=== PATIENT | female | born 1970 | race Caucasian/White ===

== ENCOUNTER 2021-01-06 12:22 | Emergency (ER) | payer MEDICAID, SELFPAY ==
[2021-01-06] VITALS (7 sets, daily range): BP systolic 136–156; BP diastolic 46–59; PULSE 70–76; RESP 17–22; TEMP 36.4; O2SAT 91–98; BMI 61.2
--- NOTE | 2021-01-06 12:32 | XR_ITS ---
WS: [id number] Portable AP upright chest, 01/06/2021 Clinical Data: dyspnea Comparison: None. Findings: No nodules, masses or effusions are seen. The heart is normal. The pulmonary vascularity is not increased. No pneumonia or pneumothorax is seen. XR/XR chest 1V portable [id number] Impression: Negative chest.
--- NOTE | 2021-01-06 12:33 | ECG_ITS ---
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 Measurements Intervals [place] Rate: 69 P: 1 AR: 144 QRS: 27 QRSD: 98 T: 15 QT: 397 QTc: 426 Interpretive Statements SINUS RHYTHM LOW QRS VOLTAGE IN PRECORDIAL LEADS [QRS DEFLECTION < 1.0 mV IN CHEST LEADS] Compared to ECG 02/05/2017 01:20:54 Low QRS voltage now present ST (T wave) deviation no longer present Electronically Signed On 01-07-2021 6:14:49 CDT by Annette Vega M.D. [email or web address].[email or web address]/store/OM/[id number]
--- NOTE | 2021-01-06 12:49 | ED_ITS ---
HPI - SOB/Dyspnea General: Chief Complaint: Shortness of Breath/Dyspnea Stated Complaint: DIFFICULTY BREATHING/ D DIMER ELEVATED Time Seen by Provider: 01/06/21 12:23 History of Present Illness: HPI Narrative: The patient is a 50-year-old female with past medical history COPD comes to the ER complaining of shortness of breath. She was seen in the clinic in [place] and told she had an elevated D-dimer and to come to the ER to rule out a blood clot. She admits feeling increasing shortness of breath for the past couple days as well as nonproductive cough. She says sometimes she gets COPD exacerbations and I do feel like this where she gets steroids and antibiotics. Denies chest pain. MD elicited complaint: shortness of breath and cough Pertinent past history: COPD Severity: moderate Exacerbating factors: exertion and coughing Relieving factors: other (Rest) Known history of: COPD Associated symptoms: Reports cough; Deny abdominal pain, chest pain, dizziness, extremity pain, orthopnea, palpit ations or polyuria Review of Systems General: Reports: 10 or more systems reviewed and unremarkable except in HPI and below Const: Denies: fatigue Eyes: Denies: change in vision, blurry vision or eye redness ENMT: Denies: throat pain, swelling of lips/tongue, ear or mastoid pain or nasal congestion Card: Denies: chest pain, palpitations, irregular heart rhythm, edema, dyspnea on exertion or orthopnea Resp: Denies: dyspnea, productive cough or non-productive cough GI: Denies: abdominal pain, diarrhea or GI cramping : Denies: flank pain, difficulty voiding, urinary frequency or urinary urgency Musc: Denies: neck pain, back pain, extremity pain, joint pain, joint redness, limited range of motion or muscle weakness Skin/Breast: Denies: rash, pruritus, erythema, skin pain or skin tenderness Neuro: Denies: headache(s), numbness in extremities, weakness in extremities, sensory changes, difficulty walking, dizziness, confusion or Slurred speech present Psych: Denies: anxiety or depression Endo: Denies: polyuria All/Imm: Denies: urticaria, throat swelling or tongue swelling Physical Exam Const: COMMON NORMALS: no acute distress, average body habitus, patient oriented x3, no limitations, healthy appearing, alert and well nourished GENERAL APPEARANCE: cooperative, comfortable, well kempt and well developed ORIENTATION/CONSCIOUSNESS: Yes awake, Yes oriented to person, Yes oriented to place and Yes oriented to time HENMT: COMMON NORMALS: normocephalic, external ears normal and Normal external nose present HEAD & SCALP: normal to inspection and normocephalic NOSE: Normal external nose present EXTERNAL EAR: Yes external ears normal MOUTH: Normal oral and palatal mucosa present THROAT: posterior oropharynx normal Eye: COMMON NORMALS: Equal, round and reactive pupils present and EOMs intact bilaterally GENERAL EYE: appearance normal, both eyes and all related structures PUPIL: Yes Equal, round and reactive pupils present Neck/C-Spine: COMMON NORMALS: full ROM, no lymphadenopathy, no meningeal signs and no JVD GENERAL: Yes normal visual inspection Lymph: LYMPHATIC: no lymphadenopathy noted Chest: COMMONS NORMALS: normal inspection of the chest and normal palpation of entire chest wall Resp: COMMON NORMALS: normal respiratory effort, No retractions, No use of accessory muscles, clear to auscultation bilaterally and percussion normal EFFORT & INSPECTION: Yes able to speak in complete sentences AUSCULTATION: clear to auscultation bilaterally PERCUSSION: percussion normal Cardio: COMMON NORMALS: no JVD, regular rate, regular rhythm, S1 normal heart sound present, S2 normal heart sound present and Peripheral pulses 2+ throughout RATE: regular rate RHYTHM: regular rhythm HEART SOUNDS: S1 normal heart sound present and S2 normal heart sound present PERIPHERAL PULSES: Peripheral pulses 2+ throughout GI: COMMON NORMALS: Normal to inspection, nondistended, normoactive bowel sounds present, Soft to palpation, non-tender and no masses INSPECTION: Yes normal to inspection PALPATION: Yes Soft to palpation : COMMON NORMALS: Yes no CVA tenderness BLADDER/KIDNEY EXAM: Yes no CVA tenderness Back/Pelvis: COMMON NORMALS: no CVA tenderness, thoracic and lumbar spine normal to inspection, no thoracic nor lumbar tenderness and thoraco-lumbar ROM normal Extremity: COMMON NORMALS: normal to inspection, full ROM, capillary refill normal, no joint enlargement and no pedal edema GENERAL: Yes normal exam except as noted Neuro: COMMON NORMALS: patient oriented x3, CN's II-XII intact bilaterally, moves all extremities, no focal motor deficits, no sensory deficits noted and gait normal SENSORIUM/ORIENTATION: Yes alert, Yes oriented to person, Yes oriented to place and Yes oriented to time MENINGEAL SIGNS: Yes no meningeal signs Psych: COMMON NORMALS: mental status grossly normal, Normal thought process present, cooperative, normal affect and speech normal APPEARANCE: Yes well kempt ATTITUDE: Yes calm SPEECH: Yes normal speech THOUGHT PROCESS: Normal thought process present Skin: COMMON NORMALS: no rashes or lesions noted GENERAL SKIN EXAM: no rashes or lesions noted Course Vital Signs: Vital signs: Vital Signs Temperature 97.5 F L 01/06/21 12:28 Pulse Rate 74 01/06/21 16:00 Respiratory Rate 19 H 01/06/21 16:00 Blood Pressure 136/57 01/06/21 16:00 Pulse Oximetry 95 01/06/21 16:00 MDM - SOB/Dyspnea MDM Narrative: Medical decision making narrative: Patient came in complaining of shortness of breath and she was called as an outpatient for elevated D-dimer and told to come to the ER and get a CT. CT angiogram had poor contrast bolus timing and could only rule out large pulmonary emboli. Her symptoms are more consistent with COPD exacerbation or bronchitis. She has had increased cough since she had a nosebleed several days ago that likely irritated her bronchi and possibly developed a local infection or exacerbation there. She was given albuterol with improvement of her shortness of breath. Stable for discharge with levofloxacin, Medrol Dosepak, and albuterol. She will return to the ER at anytime with worsening symptoms. Follow-up with primary care physician Sunday for repeat CT angiogram and ER at anytime with worsening symptoms. 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 Lab Data: Labs: Lab Results 01/06/21 01/06/21 01/06/21 Range/Units 12:00 12:00 12:00 WBC 6.3 (4.0-10.0) 10^3/ uL RBC 4.36 (4.1-5.3) 10^6/u L Hgb 11.5 (11.5-15.3) g/dL Hct 37.5 (37.0-47.0) % MCV 86.0 (81-99) fL MCH 26.4 L (28.0-34.0) pg MCHC 30.7 (30.0-36.0) g/dL RDW 18.5 H (12.1-15.1) % Plt Count 152 (130-400) 10^3/c mm MPV Not Reportable Neut % (Auto) 60.3 % Lymph % (Auto) 27.2 % Carson % (Auto) 9.3 % Eos % (Auto) 2.1 % Baso % (Auto) 0.6 % Neut # (Auto) 3.78 (1.8-7.7) 10^3/u L Lymph # (Auto) 1.7 (0.8-4.8) 10^3/u L Carson # (Auto) 0.6 (0.2-0.9) 10^3/u L Eos # (Auto) 0.1 (0.0-0.8) 10^3/u L Baso # (Auto) 0.0 (0.0-0.1) 10^3/u L Nucleated RBC % (a uto) 0 % Nucleated RBCs # 0.0 /100WBC D-Dimer (0-0.59) ug/mIFE U Sodium 137 (136-145) mmol/L Potassium 4.0 (3.5-5.1) mmol/L Chloride 100 (98-107) mmol/L Carbon Dioxide 26 (22-29) mmol/L Anion Gap 15.0 (5-19) BUN 13 (6-20) mg/dL Creatinine 0.6 (0.5-0.9) mg/dL GFR Calculation 105.8 (90-130) mL/min Glucose 153 H (65-115) mg/dL Calculated Osmolal ity 287 (285-295) mOsm/k g Lactate (0.5-2.2) mmol/L Calcium 9.1 (8.5-10.5) mg/dL Total Bilirubin 0.8 (0.15-1.2) mg/dL AST 49 H (0-32) U/L ALT 33 (0-33) U/L Alkaline Phosphata se 102 (35-105) IU/L Troponin T Baselin e 9 (0-10) ng/L Troponin T 120 Min [place] (0-10) ng/L Delta Troponin T (0-10) ABS# NT-Pro-B Natriuret Pep 271 H (0-125) pg/mL Total Protein 6.5 L (6.6-8.7) g/dL Albumin 3.7 (3.5-5.2) g/dL Globulin 2.8 (1.3-4.6) g/dL Urine Color (Yellow) Urine Appearance (CLEAR) Urine pH (5-7) Ur Specific Gravit y (1.005-1.030) Urine Protein (Negative) Urine Glucose (UA) (Normal) Urine Ketones (Negative) Urine Blood (Negative) Urine Nitrate (Negative) Urine Bilirubin (Negative) Prot Sulfosalicyli c Acd (Negative) Urine Urobilinogen (Negative) mg/dL Ur Leukocyte Hoda ase (Negative) 01/06/21 01/06/21 01/06/21 Range/Units 13:28 13:28 13:34 WBC (4.0-10.0) 10^3/ uL RBC (4.1-5.3) 10^6/u L Hgb (11.5-15.3) g/dL Hct (37.0-47.0) % MCV (81-99) fL MCH (28.0-34.0) pg MCHC (30.0-36.0) g/dL RDW (12.1-15.1) % Plt Count (130-400) 10^3/c mm MPV Neut % (Auto) % Lymph % (Auto) % Carson % (Auto) % Eos % (Auto) % Baso % (Auto) % Neut # (Auto) (1.8-7.7) 10^3/u L Lymph # (Auto) (0.8-4.8) 10^3/u L Carson # (Auto) (0.2-0.9) 10^3/u L Eos # (Auto) (0.0-0.8) 10^3/u L Baso # (Auto) (0.0-0.1) 10^3/u L Nucleated RBC % (a uto) % Nucleated RBCs # /100WBC D-Dimer 0.88 H (0-0.59) ug/mIFE U Sodium (136-145) mmol/L Potassium (3.5-5.1) mmol/L Chloride (98-107) mmol/L Carbon Dioxide (22-29) mmol/L Anion Gap (5-19) BUN (6-20) mg/dL Creatinine (0.5-0.9) mg/dL GFR Calculation (90-130) mL/min Glucose (65-115) mg/dL Calculated Osmolal ity (285-295) mOsm/k g Lactate 1.8 (0.5-2.2) mmol/L Calcium (8.5-10.5) mg/dL Total Bilirubin (0.15-1.2) mg/dL AST (0-32) U/L ALT (0-33) U/L Alkaline Phosphata se (35-105) IU/L Troponin T Baselin e (0-10) ng/L Troponin T 120 Min [place] (0-10) ng/L Delta Troponin T (0-10) ABS# NT-Pro-B Natriuret Pep (0-125) pg/mL Total Protein (6.6-8.7) g/dL Albumin (3.5-5.2) g/dL Globulin (1.3-4.6) g/dL Urine Color Straw (Yellow) Urine Appearance Clear (CLEAR) Urine pH 8 H (5-7) Ur Specific Gravit y 1.010 (1.005-1.030) Urine Protein Neg (Negative) Urine Glucose (UA) 2+ (Normal) Urine Ketones Negative (Negative) Urine Blood Neg (Negative) Urine Nitrate Negative (Negative) Urine Bilirubin Neg (Negative) Prot Sulfosalicyli c Acd Negative (Negative) Urine Urobilinogen Norm (Negative) mg/dL Ur Leukocyte Hoda ase Negative (Negative) 01/06/21 Range/Units 14:31 WBC (4.0-10.0) 10^3/ uL RBC (4.1-5.3) 10^6/u L Hgb (11.5-15.3) g/dL Hct (37.0-47.0) % MCV (81-99) fL MCH (28.0-34.0) pg MCHC (30.0-36.0) g/dL RDW (12.1-15.1) % Plt Count (130-400) 10^3/c mm MPV Neut % (Auto) % Lymph % (Auto) % Carson % (Auto) % Eos % (Auto) % Baso % (Auto) % Neut # (Auto) (1.8-7.7) 10^3/u L Lymph # (Auto) (0.8-4.8) 10^3/u L Carson # (Auto) (0.2-0.9) 10^3/u L Eos # (Auto) (0.0-0.8) 10^3/u L Baso # (Auto) (0.0-0.1) 10^3/u L Nucleated RBC % (a uto) % Nucleated RBCs # /100WBC D-Dimer (0-0.59) ug/mIFE U Sodium (136-145) mmol/L Potassium (3.5-5.1) mmol/L Chloride (98-107) mmol/L Carbon Dioxide (22-29) mmol/L Anion Gap (5-19) BUN (6-20) mg/dL Creatinine (0.5-0.9) mg/dL GFR Calculation (90-130) mL/min Glucose (65-115) mg/dL Calculated Osmolal ity (285-295) mOsm/k g Lactate (0.5-2.2) mmol/L Calcium (8.5-10.5) mg/dL Total Bilirubin (0.15-1.2) mg/dL AST (0-32) U/L ALT (0-33) U/L Alkaline Phosphata se (35-105) IU/L Troponin T Baselin e (0-10) ng/L Troponin T 120 Min [place] 8.48 (0-10) ng/L Delta Troponin T -0.52 L (0-10) ABS# NT-Pro-B Natriuret Pep (0-125) pg/mL Total Protein (6.6-8.7) g/dL Albumin (3.5-5.2) g/dL Globulin (1.3-4.6) g/dL Urine Color (Yellow) Urine Appearance (CLEAR) Urine pH (5-7) Ur Specific Gravit y (1.005-1.030) Urine Protein (Negative) Urine Glucose (UA) (Normal) Urine Ketones (Negative) Urine Blood (Negative) Urine Nitrate (Negative) Urine Bilirubin (Negative) Prot Sulfosalicyli c Acd (Negative) Urine Urobilinogen (Negative) mg/dL Ur Leukocyte Hoda ase (Negative) Discharge Plan Discharge Patient Disposition: Home Clinical Impression: Acute exacerbation of chronic obstructive airways disease Condition: Stable Prescriptions: New levofloxacin 750 mg tablet 750 mg PO DAILY 10 Days RF: 0 Medrol (Dante) 4 mg tablets,dose pack See Rx Instructions .ROUTE .COMPLEX Qty: 21 RF: 0 albuterol sulfate 90 mcg/actuation HFA aerosol inhaler 2 inh inhalation Q6H PRN (Reason: shortness of breath or wheezing) 30 Days RF: 0 No Action pregabalin 200 mg capsule 200 mg PO TID RF: 0 Trulicity 3 mg/0.5 mL pen injector 3 mg SUBCUT Q7D RF: 0 Advair Diskus 1 inh inhalation BID RF: 0 cyclobenzaprine 10 mg tablet 10 mg PO TID PRN (Reason: MUSCLE SPASMS) RF: 0 Synthroid 175 mcg tablet 175 mcg PO DAILY RF: 0 atorvastatin 80 mg tablet 80 mg PO DAILY RF: 0 pioglitazone 45 mg tablet 45 mg PO DAILY RF: 0 liothyronine 5 mcg tablet 10 mcg PO BID RF: 0 metformin 1,000 mg tablet 1,000 mg PO BID RF: 0 montelukast 10 mg tablet 10 mg PO DAILY RF: 0 furosemide 20 mg tablet 20 mg PO DAILY RF: 0 ProAir HFA 90 mcg/actuation HFA aerosol inhaler 2 puff INHALATION Q6H PRN (Reason: Shortness Of Breath) RF: 0 lisinopril 2.5 mg tablet 2.5 mg PO DAILY RF: 0 Prozac See Rx Instructions .ROUTE .COMPLEX RF: 0 Vitamin D3 1 tab PO DAILY RF: 0 iron 325 mg PO DAILY RF: 0 Discharge Orders: Discharge ED (Routine); Ordered 01/06/21 Ordered By: Jewel Arreola Discharge Diet: Advance as tolerated Discharge Activity: Resume usual activity Patient Instructions: Chronic Obstructive Pulmonary Disease (ED), Opioid Safety Activity Restrictions/Additional Instructions: The CT angiogram does not show any large pulmonary emboli. The contrast did not get to the smaller arteries to rule out smaller pulmonary emboli. Your symptoms are more consistent with a COPD exacerbation if increased productive cough and will be treated as such. Please take the steroids, antibiotics, and albuterol to help with your symptoms. Return to the ER at anytime with worsening symptoms or shortness of breath. Please use a pulse oximeter at home to monitor your oxygen level and return if it goes below 92 or you are short of breath at any time. Please follow-up with your primary care physician Sunday and get a repeat CT angiogram of your chest to look at the rest of the arteries for pulmonary emboli. Coding Level of Care Code ED Lab Asst for Chg Fwd Exam Comprehensive
[2021-01-06 13:04] LABS: Basophils % 0.6 %; Eosinophils # 0.1 10^3/uL (0.0-0.8); Eosinophils % 2.1 %; Hematocrit 37.5 % (37.0-47.0); Hemoglobin 11.5 g/dL (11.5-15.3); Lymphocytes # 1.7 10^3/uL (0.8-4.8); Lymphocytes % 27.2 %; Mean Corpuscular HGB Conc 30.7 g/dL (30.0-36.0); Mean Corpuscular Hemoglobin 26.4 pg (28.0-34.0); Monocytes # 0.6 10^3/uL (0.2-0.9); Monocytes % 9.3 %; Neutrophils # 3.78 10^3/uL (1.8-7.7); Neutrophils % 60.3 %; Nucleated Red Blood Cells % 0 %; Platelet Count 152 10^3/cmm (130-400); Red Blood Count 4.36 10^6/uL (4.1-5.3); Red Cell Distribution Width 18.5 % (12.1-15.1); White Blood Count 6.3 10^3/uL (4.0-10.0)
[2021-01-06] MEDS: ipratropium-albuterol 3 mL Neb INHALATION (13:20)
[2021-01-06 13:45] LABS: Alanine Aminotransferase 33 U/L (0-33); Albumin Level 3.7 g/dL (3.5-5.2); Alkaline Phosphatase 102 IU/L (35-105); Aspartate Amino Transferase 49 U/L (0-32); Blood Urea Nitrogen 13 mg/dL (6-20); Calcium 9.1 mg/dL (8.5-10.5); Carbon Dioxide 26 mmol/L (22-29); Chloride 100 mmol/L (98-107); Globulin 2.8 g/dL (1.3-4.6); Glomerular Filtration Rate 105.8 mL/min (90-130); Glucose 153 mg/dL (65-115); NT Pro B Type Natriuretic Pept 271 pg/mL (0-125); Osmolality Calculated 287 mOsm/kg (285-295); Sodium 137 mmol/L (136-145); Total Bilirubin 0.8 mg/dL (0.15-1.2); Total Protein 6.5 g/dL (6.6-8.7)
[2021-01-06 13:48] LABS: Slide Review Slide Review Perform
--- NOTE | 2021-01-06 13:49 | CT_ITS ---
WS: [id number] CT CHEST ANGIOGRAPHY WITH REFORMATS HISTORY: dyspnea. elevated d dimer TECHNIQUE: Contiguous axial images are obtained through the chest during arterial injection of intrav enous contrast. Images are reconstructed to evaluate the pulmonary arteries. MIP imaging also reviewe d. All CT scans at [facility] use at least one of these dose optimization techniques: aut omated exposure control; mA and/or kV adjustment per patient size (includes targeted exams where dose is matched to clinical indication); or iterative reconstruction. CONTRAST: Omnipaque 350; 95 mL IV. DLP: 602.1 mGy.cm COMPARISON: None available. Suboptimal opacification of pulmonary arteries secondary to body habitus. There is significant artifa ct through the chest. No large occlusive pulmonary emboli are noted through the lobar branches and po rtions of the subsegmental branches. Segmental and distal pulmonary emboli cannot be excluded. Pulmon mara artery size is normal. Mild enlargement of the LEFT heart chambers without RIGHT heart strain. Mary ngs are clear. No pneumonia. No pericardial or pleural effusion. No adenopathy. Hepatic steatosis. Upper abdominal soft tissues are poorly visualized due to body habitus. CT/CT angio chest PE protcl [id number] IMPRESSION: 1. Quality of this examination is significantly limited by body habitus. 2. No central pulmonary embolism. 3. No pneumonia.
[2021-01-06 13:53] LABS: Add Urine Microscopic? NO; Charge for UA Resulting for Rev
[2021-01-06 13:55] LABS: Bilirubin Urine Neg (Negative); Blood Urine Neg (Negative); Glucose Urine UA 2+ (Normal); Ketones Urine Negative (Negative); Leukocyte Esterase Urine Negative (Negative); Nitrate Urine Negative (Negative); Protein Urine Neg (Negative); Sulfosalicylic Acid Urine Negative (Negative); Urine Appearance Clear (CLEAR); Urine Color Straw (Yellow); Urobilinogen Urine Norm (Negative); pH Urine 8 (5-7)
[2021-01-06 13:57] LABS: Lactate (Lactic Acid level) 1.8 mmol/L (0.5-2.2)
[2021-01-06 14:12] LABS: Troponin(5th) Baseline 9 ng/L (0-10)
[2021-01-06 14:23] LABS: D Dimer 0.88 ug/mIFEU (0-0.59)
--- NOTE | 2021-01-06 14:33 | ECG_ITS ---
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 Measurements Intervals [place] Rate: 75 P: 50 HI: 169 QRS: 13 QRSD: 106 T: 29 QT: 395 QTc: 442 Interpretive Statements SINUS RHYTHM LOW QRS VOLTAGE IN PRECORDIAL LEADS [QRS DEFLECTION < 1.0 mV IN CHEST LEADS] Compared to ECG 01/06/2021 12:46:45 No significant changes Electronically Signed On 01-07-2021 6:36:19 CDT by Annette Vega M.D. [id number]
[2021-01-06 15:07] LABS: Troponin 5 2HR 8.48 ng/L (0-10)
[2021-01-06 15:11] LABS: Troponin 5 2HR Delta -0.52 ABS# (0-10)
[2021-01-06] MEDS: iohexol 350 mg/mL 100 mL Btl IV (15:44)
[2021-01-06] MEDS: dexamethasone 10 mg/mL INJ IVP (16:38)
[2021-01-06] MEDS: levoFLOXacin 750 mg Tablet PO (16:38)
== END 2021-01-06 16:48 | disposition home or self-care (01) ==
PROVIDERS: Emergency Provider Family Medicine
DX: J44.1 Chronic obstructive pulmonary disease with (acute) exacerbation (principal); Z79.84 Long term (current) use of oral hypoglycemic drugs
CPT/HCPCS: 36415; 71045; 71275; 80053; 81003; 83605; 83880; 84484; 85025; 85378; 93005; 94640; 96374; 99284; J1100; Q9967

== ENCOUNTER → 2021-02-24 13:26 | Outpatient (BNVA) | payer MEDICAID, SELFPAY | PROVIDERS: PCP Family Medicine; Visit Provider Family Medicine | DX: E11.9 Type 2 diabetes mellitus without complications (principal); E03.9 Hypothyroidism, unspecified | CPT/HCPCS: 80053; 83036; 84439; 84443; 84480; 85025 ==

== ENCOUNTER → 2021-03-28 11:59 | Outpatient (BNVA) | payer MEDICAID, SELFPAY | PROVIDERS: PCP Family Medicine; Visit Provider Surgery | DX: K63.5 Polyp of colon (principal); Z20.822 Contact with and (suspected) exposure to COVID-19 | CPT/HCPCS: 87635 ==

== ENCOUNTER 2021-04-01 06:45 | Day surgery (SDC) | payer MEDICAID, SELFPAY ==
[2021-03-28 13:51] VITALS: BMI 59.2
--- NOTE | 2021-04-01 07:10 | ANES.PREANE2 ---
Pre-Anesthetic Assessment Pre-Anesthetic Assessment: Height/Weight: Height 1.57 m Weight 146.964 kg Preop Diagnosis: screening Proposed Procedure: Operation Date: 04/01/21 08:30 Proposed Procedures p Colonoscopy 63923 K63.5(Not Applicable) - Tom Ricardo MD Familial anesthetic complications: None Was Beta Rachael taken within 24 hours: Yes Was Clonidine taken within 24 hours: N/A Last intake: NPO > 8 hrs Social: Social History: No alcohol and No tobacco Exam: Pre-Anes Outpt Exam: alert, oriented x 3, clear to auscultation bilaterally and regular rate & rhythm Airway: Cervical ROM: WNL MP: 3 Dentition: False (tops) Additional comments: large tongue, large neck circumference Pulmonary: Pulmonary: COPD (former smoker - quit in november, not on oxygen, took advair this A.M.) and Sleep apnea CV/HEM: CV/HEM: CAD (2 years ago on ASA -quit on sunday) and HTN Hepatic: Comments: fatty liver Metabolic: Metabolic: DM, Hyperlipidemia, Morbid obesity and Thyroid Anesthetic Plan: ASA status: 4 Anesthesia: MAC Risk of > 500 ml blood loss (7ml/kg in children): No Other Pertinent Information: Super MO - Recommend procedure in Room 3 PFSH Anesthesia PFSH: Medical History (Updated 03/24/21 @ 12:53 by Bridget Everett DO) Acquired hypothyroidism Anxiety Cataract, right eye Colon polyps COPD (chronic obstructive pulmonary disease) Depression Diabetic neuropathy [place] (obstructive sleep apnea) Type 2 diabetes mellitus, without long-term current use of insulin Surgical History History of colonoscopy with polypectomy History of coronary artery stent placement History of hand surgery Bilateral carpal tunnel History of total hysterectomy Social History Smoking and tobacco status: former smoker Alcohol intake: never Data Anesthesia Cardiac Studies: No Data to Display
--- NOTE | 2021-04-01 07:28 | W.PM.OPSUD ---
Surgery/Procedure H&P Update DATE OF PROCEDURE: April 01, 2021 DATE H&P PERFORMED: 03/18/21 H&P UPDATE INFORMATION: I have reviewed H&P completed within last 30 days, I have examined patient prior to procedure and No changes to prior documentation PREOP DIAGNOSIS: screening colonoscopy PLANNED PROCEDURE: Operation Date: 04/01/21 08:30 Proposed Procedures p Colonoscopy 81828 K63.5(Not Applicable) - Tom Ricardo MD
[2021-04-01 07:36] VITALS: BP 147/74; PULSE 82; RESP 22; TEMP 36.7; O2SAT 94
[2021-04-01] MEDS: sodium chloride 0.9% 1,000 ML 30 ML IV (07:40)
[2021-04-01 07:48] LABS: Glucose Point of Care 151 mg/dL (70-110)
--- NOTE | 2021-04-01 09:12 | ANE.PACU2 ---
Inpatient post-anesthesia follow up: Airway intact: Yes Vital signs: Temperature 98.0 F Pulse Rate 82 Respiratory Rate 22 Blood Pressure 147/74 Pulse Oximetry 94 Oxygen Delivery Me thod Room Air Oxygen Flow Rate Fraction of Inspir ed Oxygen Hydration adequate: Yes Nausea and vomiting: No Pain level: 1 Mental status: Baseline
[2021-04-01 09:14] VITALS: BP 122/68; PULSE 79; RESP 18; TEMP 37.1; O2SAT 96
[2021-04-01 09:25] VITALS: BP 127/80; PULSE 79; RESP 18; O2SAT 100
--- NOTE | 2021-04-01 12:23 | ANE.PACU2 ---
Inpatient post-anesthesia follow up: Airway intact: Yes Vital signs: Temperature 98.8 F Pulse Rate 79 Respiratory Rate 18 Blood Pressure 127/80 Pulse Oximetry 100 Oxygen Delivery Me thod Room Air Oxygen Flow Rate Fraction of Inspir ed Oxygen Hydration adequate: Yes Nausea and vomiting: No Pain level: 1 Mental status: Baseline
== END 2021-04-01 09:45 | disposition home or self-care (01) ==
PROVIDERS: PCP Family Medicine; Visit Provider Surgery
PROC: 0DJD8ZZ Inspection of Lower Intestinal Tract, Via Natural or Artificial Opening Endoscopic (ICD-10-PCS; CPT 45378; principal; 2021-04-01 08:30)
DX: Z12.11 Encounter for screening for malignant neoplasm of colon (principal); D12.5 Benign neoplasm of sigmoid colon; J44.9 Chronic obstructive pulmonary disease, unspecified; Z87.891 Personal history of nicotine dependence; I25.10 Atherosclerotic heart disease of native coronary artery without angina pectoris; Z79.82 Long term (current) use of aspirin; E78.5 Hyperlipidemia, unspecified; E66.01 Morbid (severe) obesity due to excess calories; Z68.43 Body mass index [BMI] 50.0-59.9, adult; E03.9 Hypothyroidism, unspecified; E11.40 Type 2 diabetes mellitus with diabetic neuropathy, unspecified; Z79.4 Long term (current) use of insulin
CPT/HCPCS: 36416; 45380; 82962; 88305; 96360; 96361; J2704; J7030

== ENCOUNTER → 2021-04-21 13:02 | Outpatient (BNVA) | payer MEDICAID, SELFPAY | PROVIDERS: PCP Family Medicine; Referring Provider Family Medicine; Visit Provider Internal Medicine | DX: E11.3393 Type 2 diabetes mellitus with moderate nonproliferative diabetic retinopathy without macular edema, bilateral (principal); E11.42 Type 2 diabetes mellitus with diabetic polyneuropathy; E11.59 Type 2 diabetes mellitus with other circulatory complications; E03.9 Hypothyroidism, unspecified; R63.5 Abnormal weight gain; Z79.4 Long term (current) use of insulin; Z87.891 Personal history of nicotine dependence | CPT/HCPCS: 99205 ==

== ENCOUNTER 2021-04-25 16:03 | Outpatient (CLI) | payer MEDICAID, SELFPAY ==
[2021-04-25 16:50] LABS: Basophils % 0.8 %; Eosinophils # 0.2 10^3/uL (0.0-0.8); Eosinophils % 2.8 %; Hematocrit 36.6 % (37.0-47.0); Hemoglobin 11.1 g/dL (11.5-15.3); Lymphocytes # 1.7 10^3/uL (0.8-4.8); Mean Corpuscular HGB Conc 30.3 g/dL (30.0-36.0); Mean Corpuscular Hemoglobin 25.8 pg (28.0-34.0); Mean Corpuscular Volume 84.9 fl (81-99); Mean Platelet Volume 12.1 fL (7.4-10.4); Monocytes # 0.4 10^3/uL (0.2-0.9); Monocytes % 8.1 %; Neutrophils % 54.9 %; Nucleated Red Blood Cells % 0 %; Platelet Count 140 10^3/cmm (130-400); Red Blood Count 4.31 10^6/uL (4.1-5.3); Red Cell Distribution Width 17.1 % (12.1-15.1); White Blood Count 5.3 10^3/uL (4.0-10.0)
[2021-04-25 17:25] LABS: Slide Review Slide Review Perform
[2021-04-25 17:48] LABS: Creatinine Urine, Random 53 mg/dL (28-217)
[2021-04-25 18:10] LABS: 25 Hydroxy Vitamin D 44 ng/mL (30-100); Ferritin 93 ng/mL (15-150); Iron 47 ug/dL (37-145); Percent Saturation 12.3 % (20-50); Thyroid Stimulating Hormone 0.03 uIU/mL (0.27-4.20); Total Iron Binding Capacity 382 mcg/dl; Unsaturated Iron Binding 335 ug/dL (112-347)
[2021-04-25 21:32] LABS: Free T4 Free Thyroxine 1.38 ng/dL (0.82-1.77)
[2021-04-27 22:33] LABS: T3 Total 128 ng/dL (76-181)
== END 2021-04-25 16:04 | disposition home or self-care (01) ==
PROVIDERS: Internal Medicine; PCP Family Medicine; Visit Provider Family Medicine
DX: E55.9 Vitamin D deficiency, unspecified (principal); D64.9 Anemia, unspecified; D50.9 Iron deficiency anemia, unspecified; E03.9 Hypothyroidism, unspecified; E11.3393 Type 2 diabetes mellitus with moderate nonproliferative diabetic retinopathy without macular edema, bilateral; E11.42 Type 2 diabetes mellitus with diabetic polyneuropathy; E11.59 Type 2 diabetes mellitus with other circulatory complications; R63.5 Abnormal weight gain; Z79.4 Long term (current) use of insulin
CPT/HCPCS: 36415; 82306; 82575; 82728; 83540; 83550; 84439; 84443; 84480; 85025

== ENCOUNTER 2021-04-27 16:41 | Outpatient (CLI) | payer MEDICAID, SELFPAY ==
[2021-04-27 18:42] LABS: Urine Creatinine 43 mg/dL (28-217)
[2021-04-27 18:54] LABS: Total Volume Urine 3100 ml
[2021-05-03 13:31] LABS: Free Cortisol Urine 20.3 mcg/24 h (4.0-50.0); Total Urine 3000 mL; Urine Creatinine 1.41 g/24 h (0.50-2.15)
== END 2021-04-27 16:42 | disposition home or self-care (01) ==
LOC: LAB 16:43
PROVIDERS: PCP Family Medicine; Visit Provider Internal Medicine
DX: E03.9 Hypothyroidism, unspecified (principal); E11.3393 Type 2 diabetes mellitus with moderate nonproliferative diabetic retinopathy without macular edema, bilateral; E11.42 Type 2 diabetes mellitus with diabetic polyneuropathy; E11.59 Type 2 diabetes mellitus with other circulatory complications; R63.5 Abnormal weight gain; Z79.4 Long term (current) use of insulin
CPT/HCPCS: 82530; 82570

== ENCOUNTER → 2021-05-12 11:47 | Outpatient (BNVA) | payer MEDICAID, SELFPAY | PROVIDERS: PCP Family Medicine; Visit Provider Family Medicine | DX: M25.50 Pain in unspecified joint (principal); Z13.6 Encounter for screening for cardiovascular disorders | CPT/HCPCS: 80053; 85025; 85651; 86038; 86140; 86431 ==

== ENCOUNTER → 2021-05-29 15:23 | Outpatient (BNVA) | payer MEDICAID, SELFPAY | PROVIDERS: PCP Family Medicine; Visit Provider Family Medicine | DX: R05.9 Cough, unspecified (principal); Z20.822 Contact with and (suspected) exposure to COVID-19 | CPT/HCPCS: 87400; 87635 ==

== ENCOUNTER → 2021-06-08 13:23 | Outpatient (BNVA) | payer MEDICAID, SELFPAY | PROVIDERS: PCP Family Medicine; Visit Provider Internal Medicine | DX: R76.8 Other specified abnormal immunological findings in serum (principal); M25.50 Pain in unspecified joint; R70.0 Elevated erythrocyte sedimentation rate; D50.8 Other iron deficiency anemias; Z11.59 Encounter for screening for other viral diseases; E66.9 Obesity, unspecified; Z68.43 Body mass index [BMI] 50.0-59.9, adult; Z87.891 Personal history of nicotine dependence | CPT/HCPCS: 99204 ==

== ENCOUNTER 2021-06-10 12:25 | Outpatient (CLI) | payer MEDICAID, SELFPAY ==
--- NOTE | 2021-06-10 12:29 | XR_ITS ---
WS: [id number] Exam: XR hand RT 2V [id number] Date/Time of Exam: 06/10/2021 12:29 PM Reason For Exam: D50.8 - Other iron deficiency anemias No fracture or dislocation. No bone destruction. Mild DJD in the IP joints. Normal soft tissues. XR/XR hand RT 2V 22863 IMPRESSION: 1. Mild DJD.
--- NOTE | 2021-06-10 12:29 | XR_ITS ---
WS: [id number] Exam: XR knee RT 1-2V 11283 Date/Time of Exam: 06/10/2021 12:29 PM Reason For Exam: M25.50 - Pain in unspecified joint No fracture or dislocation noted. Articular relationships are intact. No joint effusion. XR/XR knee RT 1-2V 97192 Impression: Normal right knee Kellgren-Juan Carlos Classification: 0
--- NOTE | 2021-06-10 12:29 | XR_ITS ---
WS: [id number] Exam: XR knee LT 1-2V [id number] Date/Time of Exam: 06/10/2021 1:06 PM Reason For Exam: M25.50 - Pain in unspecified joint No fracture or dislocation noted. Articular relationships are intact. No joint effusion. XR/XR knee LT 1-2V 50786 Impression: Normal left knee Kellgren-Juan Carlos Classification: 0
--- NOTE | 2021-06-10 12:29 | XR_ITS ---
WS: [id number] Exam: XR hand LT 2V [id number] Date/Time of Exam: 06/10/2021 12:29 PM Reason For Exam: D50.8 - Other iron deficiency anemias No fracture or dislocation. Minimal degenerative change of the IP joints. Vascular calcifications not ed along the radius. XR/XR hand LT 2V 53288 IMPRESSION: 1. Mild DJD.
--- NOTE | 2021-06-10 12:29 | XR_ITS ---
WS: [id number] SACROILIAC JOINTS TECHNIQUE: AP and oblique imaging is submitted. HISTORY: L40.9 - Psoriasis, unspecified COMPARISON: None available. Normal appearance of the SI joints with no sclerosis or erosions. No bone destruction. No soft tissue abnormality. XR/XR sacroiliac jts m 3V [id number] IMPRESSION: Normal SI joints.
[2021-06-10 13:49] LABS: Basophils % 0.5 %; Eosinophils # 0.1 10^3/uL (0.0-0.8); Eosinophils % 1.8 %; Hematocrit 42.6 % (37.0-47.0); Hemoglobin 13.4 g/dL (11.5-15.3); Lymphocytes # 2.3 10^3/uL (0.8-4.8); Lymphocytes % 30.4 %; Mean Corpuscular HGB Conc 31.5 g/dL (30.0-36.0); Mean Corpuscular Volume 82.6 fl (81-99); Monocytes # 0.6 10^3/uL (0.2-0.9); Monocytes % 8.1 %; Neutrophils # 4.35 10^3/uL (1.8-7.7); Neutrophils % 58.9 %; Nucleated Red Blood Cells % 0 %; Platelet Count 166 10^3/cmm (130-400); Red Blood Count 5.16 10^6/uL (4.1-5.3); Red Cell Distribution Width 17.6 % (12.1-15.1); White Blood Count 7.4 10^3/uL (4.0-10.0)
[2021-06-10 13:51] LABS: Add Urine Microscopic? YES; Bilirubin Urine Neg (Negative); Blood Urine Neg (Negative); Glucose Urine UA 4+ (Normal); Ketones Urine Negative (Negative); Leukocyte Esterase Urine 1+ (Negative); Nitrate Urine Negative (Negative); Protein Urine Neg (Negative); Urine Appearance Clear (CLEAR); Urine Color Straw (Yellow); Urobilinogen Urine Norm (Negative); pH Urine 7 (5-7)
[2021-06-10 14:10] LABS: Add Urine Culture? No; Bacteria Urine TRACE /hpf; Squamous Epithelial Cell Urine 0-4 /hpf (0-5); WBC Urine 0-4 /hpf (0-5)
[2021-06-10 14:17] LABS: Slide Review Slide Review Perform
[2021-06-10 14:21] LABS: 25 Hydroxy Vitamin D 39 ng/mL (30-100); Alanine Aminotransferase 61 U/L (0-33); Albumin Level 3.8 g/dL (3.5-5.2); Alkaline Phosphatase 117 IU/L (35-105); Anion Gap 14.4 (5-19); Aspartate Amino Transferase 46 U/L (0-32); Blood Urea Nitrogen 8 mg/dL (6-20); C Reactive Protein 2.9 mg/L (0.0-4.9); Calcium 8.8 mg/dL (8.5-10.5); Carbon Dioxide 28 mmol/L (22-29); Chloride 97 mmol/L (98-107); Creatine Phosphokinase 88 U/L (26-192); Ferritin 98 ng/mL (15-150); Globulin 3.1 g/dL (1.3-4.6); Glomerular Filtration Rate 88.2 mL/min (90-130); Glucose 203 mg/dL (65-115); Iron 57 ug/dL (37-145); Magnesium 1.7 mg/dL (1.7-2.3); Osmolality Calculated 284 mOsm/kg (285-295); Phosphorus 3.3 mg/dL (2.5-4.5); Potassium 4.4 mmol/L (3.5-5.1); Sodium 135 mmol/L (136-145); Thyroid Stimulating Hormone 0.14 uIU/mL (0.27-4.20); Total Bilirubin 0.8 mg/dL (0.15-1.2); Total Protein 6.9 g/dL (6.6-8.7); Vitamin B12 512 pg/mL (232-1245)
[2021-06-10 14:25] LABS: Hepatitis B Core AB, Total Non-Reactive (Nonreactive); Hepatitis B Surface Antigen Non-Reactive (Nonreactive); Hepatitis C Virus Antibody Non-Reactive (Nonreactive)
[2021-06-10 14:38] LABS: Complement C3 152 mg/dL (90-180)
[2021-06-13 11:52] LABS: COMPLEMENT COMPONENT C3C 165 mg/dL (83-193); COMPLEMENT COMPONENT C4C 30 mg/dL (15-57)
[2021-06-13 12:07] LABS: Erythrocyte Sedimentation Rate 25 mm/hr (0-15)
[2021-06-13 13:25] LABS: Cyclic Citrullinated Peptide <16 UNITS
[2021-06-13 14:32] LABS: THYROID PEROXIDASE ANTIBODIES 101 IU/mL (<9)
[2021-06-13 15:07] LABS: COMPLEMENT, TOTAL (CH50) >60 U/mL (31-60)
[2021-06-13 17:01] LABS: CENTROMERE B ANTIBODY <1.0 NEG AI (<1.0 NEG); JO-1 ANTIBODY <1.0 NEG AI (<1.0 NEG); RNP ANTIBODY <1.0 NEG AI (<1.0 NEG); SCL-70 ANTIBODY <1.0 NEG AI (<1.0 NEG); SJOGREN'S ANTIBODY (SS-A) <1.0 NEG AI (<1.0 NEG); SM ANTIBODY <1.0 NEG AI (<1.0 NEG); SS-B <1.0 NEG AI (<1.0 NEG)
[2021-06-14 12:32] LABS: ANA PATTERN Nuclear, Speckled; ANA SCREEN, IFA POSITIVE (NEGATIVE); ANA TITER 1:40 titer
[2021-06-17 13:01] LABS: DNA AB (DS) CRITHIDIA,IFA NEGATIVE (NEGATIVE)
== END 2021-06-10 12:26 | disposition home or self-care (01) ==
PROVIDERS: PCP Family Medicine; Visit Provider Internal Medicine
DX: D50.8 Other iron deficiency anemias (principal); M25.50 Pain in unspecified joint; L40.9 Psoriasis, unspecified; M79.7 Fibromyalgia; Z11.59 Encounter for screening for other viral diseases
CPT/HCPCS: 72202; 73120; 73560; 80053; 81001; 82306; 82550; 82607; 82728; 83540; 83735; 84100; 84443; 85025; 85651; 86140; 86160; 86162; 86200; 86235; 86255; 86376; 86431; 86704; 86803; 87340

== ENCOUNTER 2021-06-14 09:38 | Outpatient (CLI) | payer MEDICAID, SELFPAY ==
[2021-06-14 10:31] LABS: Free T4 Free Thyroxine 1.36 ng/dL (0.82-1.77); Thyroid Stimulating Hormone 0.13 uIU/mL (0.27-4.20)
[2021-06-15 11:31] LABS: T3 Total 114 ng/dL (76-181)
== END 2021-06-14 09:39 | disposition home or self-care (01) ==
LOC: LAB 09:42
PROVIDERS: PCP Family Medicine; Visit Provider Internal Medicine
DX: E03.9 Hypothyroidism, unspecified (principal); E11.3393 Type 2 diabetes mellitus with moderate nonproliferative diabetic retinopathy without macular edema, bilateral; Z79.4 Long term (current) use of insulin
CPT/HCPCS: 36415; 84439; 84443; 84480

== ENCOUNTER 2021-07-04 07:51 | Outpatient (CLI) | payer MEDICAID, SELFPAY ==
[2021-07-04 09:06] VITALS: BMI 58.8
--- NOTE | 2021-07-04 09:14 | ECG_ITS ---
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 Interpretive Statements NAME OF STUDY: LEXISCAN SESTAMIBI STRESS TEST INDICATION: Chest Pain, PROCEDURE: At the baseline, the EKG revealed normal sinus rhythm with a rate of 78 bpm. Heavy baseline artifact. No significant ST-T changes. The baseline blood pressure was 120/51 mm Hg with a heart rate of 78 beats/min. Lexiscan was infused over a period of 20 seconds. A total of 0.4 milligrams of Lexiscan was infused. The stress phase was continued for a total of 5 minutes. Heart rate at the end of the stress phase was 89 with a blood pressure 124/61. The EKG at the peak infusion revealed no significant changes. Sestamibi was injected 20 seconds after the Lexiscan infusion. Blood pressure at the end of the recovery phase was not obtained with a heart rate of 87 per minute. CONCLUSION: 1. No significant EKG changes with the LexiScan infusion 2. No LexiScan induced chest pain or cardiac arrhythmia 3. Normal blood pressure and heart rate response 4. Sestamibi/sestamibi perfusion scan pending; see separate report. Electronically Signed On 07-06-2021 23:59:11 SHIFT SUPERVISOR by Sarah Reilly M.D. [email or web address].[employer]/store/[id number]
--- NOTE | 2021-07-04 09:15 | NMCV_ITS ---
NM hector perf SPECT r/s* [id number] Tawnya Garcia Age: 51 Gender: F : 1970 Exam Date: 07/04/2021 09:46 Ordering Phys: Sarah Reilly MD ([email or web address]) Technologist: CATA Qiu Exam Location: [facility] Indications: SHORTNESS OF BREATH STRESS TEST Please see separate stress test report in [facility] for full findings IMAGE PROTOCOL Rest/Stress 1 Lexiscan Day Radiopharmaceutical Dose (mCi) Administration Site Administered by Rest: Tc-99m 10.8 IV CAAT Qiu Sestamibi Stress:Tc-99m 33.0 IV CATA Mazariegos Sestamibi Rest: 04-Jul-2021 60 Discovery 630 Stress: 04-Jul-2021 30 Discovery 630 0.4mg Lexiscan. Images obtained in supine and prone position. SPECT RESULTS Technical Quality: Excellent Raw Data Analysis: Breast attenuation Image Corrections: No attenuation or motion correction applied Summed Stress Score: 5 Summed Rest Score: 7 Summed Difference Score: 1 PERFUSION FINDINGS Small to moderate area of decreased tracer uptake in the mid inferolateral, apical lateral and LV apex. A subtle area of reversibility was noted in the apex. FUNCTIONAL RESULTS (calculated via Gated SPECT) Stress Image LV EF (%): 70 Stress EDV (mL):133 TID: 0.97 Stress ESV (mL):40 FUNCTIONAL FINDINGS: Segmental wall motion analysis revealing no gross wall motion abnormalities IMPRESSIONS 1. Myocardial perfusion imaging revealing small to moderate area of persistent decreased tracer uptake in the inferolateral and apical regions with a subtle area of reversibility in the apex suggesting myocardial scarring in the distribution of the left circumflex artery a with very small area of nadya- infarction ischemia. 2. Normal LV ejection fraction of 70%. 3. LV wall motion analysis revealing no gross wall motion abnormalities 4. Normal LV volume. Compared to the study from 08/09/2018, there may not be a significant change, except for the very small area of possible ischemia Dr Sarah Reilly MD FACC (Electronically Signed) Final Date: 04 July 2021 16:42 S
[2021-07-04] MEDS: regadenoson 0.4 Mg/5 ml Syringe IVP (10:32)
[2021-07-04 10:45] VITALS: BP 124/61; PULSE 87
== END 2021-07-04 07:52 | disposition home or self-care (01) ==
LOC: CDL 07:54
PROVIDERS: PCP Family Medicine; Visit Provider Internal Medicine Cardiovascular Disease
DX: R07.9 Chest pain, unspecified (principal); R06.02 Shortness of breath
CPT/HCPCS: 78452; 93017; A9500; J2785

== ENCOUNTER → 2021-07-11 09:31 | Outpatient (BNVA) | payer MEDICAID, SELFPAY | PROVIDERS: PCP Family Medicine; Visit Provider Internal Medicine | DX: E11.59 Type 2 diabetes mellitus with other circulatory complications (principal); E11.319 Type 2 diabetes mellitus with unspecified diabetic retinopathy without macular edema; E11.42 Type 2 diabetes mellitus with diabetic polyneuropathy; E03.9 Hypothyroidism, unspecified; Z86.39 Personal history of other endocrine, nutritional and metabolic disease; Z79.84 Long term (current) use of oral hypoglycemic drugs; E66.9 Obesity, unspecified; Z79.4 Long term (current) use of insulin; Z87.891 Personal history of nicotine dependence; Z68.43 Body mass index [BMI] 50.0-59.9, adult | CPT/HCPCS: 99214 ==

== ENCOUNTER 2021-07-11 14:29 | Outpatient (CLI) | payer MEDICAID, SELFPAY ==
--- NOTE | 2021-07-11 14:39 | XR_ITS ---
WS: [id number] XR lumbar spine 2-3V* [id number] REASON FOR EXAM: R76.8 - Other specified abnormal immunological findings i... FINDINGS: No compression deformity or other focal vertebral body lesion. Significant narrowing of the L5-S1 interspace with marginal subchondral sclerosis and cystic change a nd anterior osteophytes. No spondylolysis or spondylolisthesis. XR/XR lumbar spine 2-3V* [id number] IMPRESSION: Degenerative spondylosis at L5-S1.
--- NOTE | 2021-07-11 14:39 | XR_ITS ---
WS: [id number] XR cervical spine fl/ex [id number] REASON FOR EXAM: R76.8 - Other specified abnormal immunological findings i... FINDINGS: Examination is limited in that the obesity of the patient. Only C1-C5 adequately evaluated. Limited evaluation of the lower cervical spine due to the patient's body habitus. Intervertebral disc spaces are well preserved. No abnormal movement with flexion or extension. XR/XR cervical spine fl/ex [id number] IMPRESSION: Limited examination C1-C5 as above. No abnormality identified.
== END 2021-07-11 14:30 | disposition home or self-care (01) ==
LOC: RAD 14:31
PROVIDERS: PCP Family Medicine; Visit Provider Internal Medicine
DX: M25.50 Pain in unspecified joint (principal); R76.8 Other specified abnormal immunological findings in serum; R79.89 Other specified abnormal findings of blood chemistry; M47.817 Spondylosis without myelopathy or radiculopathy, lumbosacral region
CPT/HCPCS: 72040; 72100

== ENCOUNTER 2021-08-17 15:13 | Outpatient (CLI) | payer MEDICAID, SELFPAY ==
--- NOTE | 2021-08-17 15:45 | USCV_ITS ---
Tawnya Garcia Age: 51 Gender: F : 1970 Exam Date: 08/17/2021 16:10 Ordering Phys: Sarah Reilly MD ([email or web address]) Technologist: Hiren Loza Exam Location: [facility] [place] Indication: retinal hemorrhage Risk Factors: Previous Vascular Surgery: Right Brachial BP: / Left Brachial BP: / Right Left Velocity (cm/s) Spectral Plaque Velocity (cm/s) Spectral Plaque Syst/Diast Broadening Syst/Diast Broadening 100.80/21.20 Prox CCA 131.70/ 37.40 132.80/30.20 Mid CCA 109.20/ 31.70 73.60/ 24.30 Distal CCA 76.70 / 20.60 91.50/ 19.80 Prox ICA 95.80 / 23.40 73.90/ 30.90 Mid ICA 58.90 / 20.60 80.50/ 27.60 Distal ICA 87.30 / 29.10 130.10 ECA 97.30 0.56 ICA/CCA 0.54 Antegrade Vertebral Antegrade 61.40/ 17.10 cm/s 24.80/ 5.60 cm/s Tri Subclavian Tri 209.7 165.6 0 0 CONCLUSIONS Right ICA stenosis <50%. Left ICA stenosis <50%. Normal antegrade Doppler flow noted in the right vertebral artery. Normal antegrade Doppler flow noted in the left vertebral artery. Rosalio Melendez MD (Electronically Signed) Final Date: 22 August 2021 10:49 S
== END 2021-08-17 15:14 | disposition home or self-care (01) ==
LOC: RAD 15:15
PROVIDERS: PCP Family Medicine; Visit Provider Internal Medicine Cardiovascular Disease
DX: H35.63 Retinal hemorrhage, bilateral (principal); I65.23 Occlusion and stenosis of bilateral carotid arteries
CPT/HCPCS: 93880

== ENCOUNTER → 2021-09-06 09:41 | Outpatient (BNVA) | payer MEDICAID, SELFPAY | PROVIDERS: PCP Family Medicine; Visit Provider Internal Medicine Cardiovascular Disease | DX: R06.02 Shortness of breath (principal); I11.0 Hypertensive heart disease with heart failure; I50.33 Acute on chronic diastolic (congestive) heart failure; E78.5 Hyperlipidemia, unspecified; R74.8 Abnormal levels of other serum enzymes; E03.9 Hypothyroidism, unspecified; E11.3393 Type 2 diabetes mellitus with moderate nonproliferative diabetic retinopathy without macular edema, bilateral; Z79.4 Long term (current) use of insulin; Z86.39 Personal history of other endocrine, nutritional and metabolic disease; E66.01 Morbid (severe) obesity due to excess calories; G47.33 Obstructive sleep apnea (adult) (pediatric); J44.9 Chronic obstructive pulmonary disease, unspecified; I25.118 Atherosclerotic heart disease of native coronary artery with other forms of angina pectoris; Z68.43 Body mass index [BMI] 50.0-59.9, adult | CPT/HCPCS: 80048; 80061; 80076; 83036; 83880; 84439; 84443; 99214 ==

== ENCOUNTER → 2021-09-13 13:00 | Outpatient (BNVA) | payer MEDICAID, SELFPAY | PROVIDERS: PCP Family Medicine; Visit Provider Internal Medicine | DX: E11.319 Type 2 diabetes mellitus with unspecified diabetic retinopathy without macular edema (principal); E11.59 Type 2 diabetes mellitus with other circulatory complications; E11.42 Type 2 diabetes mellitus with diabetic polyneuropathy; E11.3393 Type 2 diabetes mellitus with moderate nonproliferative diabetic retinopathy without macular edema, bilateral; E03.9 Hypothyroidism, unspecified; E66.9 Obesity, unspecified; Z79.4 Long term (current) use of insulin; Z87.891 Personal history of nicotine dependence; Z68.43 Body mass index [BMI] 50.0-59.9, adult; Z79.84 Long term (current) use of oral hypoglycemic drugs | CPT/HCPCS: 99214 ==

== ENCOUNTER 2021-09-23 14:24 | Outpatient (CLI) | payer MEDICAID, SELFPAY ==
[2021-09-23 15:20] LABS: Anion Gap 15.5 (5-19); Blood Urea Nitrogen 15 mg/dL (6-20); Calcium 9.6 mg/dL (8.5-10.5); Carbon Dioxide 27 mmol/L (22-29); Chloride 96 mmol/L (98-107); Glomerular Filtration Rate 75.6 mL/min (90-130); Glucose 200 mg/dL (65-115); NT Pro B Type Natriuretic Pept 17 pg/mL (0-125); Osmolality Calculated 284 mOsm/kg (285-295); Potassium 4.5 mmol/L (3.5-5.1); Sodium 134 mmol/L (136-145)
== END 2021-09-23 14:25 | disposition home or self-care (01) ==
PROVIDERS: PCP Family Medicine; Visit Provider Internal Medicine Cardiovascular Disease
DX: E11.59 Type 2 diabetes mellitus with other circulatory complications (principal); I25.10 Atherosclerotic heart disease of native coronary artery without angina pectoris; R06.02 Shortness of breath
CPT/HCPCS: 36415; 80048; 83880

== ENCOUNTER 2021-09-26 12:41 | Outpatient (CLI) | payer MEDICAID, SELFPAY ==
--- NOTE | 2021-09-26 12:55 | MM_ITS ---
WS: [id number] BILATERAL 3D TOMOSYNTHESIS DIGITAL SCREENING MAMMOGRAPHY WITH CAD CLINICAL INFORMATION: SCREENING HISTORY: Screening mammogram. No current complaints. COMPARISON: TECHNIQUE: Bilateral CC and MLO views. FINDINGS: Scattered fibroglandular densities bilaterally. A few incidental punctate calcifications. Vascular ca lcification. No suspicious focal mass, asymmetry, calcifications, or architectural distortion. No tiffany dence of malignancy. MM/[place] [id number] IMPRESSION: BI-RADS: 2-Benign FOLLOW UP: 1 Year Follow-up Recommend return to annual screening mammography.
== END 2021-09-26 12:42 | disposition home or self-care (01) ==
LOC: RAD 12:42
PROVIDERS: PCP Family Medicine; Visit Provider Family Medicine
DX: Z12.31 Encounter for screening mammogram for malignant neoplasm of breast (principal)
CPT/HCPCS: 77063; 77067

== ENCOUNTER 2021-10-06 10:28 | Outpatient (CLI) | payer MEDICAID, SELFPAY ==
[2021-10-06 11:31] LABS: Erythrocyte Sedimentation Rate 63 mm/hr (0-15)
[2021-10-06 11:33] LABS: Basophils % 0.6 %; Eosinophils # 0.1 10^3/uL (0.0-0.8); Eosinophils % 2.1 %; Hematocrit 35.9 % (37.0-47.0); Hemoglobin 11.1 g/dL (11.5-15.3); Lymphocytes # 1.7 10^3/uL (0.8-4.8); Lymphocytes % 25.5 %; Mean Corpuscular HGB Conc 30.9 g/dL (30.0-36.0); Mean Corpuscular Hemoglobin 26.4 pg (28.0-34.0); Mean Corpuscular Volume 85.5 fl (81-99); Mean Platelet Volume 12.2 fL (7.4-10.4); Monocytes # 0.6 10^3/uL (0.2-0.9); Monocytes % 8.9 %; Neutrophils # 4.11 10^3/uL (1.8-7.7); Neutrophils % 62.3 %; Nucleated Red Blood Cells % 0 %; Platelet Count 147 10^3/cmm (130-400); Red Cell Distribution Width 18.4 % (12.1-15.1); White Blood Count 6.6 10^3/uL (4.0-10.0)
[2021-10-06 11:55] LABS: Alanine Aminotransferase 29 U/L (0-33); Albumin Level 3.5 g/dL (3.5-5.2); Alkaline Phosphatase 96 IU/L (35-105); Anion Gap 16.3 (5-19); Aspartate Amino Transferase 36 U/L (0-32); Blood Urea Nitrogen 14 mg/dL (6-20); C Reactive Protein 30.7 mg/L (0.0-4.9); Calcium 9.6 mg/dL (8.5-10.5); Carbon Dioxide 24 mmol/L (22-29); Chloride 99 mmol/L (98-107); Glomerular Filtration Rate 75.6 mL/min (90-130); Glucose 181 mg/dL (65-115); Osmolality Calculated 285 mOsm/kg (285-295); Potassium 4.3 mmol/L (3.5-5.1); Sodium 135 mmol/L (136-145); Total Bilirubin 0.8 mg/dL (0.15-1.2); Total Protein 7.5 g/dL (6.6-8.7)
== END 2021-10-06 10:29 | disposition home or self-care (01) ==
LOC: LAB 10:57
PROVIDERS: PCP Family Medicine; Visit Provider Internal Medicine
DX: R74.8 Abnormal levels of other serum enzymes (principal); R76.8 Other specified abnormal immunological findings in serum; Z79.899 Other long term (current) drug therapy
CPT/HCPCS: 36415; 80053; 85025; 85651; 86140

== ENCOUNTER → 2021-10-25 14:39 | Outpatient (BNVA) | payer MEDICAID, SELFPAY | PROVIDERS: PCP Family Medicine; Visit Provider Internal Medicine | DX: R70.0 Elevated erythrocyte sedimentation rate (principal); R76.8 Other specified abnormal immunological findings in serum; E03.9 Hypothyroidism, unspecified; M54.50 Low back pain, unspecified; M54.2 Cervicalgia; R74.8 Abnormal levels of other serum enzymes; E11.9 Type 2 diabetes mellitus without complications; Z79.84 Long term (current) use of oral hypoglycemic drugs; Z79.899 Other long term (current) drug therapy; Z87.891 Personal history of nicotine dependence | CPT/HCPCS: 99214 ==

== ENCOUNTER 2021-12-07 08:28 | Outpatient (CLI) | payer MEDICAID, SELFPAY ==
[2021-12-07 08:57] LABS: Erythrocyte Sedimentation Rate 75 mm/hr (0-15)
[2021-12-07 08:59] LABS: Basophils # 0.1 10^3/uL (0.0-0.1); Basophils % 0.7 %; Eosinophils # 0.1 10^3/uL (0.0-0.8); Eosinophils % 1.5 %; Hematocrit 39.4 % (37.0-47.0); Lymphocytes # 1.5 10^3/uL (0.8-4.8); Mean Corpuscular HGB Conc 30.5 g/dL (30.0-36.0); Mean Corpuscular Hemoglobin 25.2 pg (28.0-34.0); Mean Corpuscular Volume 82.6 fl (81-99); Mean Platelet Volume 13.2 fL (7.4-10.4); Monocytes # 0.6 10^3/uL (0.2-0.9); Neutrophils # 6.85 10^3/uL (1.8-7.7); Neutrophils % 74.4 %; Nucleated Red Blood Cells % 0 %; Platelet Count 157 10^3/cmm (130-400); Red Blood Count 4.77 10^6/uL (4.1-5.3); Red Cell Distribution Width 18.1 % (12.1-15.1); White Blood Count 9.2 10^3/uL (4.0-10.0)
[2021-12-07 09:33] LABS: Slide Review Slide Review Perform
[2021-12-07 09:39] LABS: Alanine Aminotransferase 47 U/L (0-33); Albumin Level 3.7 g/dL (3.5-5.2); Alkaline Phosphatase 142 IU/L (35-105); Anion Gap 15.6 (5-19); Aspartate Amino Transferase 73 U/L (0-32); Blood Urea Nitrogen 13 mg/dL (6-20); C Reactive Protein 9.6 mg/L (0.0-4.9); Calcium 9.1 mg/dL (8.5-10.5); Carbon Dioxide 25 mmol/L (22-29); Chloride 97 mmol/L (98-107); Globulin 3.8 g/dL (1.3-4.6); Glomerular Filtration Rate 75.6 mL/min (90-130); Glucose 362 mg/dL (65-115); Osmolality Calculated 291 mOsm/kg (285-295); Potassium 4.6 mmol/L (3.5-5.1); Sodium 133 mmol/L (136-145); Total Bilirubin 0.8 mg/dL (0.15-1.2); Total Protein 7.5 g/dL (6.6-8.7)
== END 2021-12-07 08:29 | disposition home or self-care (01) ==
LOC: LAB 08:35
PROVIDERS: Internal Medicine; PCP Family Medicine; Visit Provider Internal Medicine
DX: R74.8 Abnormal levels of other serum enzymes (principal); R76.8 Other specified abnormal immunological findings in serum; Z79.899 Other long term (current) drug therapy
CPT/HCPCS: 36415; 80053; 85025; 85651; 86140

== ENCOUNTER 2021-12-12 09:08 | Outpatient (CLI) | payer MEDICAID, SELFPAY ==
[2021-12-12 10:12] LABS: Estmated Average Glucose 255; Hemoglobin A1C 10.5 % (4.0-6.0)
[2021-12-12 10:18] LABS: Alanine Aminotransferase 46 U/L (0-33); Albumin Level 3.7 g/dL (3.5-5.2); Alkaline Phosphatase 134 IU/L (35-105); Anion Gap 16.8 (5-19); Aspartate Amino Transferase 51 U/L (0-32); Blood Urea Nitrogen 14 mg/dL (6-20); Calcium 8.9 mg/dL (8.5-10.5); Carbon Dioxide 26 mmol/L (22-29); Chloride 96 mmol/L (98-107); Chol HDL Ratio 3.64 mg/dL (0.0-4.40); Cholesterol 91 mg/dL (0-200); Free T4 Free Thyroxine 1.17 ng/dL (0.82-1.77); Globulin 3.7 g/dL (1.3-4.6); Glomerular Filtration Rate 88.2 mL/min (90-130); Glucose 271 mg/dL (65-115); HDL Cholesterol 25 mg/dL (60-100); LDL Cholesterol Calculated 36 mg/dL (50-129); LDL HDL Ratio 1.44 RATIO (0.00-3.22); Osmolality Calculated 288 mOsm/kg (285-295); Potassium 4.8 mmol/L (3.5-5.1); Sodium 134 mmol/L (136-145); Thyroid Stimulating Hormone 1.17 uIU/mL (0.27-4.20); Total Bilirubin 0.7 mg/dL (0.15-1.2); Total Protein 7.4 g/dL (6.6-8.7); Triglycerides 149 mg/dL (0-150)
[2021-12-13 06:22] LABS: T3 Total 88 ng/dL (76-181)
== END 2021-12-12 09:09 | disposition home or self-care (01) ==
LOC: LAB 09:12
PROVIDERS: PCP Family Medicine; Visit Provider Internal Medicine
DX: E11.9 Type 2 diabetes mellitus without complications (principal); E03.9 Hypothyroidism, unspecified; R79.89 Other specified abnormal findings of blood chemistry; Z86.39 Personal history of other endocrine, nutritional and metabolic disease
CPT/HCPCS: 80053; 80061; 83036; 84439; 84443; 84480

== ENCOUNTER → 2021-12-13 14:39 | Outpatient (BNVA) | payer MEDICAID, SELFPAY | PROVIDERS: PCP Family Medicine; Visit Provider Internal Medicine | DX: E11.3393 Type 2 diabetes mellitus with moderate nonproliferative diabetic retinopathy without macular edema, bilateral (principal); E11.42 Type 2 diabetes mellitus with diabetic polyneuropathy; E11.319 Type 2 diabetes mellitus with unspecified diabetic retinopathy without macular edema; E66.01 Morbid (severe) obesity due to excess calories; E66.9 Obesity, unspecified; R79.89 Other specified abnormal findings of blood chemistry; E03.9 Hypothyroidism, unspecified; E78.5 Hyperlipidemia, unspecified; Z79.4 Long term (current) use of insulin; Z87.891 Personal history of nicotine dependence; Z68.43 Body mass index [BMI] 50.0-59.9, adult | CPT/HCPCS: 99214 ==

== ENCOUNTER → 2022-01-23 10:19 | Outpatient (BNVA) | payer MEDICAID, SELFPAY | PROVIDERS: PCP Family Medicine; Visit Provider Registered Nurse Neonatal Intensive Care | DX: N39.0 Urinary tract infection, site not specified (principal); N12 Tubulo-interstitial nephritis, not specified as acute or chronic | CPT/HCPCS: 81000 ==

== ENCOUNTER 2022-01-24 03:57 | Inpatient (IN) | payer MEDICAID, SELFPAY ==
[2022-01-24] VITALS (71 sets, daily range): BP systolic 79–166; BP diastolic 42–84; PULSE 69–97; RESP 11–27; TEMP 36.3–37.2; O2SAT 92–98; BMI 55.0; BMI 57.4
--- NOTE | 2022-01-24 04:02 | XRR_ITS ---
PROCEDURE INFORMATION: Exam: XR Chest Exam date and time: 01/24/2022 4:15 AM Age: 51 years old Clinical indication: Shortness of breath; Additional info: Cp TECHNIQUE: Imaging protocol: Radiologic exam of the chest. Views: 1 view. COMPARISON: CR XR chest 1V portable [id number] 01/06/2021 12:46 PM FINDINGS: Lungs: No consolidation. Pleural spaces: Unremarkable. No pleural effusion. No pneumothorax. Heart/Mediastinum: No cardiomegaly. Bones/joints: No acute fracture. XR/XR chest 1V portable [id number] IMPRESSION: No acute findings.
--- NOTE | 2022-01-24 04:03 | W.ED.CHESTPA ---
HPI - Chest Pain General: Chief Complaint: Chest Pain Stated Complaint: SOB Time Seen by Provider: 01/24/22 03:58 Source: patient and EMS Mode of arrival: EMS Limitations: no limitations History of Present Illness: 51-year-old female who states she woke up this morning at 2:58 AM states she felt like she is having a panic attack she states she could not get her breath and was having chest pains. States this is happened before and has been anxiety in the past. States she feels much improved currently she has no symptoms. She denies any worsening improving factors. She denies any fever or cough. She states she has been having some back pain and saw her PCP yesterday and was diagnosed with a urinary tract infection. She also states she been feeling dehydrated and has not made any urine throughout the day Associated symptoms: Reports dyspnea; Deny abdominal pain, fever(s), nausea or vomiting Review of Systems Const: Denies: fever(s), chills, body aches or change in appetite Eyes: Denies: blurry vision or eye discomfort ENMT: Denies: throat pain or dental pain Card: Reports: chest pain Resp: Reports: dyspnea GI: Denies: abdominal pain, nausea, vomiting or diarrhea : Denies: dysuria Musc: Denies: neck pain or back pain Skin/Breast: Denies: rash Neuro: Denies: headache(s) Psych: Reports: anxiety Dann/Lymph: Denies: easy bruising All/Imm: Denies: urticaria PFSH ED PFSH: Medical History Acquired hypothyroidism Anxiety ASHD (arteriosclerotic heart disease) Atypical chest pain Benign essential HTN CAD (coronary artery disease) Cataract, right eye Colon polyps COPD (chronic obstructive pulmonary disease) Depression Diabetic polyneuropathy Dyslipidemia Dysphagia Endometriosis Fibromyalgia Migraine Migraine without aura and without status migrainosus, not intractable GARCIA (nonalcoholic steatohepatitis) DALLAS (obstructive sleep apnea) Tortuous colon Tremor Tubular adenoma of colon Type 2 diabetes mellitus with both eyes affected by moderate nonproliferative retinopathy without macular edema, with long-term current use of insulin Surgical History History of colonoscopy with polypectomy (04/01/21) sigmoid polyp History of coronary artery stent placement History of hand surgery Bilateral carpal tunnel History of total hysterectomy Hx of release of tendon R. hand Hx of tubal ligation Family History Father Heart attack CAD (coronary artery disease) Hypertension Mother Cancer CAD (coronary artery disease) Lung disease Diabetes Hyperlipidemia Hypertension Sister CAD (coronary artery disease), Onset Age: 21 SD at 21 Heart attack Brother CAD (coronary artery disease), Onset Age: 30 Diabetes Hyperlipidemia Hypertension Grandmother CAD (coronary artery disease) Diabetes Grandfather CAD (coronary artery disease) Grandmother CAD (coronary artery disease) Stroke Grandfather CAD (coronary artery disease) Lung disease Family/Other Cancer Diabetes Stroke Rheumatoid arthritis Denies family history of Lupus Clotting disorder Dementia Chronic kidney disease (CKD) Suicide Anesthesia complication Bleeding disorder Social History Smoking and tobacco status: former smoker Quit status (tobacco): has quit using tobacco Second hand smoke exposure: No Smoking risk assessment/counseling performed?: No Alcohol intake: never Desire information about alcohol rehabilitation?: No Counseling given: No Desire information about substance/drug rehabilitation?: No Counseling given: No Adopted: No Caregiver/support person: No Lives independently: Yes Household members: spouse Housing: House Marital status: Number of children: 2 Highest education level completed: GED or Equivalent service: No Current occupational status: disabled History of recent travel: No Sexually active: No Current gender identity: Female Agree to transfusion: Yes Physical Exam Const: COMMON NORMALS: patient oriented x3 GENERAL APPEARANCE: ill appearing HENMT: COMMON NORMALS: normocephalic and atraumatic HEAD & SCALP: normocephalic and atraumatic Eye: COMMON NORMALS: Equal, round and reactive pupils present and EOMs intact bilaterally PUPIL: Yes Equal, round and reactive pupils present Neck/C-Spine: COMMON NORMALS: full ROM and supple Chest: COMMONS NORMALS: normal inspection of the chest and normal palpation of entire chest wall Resp: COMMON NORMALS: normal respiratory effort, No retractions, No use of accessory muscles and clear to auscultation bilaterally AUSCULTATION: clear to auscultation bilaterally Cardio: COMMON NORMALS: regular rate, regular rhythm and No murmurs present (Cardio) RATE: regular rate RHYTHM: regular rhythm GI: COMMON NORMALS: Normal to inspection, nondistended, normoactive bowel sounds present, Soft to palpation, non-tender and no masses PALPATION: Yes Soft to palpation Extremity: COMMON NORMALS: normal to inspection and full ROM Neuro: COMMON NORMALS: patient oriented x3, moves all extremities and no focal motor deficits Psych: COMMON NORMALS: mental status grossly normal, Normal thought process present and cooperative THOUGHT PROCESS: Normal thought process present Skin: COMMON NORMALS: no rashes or lesions noted and no wounds GENERAL SKIN EXAM: no rashes or lesions noted Course Vital Signs: Vital signs: Vital Signs Temperature 97.4 F L 01/24/22 04:05 Pulse Rate 94 01/24/22 04:19 Respiratory Rate 20 H 01/24/22 04:19 Blood Pressure 79/48 01/24/22 04:19 Pulse Oximetry 94 01/24/22 04:19 MDM - Chest Pain Medical Decision Making Patient presents here with acute kidney injury along with likely dehydration. Patient did have a urinalysis yesterday consistent with a urinary tract infection patient was initially hypotensive her blood pressure is improved after IV fluids. Have given patient Rocephin here as well. Spoke to the hospitalist will admit to the ICU at this time. Lab Data : 01/24/22 04:10 01/24/22 04:10 Radiology Impressions Chest X-Ray 01/24/22 04:02 IMPRESSION: No acute findings. Abdomen/Pelvis CT 01/24/22 04:35 IMPRESSION: 1. Slightly nodular contour of the liver which may be seen with cirrhosis. Hepatomegaly. Fatty liver. 2. Splenomegaly. Laboratory Results WBC 9.9 10^3/uL (4.0-10.0) 01/24/22 04:10 RBC 4.23 10^6/uL (4.1-5.3) 01/24/22 04:10 Hgb 10.4 g/dL (11.5-15.3) L 01/24/22 04:10 Hct 33.1 % (37.0-47.0) L 01/24/22 04:10 MCV 78.3 fl (81-99) L 01/24/22 04:10 MCH 24.6 pg (28.0-34.0) L 01/24/22 04:10 MCHC 31.4 g/dL (30.0-36.0) 01/24/22 04:10 RDW 17.7 % (12.1-15.1) H 01/24/22 04:10 Plt Count 114 10^3/cmm (130-400) L 01/24/22 04:10 MPV 11.7 fL (7.4-10.4) H 01/24/22 04:10 Neut % (Auto) 88.6 % 01/24/22 04:10 Lymph % (Auto) 5.7 % 01/24/22 04:10 Bleckley % (Auto) 4.4 % 01/24/22 04:10 Eos % (Auto) 0.3 % 01/24/22 04:10 Baso % (Auto) 0.5 % 01/24/22 04:10 Neut # (Auto) 8.73 10^3/uL (1.8-7.7) H 01/24/22 04:10 Lymph # (Auto) 0.6 10^3/uL (0.8-4.8) L 01/24/22 04:10 Bleckley # (Auto) 0.4 10^3/uL (0.2-0.9) 01/24/22 04:10 Eos # (Auto) 0.0 10^3/uL (0.0-0.8) 01/24/22 04:10 Baso # (Auto) 0.1 10^3/uL (0.0-0.1) 01/24/22 04:10 Nucleated RBC % (auto) 0 % 01/24/22 04:10 Nucleated RBCs # 0.0 /100WBC 01/24/22 04:10 Sodium 121 mmol/L (136-145) L 01/24/22 04:10 Potassium 4.4 mmol/L (3.5-5.1) 01/24/22 04:10 Chloride 86 mmol/L (98-107) L 01/24/22 04:10 Carbon Dioxide 19 mmol/L (22-29) L 01/24/22 04:10 Anion Gap 20.4 (5-19) H 01/24/22 04:10 BUN 32 mg/dL (6-20) H 01/24/22 04:10 Creatinine 2.8 mg/dL (0.5-0.9) H 01/24/22 04:10 GFR Calculation 17.8 mL/min (90-130) L 01/24/22 04:10 Glucose 424 mg/dL (65-115) H 01/24/22 04:10 Calculated Osmolality 277 mOsm/kg (285-295) L 01/24/22 04:10 Lactic Acid 3.9 mmol/L (0.5-2.2) H 01/24/22 04:10 Calcium 8.3 mg/dL (8.5-10.5) L 01/24/22 04:10 Total Bilirubin 1.3 mg/dL (0.15-1.2) H 01/24/22 04:10 AST 66 U/L (0-32) H 01/24/22 04:10 ALT 45 U/L (0-33) H 01/24/22 04:10 Alkaline Phosphatase 192 IU/L (35-105) H 01/24/22 04:10 Troponin T Baseline 25 ng/L (0-10) H 01/24/22 04:10 Total Protein 6.8 g/dL (6.6-8.7) 01/24/22 04:10 Albumin 2.8 g/dL (3.5-5.2) L 01/24/22 04:10 Globulin 4.0 g/dL (1.3-4.6) 01/24/22 04:10 EKG Data EKG 1: I personally reviewed and interpreted this EKG as follows: EKG interpretation date: 01/24/22 EKG interpretation time: 04:04 Interpretation: nsr hr [address] or t wave abnormalities qrs 106 qtc 392 Critical Care Time Critical Care Time: Critical Care Time: Yes Total Critical Care Time: 40 Attestation: The high probability of a clinically significant, sudden or life threatening deterioration of the patient's gu/sepsis system(s) required my full and direct attention, intervention and personal management. The critical care time is as shown. This time is in addition to time spent performing any reported procedures but includes the following: [x] Data and vital sign review and interpretation [x] Patient assessment, examination and intervention [x] Documentation [x] Medication orders and management Discharge Plan Discharge Patient Disposition: Admitted As Inpatient Admit Provider: Deja Carter Clinical Impression: Acute cystitis, Acute hyponatremia, Acute kidney injury Condition: Stable Coding Level of Care Code ED Global Sales Manager for Chg Fwd Exam Comprehensive
[2022-01-24 04:22] LABS: Basophils # 0.1 10^3/uL (0.0-0.1); Basophils % 0.5 %; Eosinophils % 0.3 %; Hematocrit 33.1 % (37.0-47.0); Hemoglobin 10.4 g/dL (11.5-15.3); Lymphocytes # 0.6 10^3/uL (0.8-4.8); Lymphocytes % 5.7 %; Mean Corpuscular HGB Conc 31.4 g/dL (30.0-36.0); Mean Corpuscular Hemoglobin 24.6 pg (28.0-34.0); Mean Corpuscular Volume 78.3 fl (81-99); Monocytes # 0.4 10^3/uL (0.2-0.9); Monocytes % 4.4 %; Neutrophils # 8.73 10^3/uL (1.8-7.7); Neutrophils % 88.6 %; Nucleated Red Blood Cells % 0 %; Platelet Count 114 10^3/cmm (130-400); Red Blood Count 4.23 10^6/uL (4.1-5.3); Red Cell Distribution Width 17.7 % (12.1-15.1); White Blood Count 9.9 10^3/uL (4.0-10.0)
[2022-01-24] MEDS: sodium chloride 0.9% 1,000 ML 999 ML IV ×2 (04:27→05:16)
--- NOTE | 2022-01-24 04:35 | CTR_ITS ---
PROCEDURE INFORMATION: Exam: CT Abdomen And Pelvis Without Contrast Exam date and time: 01/24/2022 4:55 AM Age: 51 years old Clinical indication: Abdominal pain; Generalized; Additional info: Abd pain TECHNIQUE: Imaging protocol: Computed tomography of the abdomen and pelvis without contrast. Radiation optimization: All CT scans at this facility use at least one of these dose optimization techniques: automated exposure control; mA and/or kV adjustment per patient size (includes targeted exams where dose is matched to clinical indication); or iterative reconstruction. COMPARISON: CT abdomen pelvis w con* [id number] 02/05/2017 2:27 AM RADIATION DOSE METRICS: Total DLP (mGy-cm): 1193.98 FINDINGS: Liver: Hepatomegaly. Fatty liver. Slightly nodular contour of the liver which may be seen with cirrhosis. Gallbladder and bile ducts: No calcified stones. No ductal dilation. Pancreas: No ductal dilation. Spleen: Spleen is enlarged measuring 16-17 cm in length. Adrenal glands: Normal. No mass. Kidneys and ureters: No hydronephrosis. Stomach and bowel: No obstruction. No mucosal thickening. Appendix: No evidence of appendicitis. Intraperitoneal space: No free air. No significant fluid collection. Vasculature: No abdominal aortic aneurysm. Lymph nodes: No enlarged lymph nodes. Urinary bladder: Unremarkable as visualized. Reproductive: Status post hysterectomy. Bones/joints: Unremarkable. No acute fracture. Soft tissues: Unremarkable. Other findings: Examination is limited by patient's body habitus. CT/CT abdomen pelvis wo con [id number] IMPRESSION: 1. Slightly nodular contour of the liver which may be seen with cirrhosis. Hepatomegaly. Fatty liver. 2. Splenomegaly.
[2022-01-24 04:38] LABS: Alanine Aminotransferase 45 U/L (0-33); Albumin Level 2.8 g/dL (3.5-5.2); Alkaline Phosphatase 192 IU/L (35-105); Anion Gap 20.4 (5-19); Aspartate Amino Transferase 66 U/L (0-32); Blood Urea Nitrogen 32 mg/dL (6-20); Calcium 8.3 mg/dL (8.5-10.5); Carbon Dioxide 19 mmol/L (22-29); Chloride 86 mmol/L (98-107); Glomerular Filtration Rate 17.8 mL/min (90-130); Glucose 424 mg/dL (65-115); Osmolality Calculated 277 mOsm/kg (285-295); Potassium 4.4 mmol/L (3.5-5.1); Sodium 121 mmol/L (136-145); Total Bilirubin 1.3 mg/dL (0.15-1.2); Total Protein 6.8 g/dL (6.6-8.7)
[2022-01-24 04:39] LABS: Troponin(5th) Baseline 25 ng/L (0-10)
[2022-01-24 04:48] LABS: Mean Platelet Volume 11.7 fL (7.4-10.4); Slide Review Slide Review Perform
[2022-01-24 04:50] LABS: Lactic Sepsis W/Reflex 3.9 mmol/L (0.5-2.2)
[2022-01-24] MEDS: cefTRIAXone 1,000 MG in sodium chloride 0.9% (plus) 50 ML 100 MG IV (05:17)
--- NOTE | 2022-01-24 06:02 | ECG_ITS ---
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 Measurements Intervals Novelty Rate: 79 P: 38 OK: 167 QRS: 18 QRSD: 112 T: 47 QT: 371 QTc: 426 Interpretive Statements SINUS RHYTHM MODERATE INTRAVENTRICULAR CONDUCTION DELAY [110+ ms QRS DURATION] Compared to ECG 01/24/2022 04:04:07 Intraventricular conduction delay now present Electronically Signed On 01-24-2022 12:09:54 CDT by Annette Vega M.D. [email or web address]
[2022-01-24 06:24] LABS: Reflex Lactate Order REFLEX LACTIC ORDERD
[2022-01-24 07:21] LABS: Bilirubin Urine Neg (Negative); Blood Urine 3+ (Negative); Glucose Urine UA 4+ (Normal); Ketones Urine Negative (Negative); Nitrate Urine Negative (Negative); Protein Urine Trace (Negative); Specific Gravity, Urine 1.015 (1.005-1.030); Urine Appearance Cloudy (CLEAR); Urine Color Amber (Yellow); Urobilinogen Urine Norm (Negative); pH Urine 5 (5-7)
[2022-01-24 07:22] LABS: Add Urine Microscopic? YES; Leukocyte Esterase Urine 2+ (Negative); RBC Urine 25-40 /hpf (0-2); Squamous Epithelial Cell Urine 0-4 /hpf (0-5); WBC Urine 55-80 /hpf (0-5)
[2022-01-24 07:23] LABS: Amorphous Sediment Urine 4+ /hpf; Bacteria Urine 2+ /hpf; Mucus Urine TRACE /hpf
[2022-01-24 07:24] LABS: Add Urine Culture? Yes
--- NOTE | 2022-01-24 08:28 | PM.HP ---
Providers/Chief Complaint Admitting Physician: Deja Cartre MD Primary Care Provider: Bridget Everett DO Chief Complaint: SOB History of Present Illness Tawnya Garcia is a 51 year old female presented to ER because she said she was having palpitations at around 1:50 AM. She said her heart was beating fast and she felt like she could not get air into her lungs and felt a burning sensation in the lungs. She states she has had panic attacks in the past and her symptoms were similar to this episode. She has had fever and burning urination for the past 1 week for which her primary care physician prescribed her ceftriaxone IV and PO ciprofloxacin. In the ER she stated that she did not pee yesterday. Today her urine bag shows dark urine and sedimentation. She states that her throat is feeling dry. In the emergency department she was given ceftriaxone, Ativan, 2 L normal saline Today I have given her 10 units of IV insulin Serum ketones were negative Patient was awake and alert she was in ICU room 9 Her nurse was updated CT abdomen pelvis showed liver cirrhosis EKG unremarkable Troponin 20 down Lactic acid improving No signs of sepsis Is afebrile No leukocytosis Chronic anemia Review of Systems Const: Reports: chills Eyes: Denies: change in vision ENMT: Denies: throat pain Card: Denies: chest pain Resp: Denies: dyspnea GI: Denies: abdominal pain : Denies: flank pain Musc: Denies: neck pain Skin/Breast: Denies: rash Neuro: Denies: headache(s) Psych: Denies: anxiety Endo: Denies: polyuria Dann/Lymph: Denies: easy bruising All/Imm: Denies: urticaria Medications/Allergies Home Medications Medication Instructions Recorded Confirmed Last Taken Type atorvastatin 80 mg tablet 80 mg PO DAILY 01/06/21 01/24/22 03/31/21 History cholecalciferol (vitamin D3) 25 25 mcg PO DAILY #0 01/06/21 01/24/22 03/31/21 History mcg (1,000 unit) capsule (Vitamin D3) aspirin 81 mg tablet,delayed 81 mg PO DAILY 02/24/21 01/24/22 03/30/21 History release 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 meter (ShuttersongTouch #1 ea 04/05/21 01/24/22 Unknown Rx Verio Meter) albuterol sulfate 90 mcg/actuation 2 puff INHALATION Q6H PRN 90 Days 10/21/21 07/26/22 Unknown Rx aerosol inhaler (ProAir HFA) #30 g lancets 33 gauge ([place] Delmaude #100 ea 05/10/21 01/24/22 Unknown Rx Lancets) nitroglycerin 0.4 mg sublingual 0.4 mg SUBLINGUAL Q5M PRN 30 Days 05/12/21 01/24/22 Unknown Rx tablet #30 tab cholecalciferol (vitamin D3) 25 25 mcg PO DAILY 30 Days #30 cap 05/29/21 01/24/22 Unknown Rx mcg (1,000 unit) capsule ipratropium 0.5 mg-albuterol 3 mg 3 ml INHALATION QID PRN 06/08/21 01/24/22 Unknown History (2.5 mg base)/3 mL nebulization soln nebulizer #1 ea 06/10/21 01/24/22 Unknown Rx cyclobenzaprine 10 mg tablet 10 mg PO .qhs #90 tab 09/06/21 01/24/22 Unknown Rx fluticasone 250 mcg-salmeterol 50 1 inh INHALATION BID #60 ea 09/06/21 01/24/22 Unknown Rx mcg/dose blistr powdr for inhalation (Advair Diskus) [facility] 09/13/21 01/24/22 Unknown Rx Verio test strips) liothyronine 5 mcg tablet 5 mcg PO BID #180 tab 09/13/21 01/24/22 Unknown Rx potassium chloride 8 mEq 8 meq PO .qod #90 tab 09/26/21 01/24/22 Unknown Rx tablet,extended release prednisone 5 mg tablet See Rx Instructions PO DAILY #30 10/25/21 01/24/22 Unknown Rx tab celecoxib 200 mg capsule 200 mg PO BID 30 Days #60 cap 11/29/21 01/24/22 Unknown Rx dulaglutide 4.5 mg/0.5 mL 4.5 mg (0.5 mL) SUBCUT .qweekly #6 11/29/21 01/24/22 Unknown Rx subcutaneous pen injector ml (Trulicity) metformin 1,000 mg tablet See Rx Instructions .ROUTE 11/29/21 01/24/22 Unknown Rx .COMPLEX #60 tablet milnacipran 50 mg tablet (Savella) 50 mg PO BID 90 Days #180 tab 11/29/21 01/24/22 Unknown Rx nystatin 100,000 unit/gram topical See Rx Instructions .ROUTE 11/29/21 01/24/22 Unknown Rx cream .COMPLEX #60 g omeprazole 40 mg capsule,delayed See Rx Instructions .ROUTE 11/29/21 01/24/22 Unknown Rx release .COMPLEX #30 cap lisinopril 2.5 mg tablet See Rx Instructions .ROUTE 12/02/21 01/24/22 Unknown Rx .COMPLEX #90 tab metoprolol tartrate 25 mg tablet See Rx Instructions .ROUTE 12/02/21 01/24/22 Unknown Rx .COMPLEX #180 tab montelukast 10 mg tablet See Rx Instructions .ROUTE 12/02/21 01/24/22 Unknown Rx .COMPLEX #90 tab acarbose 100 mg tablet 100 mg PO TID #275 tab 12/14/21 01/24/22 Unknown Rx pregabalin 200 mg capsule 200 mg PO TID #90 cap 12/14/21 01/24/22 Unknown Rx glimepiride 4 mg tablet 8 mg PO DAILY #180 tab 12/26/21 01/24/22 Unknown Rx bupropion HCl 150 mg 24 hr tablet, See Rx Instructions .ROUTE 01/05/22 01/24/22 Unknown Rx extended release .COMPLEX #30 tab buspirone 5 mg tablet See Rx Instructions .ROUTE 01/05/22 01/24/22 Unknown Rx .COMPLEX #90 tab fluoxetine 40 mg capsule See Rx Instructions .ROUTE 01/05/22 01/24/22 Unknown Rx .COMPLEX #30 cap fluticasone propionate 50 2 spray INTRANASAL DAILY #16 g 01/05/22 01/24/22 Unknown Rx mcg/actuation nasal spray,suspension (Flonase Allergy Relief) ciprofloxacin HCl 500 mg tablet 500 mg PO BID 7 Days #14 tab 01/23/22 01/24/22 Unknown Rx furosemide 40 mg tablet 40 mg PO DAILY 01/24/22 01/24/22 Unknown History Allergies Allergy/AdvReac Type Severity Reaction Status Date / Time Penicillins Allergy Unknown Verified 01/23/22 10:16 Sulfa (Sulfonamide Allergy Unknown Verified 01/23/22 10:16 Antibiotics) ibuprofen AdvReac Intermediate nose bleeds Verified 01/23/22 10:16 SYNTHETHIC INSULIN Allergy Unknown Uncoded 01/23/22 10:16 PFSH Acute PFSH: Medical History Acquired hypothyroidism Anxiety ASHD (arteriosclerotic heart disease) Atypical chest pain Benign essential HTN CAD (coronary artery disease) Cataract, right eye Colon polyps COPD (chronic obstructive pulmonary disease) Depression Diabetic polyneuropathy Dyslipidemia Dysphagia Endometriosis Fibromyalgia Migraine Migraine without aura and without status migrainosus, not intractable GARCIA (nonalcoholic steatohepatitis) DALLAS (obstructive sleep apnea) Tortuous colon Tremor Tubular adenoma of colon Type 2 diabetes mellitus with both eyes affected by moderate nonproliferative retinopathy without macular edema, with long-term current use of insulin Surgical History History of colonoscopy with polypectomy (04/01/21) sigmoid polyp History of coronary artery stent placement History of hand surgery Bilateral carpal tunnel History of total hysterectomy Hx of release of tendon R. hand Hx of tubal ligation Family History Father Heart attack CAD (coronary artery disease) Hypertension Mother Cancer CAD (coronary artery disease) Lung disease Diabetes Hyperlipidemia Hypertension Sister CAD (coronary artery disease), Onset Age: 21 [place] at 21 Heart attack Brother CAD (coronary artery disease), Onset Age: 30 Diabetes Hyperlipidemia Hypertension Grandmother CAD (coronary artery disease) Diabetes Grandfather CAD (coronary artery disease) Grandmother CAD (coronary artery disease) Stroke Grandfather CAD (coronary artery disease) Lung disease Family/Other Cancer Diabetes Stroke Rheumatoid arthritis Denies family history of Lupus Clotting disorder Dementia Chronic kidney disease (CKD) Suicide Anesthesia complication Bleeding disorder Social History Smoking and tobacco status: former smoker Quit status (tobacco): has quit using tobacco Second hand smoke exposure: No Smoking risk assessment/counseling performed?: No Alcohol intake: never Desire information about alcohol rehabilitation?: No Counseling given: No Desire information about substance/drug rehabilitation?: No Counseling given: No Adopted: No Caregiver/support person: No Lives independently: Yes Household members: spouse Housing: House Marital status: Number of children: 2 Highest education level completed: GED or Equivalent service: No Current occupational status: disabled History of recent travel: No Sexually active: No Current gender identity: Female Agree to transfusion: Yes Female Reproductive History: Date of last menstrual period: 01/25/00 Vitals/I&O/Wt Last Vital Signs Temp 97.6 F 01/24/22 07:45 Pulse 82 01/24/22 08:00 Resp 19 H 01/24/22 08:00 BP 107/63 01/24/22 08:00 Pulse Ox 92 01/24/22 08:00 01/23/22 01/24/22 01/24/22 22:59 06:59 14:59 Intake Total 2049 Balance 2049 Weight last 48 hrs Weight 142.473 kg Weight 136.531 kg Physical Exam Narrative: Morbid obese female Clinically looks dehydrated, skin is flushed Signs of dehydration present Concentrated urine Abdomen soft S1, S2 nonfocal neuro exam No audible stridor or wheezing No signs of cellulitis Patient is awake and alert Of pleasant and cooperative Anxious appearing No active chest pain Urinary Catheter Management: Morel: Cath Placed During This Visit: yes Urinary Catheter Date of Insertion: 01/24/22 Urinary Catheter Time of Insertion: 06:25 Data : 01/24/22 04:10 01/24/22 04:10 Micro: Microbiology 01/24/22 07:55 Blood Culture - Preliminary Blood SPECIMEN COLLECTED 01/24/22 04:50 Blood Culture - Preliminary Blood SPECIMEN COLLECTED A&P Assessment and plan (1) Acute cystitis: Status: Acute (2) Acute hyponatremia: Status: Acute (3) Acute kidney injury: Status: Acute (4) Allergic rhinitis: Status: Acute Qualifiers: Allergic rhinitis trigger: other Allergic rhinitis seasonality: seasonal Qualified Code(s): J30.89 - Other allergic rhinitis (5) Morbid obesity: Status: Acute (6) Intertrigo: Status: Acute (7) Lower back pain: Status: Acute (8) YANA (generalized anxiety disorder): Status: Acute (9) Morbid obesity with BMI of 60.0-69.9, adult: Status: Acute (10) Type 2 diabetes mellitus: Status: Acute Plan Lactic acidemia secondary to dehydration Continue IV fluid hydration Palpitations Currently patient is in sinus rhythm Hemodynamically stable No active chest pain Without ischemic or infarctive changes Monitor on telemetry TSH levels Start her on a beta-annalisa Acute kidney injury Acute kidney injury related to use of nephrotoxic agents at home, dehydration, ciprofloxacin, lisinopril, celecoxib Urinalysis positive for UTI Monitor input and output Monitor BUN/creatinine No signs of uremia no's indication for dialysis No post renal obstruction no signs of hydronephrosis It is most likely prerenal etiology due to dehydration High anion gap metabolic acidosis Etiology is related to lactic acidosis, uremia dehydration Normal saline Monitor for resolution of anion gap Rule out DKA, serum ketones negative Hyponatremia related to dehydration In correction to glucose it is still 126 Hyperglycemia without signs of DKA High anion gap, I will give her 2 L LR bolus, will give her IV insulin monitor closely for any signs of allergic reaction, Patient stated that she is allergic to insulin. Try a small dose first and then start on sliding scale insulin Abnormal liver enzymes Concern for liver cirrhosis, nonalcoholic, check BNP, echo, liver ultrasound Hemoglobin A1c is 11 Nonalcoholic steatohepatitis? Consistent carb diet Full code Attestations Medical Necessity Statement*: Anticipating more than 2 midnights Time Spent in Patient Care: 35 Critical Care Time: 35 Coding Level of Care Code Acute Chip Person for [facility] Fwd Diagnoses Acute cystitis N30.00 Acute hyponatremia E87.1 Acute kidney injury N17.9 Allergic rhinitis J30.89 Allergic rhinitis trigger: other Allergic rhinitis seasonality: seasonal Morbid obesity E66.01 Intertrigo L30.4 Lower back pain M54.50 YANA (generalized anxiety disorder) F41.1 Morbid obesity with BMI of 60.0-69.9, adult E66.01; Z68.44 Type 2 diabetes mellitus E11.9
[2022-01-24 08:30] LABS: Lactic Acid level (Lactate) 2.5 mmol/L (0.5-2.2)
[2022-01-24 08:36] LABS: Troponin 5 2HR 31.94 ng/L (0-10)
[2022-01-24 08:40] LABS: Troponin 5 2HR Delta 6.94 ABS# (0-10)
--- NOTE | 2022-01-24 09:52 | PC.NURSE ---
[id number] Tirado. States he is waiting for the serum ketones to results before completing patients admission orders. 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 Medical release form faxed.
--- NOTE | 2022-01-24 10:02 | ECG_ITS ---
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 Measurements Intervals [place] Rate: 96 P: 3 TX: 140 QRS: 14 QRSD: 106 T: 31 QT: 339 QTc: 428 Interpretive Statements SINUS RHYTHM Compared to ECG 01/06/2021 14:35:28 No significant changes Electronically Signed On 01-24-2022 12:10:12 CDT by Annette Vega M.D. [id number]
[2022-01-24 10:22] LABS: Ketone (Acetest) Serum Negative (Negative)
--- NOTE | 2022-01-24 10:33 | PC.NURSE ---
Reported to Dr. Tirado that serum ketones have resulted.
[2022-01-24] MEDS: heparin 5,000 unit/mL INJ 1 mL 5000 UNIT SUBCUT ×2 (11:01→17:58)
[2022-01-24] MEDS: sodium chloride 0.9% 1,000 ML 75 ML IV ×2 (11:01→23:34)
[2022-01-24 11:04] LABS: Chol HDL Ratio 10.67 mg/dL (0.0-4.40); Cholesterol 64 mg/dL (0-200); HDL Cholesterol 6 mg/dL (60-100); LDL Cholesterol Calculated -14 mg/dL (50-129); Triglycerides 359 mg/dL (0-150)
[2022-01-24 11:09] LABS: LDL HDL Ratio -2.33 RATIO (0.00-3.22)
[2022-01-24 11:10] LABS: Glucose Point of Care 434 mg/dL (70-110)
[2022-01-24 11:11] LABS: Procalcitonin 13.52 ng/mL (0-0.5)
[2022-01-24 11:25] LABS: Troponin 5 6HR 27.73 ng/L (0-10)
--- NOTE | 2022-01-24 11:29 | PC.NURSE ---
Reported patient's blood sugar level to Dr. Tirado. Reported that patient states she is allergic to Humalog and that records from [facility] have not been received. Confirmed with pharmacy that they stock human derived NPH and regular insulin. Awaiting further orders.
[2022-01-24 11:38] LABS: Troponin 5 6HR Delta 2.73 ng/L (0-12)
[2022-01-24 11:39] LABS: Vitamin B12 715 pg/mL (232-1245)
[2022-01-24] MEDS: levothyroxine 175 mcg Tablet PO (11:41)
[2022-01-24 11:49] LABS: Estmated Average Glucose 292; Hemoglobin A1C 11.8 % (4.0-6.0)
--- NOTE | 2022-01-24 12:10 | PC.NURSE ---
Orders per Dr. Tirado for changes to insulin with respect to patient's allergy to synthetic insulin.
[2022-01-24] MEDS: lactated ringers 1,000 ML 999 ML IV ×2 (13:24→14:40)
[2022-01-24] MEDS: insulin regular-human 10 UNIT in SYRINGE 1 EACH IVP (13:25)
[2022-01-24 14:11] LABS: Anion Gap 17.2 (5-19); Blood Urea Nitrogen 34 mg/dL (6-20); Calcium 7.8 mg/dL (8.5-10.5); Carbon Dioxide 21 mmol/L (22-29); Chloride 89 mmol/L (98-107); Glomerular Filtration Rate 20.3 mL/min (90-130); Glucose 445 mg/dL (65-115); Osmolality Calculated 283 mOsm/kg (285-295); Potassium 4.2 mmol/L (3.5-5.1); Sodium 123 mmol/L (136-145)
[2022-01-24 17:08] LABS: Glucose Point of Care 419 mg/dL (70-110)
--- NOTE | 2022-01-24 17:14 | PC.NURSE ---
Sent message to Dr. Tirado to clarify insulin administration r/t patient's allergy. Reported blood sugar level and allergies documented on the records obtained from [facility] endocrinology. Orders to give PRN Benadryl and Humalog sliding scale.
[2022-01-24] MEDS: BuSPIRONE 10 mg Tablet 5 MG PO ×2 (17:34→21:57)
[2022-01-24] MEDS: diphenhydrAMINE 50 mg/mL SDV 1mL 12.5 MG IVP ×2 (17:34→21:58)
[2022-01-24] MEDS: metoprolol tartrate 25 mg Tablet PO (17:57)
[2022-01-24] MEDS: insulin lispro 100 unit/1 mL SUBCUT (17:58)
[2022-01-24] MEDS: acetaminophen 500 mg Tablet PO (18:03)
[2022-01-24 21:50] LABS: Glucose Point of Care 441 mg/dL (70-110)
[2022-01-24 21:50] LABS: Glucose Point of Care 437 mg/dL (70-110)
[2022-01-24] MEDS: insulin glargine 100 units/1 mL 30 UNIT SUBCUT (22:07)
[2022-01-25] VITALS (73 sets, daily range): BP systolic 101–163; BP diastolic 59–110; PULSE 62–75; RESP 12–29; TEMP 36–36.9; O2SAT 92–98
[2022-01-25] MEDS: heparin 5,000 unit/mL INJ 1 mL 5000 UNIT SUBCUT ×3 (02:25→18:27)
[2022-01-25 02:43] LABS: Glucose Point of Care 409 mg/dL (70-110)
[2022-01-25 06:07] LABS: Glucose Point of Care 404 mg/dL (70-110)
[2022-01-25 06:19] LABS: Basophils # 0.1 10^3/uL (0.0-0.1); Basophils % 0.8 %; Eosinophils # 0.1 10^3/uL (0.0-0.8); Eosinophils % 1.7 %; Hemoglobin 10.6 g/dL (11.5-15.3); Lymphocytes # 1.2 10^3/uL (0.8-4.8); Lymphocytes % 19.1 %; Mean Corpuscular HGB Conc 31.2 g/dL (30.0-36.0); Mean Corpuscular Hemoglobin 24.8 pg (28.0-34.0); Mean Corpuscular Volume 79.4 fl (81-99); Monocytes # 0.6 10^3/uL (0.2-0.9); Monocytes % 10.5 %; Neutrophils # 4.04 10^3/uL (1.8-7.7); Neutrophils % 67.2 %; Nucleated Red Blood Cells % 0 %; Platelet Count 106 10^3/cmm (130-400); Red Blood Count 4.28 10^6/uL (4.1-5.3); Red Cell Distribution Width 18.2 % (12.1-15.1)
[2022-01-25] MEDS: diphenhydrAMINE 50 mg/mL SDV 1mL 12.5 MG IVP (07:35)
[2022-01-25] MEDS: sennosides-docusate Tablet 1 TAB PO (09:09)
[2022-01-25] MEDS: cefTRIAXone 1,000 MG in sodium chloride 0.9% (plus) 50 ML 100 MG IV (09:12)
[2022-01-25] MEDS: BuSPIRONE 10 mg Tablet 5 MG PO ×3 (09:12→20:29)
[2022-01-25] MEDS: insulin lispro 100 unit/1 mL SUBCUT ×2 (09:14→18:28)
[2022-01-25] MEDS: metoprolol tartrate 25 mg Tablet PO ×2 (09:14→18:26)
[2022-01-25] MEDS: glimepiride 2 mg Tablet 8 MG PO (09:15)
[2022-01-25] MEDS: nystatin powder 15 gm Btl 1 APPLIC TOPICAL (09:17)
--- NOTE | 2022-01-25 10:25 | PC.CHAP ---
Pastoral Care Encounter/Spiritual Assessment Type of Contact [] Declined propeller engineer visit [] Patient/Family/Request visit [] Outpatient visit [] Follow-up visit [] Physician referral [] Code/Alert [x] Routine visit [] Staff referral [] Actively dying [] Patient sleeping [x] Family support [] [] Out of room [] Palliative care [] [] Receiving care in room [] Pre-surgical visit [] Trauma [] Long length of stay [x] ICU visit [x] Other: patient doesnt remember visit yesterday .. feeling better today Relational/Emotional Strength [] Patient feels connected with others/family/visitors/staff [] Distress [] Loneliness/isolation [] Abandonment Spirituality of Patient [] Person of Barbara [] Attends Moravian of their Barbara [] Believes in Prayer [] Reads Bible or Judaism materials [] There are Spiritual issues to be addressed In Class Special Education Teacher Interventions [x] Prayer [x] Active listening [x] Non-anxious presence [x] Spiritual/emotional support [] Crisis/trauma care [] Spiritual counseling [] Bereavement support [] Provided bereavement packet [] Provided Bible/devotional materials [] Provided toy/stuffed animal, coloring book to patient or family member [] Provided Communion [] Anointing/[place] [] Salvation [x] Completed spiritual assessment [] Other: Impact on Illness or Injury [] Angry [] Fearful [] Anxious [] Often cries [] Exhaustion [] Unable to work [] Unable to attend mandaen [] Unable to walk/stand [] Unable to read [] Unable to drive [] Unable to eat/drink [] Unable to sleep [] Unable to be with family [] Patient intubated [] Other: Summary Time spent with patient
--- NOTE | 2022-01-25 11:03 | P.PN_ITS ---
Subjective Subjective: In total patient received 40 units of insulin, 30 of Lantus and 48 units of sliding scale I will divide her insulin to 12 units Premeal, 40 units of Lantus along sliding scale Did speak with Dr. Haider who will see this patient as soon as she gets discharged from the hospital Patient and her daughter are willing to try this insulin regimen, she has not developed any reaction to Lantus which was given last night however that was with Benadryl, this morning we have given 10 units of Lantus without Benadryl she has not shown any kind of anaphylactic reaction Vitals/I&O/Wt Last Vital Signs Temp 97.9 F 01/25/22 10:31 Pulse 63 01/25/22 10:31 Resp 13 01/25/22 10:31 BP 133/66 01/25/22 10:31 Pulse Ox 97 01/25/22 10:31 O2 Del Method 01/25/22 10:31 FiO2 21 01/24/22 20:45 01/24/22 01/25/22 01/25/22 22:59 06:59 14:59 Intake Total 1550.1 / 2850.1 941.25 / 3791.35 290 / 290 Output Total 3800 / 4800 3300 / 8100 Balance -2249.9 / -1949.9 -2358.75 / -4308.65 290 / 290 Weight last 48 hrs Weight 142.473 kg Weight 136.531 kg Physical Exam Narrative: Awake and alert Euvolemic No skin edema No lip swelling No signs of anaphylaxis Urine color has improved Abdomen soft Intertrigo Awake and alert Currently saturating well on room air Lungs are clear to auscultation Urinary Catheter Management: Morel: Cath Placed During This Visit: yes Reason for Continuing Indwelling Catheter: Accurate Measurement of Urinary Output in Critically Ill Patients Urinary Catheter Date of Insertion: 01/24/22 Urinary Catheter Time of Insertion: 06:25 Data : 01/25/22 06:00 01/24/22 13:19 Micro: Microbiology 01/24/22 06:30 Urine Culture - Preliminary Urine,Clean Catch 01/24/22 07:55 Blood Culture - Preliminary Blood NEGATIVE TO DATE 01/24/22 04:50 Blood Culture - Preliminary Blood NEGATIVE TO DATE A&P Assessment and plan (1) Type 2 diabetes mellitus: Status: Acute (2) Acute hyponatremia: Status: Acute (3) Acute cystitis: Status: Acute (4) Acute kidney injury: Status: Acute (5) Allergic rhinitis: Status: Acute Qualifiers: Allergic rhinitis trigger: other Allergic rhinitis seasonality: seasonal Qualified Code(s): J30.89 - Other allergic rhinitis (6) Morbid obesity: Status: Acute (7) Intertrigo: Status: Acute (8) Lower back pain: Status: Acute (9) YANA (generalized anxiety disorder): Status: Acute (10) Morbid obesity with BMI of 60.0-69.9, adult: Status: Acute (11) Nonalcoholic steatohepatitis (GARCIA): Status: Acute (12) Liver cirrhosis secondary to GARCIA: Status: Acute Plan Type 2 diabetes, hyperglycemia without DKA Insulin regimen 40 units of Lantus, 12 Premeal and sliding scale No acidosis, Anion gap 17 Hemoglobin A1c has worsened to 11 We will follow-up with Dr. Haider as outpatient Patient did not develop any anaphylaxis or skin rash to insulin Hyponatremia related to hyperglycemia and dehydration Continue IV fluid AVINASH related to dehydration and diabetes Creatinine improving with IV fluid hydration Hold nephrotoxic agents Hold diuretics I would not recommend celecoxib at discharge High anion gap metabolic acidosis improved Records reviewed from [facility] endocrinology Patient is full code Consistent carb diet DVT prophylaxis Heparin Daughter at the bedside updated Liver cirrhosis related to Garcia No signs of hepatic encephalopathy Hepatosplenomegaly Would recommend hepatology consultation outpatient Attestations Medical Necessity Statement*: Discharge tomorrow if stable Time Spent in Patient Care: 35 Coding Level of Care Code Acute Front Facer for [facility] Fwd Diagnoses Type 2 diabetes mellitus E11.9 Acute hyponatremia E87.1 Acute cystitis N30.00 Acute kidney injury N17.9 Allergic rhinitis J30.89 Allergic rhinitis trigger: other Allergic rhinitis seasonality: seasonal Morbid obesity E66.01 Intertrigo L30.4 Lower back pain M54.50 YANA (generalized anxiety disorder) F41.1 Morbid obesity with BMI of 60.0-69.9, adult E66.01; Z68.44 Nonalcoholic steatohepatitis (GARCIA) K75.81 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
[2022-01-25] MEDS: insulin glargine 100 units/1 mL 10 UNIT SUBCUT (11:13)
[2022-01-25 11:43] LABS: Magnesium 1.8 mg/dL (1.7-2.3)
[2022-01-25 12:01] LABS: Glucose Point of Care 464 mg/dL (70-110)
[2022-01-25] MEDS: insulin lispro 100 unit/1 mL 12 UNIT SUBCUT ×2 (12:03→17:04)
[2022-01-25] MEDS: sodium chloride 0.9% 1,000 ML 100 ML IV ×2 (14:06→23:44)
[2022-01-25 16:39] LABS: Glucose Point of Care 325 mg/dL (70-110)
[2022-01-25 17:51] LABS: Glucose Point of Care 362 mg/dL (70-110)
[2022-01-25] MEDS: fluoxetine 20 mg Capsule 40 MG PO (20:29)
[2022-01-25 20:34] LABS: Glucose Point of Care 327 mg/dL (70-110)
[2022-01-25] MEDS: insulin glargine 100 units/1 mL 50 UNIT SUBCUT (20:44)
[2022-01-26] VITALS (31 sets, daily range): BP systolic 125–161; BP diastolic 68–92; PULSE 59–70; RESP 12–24; TEMP 36.7; O2SAT 93–96
[2022-01-26] MEDS: heparin 5,000 unit/mL INJ 1 mL 5000 UNIT SUBCUT (02:14)
[2022-01-26 02:22] LABS: Glucose Point of Care 289 mg/dL (70-110)
[2022-01-26] MEDS: levothyroxine 175 mcg Tablet PO ×2 (05:56→09:35)
[2022-01-26] MEDS: insulin lispro 100 unit/1 mL 15 UNIT SUBCUT ×2 (07:35→11:36)
[2022-01-26 07:37] LABS: Glucose Point of Care 276 mg/dL (70-110)
[2022-01-26 07:45] LABS: Basophils # 0.1 10^3/uL (0.0-0.1); Basophils % 1.2 %; Eosinophils # 0.1 10^3/uL (0.0-0.8); Eosinophils % 2.8 %; Hematocrit 35.1 % (37.0-47.0); Hemoglobin 10.5 g/dL (11.5-15.3); Lymphocytes # 1.6 10^3/uL (0.8-4.8); Mean Corpuscular HGB Conc 29.9 g/dL (30.0-36.0); Mean Corpuscular Hemoglobin 24.4 pg (28.0-34.0); Mean Corpuscular Volume 81.4 fl (81-99); Monocytes # 0.6 10^3/uL (0.2-0.9); Monocytes % 11.2 %; Neutrophils # 2.64 10^3/uL (1.8-7.7); Nucleated Red Blood Cells % 0 %; Platelet Count 116 10^3/cmm (130-400); Red Blood Count 4.31 10^6/uL (4.1-5.3); Red Cell Distribution Width 18.4 % (12.1-15.1); White Blood Count 5.1 10^3/uL (4.0-10.0)
[2022-01-26 08:13] LABS: Anion Gap 16.3 (5-19); Blood Urea Nitrogen 28 mg/dL (6-20); Calcium 8.7 mg/dL (8.5-10.5); Carbon Dioxide 21 mmol/L (22-29); Chloride 102 mmol/L (98-107); Glomerular Filtration Rate 36.6 mL/min (90-130); Glucose 264 mg/dL (65-115); Osmolality Calculated 295 mOsm/kg (285-295); Potassium 4.3 mmol/L (3.5-5.1); Sodium 135 mmol/L (136-145)
[2022-01-26 08:36] LABS: Slide Review Slide Review Perform
[2022-01-26 08:44] LABS: Glucose Point of Care 244 mg/dL (70-110)
[2022-01-26] MEDS: insulin lispro 100 unit/1 mL SUBCUT (09:35)
[2022-01-26] MEDS: BuSPIRONE 10 mg Tablet 5 MG PO (09:35)
[2022-01-26] MEDS: sennosides-docusate Tablet 1 TAB PO (09:35)
[2022-01-26] MEDS: glimepiride 2 mg Tablet 8 MG PO (09:36)
[2022-01-26] MEDS: cefTRIAXone 1,000 MG in sodium chloride 0.9% (plus) 50 ML 100 MG IV (09:36)
[2022-01-26] MEDS: metoprolol tartrate 25 mg Tablet PO (09:36)
[2022-01-26 11:24] LABS: Glucose Point of Care 291 mg/dL (70-110)
--- NOTE | 2022-01-26 11:35 | PM.DCS ---
Discharge Providers Date of Admission: 01/24/22 06:26 Date of Discharge: January 26, 2022 Attending Provider at Admission: Deja Carter MD Attending Provider at Discharge: Rabia Tirado MD Primary Care Provider: Bridget Everett DO Diagnoses at Discharge Discharge Diagnosis (1) Type 2 diabetes mellitus: Status: Acute (2) Acute hyponatremia: Status: Acute (3) Acute cystitis: Status: Acute (4) Acute kidney injury: Status: Acute (5) Allergic rhinitis: Status: Acute Qualifiers: Allergic rhinitis seasonality: seasonal Allergic rhinitis trigger: other Qualified Code(s): J30.89 - Other allergic rhinitis (6) Morbid obesity: Status: Acute (7) Intertrigo: Status: Acute (8) Lower back pain: Status: Acute (9) YANA (generalized anxiety disorder): Status: Acute (10) Morbid obesity with BMI of 60.0-69.9, adult: Status: Acute (11) Nonalcoholic steatohepatitis (GARCIA): Status: Acute (12) 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 She was acidotic, however ketones were negative. Patient was concerned that she has been diagnosed with Lantus allergy. We will try to give her fluids and manage her diabetes without insulin however our efforts to control blood sugar were unsuccessful. Patient finally agreed to allow us to give her Lantus under control involvement in ICU. She did not develop any bad reaction including lip swelling, skin rash or anaphylaxis. We are finally able to bring her sugar down from 400 to 200s. In total she required 109 units of insulin in last 24 hours. I have prescribed her 60 units of Lantus at bedtime and 10 units Premeal Humalog. She has not developed any kind of bad reaction. I have counseled patient and her daughter. She will see Dr. Haider on immediate basis. Dr. Haider has been notified. Records were obtained from [facility] endocrinology. During this admission she has been diagnosed with nonalcoholic fatty liver disease, liver cirrhosis portal hypertension. No signs of hepatic encephalopathy. I have given her referral to see a hand wrapper operator in [place] to see if she would be a good candidate for liver transplant. Considering GARCIA and diabetes. Pioglitazone to her Lantus and Premeal Humalog. I have discontinued metformin secondary to worsening kidney function, I will also discontinue glipizide. Victoza dose needs to be readjusted, I will let Dr. Haider adjust her Victoza. Her hemoglobin A1c is 11. She was diagnosed with UTI at the time of admission she received antibiotics. She remained afebrile no leukocytosis. Urine culture negative. I will give her cefpodoxime for 5 days. Creatinine at the time of admission 2.8 which improved with IV fluid hydration. Creatinine at the time of discharge 1.5. Hold lisinopril for 1 week. Physical Exam Narrative: Morbidly obese Distended abdomen Nontender Lymphedema of legs Awake and alert Nonfocal neuro exam No skin rash No signs of stridor No lip swelling Anxious appearing Urinary Catheter Management: Morel: Cath Placed During This Visit: yes Reason for Continuing Indwelling Catheter: Accurate Measurement of Urinary Output in Critically Ill Patients Urinary Catheter Date of Insertion: 01/24/22 Urinary Catheter Time of Insertion: 06:25 Discharge Data Studies Completed and Pending Completed Studies During Hospitalization Category Date Time Status CT abdomen pelvis wo con [id number] Urgent Cat Scan 01/24/22 04:35 Completed XR chest 1V portable [id number] Stat Exams 01/24/22 04:02 Completed Pending at discharge Category Date Time Status AFPTM [Tumor Marker Alpha Fetoprotein] Routine Lab 01/26/22 11:16 Ordered Blood Culture Stat Lab 01/24/22 07:55 Results Radiology Impressions Chest X-Ray 01/24/22 04:02 IMPRESSION: No acute findings. Abdomen/Pelvis CT 01/24/22 04:35 IMPRESSION: 1. Slightly nodular contour of the liver which may be seen with cirrhosis. Hepatomegaly. Fatty liver. 2. Splenomegaly. Laboratory Results WBC 5.1 10^3/uL (4.0-10.0) 01/26/22 07: RBC 4.31 10^6/uL (4.1-5.3) 01/26/22 07: Hgb 10.5 g/dL (11.5-15.3) L 01/26/22 07: Hct 35.1 % (37.0-47.0) L 01/26/22 07: MCV 81.4 fl (81-99) 01/26/22 07: MCH 24.4 pg (28.0-34.0) L 01/26/22 07: MCHC 29.9 g/dL (30.0-36.0) L 01/26/22 07: RDW 18.4 % (12.1-15.1) H 01/26/22 07:26 Plt Count 116 10^3/cmm (130-400) L 01/26/22 07:26 MPV Not Reportable 01/26/22 07: Neut % (Auto) 52.0 % 01/26/22 07: Lymph % (Auto) 32.0 % 01/26/22 07: Callahan % (Auto) 11.2 % 01/26/22 07: Eos % (Auto) 2.8 % 01/26/22 07: Baso % (Auto) 1.2 % 01/26/22 07: Neut # (Auto) 2.64 10^3/uL (1.8-7.7) 01/26/22 07: Lymph # (Auto) 1.6 10^3/uL (0.8-4.8) 01/26/22 07:26 Callahan # (Auto) 0.6 10^3/uL (0.2-0.9) 01/26/22 07: Eos # (Auto) 0.1 10^3/uL (0.0-0.8) 01/26/22 07: Baso # (Auto) 0.1 10^3/uL (0.0-0.1) 01/26/22 07: Nucleated RBC % (auto) 0 % 01/26/22 07: Nucleated RBCs # 0.0 /100WBC 01/26/22 07:26 Sodium 135 mmol/L (136-145) L 01/26/22 07:26 Potassium 4.3 mmol/L (3.5-5.1) 01/26/22 07: Chloride 102 mmol/L (98-107) 01/26/22 07: Carbon Dioxide 21 mmol/L (22-29) L 01/26/22 07:26 Anion Gap 16.3 (5-19) 01/26/22 07:26 BUN 28 mg/dL (6-20) H 01/26/22 07:26 Creatinine 1.5 mg/dL (0.5-0.9) H 01/26/22 07:26 GFR Calculation 36.6 mL/min (90-130) L 01/26/22 07:26 Glucose 264 mg/dL (65-115) H 01/26/22 07:26 POC Glucose 291 mg/dL (70-110) H 01/26/22 11:19 Estimat Average Glucose 292 01/24/22 04:11 Hemoglobin A1c 11.8 % (4.0-6.0) H 01/24/22 04:11 Calculated Osmolality 295 mOsm/kg (285-295) 01/26/22 07:26 Lactic Acid 3.9 mmol/L (0.5-2.2) H 01/24/22 04:10 Lactic Acid (Sepsis) 2.5 mmol/L (0.5-2.2) H 01/24/22 07:55 Calcium 8.7 mg/dL (8.5-10.5) 01/26/22 07: Magnesium 1.8 mg/dL (1.7-2.3) 01/25/22 10:39 Total Bilirubin 1.3 mg/dL (0.15-1.2) H 01/24/22 04:10 AST 66 U/L (0-32) H 01/24/22 04:10 ALT 45 U/L (0-33) H 01/24/22 04:10 Alkaline Phosphatase 192 IU/L (35-105) H 01/24/22 04:10 Troponin T Baseline 25 ng/L (0-10) H 01/24/22 04:10 Troponin T 120 Minute 31.94 ng/L (0-10) H 01/24/22 07:55 Delta Troponin T 6.94 ABS# (0-10) 01/24/22 07:55 Troponin T Hi Sens 6Hr 27.73 ng/L (0-10) H 01/24/22 10:40 Troponin T Hi Sens 6Hr Delta 2.73 ng/L (0-12) 01/24/22 10:40 C-Reactive Protein Cancelled 01/25/22 07:35 Total Protein 6.8 g/dL (6.6-8.7) 01/24/22 04:10 Albumin 2.8 g/dL (3.5-5.2) L 01/24/22 04:10 Globulin 4.0 g/dL (1.3-4.6) 01/24/22 04:10 Triglycerides 359 mg/dL (0-150) H 01/24/22 04:11 Cholesterol 64 mg/dL (0-200) 01/24/22 04:11 LDL Cholesterol, Calc -14 mg/dL (50-129) L 01/24/22 04:11 HDL Cholesterol 6 mg/dL (60-100) L 01/24/22 04:11 LDL/HDL Ratio -2.33 RATIO (0.00-3.22) L 01/24/22 04:11 Cholesterol/HDL Ratio 10.67 mg/dL (0.0-4.40) H 01/24/22 04:11 Vitamin B12 715 pg/mL (232-1245) 01/24/22 04:11 Procalcitonin 13.52 ng/mL (0-0.5) H 01/24/22 04:11 Urine Color Sylvia (Yellow) 01/24/22 06:30 Urine Appearance Cloudy (CLEAR) 01/24/22 06:30 Urine pH 5 (5-7) 01/24/22 06:30 Ur Specific [place] 1.015 (1.005-1.030) 01/24/22 06:30 Urine Protein Trace (Negative) 01/24/22 06:30 Urine Glucose (UA) 4+ (Normal) H 01/24/22 06:30 Urine Ketones Negative (Negative) 01/24/22 06:30 Urine Blood 3+ (Negative) H 01/24/22 06:30 Urine Nitrate Negative (Negative) 01/24/22 06:30 Urine Bilirubin Neg (Negative) 01/24/22 06:30 Urine Urobilinogen Norm mg/dL (Negative) 01/24/22 06:30 Ur Leukocyte Esterase 2+ (Negative) H 01/24/22 06:30 Urine RBC 25-40 /hpf (0-2) H 01/24/22 06:30 Urine WBC 55-80 /hpf (0-5) H 01/24/22 06:30 Ur Squamous Epith Cells 0-4 /hpf (0-5) H 01/24/22 06:30 Amorphous Sediment 4+ /hpf 01/24/22 06:30 Urine Bacteria 2+ /hpf (NONE) H 01/24/22 06:30 Fine Granular Casts 5-10 /lpf H 01/24/22 06:30 Urine Mucus Trace /hpf 01/24/22 06:30 Serum Ketones Negative (Negative) 01/24/22 04:10 Vitals Last Vital Signs Temp 98.1 F 01/26/22 04:00 Pulse 64 01/26/22 08:00 Resp 17 01/26/22 08:00 BP 144/82 01/26/22 08:00 Pulse Ox 96 01/26/22 08:00 O2 Del Method 01/26/22 08:00 FiO2 21 01/25/22 23:58 Discharge Plan Discharge Patient Disposition: Home Condition: Stable Prescriptions: New cefpodoxime 200 mg tablet 200 mg PO BID Qty: 10 0RF Rx Instructions: must administer with a meal/food Lantus Solostar U-100 Insulin 100 unit/mL (3 mL) insulin pen 60 unit SUBCUT QPM Qty: 15 5RF Humalog KwikPen Insulin 100 unit/mL insulin pen 10 unit SUBCUT AC Qty: 15 5RF (DME) Accu-Chek Fastclix Lancet Drum Misc See Rx Instructions .Route Qty: 200 3RF Rx Instructions: As directed (DME) Accu-Chek Guide test strips Strip See Rx Instructions .Route Qty: 100 3RF Rx Instructions: As directed pioglitazone 15 mg tablet 15 mg PO DAILY Qty: 60 3RF Continued ipratropium-albuterol 0.5 mg-3 mg(2.5 mg base)/3 mL solution for nebulization 3 ml inhalation QID PRN (Reason: Shortness Of Breath) fluticasone propion-salmeterol [Advair Diskus] 250-50 mcg/dose blister with device 1 inh inhalation BID Qty: 60 2RF cyclobenzaprine 10 mg tablet 10 mg PO .qhs Qty: 90 0RF aspirin 81 mg tablet,delayed release (DR/EC) 81 mg PO DAILY albuterol sulfate [ProAir HFA] 90 mcg/actuation HFA aerosol inhaler 2 puff INHALATION Q6H PRN (Reason: Shortness Of Breath) 90 Days Qty: 30 1RF nitroglycerin 0.4 mg tablet, sublingual 0.4 mg sublingual Q5M PRN (Reason: chest pain) 30 Days Qty: 30 3RF Rx Instructions: until response; do not exceed 3 doses per episode (DME) nebulizer See Rx Instructions .Route .MEDSUPPLY Qty: 1 0RF Rx Instructions: with tubing and accessories cholecalciferol (vitamin D3) 25 mcg (1,000 unit) capsule 25 mcg PO DAILY 30 Days Qty: 30 0RF liothyronine 5 mcg tablet 5 mcg PO BID Qty: 180 3RF Rx Instructions: Take one tablet by mouth twice a day. (DME) OneTouch Verio test strips Strip See Rx Instructions .Route Qty: 300 3RF Rx Instructions: Use in OneTouch meter 4 times daily 90 day supply bupropion HCl 150 mg tablet extended release 24 hr See Rx Instructions .ROUTE .COMPLEX Qty: 30 5RF Dose Instruction: TAKE ONE TABLET BY MOUTH IN THE MORNING Rx Instructions: TAKE ONE TABLET BY MOUTH IN THE MORNING buspirone 5 mg tablet See Rx Instructions .ROUTE .COMPLEX Qty: 90 5RF Dose Instruction: TAKE ONE TABLET BY MOUTH THREE TIMES DAILY Rx Instructions: TAKE ONE TABLET BY MOUTH THREE TIMES DAILY fluoxetine 40 mg capsule See Rx Instructions .ROUTE .COMPLEX Qty: 30 5RF Dose Instruction: TAKE ONE CAPSULE BY MOUTH EVERY NIGHT AT BEDTIME Rx Instructions: TAKE ONE CAPSULE BY MOUTH EVERY NIGHT AT BEDTIME fluticasone propionate [Flonase Allergy Relief] 50 mcg/actuation spray,suspension 2 spray intranasal DAILY Qty: 16 0RF Rx Instructions: administer into each nostril (DME) 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 meter [OneTouch Verio Meter] Misc See Rx Instructions .Route Qty: 1 0RF Rx Instructions: Use to check blood sugar once daily (DME) lancets [OneTouch Delica Lancets] 33 gauge misc See Rx Instructions .Route Qty: 100 3RF Rx Instructions: to use to check blood sugar once daily 90 day supply potassium chloride 8 mEq tablet extended release 8 meq PO .qod Qty: 90 3RF Rx Instructions: frequency reduced Savella 50 mg tablet 50 mg PO BID 90 Days Qty: 180 1RF omeprazole 40 mg capsule,delayed release(DR/EC) See Rx Instructions .ROUTE .COMPLEX Qty: 30 3RF Dose Instruction: TAKE 1 CAPSULE BY MOUTH DAILY Rx Instructions: TAKE 1 CAPSULE BY MOUTH DAILY nystatin 100,000 unit/gram cream See Rx Instructions .ROUTE .COMPLEX Qty: 60 3RF Dose Instruction: APPLY TO AFFECTED AREAS ON ARMPITS AND TRUNK ONCE DAILY FOR RASH INFLAMMATION. Rx Instructions: APPLY TO AFFECTED AREAS ON ARMPITS AND TRUNK ONCE DAILY FOR RASH INFLAMMATION. montelukast 10 mg tablet See Rx Instructions .ROUTE .COMPLEX Qty: 90 0RF Dose Instruction: TAKE 1 TABLET BY MOUTH DAILY Rx Instructions: TAKE 1 TABLET BY MOUTH DAILY metoprolol tartrate 25 mg tablet See Rx Instructions .ROUTE .COMPLEX Qty: 180 0RF Dose Instruction: TAKE ONE TABLET BY MOUTH TWICE DAILY Rx Instructions: TAKE ONE TABLET BY MOUTH TWICE DAILY pregabalin 200 mg capsule 200 mg PO TID Qty: 90 2RF Rx Instructions: For Karlos cholecalciferol (vitamin D3) [Vitamin D3] 25 mcg (1,000 unit) Capsule 25 mcg PO DAILY Qty: 0 furosemide 40 mg Tablet 40 mg PO DAILY Qty: 30 0RF Held lisinopril 2.5 mg tablet See Rx Instructions .ROUTE .COMPLEX Qty: 90 0RF Hold Instructions: Resume on 02/02/22. Dose Instruction: TAKE 1 TABLET BY MOUTH DAILY Rx Instructions: TAKE 1 TABLET BY MOUTH DAILY Discontinued prednisone 5 mg tablet See Rx Instructions PO DAILY Qty: 30 0RF Rx Instructions: 1-2 tablets daily PO daily; ciprofloxacin HCl 500 mg tablet 500 mg PO BID 7 Days Qty: 14 0RF Trulicity 4.5 mg/0.5 mL pen injector 4.5 mg SUBCUT .qweekly Qty: 6 3RF celecoxib 200 mg capsule 200 mg PO BID 30 Days Qty: 60 2RF metformin 1,000 mg tablet See Rx Instructions .ROUTE .COMPLEX Qty: 60 1RF Dose Instruction: TAKE 1 TABLET BY MOUTH TWICE DAILY WITH MEALS Rx Instructions: TAKE 1 TABLET BY MOUTH TWICE DAILY WITH MEALS acarbose 100 mg tablet 100 mg PO TID Qty: 275 3RF Rx Instructions: Take one tablet by mouth three times a day with meals. glimepiride 4 mg tablet 8 mg PO DAILY Qty: 180 3RF Rx Instructions: Take two tablet by mouth daily. atorvastatin 80 mg tablet 80 mg PO DAILY Discharge Orders: Discharge Order (Routine); Ordered 01/26/22 Ordered By: Rabia Tirado Other Ambulatory Orders: DME: Wood (Order) Location: None Selected Ordered By: Rabia Tirado Referrals: Daniel Nicholson MD [Referring] - 1 month Bridget Everett DO [Primary Care Provider] - 7-10 days Henrry Haider MD [Physician] - 1-3 days (January at 09:30 am) Discharge Diet: Diabetic Discharge Activity: Increase activity as tolerated Patient Instructions: Type 2 Diabetes, Cefpodoxime Proxetil (By mouth) (Vantin), Pioglitazone (By mouth) (Actos), Insulin Glargine (By injection) (Lantus, Lantus SoloStar, Toujeo, Semglee), Hyperglycemia, Cirrhosis (DC), Acute Kidney Injury (DC), Urinary Tract Infection in Women (DC), Liver Disease Diet (DC), Hyponatremia (DC), Basic Carbohydrate Counting (DC), Opioid Safety Activity Restrictions/Additional Instructions: ?You have been diagnosed with liver cirrhosis due to nonalcoholic fatty liver disease You to see a hand wrapper operator or group practice pediatrician in [place] to see if you be a good candidate for liver transplant You will need to see Dr. Haider on immediate basis Lifestyle modifications for nonalcoholic fatty liver disease best therapeutic approach is an adequate lifestyle change focused on weight loss and achieved by physical activity (aerobic activities and resistance training) and healthy diet. In particular, an energy restriction obtained with a low calorie (7891-2508 kcal/d), low fat (less than 10% of saturated fatty acid), low carbohydrate diet (< 50% of total kcal) is suggested. A Mediterranean diet is recommended as the most effective dietary option to induce a weight loss together with beneficial effects on all cardio-metabolic risk factors associated with NAFLD Discharge Attestations Time Spent in Discharge Care*: less than 30 min Quality Metrics Clinical Quality Measures [ No reported AMI, CVA or VTE this stay] Coding Level of Care Code Acute Chg FW DC note Diagnoses Type 2 diabetes mellitus E11.9 Acute hyponatremia E87.1 Acute cystitis N30.00 Acute kidney injury N17.9 Allergic rhinitis J30.89 Allergic rhinitis seasonality: seasonal Allergic rhinitis trigger: other Morbid obesity E66.01 Intertrigo L30.4 Lower back pain M54.50 YANA (generalized anxiety disorder) F41.1 Morbid obesity with BMI of 60.0-69.9, adult E66.01; Z68.44 Nonalcoholic steatohepatitis (GARCIA) K75.81 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
[2022-01-26 12:07] LABS: Glucose Point of Care 291 mg/dL (70-110)
--- NOTE | 2022-01-26 13:26 | PC.NURSE ---
Encarnacion and two IV's removed. Pt tolerated well. Educated on urinating within 6 hours after encarnacion is removed.
--- NOTE | 2022-01-26 14:01 | PC.NURSE ---
Discharge instructions given to patient and family, IVs removed, encarnacion removed. Patient and belongings taken to private vehicle by this nurse.
[2022-01-26 14:22] LABS: Tumor Marker Alpha Fetoprotein 1.4 ng/mL (0-8.3)
== END 2022-01-26 13:55 | disposition home or self-care (01) | DRG 683 ==
LOC: ER 05:14 → ICU 05:41
PROVIDERS: Admitting Provider Student in an Organized Health Care Education/Training Program; Emergency Provider Emergency Medicine; PCP Family Medicine; Visit Provider Internal Medicine
DX: N17.9 Acute kidney failure, unspecified (principal); E87.1 Hypo-osmolality and hyponatremia; K76.6 Portal hypertension; N30.00 Acute cystitis without hematuria; Z68.43 Body mass index [BMI] 50.0-59.9, adult; E87.2 Acidosis; E11.65 Type 2 diabetes mellitus with hyperglycemia; E66.01 Morbid (severe) obesity due to excess calories; K74.69 Other cirrhosis of liver; K75.81 Nonalcoholic steatohepatitis (NASH); F41.1 Generalized anxiety disorder; E03.9 Hypothyroidism, unspecified; J44.9 Chronic obstructive pulmonary disease, unspecified; I25.10 Atherosclerotic heart disease of native coronary artery without angina pectoris; I10 Essential (primary) hypertension; E11.42 Type 2 diabetes mellitus with diabetic polyneuropathy; E78.5 Hyperlipidemia, unspecified; G47.33 Obstructive sleep apnea (adult) (pediatric); E11.3293 Type 2 diabetes mellitus with mild nonproliferative diabetic retinopathy without macular edema, bilateral; I95.9 Hypotension, unspecified; E86.0 Dehydration; J30.89 Other allergic rhinitis; R00.2 Palpitations; R07.9 Chest pain, unspecified; Z79.84 Long term (current) use of oral hypoglycemic drugs; Z79.82 Long term (current) use of aspirin; Z95.5 Presence of coronary angioplasty implant and graft; Z87.891 Personal history of nicotine dependence
CPT/HCPCS: 36415; 36416; 51702; 71045; 74176; 80048; 80053; 80061; 81001; 82009; 82105; 82607; 82962; 83036; 83605; 83735; 84145; 84484; 85025; 87040; 87086; 93005; 94660; 96365; 96372; 96375; 97110; 97116; 97161; 97530; 99285; J0696; J1200; J1644; J1815; J7030

== ENCOUNTER → 2022-01-31 09:08 | Outpatient (BNVA) | payer MEDICAID, SELFPAY | PROVIDERS: PCP Family Medicine; Visit Provider Internal Medicine | DX: Z09 Encounter for follow-up examination after completed treatment for conditions other than malignant neoplasm (principal); E11.319 Type 2 diabetes mellitus with unspecified diabetic retinopathy without macular edema; E11.42 Type 2 diabetes mellitus with diabetic polyneuropathy; E11.3393 Type 2 diabetes mellitus with moderate nonproliferative diabetic retinopathy without macular edema, bilateral; E11.59 Type 2 diabetes mellitus with other circulatory complications; K76.0 Fatty (change of) liver, not elsewhere classified; R74.8 Abnormal levels of other serum enzymes; E03.9 Hypothyroidism, unspecified; R79.89 Other specified abnormal findings of blood chemistry; E66.01 Morbid (severe) obesity due to excess calories; Z68.43 Body mass index [BMI] 50.0-59.9, adult; Z87.891 Personal history of nicotine dependence; Z79.4 Long term (current) use of insulin | CPT/HCPCS: 99215 ==

== ENCOUNTER → 2022-02-02 12:09 | Outpatient (BNVA) | payer MEDICAID, SELFPAY | PROVIDERS: PCP Family Medicine; Visit Provider Family Medicine | DX: N17.9 Acute kidney failure, unspecified (principal); K75.81 Nonalcoholic steatohepatitis (NASH) | CPT/HCPCS: 80048 ==

== ENCOUNTER → 2022-02-09 14:54 | Outpatient (BNVA) | payer MEDICAID, SELFPAY | PROVIDERS: PCP Family Medicine; Visit Provider Internal Medicine | DX: R76.8 Other specified abnormal immunological findings in serum (principal); R70.0 Elevated erythrocyte sedimentation rate; M54.50 Low back pain, unspecified; Z79.899 Other long term (current) drug therapy; M54.2 Cervicalgia; G89.29 Other chronic pain; Z11.1 Encounter for screening for respiratory tuberculosis; E03.9 Hypothyroidism, unspecified; E11.319 Type 2 diabetes mellitus with unspecified diabetic retinopathy without macular edema; Z79.4 Long term (current) use of insulin | CPT/HCPCS: 99214 ==

== ENCOUNTER 2022-03-07 06:00 | Outpatient (RCR) | payer MEDICAID, SELFPAY | END 2022-03-31 23:59 | disposition home or self-care (01) | LOC: WPT 06:00 | PROVIDERS: PCP Family Medicine; Visit Provider Anesthesiology Pain Medicine | DX: M54.50 Low back pain, unspecified (principal); G89.29 Other chronic pain | CPT/HCPCS: 97110; 97161; 97530 ==

== ENCOUNTER 2022-03-13 16:17 | Outpatient (CLI) | payer MEDICAID, SELFPAY ==
[2022-03-13 17:19] LABS: Alanine Aminotransferase 45 U/L (0-33); Albumin Level 3.2 g/dL (3.5-5.2); Alkaline Phosphatase 140 U/L (35-105); Anion Gap 17.2 (5-19); Aspartate Amino Transferase 72 U/L (0-32); Blood Urea Nitrogen 12 mg/dL (6-20); Carbon Dioxide 21 mmol/L (22-29); Chloride 101 mmol/L (98-107); Chol HDL Ratio 6.11 mg/dL (0.0-4.40); Cholesterol 171 mg/dL (0-200); Free T4 Free Thyroxine 0.82 ng/dL (0.82-1.77); Globulin 4.3 g/dL (1.3-4.6); Glucose 161 mg/dL (65-115); HDL Cholesterol 28 mg/dL (60-100); LDL Cholesterol Calculated 88 mg/dL (50-129); LDL HDL Ratio 3.14 RATIO (0.00-3.22); Osmolality Calculated 283 mOsm/kg (285-295); Potassium 4.2 mmol/L (3.5-5.1); Sodium 135 mmol/L (136-145); Total Bilirubin 0.4 mg/dL (0.15-1.2); Total Protein 7.5 g/dL (6.6-8.7); Triglycerides 275 mg/dL (0-150)
[2022-03-13 17:27] LABS: Estmated Average Glucose 217; Hemoglobin A1C 9.2 % (4.0-6.0)
== END 2022-03-13 16:18 | disposition home or self-care (01) ==
PROVIDERS: PCP Family Medicine; Visit Provider Internal Medicine
DX: E03.9 Hypothyroidism, unspecified (principal); E11.3393 Type 2 diabetes mellitus with moderate nonproliferative diabetic retinopathy without macular edema, bilateral; E11.42 Type 2 diabetes mellitus with diabetic polyneuropathy; E11.59 Type 2 diabetes mellitus with other circulatory complications; E66.01 Morbid (severe) obesity due to excess calories; R79.89 Other specified abnormal findings of blood chemistry; R74.8 Abnormal levels of other serum enzymes; K76.0 Fatty (change of) liver, not elsewhere classified; Z79.4 Long term (current) use of insulin
CPT/HCPCS: 36415; 80053; 80061; 83036; 84439; 84443

== ENCOUNTER → 2022-03-14 13:01 | Outpatient (BNVA) | payer MEDICAID, SELFPAY | PROVIDERS: PCP Family Medicine; Visit Provider Internal Medicine | DX: E11.59 Type 2 diabetes mellitus with other circulatory complications (principal); E11.42 Type 2 diabetes mellitus with diabetic polyneuropathy; E11.3393 Type 2 diabetes mellitus with moderate nonproliferative diabetic retinopathy without macular edema, bilateral; E03.9 Hypothyroidism, unspecified; E66.01 Morbid (severe) obesity due to excess calories; K76.0 Fatty (change of) liver, not elsewhere classified; E78.2 Mixed hyperlipidemia; Z79.4 Long term (current) use of insulin; Z87.891 Personal history of nicotine dependence; Z68.43 Body mass index [BMI] 50.0-59.9, adult | CPT/HCPCS: 99214 ==

== ENCOUNTER 2022-04-01 06:00 | Outpatient (RCR) | payer MEDICAID, SELFPAY | END 2022-05-01 23:59 | disposition home or self-care (01) | LOC: WPT 06:00 | PROVIDERS: PCP Family Medicine; Visit Provider Anesthesiology Pain Medicine | DX: M54.50 Low back pain, unspecified (principal); G89.29 Other chronic pain | CPT/HCPCS: 97530 ==

== ENCOUNTER → 2022-04-05 15:18 | Outpatient (BNVA) | payer MEDICAID, SELFPAY | PROVIDERS: PCP Family Medicine; Visit Provider Internal Medicine Cardiovascular Disease | DX: I25.118 Atherosclerotic heart disease of native coronary artery with other forms of angina pectoris (principal); Z95.1 Presence of aortocoronary bypass graft; E78.2 Mixed hyperlipidemia; K75.81 Nonalcoholic steatohepatitis (NASH); E11.59 Type 2 diabetes mellitus with other circulatory complications; Z79.4 Long term (current) use of insulin; R74.8 Abnormal levels of other serum enzymes; Z87.891 Personal history of nicotine dependence | CPT/HCPCS: 99214 ==

== ENCOUNTER 2022-04-06 08:55 | Outpatient (CLI) | payer MEDICAID, SELFPAY ==
[2022-04-06 10:02] LABS: Alanine Aminotransferase 45 U/L (0-33); Albumin Level 3.5 g/dL (3.5-5.2); Alkaline Phosphatase 133 U/L (35-105); Chol HDL Ratio 5.94 mg/dL (0.0-4.40); Cholesterol 190 mg/dL (0-200); Globulin 4.1 g/dL (1.3-4.6); HDL Cholesterol 32 mg/dL (60-100); LDL Cholesterol Calculated 114 mg/dL (50-129); LDL HDL Ratio 3.56 RATIO (0.00-3.22); NT Pro B Type Natriuretic Pept 47 pg/mL (0-125); Total Bilirubin 0.7 mg/dL (0.15-1.2); Total Protein 7.6 g/dL (6.6-8.7); Triglycerides 218 mg/dL (0-150)
[2022-04-06 10:13] LABS: Aspartate Amino Transferase 64 U/L (0-32)
== END 2022-04-06 08:56 | disposition home or self-care (01) ==
LOC: LAB 08:56
PROVIDERS: PCP Family Medicine; Visit Provider Internal Medicine Cardiovascular Disease
DX: E78.5 Hyperlipidemia, unspecified (principal); R06.02 Shortness of breath
CPT/HCPCS: 36415; 80061; 80076; 83880

== ENCOUNTER 2022-04-11 10:34 | Outpatient (CLI) | payer MEDICAID, SELFPAY | END 2022-04-11 10:35 | disposition home or self-care (01) | PROVIDERS: PCP Family Medicine; Visit Provider Anesthesiology Pain Medicine | DX: M54.16 Radiculopathy, lumbar region (principal); M16.0 Bilateral primary osteoarthritis of hip; M51.36 Other intervertebral disc degeneration, lumbar region | CPT/HCPCS: 73522; 99205 ==

== ENCOUNTER → 2022-04-25 08:35 | Outpatient (BNVA) | payer MEDICAID, SELFPAY | PROVIDERS: PCP Family Medicine; Referring Provider Family Medicine; Visit Provider Podiatrist Foot & Ankle Surgery | DX: E11.42 Type 2 diabetes mellitus with diabetic polyneuropathy (principal); L60.3 Nail dystrophy; M20.41 Other hammer toe(s) (acquired), right foot; M20.42 Other hammer toe(s) (acquired), left foot; M21.621 Bunionette of right foot; M21.622 Bunionette of left foot; M21.41 Flat foot [pes planus] (acquired), right foot; M21.42 Flat foot [pes planus] (acquired), left foot; Z79.4 Long term (current) use of insulin | CPT/HCPCS: 11056; 11721; 99204 ==

== ENCOUNTER → 2022-04-26 14:26 | Outpatient (BNVA) | payer MEDICAID, SELFPAY | PROVIDERS: PCP Family Medicine; Visit Provider Anesthesiology Pain Medicine | DX: M51.36 Other intervertebral disc degeneration, lumbar region (principal); M25.551 Pain in right hip; M25.552 Pain in left hip; Z87.891 Personal history of nicotine dependence | CPT/HCPCS: 99214 ==

== ENCOUNTER → 2022-05-15 14:35 | Outpatient (BNVA) | payer MEDICAID, SELFPAY | PROVIDERS: PCP Family Medicine; Visit Provider Anesthesiology Pain Medicine | DX: M54.16 Radiculopathy, lumbar region (principal); Z87.891 Personal history of nicotine dependence | CPT/HCPCS: 64483; 64484; J1100; J3490 ==

== ENCOUNTER 2022-05-27 23:03 | Emergency (ER) | payer MEDICAID, SELFPAY ==
[2022-05-27 23:05] VITALS: BP 100/62; PULSE 84; RESP 20; TEMP 36.3; O2SAT 96; BMI 59.4
--- NOTE | 2022-05-28 00:08 | W.ED.ABDPA2 ---
Documented by User: ANSELMO Santos 05/28/22 02:50 HPI - Abdominal Pain General: Chief Complaint: Abdominal Pain Stated Complaint: right upper abdomen pain, right shoulder pain Time Seen by Provider: 05/27/22 23:35 History of Present Illness: Patient is a 51-year-old female who presents to the emergency department with complaints of right upper quadrant abdominal pain, nausea, vomiting. Onset of symptoms was early in the week around Sunday. Pains have progressively worsened over the last week. Patient is a morbidly obese female with a significant history diabetes, cardiovascular disease, hypothyroidism, GERD.. Pain is a 10 out of 10. Pain is described as sharp and cramping from anterior to posterior Surgical history includes hysterectomy, cardiac stent, carpal tunnel release. Patient still has her gallbladder Associated Symptoms: Reports diarrhea, nausea and vomiting; Denies bloating, chills, constipation, GI cramping, dysuria, fever(s), hematochezia and hematuria Related Data: Date of Last Menstrual Period: 01/25/00 Review of Systems General: Reports: 10 or more systems reviewed and unremarkable except in HPI and below Const: Denies: fever(s), chills, change in appetite, change in weight, fatigue or malaise Eyes: Denies: change in vision, eye discomfort, eye discharge or eye redness ENMT: Denies: throat pain, enlarged tonsils, odynophagia, hoarseness, ear or mastoid pain, ear discharge, change in hearing, tinnitus, nasal discharge, nasal congestion, post nasal drip or sinus pain Card: Denies: chest pain, palpitations, irregular heart rhythm, edema, dyspnea on exertion, orthopnea or leg pain with exertion Resp: Denies: dyspnea, productive cough, non-productive cough, wheezing, stridor or chest congestion GI: Reports: abdominal pain, nausea, vomiting and diarrhea; Denies: dysphagia, constipation, bloating, GI cramping or hematochezia : Denies: flank pain, difficulty voiding, dysuria, urinary frequency, urinary urgency, urinary hesitancy, oliguria or hematuria Musc: Denies: neck pain, back pain, extremity pain, joint pain, joint swelling, joint redness, joint warmth or muscle weakness Skin/Breast: Denies: rash, pruritus, erythema, photosensitivity or new lesions Neuro: Denies: headache(s), numbness in extremities, weakness in extremities, sensory changes, lack of coordination, difficulty walking, frequent falls, dizziness, confusion, Slurred speech present, difficulty communicating thoughts, seizure-like activity or involuntary movements Endo: Denies: polyuria, polydipsia or tired all the time Dann/Lymph: Denies: easy bruising or easy bleeding PFSH ED PFSH: Medical History Acquired hypothyroidism Acute cystitis Allergic rhinitis Anxiety ASHD (arteriosclerotic heart disease) Atypical chest pain Benign essential HTN CAD (coronary artery disease) Cataract, right eye Colon polyps COPD (chronic obstructive pulmonary disease) Depression Diabetic polyneuropathy Dyslipidemia Dysphagia Endometriosis Fibromyalgia YANA (generalized anxiety disorder) Intertrigo Lower back pain Lumbago Migraine Migraine without aura and without status migrainosus, not intractable Morbid obesity Morbid obesity with BMI of 60.0-69.9, adult GARCIA (nonalcoholic steatohepatitis) D[place]AS (obstructive sleep apnea) Tortuous colon Tremor Tubular adenoma of colon Type 2 diabetes mellitus with both eyes affected by moderate nonproliferative retinopathy without macular edema, with long-term current use of insulin Surgical History History of colonoscopy with polypectomy (04/01/21) sigmoid polyp History of coronary artery stent placement History of hand surgery Bilateral carpal tunnel History of total hysterectomy Hx of release of tendon R. hand Hx of tubal ligation Family History Father Heart attack CAD (coronary artery disease) Hypertension Mother Cancer CAD (coronary artery disease) Lung disease Diabetes Hyperlipidemia Hypertension Sister CAD (coronary artery disease), Onset Age: 21 NM at 21 Heart attack Brother CAD (coronary artery disease), Onset Age: 30 Diabetes Hyperlipidemia Hypertension Grandmother CAD (coronary artery disease) Diabetes Grandfather CAD (coronary artery disease) Grandmother CAD (coronary artery disease) Stroke Grandfather CAD (coronary artery disease) Lung disease Family/Other Cancer Diabetes Stroke Rheumatoid arthritis Denies family history of Lupus Clotting disorder Dementia Chronic kidney disease (CKD) Suicide Anesthesia complication Bleeding disorder Social History Smoking and tobacco status: former smoker Quit status (tobacco): has quit using tobacco Second hand smoke exposure: No Smoking risk assessment/counseling performed?: No Alcohol intake: never Desire information about alcohol rehabilitation?: No Counseling given: No Desire information about substance/drug rehabilitation?: No Counseling given: No Adopted: No Caregiver/support person: No Lives independently: Yes Household members: spouse Housing: House Marital status: Number of children: 2 Highest education level completed: GED or Equivalent service: No Current occupational status: disabled History of recent travel: No Sexually active: No Current gender identity: Female Agree to transfusion: Yes Female Reproductive History: Date of last menstrual period: 01/25/00 Physical Exam Const: COMMON NORMALS: no acute distress, patient oriented x3, no limitations, alert and well nourished (Morbidly obese); negative for healthy appearing GENERAL APPEARANCE: cooperative, well developed and anxious; not comfortable and not in distress ORIENTATION/CONSCIOUSNESS: Yes awake, Yes oriented to person, Yes oriented to place and Yes oriented to time HENMT: COMMON NORMALS: normocephalic, atraumatic, hearing grossly normal bilaterally, external ears normal, EAC's normal, TM's normal bilaterally, Normal external nose present and Normal nasal mucous membranes and turbinates present HEAD & SCALP: normal to inspection, normocephalic and atraumatic FACE & SINUS: normal facial exam and face symmetric NOSE: Normal external nose present, Normal nares present and Normal nasal mucous membranes and turbinates present GENERAL EAR: hearing not grossly impaired EXTERNAL EAR: Yes external ears normal and Yes no periauricular adenopathy EXTERNAL AUDITORY CANAL: EAC's normal TYMPANIC MEMBRANE: TM's normal bilaterally MOUTH: Normal oral and palatal mucosa present, lip normal, tongue normal and Normal salivary glands and ducts present THROAT: posterior oropharynx normal, tonsils normal and uvula midline Eye: COMMON NORMALS: Equal, round and reactive pupils present, EOMs intact bilaterally, conjunctivae normal, no scleral icterus and no papilledema GENERAL EYE: appearance normal, both eyes and all related structures ALIGNMENT: Yes alignment normal PERIORBITAL: periorbital findings normal EYELID: eyelids normal CONJUNCTIVA: Yes conjunctivae normal PUPIL: Yes Equal, round and reactive pupils present DIRECT OPHTHALMOSCOPY: Yes no papilledema Neck/C-Spine: COMMON NORMALS: full ROM, supple, no meningeal signs and no JVD GENERAL: Yes normal visual inspection CERVICAL SPINE: Yes cervical ROM normal Lymph: LYMPHATIC: no lymphadenopathy noted Chest: COMMONS NORMALS: normal inspection of the chest Breast/axilla inspection: Yes no chest deformity, asymmetry, normal contours, no nodules, masses, tenderness Resp: COMMON NORMALS: normal respiratory effort, No retractions, No use of accessory muscles and clear to auscultation bilaterally EFFORT & INSPECTION: Yes able to speak in complete sentences, Yes symmetric chest movement, No abnormal respiratory pattern, No tachypneic and No respiratory distress AUSCULTATION: clear to auscultation bilaterally Cardio: COMMON NORMALS: no JVD, regular rate, regular rhythm and Peripheral pulses 2+ throughout RATE: regular rate RHYTHM: regular rhythm PERIPHERAL PULSES: Peripheral pulses 2+ throughout GI: COMMON NORMALS: Normal to inspection, nondistended, normoactive bowel sounds present, Soft to palpation and non-tender INSPECTION: Yes normal to inspection PALPATION: Yes Soft to palpation OTHER: Patient is a morbidly obese female with large dense abdomen. She is complaining of right upper quadrant abdominal pain and is tender to palpation. She does report associated nausea vomiting Onset of symptoms 6 days ago and have progressively worsened through the week Bowel sounds are normoactive : COMMON NORMALS: Yes no CVA tenderness BLADDER/KIDNEY EXAM: Yes no CVA tenderness and Yes CVA tenderness Back/Pelvis: COMMON NORMALS: no CVA tenderness, thoracic and lumbar spine normal to inspection, no thoracic nor lumbar tenderness, thoraco-lumbar ROM normal and straight leg raise negative bilaterally GENERAL BACK: Yes CVA tenderness and No ecchymosis THORACIC SPINE/UPPER BACK: Yes normal to inspection LUMBAR SPINE/LOWER BACK: Yes normal to inspection and Yes straight leg raise negative bilaterally Extremity: COMMON NORMALS: normal to inspection, full ROM and capillary refill normal GENERAL: Yes normal exam except as noted Neuro: COMMON NORMALS: patient oriented x3 SENSORIUM/ORIENTATION: Yes alert, Yes oriented to person, Yes oriented to place and Yes oriented to time MENINGEAL SIGNS: Yes no meningeal signs Psych: COMMON NORMALS: mental status grossly normal, Normal thought process present, cooperative, normal affect, speech normal and activity/motor behavior normal SPEECH: Yes normal speech THOUGHT PROCESS: Normal thought process present Skin: COMMON NORMALS: no rashes or lesions noted, no wounds, turgor normal, no jaundice, no petechiae and no mottling GENERAL SKIN EXAM: no rashes or lesions noted and turgor normal Course ED course: Patient is a 51-year-old female that presents to the emergency department with right upper quadrant abdominal pain radiating to her back. Onset of symptoms 6 days ago. Pain is progressively worsened. Patient also reports nausea and vomiting associated with her symptoms. She denies any fevers. Patient does have a gallbladder. In the emergency department I obtained an EKG which reveals a sinus rhythm with a ventricular rate of 78 beats a minute. QTc is 399. Of also obtain laboratory studies that include lipase, CBC, CMP, troponin. Urinalysis with reactive culture was obtained as well For pain I have given her normal saline bolus 500 cc with Zofran and fentanyl Ultrasound right upper quadrant ordered Ultrasound limited abdomen completed and reveals liver enlargement but this is chronic. CT abdomen pelvis with contrast ordered and pending Reevaluation(s): Reevaluation #1: Patient reexamined this morning. She has returned from ultrasound and after the exam her pain is increased. They are going to give an additional dose of fentanyl, 100 mcg. Time: 01:07 Reevaluation #2: Patient continues to complain of pain. Will order Toradol 30 mg I have updated patient on diagnostic findings. I have recommended discharge home. She is to return if she has any increase in abdominal pain or new symptoms. Patient is agreeable as is her Time: 02:47 Vital Signs: Vital signs: Vital Signs Temperature 97.3 F L 05/27/22 23:05 Pulse Rate 78 05/28/22 01:00 Respiratory Rate 18 05/28/22 01:42 Blood Pressure 134/64 05/28/22 01:42 Pulse Oximetry 96 05/27/22 23:05 Oxygen Delivery Me thod 05/27/22 23:05 MDM - Abdominal Pain Medical Decision Making Patient is a 51-year-old female that presents to the emergency department with right upper quadrant abdominal pain radiating to her back. Onset of symptoms 6 days ago. Pain is progressively worsened. Patient also reports nausea and vomiting associated with her symptoms. She denies any fevers. Patient does have a gallbladder. In the emergency department I obtained an EKG which reveals a sinus rhythm with a ventricular rate of 78 beats a minute. QTc is 399. Of also obtain laboratory studies that include lipase, CBC, CMP, troponin. Urinalysis with reactive culture was obtained as well For pain I have given her normal saline bolus 500 cc with Zofran and fentanyl Ultrasound right upper quadrant ordered Ultrasound limited abdomen completed and reveals liver enlargement but this is chronic. CT abdomen pelvis with contrast completed and reveals no acute findings. Diagnostics have been reviewed with patient and her spouse. At this time no further diagnostics are warranted. She and I discussed the likelihood that she would need a HIDA scan. This will be done outpatient though. Patient verbalizes understanding Lab Data 05/28/22 00:19 05/28/22 00:19 Labs/Radiology: Radiology Impressions Abdomen Ultrasound 05/28/22 00:13 IMPRESSION: 1. Negative for cholelithiasis or cholecystitis. 2. Mild hepatic steatosis and enlargement of the liver to 23 cm. Abdomen/Pelvis CT 05/28/22 01:09 IMPRESSION: 1. There are no acute abdominal findings. 2. Mild hepatomegaly. 3. Stable splenorenal varices Laboratory Results WBC 7.9 10^3/uL (4.0-10.0) 05/28/22 00:19 RBC 4.83 10^6/uL (4.1-5.3) 05/28/22 00:19 Hgb 11.7 g/dL (11.5-15.3) 05/28/22 00:19 Hct 38.9 % (37.0-47.0) 05/28/22 00:19 MCV 80.5 fl (81-99) L 05/28/22 00:19 MCH 24.2 pg (28.0-34.0) L 05/28/22 00:19 MCHC 30.1 g/dL (30.0-36.0) 05/28/22 00:19 RDW 17.9 % (12.1-15.1) H 05/28/22 00:19 Plt Count 177 10^3/cmm (130-400) 05/28/22 00:19 MPV 11.7 fL (7.4-10.4) H 05/28/22 00:19 Neut % (Auto) 51.8 % 05/28/22 00:19 Lymph % (Auto) 36.2 % 05/28/22 00:19 [place] % (Auto) 8.2 % 05/28/22 00:19 Eos % (Auto) 2.5 % 05/28/22 00:19 Baso % (Auto) 0.9 % 05/28/22 00:19 Neut # (Auto) 4.08 10^3/uL (1.8-7.7) 05/28/22 00:19 Lymph # (Auto) 2.9 10^3/uL (0.8-4.8) 05/28/22 00:19 [place] # (Auto) 0.7 10^3/uL (0.2-0.9) 05/28/22 00:19 Eos # (Auto) 0.2 10^3/uL (0.0-0.8) 05/28/22 00:19 Baso # (Auto) 0.1 10^3/uL (0.0-0.1) 05/28/22 00:19 Nucleated RBC % (auto) 0 % 05/28/22 00:19 Nucleated RBCs # 0.0 /100WBC 05/28/22 00:19 Sodium 132 mmol/L (136-145) L 05/28/22 00:19 Potassium 3.9 mmol/L (3.5-5.1) 05/28/22 00:19 Chloride 95 mmol/L (98-107) L 05/28/22 00:19 Carbon Dioxide 25 mmol/L (22-29) 05/28/22 00:19 Anion Gap 15.9 (5-19) 05/28/22 00:19 BUN 11 mg/dL (6-20) 05/28/22 00:19 Creatinine 0.9 mg/dL (0.5-0.9) 05/28/22 00:19 GFR Calculation 66.0 mL/min (90-130) L 05/28/22 00:19 Glucose 220 mg/dL (65-115) H 05/28/22 00:19 Calculated Osmolality 280 mOsm/kg (285-295) L 05/28/22 00:19 Lactate 2.0 mmol/L (0.5-2.2) 05/28/22 00:19 Calcium 9.7 mg/dL (8.5-10.5) 05/28/22 00:19 Total Bilirubin 0.4 mg/dL (0.15-1.2) 05/28/22 00:19 AST 41 U/L (0-32) H 05/28/22 00:19 ALT 36 U/L (0-33) H 05/28/22 00:19 Alkaline Phosphatase 118 U/L (35-105) H 05/28/22 00:19 Troponin T Baseline 7 ng/L (0-10) 05/28/22 00:19 Troponin T 120 Minute 7.73 ng/L (0-10) 05/28/22 02:28 Delta Troponin T 0.73 ABS# (0-10) 05/28/22 02:28 Total Protein 7.5 g/dL (6.6-8.7) 05/28/22 00:19 Albumin 3.6 g/dL (3.5-5.2) 05/28/22 00:19 Globulin 3.9 g/dL (1.3-4.6) 05/28/22 00:19 Lipase 39 U/L (13-60) 05/28/22 00:19 HCG, Qual Negative (Negative) 05/28/22 01:10 Urine Color Yellow (Yellow) 05/28/22 01:10 Urine Appearance Clear (CLEAR) 05/28/22 01:10 Urine pH 6 (5-7) 05/28/22 01:10 Ur Specific [place] 1.010 (1.005-1.030) 05/28/22 01:10 Urine Protein Neg (Negative) 05/28/22 01:10 Urine Glucose (UA) Trace (Normal) H 05/28/22 01:10 Urine Ketones Negative (Negative) 05/28/22 01:10 Urine Blood Neg (Negative) 05/28/22 01:10 Urine Nitrate Negative (Negative) 05/28/22 01:10 Urine Bilirubin Neg (Negative) 05/28/22 01:10 Urine Urobilinogen Neg mg/dL (Negative) 05/28/22 01:10 Ur Leukocyte Esterase Negative (Negative) 05/28/22 01:10 Discharge Plan Discharge Patient Disposition: Home Clinical Impression: Abdominal pain Condition: Stable Prescriptions: No Action ipratropium-albuterol 0.5 mg-3 mg(2.5 mg base)/3 mL solution for nebulization 3 ml inhalation QID PRN (Reason: Shortness Of Breath) fluticasone propion-salmeterol [Advair Diskus] 250-50 mcg/dose blister with device 1 inh inhalation BID Qty: 60 2RF aspirin 81 mg tablet,delayed release (DR/EC) 81 mg PO DAILY nitroglycerin 0.4 mg tablet, sublingual 0.4 mg sublingual Q5M PRN (Reason: chest pain) 30 Days Qty: 30 3RF Rx Instructions: until response; do not exceed 3 doses per episode (DME) nebulizer See Rx Instructions .Route .MEDSUPPLY Qty: 1 0RF Rx Instructions: with tubing and accessories cholecalciferol (vitamin D3) 25 mcg (1,000 unit) capsule 25 mcg PO DAILY 30 Days Qty: 30 0RF liothyronine 5 mcg tablet 5 mcg PO BID Qty: 180 3RF Rx Instructions: Take one tablet by mouth twice a day. fluticasone propionate [Flonase Allergy Relief] 50 mcg/actuation spray,suspension 2 spray intranasal DAILY PRN Rx Instructions: administer into each nostril bupropion HCl 150 mg tablet extended release 24 hr See Rx Instructions .ROUTE .COMPLEX Qty: 30 5RF Dose Instruction: TAKE ONE TABLET BY MOUTH IN THE MORNING Rx Instructions: TAKE ONE TABLET BY MOUTH IN THE MORNING buspirone 5 mg tablet See Rx Instructions .ROUTE .COMPLEX Qty: 90 5RF Dose Instruction: TAKE ONE TABLET BY MOUTH THREE TIMES DAILY Rx Instructions: TAKE ONE TABLET BY MOUTH THREE TIMES DAILY fluoxetine 40 mg capsule See Rx Instructions .ROUTE .COMPLEX Qty: 30 5RF Dose Instruction: TAKE ONE CAPSULE BY MOUTH EVERY NIGHT AT BEDTIME Rx Instructions: TAKE ONE CAPSULE BY MOUTH EVERY NIGHT AT BEDTIME MARIJUNIA PO (DME) Dexcom G6 Transmitter Device See Rx Instructions .Route Qty: 1 3RF Rx Instructions: Change every 90 days. Lantus Solostar U-100 Insulin 100 unit/mL (3 mL) insulin pen 100 unit SUBCUT QPM Qty: 90 3RF (DME) OneTouch Verio test strips Strip See Rx Instructions .Route Qty: 400 3RF Rx Instructions: Use in OneTouch meter 6 times daily 90 day supply bupivacaine (PF) 0.25 % (2.5 mg/mL) solution 2 ml Infiltration ONCE Qty: 1 0RF dexamethasone sodium phos (PF) 10 mg/mL solution 8 mg Infiltration ONCE Qty: 0.8 0RF (DME) 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 meter [OneTouch Verio Meter] [facility] [place] See Rx Instructions .Route Qty: 1 0RF Rx Instructions: Use to check blood sugar once daily potassium chloride 8 mEq tablet extended release 8 meq PO .qod Qty: 90 3RF Rx Instructions: frequency reduced Savella 50 mg tablet 50 mg PO BID 90 Days Qty: 180 1RF nystatin 100,000 unit/gram cream See Rx Instructions .ROUTE .COMPLEX Qty: 60 3RF Dose Instruction: APPLY TO AFFECTED AREAS ON ARMPITS AND TRUNK ONCE DAILY FOR RASH INFLAMMATION. Rx Instructions: APPLY TO AFFECTED AREAS ON ARMPITS AND TRUNK ONCE DAILY FOR RASH INFLAMMATION. montelukast 10 mg tablet See Rx Instructions .ROUTE .COMPLEX Qty: 90 0RF Dose Instruction: TAKE 1 TABLET BY MOUTH DAILY Rx Instructions: TAKE 1 TABLET BY MOUTH DAILY Trulicity 4.5 mg/0.5 mL pen injector See Rx Instructions .ROUTE .COMPLEX Qty: 6 2RF Dose Instruction: INJECT SUBCUTANEOUSLY (UNDER THE SKIN) 4.5 MG (0.5 ML) ONCE A WEEK (SAME DAY OF THE WEEK) Rx Instructions: INJECT SUBCUTANEOUSLY (UNDER THE SKIN) 4.5 MG (0.5 ML) ONCE A WEEK (SAME DAY OF THE WEEK) albuterol sulfate [ProAir HFA] 90 mcg/actuation HFA aerosol inhaler 2 puff INHALATION Q6H PRN (Reason: Shortness Of Breath) 90 Days Qty: 30 1RF (DME) lancets [OneTouch Delica Lancets] 33 gauge misc See Rx Instructions .Route Qty: 100 3RF Rx Instructions: to use to check blood sugar once daily 90 day supply omeprazole 40 mg capsule,delayed release(DR/EC) See Rx Instructions .ROUTE .COMPLEX Qty: 30 3RF Dose Instruction: TAKE 1 CAPSULE BY MOUTH DAILY Rx Instructions: TAKE 1 CAPSULE BY MOUTH DAILY metoprolol tartrate 25 mg tablet See Rx Instructions .ROUTE .COMPLEX Qty: 180 1RF Dose Instruction: TAKE ONE TABLET BY MOUTH TWICE DAILY Rx Instructions: TAKE ONE TABLET BY MOUTH TWICE DAILY levothyroxine [Synthroid] 175 mcg tablet 175 mcg PO DAILY Qty: 90 0RF cyclobenzaprine 10 mg tablet 10 mg PO .qhs Qty: 90 0RF (DME) pen needle, diabetic [Comfort EZ Pen Enders] 32 gauge x 5/32 needle See Rx Instructions .Route Qty: 400 3RF Rx Instructions: As directed insulin aspart U-100 [Novolog Flexpen U-100 Insulin] 100 unit/mL (3 mL) insulin pen 50 unit SUBCUT .AC 90 Days Qty: 140 3RF pregabalin 200 mg capsule 200 mg PO TID Qty: 90 2RF Rx Instructions: For Karlos who is out of the office (DME) Dexcom G6 Sensor Device See Rx Instructions .ROUTE .COMPLEX Qty: 3 2RF Dose Instruction: CHANGE EVERY 10 DAYS. Rx Instructions: CHANGE EVERY 10 DAYS. (DME) Dexcom G6 [employer] Supervisor Misc See Rx Instructions .ROUTE .COMPLEX Qty: 1 0RF Dose Instruction: USE TO CHECK BLOOD SUGAR 4-6 TIMES A DAY. Rx Instructions: USE TO CHECK BLOOD SUGAR 4-6 TIMES A DAY. cholecalciferol (vitamin D3) [Vitamin D3] 25 mcg (1,000 unit) Capsule 25 mcg PO DAILY Qty: 0 (DME) Accu-Chek Fastclix Lancet Drum Misc See Rx Instructions .Route Qty: 200 3RF Rx Instructions: As directed (DME) Accu-Chek Guide test strips Strip See Rx Instructions .Route Qty: 100 3RF Rx Instructions: As directed Discharge Orders: Discharge ED (Routine); Ordered 05/28/22 Ordered By: Nisreen Dyson Referrals: Bridget Everett DO [Primary Care Provider] - Discharge Diet: Advance as tolerated Discharge Activity: Resume usual activity Patient Instructions: Abdominal Pain (ED), Opioid Safety, Pain Management Coding Level of Care Code ED Lathe Operator Contact Lens for Chg Fwd Exam Comprehensive Documented by User: Benny Del Rio DO 05/28/22 06:21 HPI - Abdominal Pain General: Chief Complaint: Abdominal Pain Stated Complaint: right upper abdomen pain, right shoulder pain Time Seen by Provider: 05/27/22 23:35 PFSH ED PFSH: Medical History Acquired hypothyroidism Acute cystitis Allergic rhinitis Anxiety ASHD (arteriosclerotic heart disease) Atypical chest pain Benign essential HTN CAD (coronary artery disease) Cataract, right eye Colon polyps COPD (chronic obstructive pulmonary disease) Depression Diabetic polyneuropathy Dyslipidemia Dysphagia Endometriosis Fibromyalgia YANA (generalized anxiety disorder) Intertrigo Lower back pain Lumbago Migraine Migraine without aura and without status migrainosus, not intractable Morbid obesity Morbid obesity with BMI of 60.0-69.9, adult GARCIA (nonalcoholic steatohepatitis) [place] (obstructive sleep apnea) Tortuous colon Tremor Tubular adenoma of colon Type 2 diabetes mellitus with both eyes affected by moderate nonproliferative retinopathy without macular edema, with long-term current use of insulin Surgical History History of colonoscopy with polypectomy (04/01/21) sigmoid polyp History of coronary artery stent placement History of hand surgery Bilateral carpal tunnel History of total hysterectomy Hx of release of tendon R. hand Hx of tubal ligation Family History Father Heart attack CAD (coronary artery disease) Hypertension Mother Cancer CAD (coronary artery disease) Lung disease Diabetes Hyperlipidemia Hypertension Sister CAD (coronary artery disease), Onset Age: 21 [place] at 21 Heart attack Brother CAD (coronary artery disease), Onset Age: 30 Diabetes Hyperlipidemia Hypertension Grandmother CAD (coronary artery disease) Diabetes Grandfather CAD (coronary artery disease) Grandmother CAD (coronary artery disease) Stroke Grandfather CAD (coronary artery disease) Lung disease Family/Other Cancer Diabetes Stroke Rheumatoid arthritis Denies family history of Lupus Clotting disorder Dementia Chronic kidney disease (CKD) Suicide Anesthesia complication Bleeding disorder Social History Smoking and tobacco status: former smoker Quit status (tobacco): has quit using tobacco Second hand smoke exposure: No Smoking risk assessment/counseling performed?: No Alcohol intake: never Desire information about alcohol rehabilitation?: No Counseling given: No Desire information about substance/drug rehabilitation?: No Counseling given: No Adopted: No Caregiver/support person: No Lives independently: Yes Household members: spouse Housing: House Marital status: Number of children: 2 Highest education level completed: GED or Equivalent service: No Current occupational status: disabled History of recent travel: No Sexually active: No Current gender identity: Female Agree to transfusion: Yes Course Vital Signs: Vital signs: Vital Signs Temperature 97.3 F L 05/27/22 23:05 Pulse Rate 78 05/28/22 01:00 Respiratory Rate 18 05/28/22 01:42 Blood Pressure 134/64 05/28/22 01:42 Pulse Oximetry 96 05/27/22 23:05 Oxygen Delivery Me thod 05/27/22 23:05 MDM - Abdominal Pain Medical Decision Making Patient is a 51-year-old female that presents to the emergency department with right upper quadrant abdominal pain radiating to her back. Onset of symptoms 6 days ago. Pain is progressively worsened. Patient also reports nausea and vomiting associated with her symptoms. She denies any fevers. Patient does have a gallbladder. In the emergency department I obtained an EKG which reveals a sinus rhythm with a ventricular rate of 78 beats a minute. QTc is 399. Of also obtain laboratory studies that include lipase, CBC, CMP, troponin. Urinalysis with reactive culture was obtained as well For pain I have given her normal saline bolus 500 cc with Zofran and fentanyl Ultrasound right upper quadrant ordered Ultrasound limited abdomen completed and reveals liver enlargement but this is chronic. CT abdomen pelvis with contrast completed and reveals no acute findings. Diagnostics have been reviewed with patient and her spouse. At this time no further diagnostics are warranted. She and I discussed the likelihood that she would need a HIDA scan. This will be done outpatient though. Patient verbalizes understanding Chart reviewed and patient discussed with midlevel. Agree with assessment and plan. Lab Data 05/28/22 00:19 05/28/22 00:19 Labs/Radiology: Radiology Impressions Abdomen Ultrasound 05/28/22 00:13 IMPRESSION: 1. Negative for cholelithiasis or cholecystitis. 2. Mild hepatic steatosis and enlargement of the liver to 23 cm. Abdomen/Pelvis CT 05/28/22 01:09 IMPRESSION: 1. There are no acute abdominal findings. 2. Mild hepatomegaly. 3. Stable splenorenal varices Laboratory Results WBC 7.9 10^3/uL (4.0-10.0) 05/28/22 00:19 RBC 4.83 10^6/uL (4.1-5.3) 05/28/22 00:19 Hgb 11.7 g/dL (11.5-15.3) 05/28/22 00:19 Hct 38.9 % (37.0-47.0) 05/28/22 00:19 MCV 80.5 fl (81-99) L 05/28/22 00:19 MCH 24.2 pg (28.0-34.0) L 05/28/22 00:19 MCHC 30.1 g/dL (30.0-36.0) 05/28/22 00:19 RDW 17.9 % (12.1-15.1) H 05/28/22 00:19 Plt Count 177 10^3/cmm (130-400) 05/28/22 00:19 MPV 11.7 fL (7.4-10.4) H 05/28/22 00:19 Neut % (Auto) 51.8 % 05/28/22 00:19 Lymph % (Auto) 36.2 % 05/28/22 00:19 [place] % (Auto) 8.2 % 05/28/22 00:19 Eos % (Auto) 2.5 % 05/28/22 00:19 Baso % (Auto) 0.9 % 05/28/22 00:19 Neut # (Auto) 4.08 10^3/uL (1.8-7.7) 05/28/22 00:19 Lymph # (Auto) 2.9 10^3/uL (0.8-4.8) 05/28/22 00:19 [place] # (Auto) 0.7 10^3/uL (0.2-0.9) 05/28/22 00:19 Eos # (Auto) 0.2 10^3/uL (0.0-0.8) 05/28/22 00:19 Baso # (Auto) 0.1 10^3/uL (0.0-0.1) 05/28/22 00:19 Nucleated RBC % (auto) 0 % 05/28/22 00:19 Nucleated RBCs # 0.0 /100WBC 05/28/22 00:19 Sodium 132 mmol/L (136-145) L 05/28/22 00:19 Potassium 3.9 mmol/L (3.5-5.1) 05/28/22 00:19 Chloride 95 mmol/L (98-107) L 05/28/22 00:19 Carbon Dioxide 25 mmol/L (22-29) 05/28/22 00:19 Anion Gap 15.9 (5-19) 05/28/22 00:19 BUN 11 mg/dL (6-20) 05/28/22 00:19 Creatinine 0.9 mg/dL (0.5-0.9) 05/28/22 00:19 GFR Calculation 66.0 mL/min (90-130) L 05/28/22 00:19 Glucose 220 mg/dL (65-115) H 05/28/22 00:19 Calculated Osmolality 280 mOsm/kg (285-295) L 05/28/22 00:19 Lactate 2.0 mmol/L (0.5-2.2) 05/28/22 00:19 Calcium 9.7 mg/dL (8.5-10.5) 05/28/22 00:19 Total Bilirubin 0.4 mg/dL (0.15-1.2) 05/28/22 00:19 AST 41 U/L (0-32) H 05/28/22 00:19 ALT 36 U/L (0-33) H 05/28/22 00:19 Alkaline Phosphatase 118 U/L (35-105) H 05/28/22 00:19 Troponin T Baseline 7 ng/L (0-10) 05/28/22 00:19 Troponin T 120 Minute 7.73 ng/L (0-10) 05/28/22 02:28 Delta Troponin T 0.73 ABS# (0-10) 05/28/22 02:28 Total Protein 7.5 g/dL (6.6-8.7) 05/28/22 00:19 Albumin 3.6 g/dL (3.5-5.2) 05/28/22 00:19 Globulin 3.9 g/dL (1.3-4.6) 05/28/22 00:19 Lipase 39 U/L (13-60) 05/28/22 00:19 HCG, Qual Negative (Negative) 05/28/22 01:10 Urine Color Yellow (Yellow) 05/28/22 01:10 Urine Appearance Clear (CLEAR) 05/28/22 01:10 Urine pH 6 (5-7) 05/28/22 01:10 Ur Specific [place] 1.010 (1.005-1.030) 05/28/22 01:10 Urine Protein Neg (Negative) 05/28/22 01:10 Urine Glucose (UA) Trace (Normal) H 05/28/22 01:10 Urine Ketones Negative (Negative) 05/28/22 01:10 Urine Blood Neg (Negative) 05/28/22 01:10 Urine Nitrate Negative (Negative) 05/28/22 01:10 Urine Bilirubin Neg (Negative) 05/28/22 01:10 Urine Urobilinogen Neg mg/dL (Negative) 05/28/22 01:10 Ur Leukocyte Esterase Negative (Negative) 05/28/22 01:10 Discharge Plan Discharge Patient Disposition: Home Clinical Impression: Abdominal pain Condition: Stable Prescriptions: No Action ipratropium-albuterol 0.5 mg-3 mg(2.5 mg base)/3 mL solution for nebulization 3 ml inhalation QID PRN (Reason: Shortness Of Breath) fluticasone propion-salmeterol [Advair Diskus] 250-50 mcg/dose blister with device 1 inh inhalation BID Qty: 60 2RF aspirin 81 mg tablet,delayed release (DR/EC) 81 mg PO DAILY nitroglycerin 0.4 mg tablet, sublingual 0.4 mg sublingual Q5M PRN (Reason: chest pain) 30 Days Qty: 30 3RF Rx Instructions: until response; do not exceed 3 doses per episode (DME) nebulizer See Rx Instructions .Route .MEDSUPPLY Qty: 1 0RF Rx Instructions: with tubing and accessories cholecalciferol (vitamin D3) 25 mcg (1,000 unit) capsule 25 mcg PO DAILY 30 Days Qty: 30 0RF liothyronine 5 mcg tablet 5 mcg PO BID Qty: 180 3RF Rx Instructions: Take one tablet by mouth twice a day. fluticasone propionate [Flonase Allergy Relief] 50 mcg/actuation spray,suspension 2 spray intranasal DAILY PRN Rx Instructions: administer into each nostril bupropion HCl 150 mg tablet extended release 24 hr See Rx Instructions .ROUTE .COMPLEX Qty: 30 5RF Dose Instruction: TAKE ONE TABLET BY MOUTH IN THE MORNING Rx Instructions: TAKE ONE TABLET BY MOUTH IN THE MORNING buspirone 5 mg tablet See Rx Instructions .ROUTE .COMPLEX Qty: 90 5RF Dose Instruction: TAKE ONE TABLET BY MOUTH THREE TIMES DAILY Rx Instructions: TAKE ONE TABLET BY MOUTH THREE TIMES DAILY fluoxetine 40 mg capsule See Rx Instructions .ROUTE .COMPLEX Qty: 30 5RF Dose Instruction: TAKE ONE CAPSULE BY MOUTH EVERY NIGHT AT BEDTIME Rx Instructions: TAKE ONE CAPSULE BY MOUTH EVERY NIGHT AT BEDTIME MARIJUNIA PO (DME) Dexcom G6 Transmitter Device See Rx Instructions .Route Qty: 1 3RF Rx Instructions: Change every 90 days. Lantus Solostar U-100 Insulin 100 unit/mL (3 mL) insulin pen 100 unit SUBCUT QPM Qty: 90 3RF (DME) OneTouch Verio test strips Strip See Rx Instructions .Route Qty: 400 3RF Rx Instructions: Use in OneTouch meter 6 times daily 90 day supply bupivacaine (PF) 0.25 % (2.5 mg/mL) solution 2 ml Infiltration ONCE Qty: 1 0RF dexamethasone sodium phos (PF) 10 mg/mL solution 8 mg Infiltration ONCE Qty: 0.8 0RF (DME) 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 meter [OneTouch Verio Meter] Misc See Rx Instructions .Route Qty: 1 0RF Rx Instructions: Use to check blood sugar once daily potassium chloride 8 mEq tablet extended release 8 meq PO .qod Qty: 90 3RF Rx Instructions: frequency reduced Savella 50 mg tablet 50 mg PO BID 90 Days Qty: 180 1RF nystatin 100,000 unit/gram cream See Rx Instructions .ROUTE .COMPLEX Qty: 60 3RF Dose Instruction: APPLY TO AFFECTED AREAS ON ARMPITS AND TRUNK ONCE DAILY FOR RASH INFLAMMATION. Rx Instructions: APPLY TO AFFECTED AREAS ON ARMPITS AND TRUNK ONCE DAILY FOR RASH INFLAMMATION. montelukast 10 mg tablet See Rx Instructions .ROUTE .COMPLEX Qty: 90 0RF Dose Instruction: TAKE 1 TABLET BY MOUTH DAILY Rx Instructions: TAKE 1 TABLET BY MOUTH DAILY Trulicity 4.5 mg/0.5 mL pen injector See Rx Instructions .ROUTE .COMPLEX Qty: 6 2RF Dose Instruction: INJECT SUBCUTANEOUSLY (UNDER THE SKIN) 4.5 MG (0.5 ML) ONCE A WEEK (SAME DAY OF THE WEEK) Rx Instructions: INJECT SUBCUTANEOUSLY (UNDER THE SKIN) 4.5 MG (0.5 ML) ONCE A WEEK (SAME DAY OF THE WEEK) albuterol sulfate [ProAir HFA] 90 mcg/actuation HFA aerosol inhaler 2 puff INHALATION Q6H PRN (Reason: Shortness Of Breath) 90 Days Qty: 30 1RF (DME) lancets [OneTouch Delica Lancets] 33 gauge misc See Rx Instructions .Route Qty: 100 3RF Rx Instructions: to use to check blood sugar once daily 90 day supply omeprazole 40 mg capsule,delayed release(DR/EC) See Rx Instructions .ROUTE .COMPLEX Qty: 30 3RF Dose Instruction: TAKE 1 CAPSULE BY MOUTH DAILY Rx Instructions: TAKE 1 CAPSULE BY MOUTH DAILY metoprolol tartrate 25 mg tablet See Rx Instructions .ROUTE .COMPLEX Qty: 180 1RF Dose Instruction: TAKE ONE TABLET BY MOUTH TWICE DAILY Rx Instructions: TAKE ONE TABLET BY MOUTH TWICE DAILY levothyroxine [Synthroid] 175 mcg tablet 175 mcg PO DAILY Qty: 90 0RF cyclobenzaprine 10 mg tablet 10 mg PO .qhs Qty: 90 0RF (DME) pen needle, diabetic [Comfort EZ Pen Enders] 32 gauge x 5/32 needle See Rx Instructions .Route Qty: 400 3RF Rx Instructions: As directed insulin aspart U-100 [Novolog Flexpen U-100 Insulin] 100 unit/mL (3 mL) insulin pen 50 unit SUBCUT .AC 90 Days Qty: 140 3RF pregabalin 200 mg capsule 200 mg PO TID Qty: 90 2RF Rx Instructions: For Karlos who is out of the office (DME) Dexcom G6 Sensor Device See Rx Instructions .ROUTE .COMPLEX Qty: 3 2RF Dose Instruction: CHANGE EVERY 10 DAYS. Rx Instructions: CHANGE EVERY 10 DAYS. (DME) Dexcom G6 [employer] Supervisor Misc See Rx Instructions .ROUTE .COMPLEX Qty: 1 0RF Dose Instruction: USE TO CHECK BLOOD SUGAR 4-6 TIMES A DAY. Rx Instructions: USE TO CHECK BLOOD SUGAR 4-6 TIMES A DAY. cholecalciferol (vitamin D3) [Vitamin D3] 25 mcg (1,000 unit) Capsule 25 mcg PO DAILY Qty: 0 (DME) Accu-Chek Fastclix Lancet Drum Misc See Rx Instructions .Route Qty: 200 3RF Rx Instructions: As directed (DME) Accu-Chek Guide test strips Strip See Rx Instructions .Route Qty: 100 3RF Rx Instructions: As directed Discharge Orders: Discharge ED (Routine); Ordered 05/28/22 Ordered By: Nisreen Dyson Referrals: Bridget Everett DO [Primary Care Provider] - Discharge Diet: Advance as tolerated Discharge Activity: Resume usual activity Patient Instructions: Abdominal Pain (ED), Opioid Safety, Pain Management Coding Level of Care Code ED Lathe Operator Contact Lens for Chg Fwd Exam Comprehensive
--- NOTE | 2022-05-28 00:13 | USR_ITS ---
PROCEDURE INFORMATION: Exam: US Abdomen, Limited; Right Upper Quadrant Exam date and time: 05/28/2022 12:21 AM Age: 51 years old Clinical indication: Abdominal pain; Generalized; Additional info: Pain ruq TECHNIQUE: Imaging protocol: Real time ultrasound of the abdomen with image documentation. Limited exam focused on the right upper quadrant. COMPARISON: CT abdomen pelvis con [id number] 01/24/2022 4:55 AM FINDINGS: Liver: Mild hepatic steatosis and enlargement of the liver to 23 cm. Gallbladder: Normal. No gallstones. There is no gallbladder wall thickening. Biliary ducts: Normal. No stones. No dilation. Pancreas: Visualized pancreas is unremarkable. Right kidney: Normal. No mass. No hydronephrosis. US/US abdomen limited [id number] IMPRESSION: 1. Negative for cholelithiasis or cholecystitis. 2. Mild hepatic steatosis and enlargement of the liver to 23 cm.
[2022-05-28 00:23] VITALS: BP 162/84; PULSE 84; RESP 18
[2022-05-28 00:27] LABS: Basophils # 0.1 10^3/uL (0.0-0.1); Basophils % 0.9 %; Eosinophils # 0.2 10^3/uL (0.0-0.8); Eosinophils % 2.5 %; Hematocrit 38.9 % (37.0-47.0); Hemoglobin 11.7 g/dL (11.5-15.3); Lymphocytes # 2.9 10^3/uL (0.8-4.8); Lymphocytes % 36.2 %; Mean Corpuscular HGB Conc 30.1 g/dL (30.0-36.0); Mean Corpuscular Hemoglobin 24.2 pg (28.0-34.0); Mean Corpuscular Volume 80.5 fl (81-99); Mean Platelet Volume 11.7 fL (7.4-10.4); Monocytes # 0.7 10^3/uL (0.2-0.9); Monocytes % 8.2 %; Neutrophils # 4.08 10^3/uL (1.8-7.7); Neutrophils % 51.8 %; Nucleated Red Blood Cells % 0 %; Platelet Count 177 10^3/cmm (130-400); Red Blood Count 4.83 10^6/uL (4.1-5.3); Red Cell Distribution Width 17.9 % (12.1-15.1); White Blood Count 7.9 10^3/uL (4.0-10.0)
[2022-05-28] MEDS: sodium chloride 0.9% 500 ML IV (00:27)
[2022-05-28] MEDS: fentaNYL 50 mcg/mL INJ 2mL IVP (00:33)
[2022-05-28] MEDS: ondansetron 2 mg/ML SDV 2 mL 4 MG IVP (00:33)
[2022-05-28 00:46] LABS: Troponin(5th) Baseline 7 ng/L (0-10)
[2022-05-28 00:49] LABS: Alanine Aminotransferase 36 U/L (0-33); Albumin Level 3.6 g/dL (3.5-5.2); Alkaline Phosphatase 118 U/L (35-105); Anion Gap 15.9 (5-19); Aspartate Amino Transferase 41 U/L (0-32); Blood Urea Nitrogen 11 mg/dL (6-20); Calcium 9.7 mg/dL (8.5-10.5); Carbon Dioxide 25 mmol/L (22-29); Chloride 95 mmol/L (98-107); Globulin 3.9 g/dL (1.3-4.6); Glucose 220 mg/dL (65-115); Lipase 39 U/L (13-60); Osmolality Calculated 280 mOsm/kg (285-295); Potassium 3.9 mmol/L (3.5-5.1); Sodium 132 mmol/L (136-145); Total Bilirubin 0.4 mg/dL (0.15-1.2); Total Protein 7.5 g/dL (6.6-8.7)
[2022-05-28 01:00] VITALS: BP 165/79; PULSE 78; RESP 18
--- NOTE | 2022-05-28 01:09 | CTR_ITS ---
PROCEDURE INFORMATION: Exam: CT Abdomen And Pelvis With Contrast Exam date and time: 05/28/2022 1:23 AM Age: 51 years old Clinical indication: Abdominal pain; Localized; Right upper quadrant (ruq); Prior surgery; Surgery date: 6+ months; Surgery type: Hysterectomy TECHNIQUE: Imaging protocol: Computed tomography of the abdomen and pelvis with contrast. Radiation optimization: All CT scans at this facility use at least one of these dose optimization techniques: automated exposure control; mA and/or kV adjustment per patient size (includes targeted exams where dose is matched to clinical indication); or iterative reconstruction. Contrast material: OMNI 350; Contrast volume: 100 ml; Contrast route: INTRAVENOUS (IV); COMPARISON: CT abdomen pelvis wo con [id number] 01/24/2022 4:55 AM RADIATION DOSE METRICS: Total DLP (mGy-cm): 1222.43 FINDINGS: Liver: The liver is prominent measuring 19.6 cm craniocaudal dimension. Gallbladder and bile ducts: Normal. No calcified stones. No ductal dilation. Pancreas: Normal. No ductal dilation. Spleen: Normal. No splenomegaly. Adrenal glands: Normal. No mass. Kidneys and ureters: Normal. No hydronephrosis. Stomach and bowel: Unremarkable. No obstruction. No mucosal thickening. Appendix: No evidence of appendicitis. Intraperitoneal space: Unremarkable. No free air. No significant fluid collection. Vasculature: There are splenorenal varices present on the left. Lymph nodes: Unremarkable. No enlarged lymph nodes. Urinary bladder: Unremarkable as visualized. Reproductive: Status post hysterectomy. Bones/joints: Unremarkable. No acute fracture. Soft tissues: Unremarkable. CT/CT abdomen pelvis w con* [id number] IMPRESSION: 1. There are no acute abdominal findings. 2. Mild hepatomegaly. 3. Stable splenorenal varices
[2022-05-28] MEDS: iohexol 350 mg/mL 500 mL Btl (per mL) IV (01:14)
[2022-05-28 01:22] LABS: Add Urine Microscopic? NO; Charge for UA Resulting for Rev
[2022-05-28] MEDS: fentaNYL 50 mcg/mL INJ 2mL 100 MCG IVP (01:22)
[2022-05-28 01:25] LABS: HCG Qualitative Urine. Negative (Negative)
[2022-05-28 01:29] LABS: Bilirubin Urine Neg (Negative); Blood Urine Neg (Negative); Glucose Urine UA Trace (Normal); Ketones Urine Negative (Negative); Leukocyte Esterase Urine Negative (Negative); Nitrate Urine Negative (Negative); Protein Urine Neg (Negative); Urine Appearance Clear (CLEAR); Urine Color Yellow (Yellow); Urobilinogen Urine Neg (Negative); pH Urine 6 (5-7)
[2022-05-28 01:42] VITALS: BP 134/64; RESP 18
--- NOTE | 2022-05-28 01:58 | ECG_ITS ---
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 Measurements Intervals [place] Rate: 80 P: 39 DE: 175 QRS: 8 QRSD: 101 T: 37 QT: 371 QTc: 430 Interpretive Statements SINUS RHYTHM LOW QRS VOLTAGE IN PRECORDIAL LEADS [QRS DEFLECTION < 1.0 mV IN CHEST LEADS] Compared to ECG 05/28/2022 00:11:41 No significant changes Electronically Signed On 05-29-2022 15:38:49 EDUCATION PROGRAM MANAGER by Sarah Reilly M.D. [id number]
[2022-05-28 03:03] LABS: Troponin 5 2HR 7.73 ng/L (0-10)
[2022-05-28 03:37] LABS: Troponin 5 2HR Delta 0.73 ABS# (0-10)
[2022-05-28] MEDS: ketorolac 30 mg/mL INJ IVP (03:48)
--- NOTE | 2022-05-28 05:58 | ECG_ITS ---
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 Measurements Intervals [place] Rate: 78 P: -7 DC: 156 QRS: 26 QRSD: 96 T: 41 QT: 366 QTc: 418 Interpretive Statements SINUS RHYTHM LOW QRS VOLTAGE IN PRECORDIAL LEADS [QRS DEFLECTION < 1.0 mV IN CHEST LEADS] Compared to ECG 01/24/2022 10:30:07 Low QRS voltage now present Intraventricular conduction delay no longer present Electronically Signed On 05-29-2022 15:01:14 BIOLOGICAL TECHNICAL OFFICER by Sarah Reilly M.D. [id number]
== END 2022-05-28 03:51 | disposition home or self-care (01) ==
PROVIDERS: Emergency Provider Nurse Practitioner; PCP Family Medicine
DX: R10.9 Unspecified abdominal pain (principal); R16.0 Hepatomegaly, not elsewhere classified; R11.2 Nausea with vomiting, unspecified; E66.01 Morbid (severe) obesity due to excess calories; Z68.43 Body mass index [BMI] 50.0-59.9, adult; Z87.891 Personal history of nicotine dependence
CPT/HCPCS: 74177; 76705; 80053; 81003; 81025; 83605; 83690; 84484; 85025; 93005; 96361; 96374; 96375; 96376; 99285; J1885; J2405; J3010; J7040; Q9967

== ENCOUNTER 2022-06-01 14:22 | Outpatient (CLI) | payer MEDICAID, SELFPAY ==
--- NOTE | 2022-06-01 15:00 | CTR_ITS ---
PROCEDURE INFORMATION: Exam: CT Lumbar Spine Without Contrast Exam date and time: 06/01/2022 2:42 PM Age: 51 years old Clinical indication: Low back pain; Additional info: M54.50 - low back pain, unspecified TECHNIQUE: Imaging protocol: Computed tomography of the lumbar spine without contrast. Radiation optimization: All CT scans at this facility use at least one of these dose optimization techniques: automated exposure control; mA and/or kV adjustment per patient size (includes targeted exams where dose is matched to clinical indication); or iterative reconstruction. COMPARISON: CT abdomen pelvis w con* [id number] 05/28/2022 1:23 AM RADIATION DOSE METRICS: Total DLP (mGy-cm): 1448.1 FINDINGS: Bones/joints: The lumbar spine demonstrates moderate discogenic and apophyseal joint degenerative changes at multiple levels. Unremarkable lumbar vertebral alignment. Negative for lumbar spine fracture. Severe disc disease changes at L5-S1. Multilevel [id number] severity broad-based posterior disc bulges. No levels significant spinal canal stenosis apparent. Soft tissues: Unremarkable. CT/CT lumbar spine wo con* [id number] IMPRESSION: Negative for acute lumbar spine abnormality.
== END 2022-06-01 14:23 | disposition home or self-care (01) ==
LOC: RAD 14:23
PROVIDERS: PCP Family Medicine; Visit Provider Anesthesiology Pain Medicine
DX: M51.36 Other intervertebral disc degeneration, lumbar region (principal); M25.551 Pain in right hip; M25.552 Pain in left hip; M79.604 Pain in right leg; Z87.891 Personal history of nicotine dependence; M54.2 Cervicalgia; M54.9 Dorsalgia, unspecified; E11.9 Type 2 diabetes mellitus without complications; E11.319 Type 2 diabetes mellitus with unspecified diabetic retinopathy without macular edema; Z79.4 Long term (current) use of insulin; E03.9 Hypothyroidism, unspecified; E66.9 Obesity, unspecified; Z68.44 Body mass index [BMI] 60.0-69.9, adult; R76.8 Other specified abnormal immunological findings in serum
CPT/HCPCS: 72131; 99213; 99214

== ENCOUNTER 2022-06-28 07:58 | Outpatient (CLI) | payer MEDICAID, SELFPAY ==
[2022-06-28 08:57] LABS: Estmated Average Glucose 183
[2022-06-28 09:07] LABS: Alanine Aminotransferase 55 U/L (0-33); Albumin Level 3.7 g/dL (3.5-5.2); Alkaline Phosphatase 116 U/L (35-105); Anion Gap 13.4 (5-19); Aspartate Amino Transferase 66 U/L (0-32); Blood Urea Nitrogen 17 mg/dL (6-20); Calcium 9.4 mg/dL (8.5-10.5); Carbon Dioxide 26 mmol/L (22-29); Chloride 97 mmol/L (98-107); Chol HDL Ratio 5.42 mg/dL (0.0-4.40); Cholesterol 195 mg/dL (0-200); Free T4 Free Thyroxine 0.59 ng/dL (0.82-1.77); Globulin 3.9 g/dL (1.3-4.6); Glomerular Filtration Rate 75.3 mL/min (90-130); Glucose 212 mg/dL (65-115); HDL Cholesterol 36 mg/dL (60-100); LDL Cholesterol Calculated 123 mg/dL (50-129); LDL HDL Ratio 3.42 RATIO (0.00-3.22); Osmolality Calculated 282 mOsm/kg (285-295); Potassium 4.4 mmol/L (3.5-5.1); Sodium 132 mmol/L (136-145); Total Bilirubin 0.8 mg/dL (0.15-1.2); Total Protein 7.6 g/dL (6.6-8.7); Triglycerides 181 mg/dL (0-150)
== END 2022-06-28 07:59 | disposition home or self-care (01) ==
LOC: LAB 08:00
PROVIDERS: PCP Family Medicine; Visit Provider Internal Medicine
DX: E03.9 Hypothyroidism, unspecified (principal); E11.3393 Type 2 diabetes mellitus with moderate nonproliferative diabetic retinopathy without macular edema, bilateral; E11.42 Type 2 diabetes mellitus with diabetic polyneuropathy; E11.59 Type 2 diabetes mellitus with other circulatory complications; E66.01 Morbid (severe) obesity due to excess calories; E78.2 Mixed hyperlipidemia; K76.0 Fatty (change of) liver, not elsewhere classified; Z79.4 Long term (current) use of insulin
CPT/HCPCS: 36415; 80053; 80061; 83036; 84439

== ENCOUNTER → 2022-06-29 11:08 | Outpatient (BNVA) | payer MEDICAID, SELFPAY | PROVIDERS: PCP Family Medicine; Visit Provider Internal Medicine | DX: E11.59 Type 2 diabetes mellitus with other circulatory complications (principal); E11.42 Type 2 diabetes mellitus with diabetic polyneuropathy; E11.3393 Type 2 diabetes mellitus with moderate nonproliferative diabetic retinopathy without macular edema, bilateral; R79.89 Other specified abnormal findings of blood chemistry; E03.9 Hypothyroidism, unspecified; K76.0 Fatty (change of) liver, not elsewhere classified; E66.01 Morbid (severe) obesity due to excess calories; E78.2 Mixed hyperlipidemia; Z79.4 Long term (current) use of insulin | CPT/HCPCS: 99214 ==

== ENCOUNTER → 2022-07-04 08:33 | Outpatient (BNVA) | payer MEDICAID, SELFPAY | PROVIDERS: PCP Family Medicine; Referring Provider Anesthesiology Pain Medicine; Visit Provider Anesthesiology Pain Medicine | DX: M51.36 Other intervertebral disc degeneration, lumbar region (principal); M25.551 Pain in right hip; M25.552 Pain in left hip | CPT/HCPCS: 99214 ==

== ENCOUNTER → 2022-07-06 14:02 | Outpatient (BNVA) | payer MEDICAID, SELFPAY | PROVIDERS: PCP Family Medicine; Visit Provider Family Medicine | DX: R68.89 Other general symptoms and signs (principal); F32.9 Major depressive disorder, single episode, unspecified; F41.1 Generalized anxiety disorder; Z20.828 Contact with and (suspected) exposure to other viral communicable diseases | CPT/HCPCS: 87400 ==

== ENCOUNTER 2022-07-12 10:00 | Outpatient (CLI) | payer MEDICAID, SELFPAY ==
[2022-07-12 11:49] LABS: Free T4 Free Thyroxine 0.82 ng/dL (0.82-1.77)
== END 2022-07-12 10:01 | disposition home or self-care (01) ==
LOC: LAB 10:02
PROVIDERS: PCP Family Medicine; Visit Provider Internal Medicine
DX: R79.89 Other specified abnormal findings of blood chemistry (principal)
CPT/HCPCS: 36415; 84439

== ENCOUNTER → 2022-07-20 14:04 | Outpatient (BNVA) | payer MEDICAID, SELFPAY | PROVIDERS: PCP Family Medicine; Visit Provider Anesthesiology Pain Medicine | DX: M47.816 Spondylosis without myelopathy or radiculopathy, lumbar region (principal) | CPT/HCPCS: 64493; 64494; 64495; J3490 ==

== ENCOUNTER → 2022-08-03 12:55 | Outpatient (BNVA) | payer MEDICAID, SELFPAY | PROVIDERS: PCP Family Medicine; Visit Provider Anesthesiology Pain Medicine | DX: M47.816 Spondylosis without myelopathy or radiculopathy, lumbar region (principal) | CPT/HCPCS: 64493; 64494; 64495; J3490 ==

== ENCOUNTER → 2022-08-17 10:50 | Outpatient (BNVA) | payer MEDICAID, SELFPAY | PROVIDERS: PCP Family Medicine; Visit Provider Anesthesiology Pain Medicine | DX: M25.551 Pain in right hip (principal); M25.552 Pain in left hip; M51.36 Other intervertebral disc degeneration, lumbar region | CPT/HCPCS: 99214 ==

== ENCOUNTER → 2022-08-29 10:17 | Outpatient (BNVA) | payer MEDICAID, SELFPAY | PROVIDERS: PCP Family Medicine; Visit Provider Podiatrist Foot & Ankle Surgery | DX: E11.42 Type 2 diabetes mellitus with diabetic polyneuropathy (principal); L60.3 Nail dystrophy; M20.41 Other hammer toe(s) (acquired), right foot; M20.42 Other hammer toe(s) (acquired), left foot; M21.621 Bunionette of right foot; M21.622 Bunionette of left foot; M21.41 Flat foot [pes planus] (acquired), right foot; M21.42 Flat foot [pes planus] (acquired), left foot; Z79.4 Long term (current) use of insulin | CPT/HCPCS: 11056; 11721 ==

== ENCOUNTER → 2022-09-05 13:11 | Outpatient (BNVA) | payer MEDICAID, SELFPAY | PROVIDERS: PCP Family Medicine; Visit Provider Anesthesiology Pain Medicine | DX: M47.816 Spondylosis without myelopathy or radiculopathy, lumbar region (principal) | CPT/HCPCS: 64635; 64636; J1030 ==

== ENCOUNTER 2022-09-14 08:52 | Outpatient (CLI) | payer MEDICAID, SELFPAY ==
[2022-09-14 09:22] LABS: Basophils # 0.1 10^3/uL (0.0-0.1); Basophils % 1.2 %; Eosinophils # 0.2 10^3/uL (0.0-0.8); Eosinophils % 3.7 %; Hematocrit 37.9 % (37.0-47.0); Hemoglobin 11.3 g/dL (11.5-15.3); Lymphocytes # 2.2 10^3/uL (0.8-4.8); Lymphocytes % 37.8 %; Mean Corpuscular HGB Conc 29.8 g/dL (30.0-36.0); Mean Corpuscular Hemoglobin 23.7 pg (28.0-34.0); Mean Corpuscular Volume 79.5 fl (81-99); Mean Platelet Volume 11.9 fL (7.4-10.4); Monocytes # 0.7 10^3/uL (0.2-0.9); Neutrophils # 2.72 10^3/uL (1.8-7.7); Nucleated Red Blood Cells % 0 %; Platelet Count 161 10^3/cmm (130-400); Red Blood Count 4.77 10^6/uL (4.1-5.3); Red Cell Distribution Width 18.6 % (12.1-15.1); White Blood Count 5.9 10^3/uL (4.0-10.0)
[2022-09-14 09:41] LABS: Alanine Aminotransferase 51 U/L (0-33); Albumin Level 3.4 g/dL (3.5-5.2); Alkaline Phosphatase 104 U/L (35-105); Anion Gap 14.4 (5-19); Aspartate Amino Transferase 66 U/L (0-32); Blood Urea Nitrogen 16 mg/dL (6-20); C Reactive Protein 8.7 mg/L (0.0-4.9); Calcium 8.7 mg/dL (8.5-10.5); Carbon Dioxide 24 mmol/L (22-29); Chloride 102 mmol/L (98-107); Globulin 3.9 g/dL (1.3-4.6); Glomerular Filtration Rate 87.9 mL/min (90-130); Glucose 176 mg/dL (65-115); Osmolality Calculated 287 mOsm/kg (285-295); Potassium 4.4 mmol/L (3.5-5.1); Sodium 136 mmol/L (136-145); Total Bilirubin 0.4 mg/dL (0.15-1.2); Total Protein 7.3 g/dL (6.6-8.7)
[2022-09-14 09:46] LABS: Erythrocyte Sedimentation Rate 84 mm/hr (0-15)
== END 2022-09-14 08:53 | disposition home or self-care (01) ==
LOC: LAB 08:56
PROVIDERS: PCP Family Medicine; Referring Provider Internal Medicine; Visit Provider Internal Medicine
DX: M25.50 Pain in unspecified joint (principal); M79.7 Fibromyalgia; R76.8 Other specified abnormal immunological findings in serum
CPT/HCPCS: 36415; 80053; 85025; 85651; 86140

== ENCOUNTER → 2022-09-19 12:54 | Outpatient (BNVA) | payer MEDICAID, SELFPAY | PROVIDERS: PCP Family Medicine; Visit Provider Anesthesiology Pain Medicine | DX: M47.816 Spondylosis without myelopathy or radiculopathy, lumbar region (principal) | CPT/HCPCS: 64635; 64636; J1030 ==

== ENCOUNTER 2022-09-21 08:33 | Outpatient (CLI) | payer MEDICAID, SELFPAY ==
[2022-09-21 09:18] LABS: Estmated Average Glucose 177; Hemoglobin A1C 7.8 % (4.0-6.0)
[2022-09-21 09:32] LABS: Creatinine Urine, Random 83 mg/dL (28-217); Microalbum Creatinine Ratio Ur 12 mg/dL (0-20); Microalbumin Random Urine 1 ug/dL (0-20)
[2022-09-21 09:34] LABS: Alanine Aminotransferase 47 U/L (0-33); Albumin Level 3.6 g/dL (3.5-5.2); Alkaline Phosphatase 100 U/L (35-105); Anion Gap 14.7 (5-19); Aspartate Amino Transferase 57 U/L (0-32); Blood Urea Nitrogen 15 mg/dL (6-20); Calcium 8.8 mg/dL (8.5-10.5); Carbon Dioxide 28 mmol/L (22-29); Chloride 104 mmol/L (98-107); Chol HDL Ratio 5.15 mg/dL (0.0-4.40); Cholesterol 170 mg/dL (0-200); Free T4 Free Thyroxine 0.94 ng/dL (0.82-1.77); Globulin 3.7 g/dL (1.3-4.6); Glomerular Filtration Rate 87.9 mL/min (90-130); Glucose 141 mg/dL (65-115); HDL Cholesterol 33 mg/dL (60-100); LDL Cholesterol Calculated 113 mg/dL (50-129); LDL HDL Ratio 3.42 RATIO (0.00-3.22); Osmolality Calculated 297 mOsm/kg (285-295); Potassium 4.7 mmol/L (3.5-5.1); Sodium 142 mmol/L (136-145); Thyroid Stimulating Hormone 0.39 uIU/mL (0.27-4.20); Total Bilirubin 0.5 mg/dL (0.15-1.2); Total Protein 7.3 g/dL (6.6-8.7); Triglycerides 121 mg/dL (0-150)
== END 2022-09-21 08:34 | disposition home or self-care (01) ==
PROVIDERS: PCP Family Medicine; Visit Provider Internal Medicine
DX: E03.9 Hypothyroidism, unspecified (principal); E11.9 Type 2 diabetes mellitus without complications; E78.2 Mixed hyperlipidemia; R79.89 Other specified abnormal findings of blood chemistry
CPT/HCPCS: 36415; 80053; 80061; 82044; 83036; 84439; 84443; 99214

== ENCOUNTER 2022-09-22 09:27 | Outpatient (CLI) | payer MEDICAID, SELFPAY ==
[2022-09-22 09:56] LABS: Basophils # 0.1 10^3/uL (0.0-0.1); Basophils % 0.6 %; Eosinophils # 0.1 10^3/uL (0.0-0.8); Eosinophils % 1.2 %; Hematocrit 38.3 % (37.0-47.0); Hemoglobin 11.7 g/dL (11.5-15.3); Lymphocytes # 2.7 10^3/uL (0.8-4.8); Lymphocytes % 23.2 %; Mean Corpuscular HGB Conc 30.5 g/dL (30.0-36.0); Mean Corpuscular Hemoglobin 23.8 pg (28.0-34.0); Monocytes # 0.9 10^3/uL (0.2-0.9); Monocytes % 7.3 %; Neutrophils # 7.76 10^3/uL (1.8-7.7); Neutrophils % 67.2 %; Nucleated Red Blood Cells % 0 %; Platelet Count 160 10^3/cmm (130-400); Red Blood Count 4.91 10^6/uL (4.1-5.3); Red Cell Distribution Width 18.2 % (12.1-15.1); White Blood Count 11.6 10^3/uL (4.0-10.0)
[2022-09-22 10:02] LABS: Erythrocyte Sedimentation Rate 68 mm/hr (0-15)
[2022-09-22 10:14] LABS: C Reactive Protein 4.6 mg/L (0.0-4.9)
[2022-09-26 13:58] LABS: Quantiferon Mitogen >10.00 IU/mL; Quantiferon Nil 0.01 IU/mL; Quantiferon Plus TB1 0.01 IU/mL; Quantiferon TB Gold NEGATIVE (NEGATIVE)
== END 2022-09-22 09:28 | disposition home or self-care (01) ==
LOC: LAB 09:32
PROVIDERS: PCP Family Medicine; Referring Provider Internal Medicine; Visit Provider Internal Medicine
DX: M79.7 Fibromyalgia (principal); R70.0 Elevated erythrocyte sedimentation rate; R76.8 Other specified abnormal immunological findings in serum; E11.59 Type 2 diabetes mellitus with other circulatory complications; E11.42 Type 2 diabetes mellitus with diabetic polyneuropathy; E11.3393 Type 2 diabetes mellitus with moderate nonproliferative diabetic retinopathy without macular edema, bilateral; E03.9 Hypothyroidism, unspecified; K76.0 Fatty (change of) liver, not elsewhere classified; E78.2 Mixed hyperlipidemia; E66.01 Morbid (severe) obesity due to excess calories; Z79.4 Long term (current) use of insulin; Z79.890 Hormone replacement therapy; Z68.44 Body mass index [BMI] 60.0-69.9, adult
CPT/HCPCS: 36415; 85025; 85651; 86140; 86480; 99214

== ENCOUNTER → 2022-10-03 10:00 | Outpatient (BNVA) | payer MEDICAID, SELFPAY | PROVIDERS: PCP Family Medicine; Visit Provider Anesthesiology Pain Medicine | DX: M51.36 Other intervertebral disc degeneration, lumbar region (principal); M25.551 Pain in right hip; M25.552 Pain in left hip | CPT/HCPCS: 99213; 99214 ==

== ENCOUNTER → 2022-10-18 15:04 | Outpatient (BNVA) | payer MEDICAID, SELFPAY | PROVIDERS: PCP Family Medicine; Visit Provider Internal Medicine Cardiovascular Disease | DX: I25.10 Atherosclerotic heart disease of native coronary artery without angina pectoris (principal); G47.33 Obstructive sleep apnea (adult) (pediatric); I10 Essential (primary) hypertension; E11.3393 Type 2 diabetes mellitus with moderate nonproliferative diabetic retinopathy without macular edema, bilateral; Z79.4 Long term (current) use of insulin; E78.2 Mixed hyperlipidemia; Z87.891 Personal history of nicotine dependence; Z79.82 Long term (current) use of aspirin | CPT/HCPCS: 99214 ==

== ENCOUNTER → 2022-11-20 12:53 | Outpatient (BNVA) | payer MEDICAID, SELFPAY | PROVIDERS: PCP Family Medicine; Visit Provider Nurse Practitioner | DX: R05.9 Cough, unspecified (principal) | CPT/HCPCS: 71046 ==

== ENCOUNTER 2022-11-20 13:48 | Emergency (ER) | payer MEDICAID, SELFPAY ==
[2022-11-20 14:02] VITALS: BMI 60.3
[2022-11-20 14:32] LABS: Basophils % 0.5 %; Eosinophils # 0.2 10^3/uL (0.0-0.8); Eosinophils % 2.6 %; Hematocrit 36.6 % (37.0-47.0); Hemoglobin 11.1 g/dL (11.5-15.3); Lymphocytes # 2.5 10^3/uL (0.8-4.8); Lymphocytes % 31.4 %; Mean Corpuscular HGB Conc 30.3 g/dL (30.0-36.0); Mean Corpuscular Hemoglobin 23.6 pg (28.0-34.0); Mean Corpuscular Volume 77.9 fl (81-99); Monocytes # 0.7 10^3/uL (0.2-0.9); Neutrophils # 4.54 10^3/uL (1.8-7.7); Nucleated Red Blood Cells % 0 %; Platelet Count 161 10^3/cmm (130-400); Red Cell Distribution Width 19.3 % (12.1-15.1); White Blood Count 8.1 10^3/uL (4.0-10.0)
[2022-11-20 14:55] VITALS: BP 124/61; PULSE 83; RESP 20; O2SAT 92
[2022-11-20 15:00] LABS: NT Pro B Type Natriuretic Pept 50 pg/mL (0-125); Procalcitonin 0.16 ng/mL (0-0.5)
--- NOTE | 2022-11-20 15:09 | ED_ITS ---
HPI - SOB/Dyspnea General: Chief Complaint: Shortness of Breath/Dyspnea Stated Complaint: sob Time Seen by Provider: 11/20/22 14:04 History of Present Illness: HPI Narrative: Patient presents to the ER by EMS with complaints of shortness of breath. Patient says he has been going on for last couple weeks but only getting worse. Patient does not normally use oxygen at home but does have a CPAP. EMS gave the patient 125 mg Solu-Medrol in route. Patient denies any fever at this time MD elicited complaint: shortness of breath Pertinent past history: COPD and diabetes Onset (ago): week(s) (About 2 weeks ago) Timing: constant and progressively worsening Severity: mild Exacerbating factors: exertion Relieving factors: oxygen, rest and bronchodilators Known history of: COPD, congestive heart failure and diabetes Associated symptoms: Reports cough; Deny abdominal pain, chest pain, extremity pain, fever(s), nausea, palpitations or vomiting Treatment prior to arrival: other (125 mg Solu-Medrol per IV per EMS) Review of Systems General: Reports: 10 or more systems reviewed and unremarkable except in HPI and below Const: Denies: fever(s) or chills Eyes: Denies: change in vision or photophobia ENMT: Denies: throat pain or odynophagia Card: Denies: chest pain, palpitations or irregular heart rhythm Resp: Reports: dyspnea and non-productive cough; Denies: productive cough GI: Denies: abdominal pain, nausea, vomiting or diarrhea : Denies: flank pain or dysuria Musc: Denies: neck pain, back pain or extremity pain PFS ED PFSH: Medical History Acquired hypothyroidism Acute cystitis Allergic rhinitis Anxiety ASHD (arteriosclerotic heart disease) Atypical chest pain Benign essential HTN CAD (coronary artery disease) Cataract, right eye Colon polyps COPD (chronic obstructive pulmonary disease) Depression Diabetic polyneuropathy Dyslipidemia Dysphagia Endometriosis Fibromyalgia YANA (generalized anxiety disorder) Intertrigo Lower back pain Lumbago Migraine Migraine without aura and without status migrainosus, not intractable Morbid obesity Morbid obesity with BMI of 60.0-69.9, adult GARCIA (nonalcoholic steatohepatitis) DALLAS (obstructive sleep apnea) Tortuous colon Tremor Tubular adenoma of colon Type 2 diabetes mellitus with both eyes affected by moderate nonproliferative retinopathy without macular edema, with long-term current use of insulin Surgical History History of colonoscopy with polypectomy (04/01/21) sigmoid polyp History of coronary artery stent placement History of hand surgery Bilateral carpal tunnel History of total hysterectomy Hx of release of tendon R. hand Hx of tubal ligation Family History Father Heart attack CAD (coronary artery disease) Hypertension Mother Cancer CAD (coronary artery disease) Lung disease Diabetes Hyperlipidemia Hypertension Sister CAD (coronary artery disease), Onset Age: 21 SD at 21 Heart attack Brother CAD (coronary artery disease), Onset Age: 30 Diabetes Hyperlipidemia Hypertension Grandmother CAD (coronary artery disease) Diabetes Grandfather CAD (coronary artery disease) Grandmother CAD (coronary artery disease) Stroke Grandfather CAD (coronary artery disease) Lung disease Family/Other Cancer Diabetes Stroke Rheumatoid arthritis Denies family history of Lupus Clotting disorder Dementia Chronic kidney disease (CKD) Suicide Anesthesia complication Bleeding disorder Social History Smoking and tobacco status: former smoker Quit status (tobacco): has quit using tobacco Second hand smoke exposure: No Smoking risk assessment/counseling performed?: No Alcohol intake: never Desire information about alcohol rehabilitation?: No Counseling given: No Substance/Drug Use: current Substance/Drug use frequency: few times a month Desire information about substance/drug rehabilitation?: No Counseling given: No Adopted: No Caregiver/support person: No Lives independently: Yes Household members: spouse Housing: House Marital status: Number of children: 2 Highest education level completed: GED or Equivalent service: No Current occupational status: disabled Sexually active: No Do you think of yourself as: Straight/Heterosexual Current gender identity: Female Agree to transfusion: Yes Physical Exam Const: COMMON NORMALS: no acute distress, patient oriented x3, no limitations, healthy appearing and well nourished NUTRITIONAL APPEARANCE: obese HENMT: COMMON NORMALS: normocephalic, atraumatic, hearing grossly normal bilaterally, external ears normal, Normal external nose present and moist oral mucous membranes HEAD & SCALP: normocephalic and atraumatic NOSE: Normal external nose present EXTERNAL EAR: Yes external ears normal Eye: COMMON NORMALS: Equal, round and reactive pupils present, EOMs intact bilaterally, conjunctivae normal and no scleral icterus CONJUNCTIVA: Yes conjunctivae normal PUPIL: Yes Equal, round and reactive pupils present Neck/C-Spine: COMMON NORMALS: full ROM, no lymphadenopathy, supple, no meningeal signs, no JVD and Thyroid normal THYROID: Thyroid normal Lymph: LYMPHATIC: no lymphadenopathy noted Chest: COMMONS NORMALS: normal inspection of the chest and normal palpation of entire chest wall Resp: COMMON NORMALS: normal respiratory effort, No retractions and No use of accessory muscles AUSCULTATION: wheezes (Occasional diffuse wheeze) Cardio: COMMON NORMALS: no JVD, regular rhythm, S1 normal heart sound present, S2 normal heart sound present, No gallops present (Cardio), No clicks present (Cardio) and No murmurs present (Cardio) RHYTHM: regular rhythm HEART SOUNDS: S1 normal heart sound present and S2 normal heart sound present GI: COMMON NORMALS: Normal to inspection, nondistended, normoactive bowel sounds present, Soft to palpation, non-tender, No hepatosplenomegaly present and no masses PALPATION: Yes Soft to palpation and Yes No hepatosplenomegaly present Neuro: COMMON NORMALS: patient oriented x3 MENINGEAL SIGNS: Yes no meni ngeal signs Course Vital Signs: Vital signs: Vital Signs Pulse Rate 84 11/20/22 15:23 Respiratory Rate 16 11/20/22 15:21 Blood Pressure 124/61 11/20/22 14:55 Pulse Oximetry 98 11/20/22 15:21 Oxygen Delivery Me thod Room Air 11/20/22 15:21 MDM - SOB/Dyspnea Medical Decision Making Chest x-ray performed by PCP showed patchy bibasilar infiltrates, lab work showed normal white count 8.1 hemoglobin hematocrit 11.1 and 36.6, rest of her metabolic panel was essentially benign lactic acid and procalcitonin were within normal limits. Patient was given 500 mg Levaquin and IV. Patient was not requiring supplemental oxygen during her hospital stay. Patient be discharged home with a diagnosis of pneumonia and be treated with Levaquin. Patient is to follow-up with her PCP within 1 week as needed. Differential Diagnosis Likely acute exacerbation of chronic obstructive airways disease and community acquired pneumonia; Unlikely congestive heart failure, asthma with exacerbation or pulmonary embolism Medical Records I reviewed the patient's medical records. Patient presents to the ER from [facility] with diagnosis of Lab Data I reviewed the patient's lab results. 11/20/22 14:10 11/20/22 14:10 Labs/Radiology: Laboratory Results WBC 8.1 10^3/uL (4.0-10.0) 11/20/22 14:10 RBC 4.70 10^6/uL (4.1-5.3) 11/20/22 14:10 Hgb 11.1 g/dL (11.5-15.3) L 11/20/22 14:10 Hct 36.6 % (37.0-47.0) L 11/20/22 14:10 MCV 77.9 fl (81-99) L 11/20/22 14:10 MCH 23.6 pg (28.0-34.0) L 11/20/22 14:10 MCHC 30.3 g/dL (30.0-36.0) 11/20/22 14:10 RDW 19.3 % (12.1-15.1) H 11/20/22 14:10 Plt Count 161 10^3/cmm (130-400) 11/20/22 14:10 MPV 11.0 fL (7.4-10.4) H 11/20/22 14:10 Neut % (Auto) 56.0 % 11/20/22 14:10 Lymph % (Auto) 31.4 % 11/20/22 14:10 [place] % (Auto) 9.0 % 11/20/22 14:10 Eos % (Auto) 2.6 % 11/20/22 14:10 Baso % (Auto) 0.5 % 11/20/22 14:10 Neut # (Auto) 4.54 10^3/uL (1.8-7.7) 11/20/22 14:10 Lymph # (Auto) 2.5 10^3/uL (0.8-4.8) 11/20/22 14:10 [place] # (Auto) 0.7 10^3/uL (0.2-0.9) 11/20/22 14:10 Eos # (Auto) 0.2 10^3/uL (0.0-0.8) 11/20/22 14:10 Baso # (Auto) 0.0 10^3/uL (0.0-0.1) 11/20/22 14:10 Nucleated RBC % (auto) 0 % 11/20/22 14:10 Nucleated RBCs # 0.0 /100WBC 11/20/22 14:10 Sodium 139 mmol/L (136-145) 11/20/22 14:10 Potassium 4.2 mmol/L (3.5-5.1) 11/20/22 14:10 Chloride 101 mmol/L (98-107) 11/20/22 14:10 Carbon Dioxide 25 mmol/L (22-29) 11/20/22 14:10 Anion Gap 17.2 (5-19) 11/20/22 14:10 BUN 19 mg/dL (6-20) 11/20/22 14:10 Creatinine 0.7 mg/dL (0.5-0.9) 11/20/22 14:10 GFR Calculation 87.9 mL/min (90-130) L 11/20/22 14:10 Glucose 87 mg/dL (65-115) 11/20/22 14:10 Calculated Osmolality 290 mOsm/kg (285-295) 11/20/22 14:10 Lactic Acid 1.9 mmol/L (0.5-2.2) 11/20/22 15:40 Calcium 8.9 mg/dL (8.5-10.5) 11/20/22 14:10 Total Bilirubin 0.7 mg/dL (0.15-1.2) 11/20/22 14:10 AST 57 U/L (0-32) H 11/20/22 14:10 ALT 46 U/L (0-33) H 11/20/22 14:10 Alkaline Phosphatase 118 U/L (35-105) H 11/20/22 14:10 NT-Pro-B Natriuret Pep 50 pg/mL (0-125) 11/20/22 14:10 Total Protein 7.4 g/dL (6.6-8.7) 11/20/22 14:10 Albumin 3.8 g/dL (3.5-5.2) 11/20/22 14:10 Globulin 3.6 g/dL (1.3-4.6) 11/20/22 14:10 Procalcitonin 0.16 ng/mL (0-0.5) 11/20/22 14:10 Discharge Plan Discharge Patient Disposition: Home Clinical Impression: Community acquired pneumonia Qualifiers: Laterality: unspecified laterality Qualified Code(s): J18.9 - Pneumonia, unspecified organism Condition: Stable Prescriptions: New levofloxacin 500 mg tablet 500 mg PO DAILY 7 Days Qty: 7 0RF No Action nitroglycerin 0.4 mg tablet, sublingual 0.4 mg sublingual Q5M PRN (Reason: chest pain) 30 Days Qty: 30 3RF Rx Instructions: until response; do not exceed 3 doses per episode (DME) nebulizer See Rx Instructions .Route .MEDSUPPLY Qty: 1 0RF Rx Instructions: with tubing and accessories cholecalciferol (vitamin D3) 25 mcg (1,000 unit) capsule 25 mcg PO DAILY 30 Days Qty: 30 0RF MARIJUNIA PO (DME) Diabetic shoes with 3 sets of inserts See Rx Instructions .Route .MEDSUPPLY Qty: 2 0RF Rx Instructions: As directed levothyroxine [Synthroid] 175 mcg tablet 175 mcg PO DAILY Qty: 90 0RF methylprednisolone acetate [Depo-Medrol] 40 mg/mL suspension 40 mg Infiltration ONCE Qty: 1 0RF diclofenac sodium [Arthritis Pain (diclofenac)] 1 % gel 4 g topical QID Qty: 100 2RF Rx Instructions: apply to single knee, ankle, foot; for foot includes sole/toes/top of foot fluconazole [Diflucan] 150 mg tablet 150 mg PO Q3D Qty: 2 0RF clindamycin HCl 150 mg capsule 300 mg PO TID 7 Days Qty: 42 0RF (DME) Dexcom G6 Transmitter Device See Rx Instructions .Route Qty: 1 3RF Rx Instructions: Change every 90 days. Lantus Solostar U-100 Insulin 100 unit/mL (3 mL) insulin pen 100 unit SUBCUT QPM Qty: 90 3RF (DME) OneTouch Verio test strips Strip See Rx Instructions .Route Qty: 400 3RF Rx Instructions: Use in OneTouch meter 6 times daily 90 day supply furosemide [Lasix] 40 mg tablet 40 mg PO DAILY PRN (Reason: edema) 30 Days Qty: 30 0RF losartan 25 mg tablet 25 mg PO DAILY 30 Days Qty: 30 5RF bupivacaine (PF) 0.25 % (2.5 mg/mL) solution 2 ml Infiltration ONCE Qty: 1 0RF dexamethasone sodium phos (PF) 10 mg/mL solution 8 mg Infiltration ONCE Qty: 0.8 0RF albuterol sulfate 2.5 mg/0.5 mL solution for nebulization 2.5 mg inhalation ONCE Qty: 1 0RF (DME) 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 meter [OneTouch Verio Meter] Misc See Rx Instructions .Route Qty: 1 0RF Rx Instructions: Use to check blood sugar once daily (DME) lancets [OneTouch Delica Lancets] 33 gauge misc See Rx Instructions .Route Qty: 100 3RF Rx Instructions: to use to check blood sugar once daily 90 day supply (DME) pen needle, diabetic [Comfort EZ Pen [place]] 32 gauge x 5/32 needle See Rx Instructions .Route Qty: 400 3RF Rx Instructions: As directed insulin aspart U-100 [Novolog FlexPen U-100 Insulin] 100 unit/mL (3 mL) insulin pen 50 unit SUBCUT .AC 90 Days Qty: 140 3RF (DME) Dexcom G6 Meteorological Observer Misc See Rx Instructions .ROUTE .COMPLEX Qty: 1 0RF Dose Instruction: USE TO CHECK BLOOD SUGAR 4-6 TIMES A DAY. Rx Instructions: USE TO CHECK BLOOD SUGAR 4-6 TIMES A DAY. benzonatate 200 mg capsule 200 mg PO BID PRN (Reason: cough) Qty: 20 0RF pregabalin 200 mg capsule 200 mg PO TID Qty: 90 2RF Rx Instructions: For Karlos who is out of the office albuterol sulfate [Ventolin HFA] 90 mcg/actuation HFA aerosol inhaler 2 puff inhalation Q4H PRN (Reason: shortness of breath or wheezing) Qty: 8.5 2RF fluticasone propion-salmeterol [Advair Diskus] 250-50 mcg/dose blister with device 1 inh inhalation BID Qty: 60 2RF (DME) Dexcom G6 Sensor Device See Rx Instructions .ROUTE .COMPLEX Qty: 6 2RF Dose Instruction: CHANGE EVERY 10 DAYS. Rx Instructions: CHANGE EVERY 10 DAYS. aspirin 81 mg tablet,delayed release (DR/EC) 81 mg PO DAILY Qty: 30 5RF bupropion HCl 150 mg tablet extended release 24 hr See Rx Instructions .ROUTE .COMPLEX Qty: 30 5RF Dose Instruction: TAKE ONE TABLET BY MOUTH IN THE MORNING Rx Instructions: TAKE ONE TABLET BY MOUTH IN THE MORNING buspirone 5 mg tablet See Rx Instructions .ROUTE .COMPLEX Qty: 90 5RF Dose Instruction: TAKE ONE TABLET BY MOUTH THREE TIMES DAILY Rx Instructions: TAKE ONE TABLET BY MOUTH THREE TIMES DAILY fluoxetine 40 mg capsule See Rx Instructions .ROUTE .COMPLEX Qty: 30 5RF Dose Instruction: TAKE ONE CAPSULE BY MOUTH EVERY NIGHT AT BEDTIME Rx Instructions: TAKE ONE CAPSULE BY MOUTH EVERY NIGHT AT BEDTIME metoprolol tartrate 25 mg tablet See Rx Instructions .ROUTE .COMPLEX Qty: 180 1RF Dose Instruction: TAKE ONE TABLET BY MOUTH TWICE DAILY Rx Instructions: TAKE ONE TABLET BY MOUTH TWICE DAILY Savella 50 mg tablet 50 mg PO BID 90 Days Qty: 180 1RF nystatin 100,000 unit/gram cream See Rx Instructions .ROUTE .COMPLEX Qty: 60 3RF Dose Instruction: APPLY TO AFFECTED AREAS ON ARMPITS AND TRUNK ONCE DAILY FOR RASH INFLAMMATION. Rx Instructions: APPLY TO AFFECTED AREAS ON ARMPITS AND TRUNK ONCE DAILY FOR RASH INFLAMMATION. omeprazole 40 mg capsule,delayed release(DR/EC) See Rx Instructions .ROUTE .COMPLEX Qty: 30 3RF Dose Instruction: TAKE 1 CAPSULE BY MOUTH DAILY Rx Instructions: TAKE 1 CAPSULE BY MOUTH DAILY Humira 40 mg/0.8 mL syringe kit See Rx Instructions SUBCUT .COMPLEX Qty: 2 5RF Rx Instructions: inject one - 40 mg/0.8 mL syringe every 2 weeks SUBCUT liothyronine 5 mcg tablet 5 mcg PO BID Qty: 180 0RF Rx Instructions: Take one tablet by mouth twice a day. potassium chloride 8 mEq tablet extended release 8 meq PO .qod Qty: 90 3RF Rx Instructions: frequency reduced ipratropium-albuterol 0.5 mg-3 mg(2.5 mg base)/3 mL solution for nebulization 3 ml inhalation QID PRN (Reason: Shortness Of Breath) Qty: 90 0RF Mounjaro 2.5 mg/0.5 mL pen injector 2.5 mg SUBCUT Q7D 30 Days Qty: 2.5 0RF Rx Instructions: 2.5mg weekly for 1month; 5mg weekly for 1month; 7.5mg weekly and continue Mounjaro 5 mg/0.5 mL pen injector 5 mg SUBCUT Q7D 30 Days Qty: 2.5 0RF Rx Instructions: 5mg weekly for 1 month then 7.5mg weekly and continue Mounjaro 7.5 mg/0.5 mL pen injector 7.5 mg SUBCUT Q7D 30 Days Qty: 2.5 0RF rosuvastatin 20 mg tablet See Rx Instructions .ROUTE .COMPLEX Qty: 60 0RF Dose Instruction: TAKE 1 TABLET BY MOUTH DAILY Rx Instructions: TAKE 1 TABLET BY MOUTH DAILY cyclobenzaprine 10 mg tablet 10 mg PO .qhs Qty: 90 0RF cholecalciferol (vitamin D3) [Vitamin D3] 25 mcg (1,000 unit) Capsule 25 mcg PO DAILY Qty: 0 (DME) Accu-Chek Fastclix Lancet Drum Misc See Rx Instructions .Route Qty: 200 3RF Rx Instructions: As directed (DME) Accu-Chek Guide test strips Strip See Rx Instructions .Route Qty: 100 3RF Rx Instructions: As directed Discharge Orders: Discharge ED (Routine); Ordered 11/20/22 Ordered By: Nicolás Mcgovern Referrals: Bridget Everett DO [Primary Care Provider] - Patient Instructions: Pneumonia (ED) Activity Restrictions/Additional Instructions: Please take all your antibiotics as directed, please follow-up with your family practice doctor in approximately 1 week as needed. Coding Level of Care Code ED Patient Access Representative for Annamarie Meraz
[2022-11-20 15:11] LABS: Alanine Aminotransferase 46 U/L (0-33); Albumin Level 3.8 g/dL (3.5-5.2); Alkaline Phosphatase 118 U/L (35-105); Aspartate Amino Transferase 57 U/L (0-32); Blood Urea Nitrogen 19 mg/dL (6-20); Calcium 8.9 mg/dL (8.5-10.5); Carbon Dioxide 25 mmol/L (22-29); Chloride 101 mmol/L (98-107); Globulin 3.6 g/dL (1.3-4.6); Glomerular Filtration Rate 87.9 mL/min (90-130); Glucose 87 mg/dL (65-115); Osmolality Calculated 290 mOsm/kg (285-295); Sodium 139 mmol/L (136-145); Total Bilirubin 0.7 mg/dL (0.15-1.2); Total Protein 7.4 g/dL (6.6-8.7)
[2022-11-20 15:14] LABS: Anion Gap 17.2 (5-19); Potassium 4.2 mmol/L (3.5-5.1)
[2022-11-20] MEDS: levofloxacin-dextrose 5 % 500 MG/100 ML PREMIX 100 MG IV (15:18)
[2022-11-20 15:21] VITALS: PULSE 84; RESP 16; O2SAT 98
[2022-11-20] MEDS: ipratropium-albuterol 3 mL Neb INHALATION (15:22)
[2022-11-20 15:23] VITALS: PULSE 84
[2022-11-20 16:14] LABS: Lactic Sepsis W/Reflex 1.9 mmol/L (0.5-2.2)
== END 2022-11-20 19:00 | disposition home or self-care (01) ==
PROVIDERS: Emergency Provider Emergency Medicine; PCP Family Medicine
DX: J18.9 Pneumonia, unspecified organism (principal); Z79.82 Long term (current) use of aspirin; Z79.4 Long term (current) use of insulin; Z87.891 Personal history of nicotine dependence; I25.10 Atherosclerotic heart disease of native coronary artery without angina pectoris; J44.9 Chronic obstructive pulmonary disease, unspecified; E78.5 Hyperlipidemia, unspecified; E11.9 Type 2 diabetes mellitus without complications
CPT/HCPCS: 36415; 80053; 83605; 83880; 84145; 85025; 87040; 94640; 96360; 99284; J1956

== ENCOUNTER → 2022-11-29 12:18 | Outpatient (BNVA) | payer MEDICAID, SELFPAY | PROVIDERS: PCP Nurse Practitioner Family; Visit Provider Nurse Practitioner Family | DX: E55.9 Vitamin D deficiency, unspecified (principal); E11.59 Type 2 diabetes mellitus with other circulatory complications; E11.42 Type 2 diabetes mellitus with diabetic polyneuropathy; E11.3393 Type 2 diabetes mellitus with moderate nonproliferative diabetic retinopathy without macular edema, bilateral; E03.9 Hypothyroidism, unspecified; E66.01 Morbid (severe) obesity due to excess calories; E78.2 Mixed hyperlipidemia; K76.0 Fatty (change of) liver, not elsewhere classified; Z79.4 Long term (current) use of insulin | CPT/HCPCS: 80053; 80061; 82043; 82306; 83036; 84439; 84443; 84480; 85025 ==

== ENCOUNTER → 2022-12-04 10:42 | Outpatient (BNVA) | payer MEDICAID, SELFPAY | PROVIDERS: PCP Nurse Practitioner Family; Visit Provider Podiatrist Foot & Ankle Surgery | DX: E11.42 Type 2 diabetes mellitus with diabetic polyneuropathy (principal); L60.3 Nail dystrophy; L84 Corns and callosities; E11.8 Type 2 diabetes mellitus with unspecified complications; Z79.4 Long term (current) use of insulin; M20.41 Other hammer toe(s) (acquired), right foot; M20.42 Other hammer toe(s) (acquired), left foot; M21.621 Bunionette of right foot; M21.622 Bunionette of left foot; M21.41 Flat foot [pes planus] (acquired), right foot; M21.42 Flat foot [pes planus] (acquired), left foot | CPT/HCPCS: 11056; 11721 ==

== ENCOUNTER → 2022-12-05 11:06 | Outpatient (BNVA) | payer MEDICAID, SELFPAY | PROVIDERS: PCP Nurse Practitioner Family; Visit Provider Anesthesiology Pain Medicine | DX: M25.551 Pain in right hip (principal); M54.50 Low back pain, unspecified; M51.36 Other intervertebral disc degeneration, lumbar region | CPT/HCPCS: 73502; 99214 ==

== ENCOUNTER → 2022-12-15 10:47 | Outpatient (BNVA) | payer MEDICAID, SELFPAY | PROVIDERS: PCP Nurse Practitioner Family; Visit Provider Internal Medicine | DX: R76.8 Other specified abnormal immunological findings in serum (principal); R70.0 Elevated erythrocyte sedimentation rate | CPT/HCPCS: 99214 ==

== ENCOUNTER → 2022-12-27 07:51 | Outpatient (BNVA) | payer MEDICAID, SELFPAY | PROVIDERS: PCP Nurse Practitioner Family; Visit Provider Internal Medicine | DX: E11.59 Type 2 diabetes mellitus with other circulatory complications (principal); E11.42 Type 2 diabetes mellitus with diabetic polyneuropathy; E11.3393 Type 2 diabetes mellitus with moderate nonproliferative diabetic retinopathy without macular edema, bilateral; E03.9 Hypothyroidism, unspecified; E66.01 Morbid (severe) obesity due to excess calories; K76.0 Fatty (change of) liver, not elsewhere classified; E78.2 Mixed hyperlipidemia; Z79.4 Long term (current) use of insulin; Z68.44 Body mass index [BMI] 60.0-69.9, adult | CPT/HCPCS: 99214 ==

== ENCOUNTER → 2023-01-08 10:08 | Outpatient (BNVA) | payer MEDICAID, SELFPAY | PROVIDERS: PCP Nurse Practitioner Family; Visit Provider Anesthesiology Pain Medicine | DX: M51.36 Other intervertebral disc degeneration, lumbar region (principal); M47.817 Spondylosis without myelopathy or radiculopathy, lumbosacral region; M25.551 Pain in right hip; M25.552 Pain in left hip; M79.604 Pain in right leg | CPT/HCPCS: 99214 ==

== ENCOUNTER → 2023-01-23 13:29 | Outpatient (BNVA) | payer MEDICAID, SELFPAY | PROVIDERS: PCP Nurse Practitioner Family; Visit Provider Anesthesiology Pain Medicine | DX: M54.16 Radiculopathy, lumbar region (principal); M51.36 Other intervertebral disc degeneration, lumbar region; M25.551 Pain in right hip; M25.552 Pain in left hip | CPT/HCPCS: 64483; 64484; J1100; J3490 ==

== ENCOUNTER → 2023-02-05 09:59 | Outpatient (BNVA) | payer MEDICAID, SELFPAY | PROVIDERS: PCP Nurse Practitioner Family; Visit Provider Podiatrist Foot & Ankle Surgery | DX: L60.3 Nail dystrophy (principal); E11.42 Type 2 diabetes mellitus with diabetic polyneuropathy; M20.41 Other hammer toe(s) (acquired), right foot; M20.42 Other hammer toe(s) (acquired), left foot; M21.621 Bunionette of right foot; M21.622 Bunionette of left foot; M21.41 Flat foot [pes planus] (acquired), right foot; M21.42 Flat foot [pes planus] (acquired), left foot; L84 Corns and callosities; Z79.4 Long term (current) use of insulin | CPT/HCPCS: 11055; 11721 ==

== ENCOUNTER → 2023-02-14 12:59 | Outpatient (BNVA) | payer MEDICAID, SELFPAY | PROVIDERS: PCP Nurse Practitioner Family; Visit Provider Anesthesiology Pain Medicine | DX: M54.16 Radiculopathy, lumbar region (principal) | CPT/HCPCS: 64483; 64484; J1100; J3490 ==

== ENCOUNTER → 2023-02-28 08:46 | Outpatient (BNVA) | payer MEDICAID, SELFPAY | PROVIDERS: PCP Nurse Practitioner Family; Visit Provider Anesthesiology Pain Medicine | DX: M51.36 Other intervertebral disc degeneration, lumbar region; M25.551 Pain in right hip; M25.552 Pain in left hip | CPT/HCPCS: 99213 ==

== ENCOUNTER → 2023-03-15 08:28 | Outpatient (BNVA) | payer MEDICAID, SELFPAY | PROVIDERS: PCP Nurse Practitioner Family; Visit Provider Internal Medicine | DX: M79.7 Fibromyalgia (principal); R70.0 Elevated erythrocyte sedimentation rate; R76.8 Other specified abnormal immunological findings in serum | CPT/HCPCS: 80053; 85025; 85651; 86140 ==

== ENCOUNTER → 2023-03-16 11:00 | Outpatient (BNVA) | payer MEDICAID, SELFPAY | PROVIDERS: PCP Nurse Practitioner Family; Visit Provider Internal Medicine | DX: R76.8 Other specified abnormal immunological findings in serum (principal); R70.0 Elevated erythrocyte sedimentation rate | CPT/HCPCS: 99214 ==

== ENCOUNTER 2023-03-22 09:02 | Outpatient (CLI) | payer MEDICAID, SELFPAY ==
[2023-03-22 10:16] LABS: Estmated Average Glucose 183
[2023-03-22 10:33] LABS: Alanine Aminotransferase 36 U/L (0-33); Albumin Level 3.5 g/dL (3.5-5.2); Alkaline Phosphatase 115 U/L (35-105); Aspartate Amino Transferase 56 U/L (0-32); Blood Urea Nitrogen 14 mg/dL (6-20); Calcium 9.1 mg/dL (8.5-10.5); Carbon Dioxide 29 mmol/L (22-29); Chloride 102 mmol/L (98-107); Chol HDL Ratio 3.52 mg/dL (0.0-4.40); Cholesterol 81 mg/dL (0-200); Free T4 Free Thyroxine 0.86 ng/dL (0.82-1.77); Globulin 3.6 g/dL (1.3-4.6); Glomerular Filtration Rate 65.8 mL/min (90-130); Glucose 185 mg/dL (65-115); HDL Cholesterol 23 mg/dL (60-100); LDL Cholesterol Calculated 38 mg/dL (50-129); LDL HDL Ratio 1.65 RATIO (0.00-3.22); Osmolality Calculated 291 mOsm/kg (285-295); Sodium 138 mmol/L (136-145); Thyroid Stimulating Hormone 0.22 uIU/mL (0.27-4.20); Total Bilirubin 0.6 mg/dL (0.15-1.2); Total Protein 7.1 g/dL (6.6-8.7); Triglycerides 99 mg/dL (0-150)
[2023-03-22 10:36] LABS: Creatinine Urine, Random 137 mg/dL (28-217); Microalbum Creatinine Ratio Ur 7 mg/dL (0-20); Microalbumin Random Urine 1 ug/dL (0-20)
== END 2023-03-22 09:03 | disposition home or self-care (01) ==
LOC: LAB 09:05
PROVIDERS: PCP Nurse Practitioner Family; Visit Provider Internal Medicine
DX: E11.9 Type 2 diabetes mellitus without complications (principal); E03.9 Hypothyroidism, unspecified
CPT/HCPCS: 36415; 80053; 80061; 82044; 83036; 84439; 84443

== ENCOUNTER → 2023-04-02 10:47 | Outpatient (BNVA) | payer MEDICAID, SELFPAY | PROVIDERS: PCP Nurse Practitioner Family; Visit Provider Internal Medicine | DX: E11.59 Type 2 diabetes mellitus with other circulatory complications; E11.42 Type 2 diabetes mellitus with diabetic polyneuropathy; E11.3393 Type 2 diabetes mellitus with moderate nonproliferative diabetic retinopathy without macular edema, bilateral; E03.9 Hypothyroidism, unspecified; Z79.4 Long term (current) use of insulin; E66.01 Morbid (severe) obesity due to excess calories; K76.0 Fatty (change of) liver, not elsewhere classified; E78.2 Mixed hyperlipidemia; Z68.44 Body mass index [BMI] 60.0-69.9, adult; Z79.890 Hormone replacement therapy | CPT/HCPCS: 99214 ==

== ENCOUNTER → 2023-04-09 10:26 | Outpatient (BNVA) | payer MEDICAID, SELFPAY | PROVIDERS: PCP Nurse Practitioner Family; Visit Provider Podiatrist Foot & Ankle Surgery | DX: L60.3 Nail dystrophy (principal); E11.42 Type 2 diabetes mellitus with diabetic polyneuropathy; M20.41 Other hammer toe(s) (acquired), right foot; M20.42 Other hammer toe(s) (acquired), left foot; M21.621 Bunionette of right foot; M21.622 Bunionette of left foot; M21.41 Flat foot [pes planus] (acquired), right foot; M21.42 Flat foot [pes planus] (acquired), left foot; L84 Corns and callosities; Z79.4 Long term (current) use of insulin | CPT/HCPCS: 11056; 11721 ==

== ENCOUNTER → 2023-04-30 13:46 | Outpatient (BNVA) | payer MEDICAID, SELFPAY | PROVIDERS: PCP Nurse Practitioner Family; Visit Provider Nurse Practitioner Family | DX: I25.118 Atherosclerotic heart disease of native coronary artery with other forms of angina pectoris (principal); I10 Essential (primary) hypertension; Z87.891 Personal history of nicotine dependence | CPT/HCPCS: 99214 ==

== ENCOUNTER → 2023-05-31 08:40 | Outpatient (BNVA) | payer MEDICAID, SELFPAY | PROVIDERS: PCP Nurse Practitioner Family; Visit Provider Anesthesiology Pain Medicine | DX: M51.36 Other intervertebral disc degeneration, lumbar region; M25.551 Pain in right hip; M25.552 Pain in left hip | CPT/HCPCS: 99213 ==

== ENCOUNTER 2023-06-07 11:54 | Outpatient (CLI) | payer MEDICAID, SELFPAY ==
[2023-06-07 12:56] LABS: Chol HDL Ratio 3.26 mg/dL (0.0-4.40); Cholesterol 101 mg/dL (0-200); Free T4 Free Thyroxine 1.24 ng/dL (0.82-1.77); HDL Cholesterol 31 mg/dL (60-100); LDL Cholesterol Calculated 42 mg/dL (50-129); LDL HDL Ratio 1.35 RATIO (0.00-3.22); Thyroid Stimulating Hormone 0.14 uIU/mL (0.27-4.20); Triglycerides 138 mg/dL (0-150)
[2023-06-08 08:05] LABS: T3 Total 132 ng/dL (76-181)
== END 2023-06-07 11:55 | disposition home or self-care (01) ==
PROVIDERS: PCP Nurse Practitioner Family; Visit Provider Internal Medicine
DX: E03.9 Hypothyroidism, unspecified (principal); E11.3393 Type 2 diabetes mellitus with moderate nonproliferative diabetic retinopathy without macular edema, bilateral; Z79.4 Long term (current) use of insulin
CPT/HCPCS: 36415; 80061; 84439; 84443; 84480

== ENCOUNTER → 2023-07-05 10:50 | Outpatient (BNVA) | payer MEDICAID, SELFPAY | PROVIDERS: PCP Nurse Practitioner Family; Visit Provider Internal Medicine | DX: E11.59 Type 2 diabetes mellitus with other circulatory complications (principal); E11.42 Type 2 diabetes mellitus with diabetic polyneuropathy; E11.3393 Type 2 diabetes mellitus with moderate nonproliferative diabetic retinopathy without macular edema, bilateral; Z79.4 Long term (current) use of insulin; E03.9 Hypothyroidism, unspecified; E66.01 Morbid (severe) obesity due to excess calories; K76.0 Fatty (change of) liver, not elsewhere classified; E78.2 Mixed hyperlipidemia; R79.89 Other specified abnormal findings of blood chemistry; Z79.890 Hormone replacement therapy; Z68.43 Body mass index [BMI] 50.0-59.9, adult | CPT/HCPCS: 99214 ==

== ENCOUNTER → 2023-07-31 09:50 | Outpatient (BNVA) | payer MEDICAID, SELFPAY | PROVIDERS: PCP Nurse Practitioner Family; Visit Provider Podiatrist Foot & Ankle Surgery | DX: M20.41 Other hammer toe(s) (acquired), right foot (principal); M20.42 Other hammer toe(s) (acquired), left foot; M21.621 Bunionette of right foot; M21.622 Bunionette of left foot; M21.41 Flat foot [pes planus] (acquired), right foot; M21.42 Flat foot [pes planus] (acquired), left foot; L84 Corns and callosities; L60.3 Nail dystrophy; E11.42 Type 2 diabetes mellitus with diabetic polyneuropathy; Z79.4 Long term (current) use of insulin | CPT/HCPCS: 99213 ==

== ENCOUNTER → 2023-08-30 09:23 | Outpatient (BNVA) | payer MEDICAID, SELFPAY | PROVIDERS: PCP Nurse Practitioner Family; Visit Provider Anesthesiology Pain Medicine | DX: M51.36 Other intervertebral disc degeneration, lumbar region; M47.817 Spondylosis without myelopathy or radiculopathy, lumbosacral region; M25.551 Pain in right hip; M25.552 Pain in left hip | CPT/HCPCS: 99214 ==

== ENCOUNTER → 2023-09-03 13:03 | Outpatient (BNVA) | payer MEDICAID, SELFPAY | PROVIDERS: PCP Nurse Practitioner Family; Visit Provider Anesthesiology Pain Medicine | DX: M54.16 Radiculopathy, lumbar region (principal) | CPT/HCPCS: 64483; 64484; J1100; J3490 ==

== ENCOUNTER 2023-09-12 10:03 | Outpatient (CLI) | payer MEDICAID, SELFPAY ==
[2023-09-12 11:14] LABS: Estmated Average Glucose 177; Hemoglobin A1C 7.8 % (4.0-6.0)
[2023-09-12 11:24] LABS: Creatinine Urine, Random 111 mg/dL (28-217); Microalbum Creatinine Ratio Ur 9 mg/dL (0-20); Microalbumin Random Urine 1 ug/dL (0-20)
[2023-09-12 11:35] LABS: Alanine Aminotransferase 56 U/L (0-33); Albumin Level 3.5 g/dL (3.5-5.2); Alkaline Phosphatase 128 U/L (35-105); Anion Gap 15.4 (5-19); Aspartate Amino Transferase 81 U/L (0-32); Blood Urea Nitrogen 16 mg/dL (6-20); Carbon Dioxide 23 mmol/L (22-29); Chloride 98 mmol/L (98-107); Chol HDL Ratio 3.27 mg/dL (0.0-4.40); Cholesterol 108 mg/dL (0-200); Globulin 3.9 g/dL (1.3-4.6); Glomerular Filtration Rate 65.5 mL/min (90-130); Glucose 171 mg/dL (65-115); HDL Cholesterol 33 mg/dL (60-100); LDL Cholesterol Calculated 47 mg/dL (50-129); LDL HDL Ratio 1.42 RATIO (0.00-3.22); Osmolality Calculated 279 mOsm/kg (285-295); Potassium 4.4 mmol/L (3.5-5.1); Sodium 132 mmol/L (136-145); Thyroid Stimulating Hormone 1.31 uIU/mL (0.27-4.20); Total Bilirubin 0.7 mg/dL (0.15-1.2); Total Protein 7.4 g/dL (6.6-8.7); Triglycerides 140 mg/dL (0-150)
== END 2023-09-12 10:04 | disposition home or self-care (01) ==
LOC: LAB 10:05
PROVIDERS: PCP Nurse Practitioner Family; Visit Provider Internal Medicine
DX: E11.9 Type 2 diabetes mellitus without complications (principal); R79.89 Other specified abnormal findings of blood chemistry
CPT/HCPCS: 36415; 80053; 80061; 82044; 83036; 84439; 84443

== ENCOUNTER → 2023-09-19 10:39 | Outpatient (BNVA) | payer MEDICAID, SELFPAY | PROVIDERS: PCP Nurse Practitioner Family; Visit Provider Internal Medicine | DX: E11.59 Type 2 diabetes mellitus with other circulatory complications (principal); E11.42 Type 2 diabetes mellitus with diabetic polyneuropathy; E11.3393 Type 2 diabetes mellitus with moderate nonproliferative diabetic retinopathy without macular edema, bilateral; Z79.4 Long term (current) use of insulin; E03.9 Hypothyroidism, unspecified; R63.5 Abnormal weight gain; E66.01 Morbid (severe) obesity due to excess calories; K76.0 Fatty (change of) liver, not elsewhere classified; E78.2 Mixed hyperlipidemia | CPT/HCPCS: 99214 ==

== ENCOUNTER → 2023-10-01 09:17 | Outpatient (BNVA) | payer MEDICAID, SELFPAY | PROVIDERS: PCP Nurse Practitioner Family; Visit Provider Anesthesiology Pain Medicine | DX: M51.36 Other intervertebral disc degeneration, lumbar region; M25.551 Pain in right hip; M25.552 Pain in left hip | CPT/HCPCS: 99214 ==

== ENCOUNTER → 2023-11-06 10:33 | Outpatient (BNVA) | payer MEDICAID, SELFPAY | PROVIDERS: PCP Nurse Practitioner Family; Visit Provider Internal Medicine Cardiovascular Disease | DX: I25.118 Atherosclerotic heart disease of native coronary artery with other forms of angina pectoris (principal); I10 Essential (primary) hypertension; E78.2 Mixed hyperlipidemia; E11.3393 Type 2 diabetes mellitus with moderate nonproliferative diabetic retinopathy without macular edema, bilateral; Z79.4 Long term (current) use of insulin; G47.33 Obstructive sleep apnea (adult) (pediatric) | CPT/HCPCS: 99214 ==

== ENCOUNTER → 2024-01-21 09:38 | Outpatient (BNVA) | payer MEDICAID, SELFPAY | PROVIDERS: PCP Nurse Practitioner Family; Referring Provider Nurse Practitioner Family; Visit Provider Surgery | DX: K21.9 Gastro-esophageal reflux disease without esophagitis (principal); R03.0 Elevated blood-pressure reading, without diagnosis of hypertension; R13.10 Dysphagia, unspecified; K59.00 Constipation, unspecified; R10.9 Unspecified abdominal pain | CPT/HCPCS: 99204; 99214 ==

== ENCOUNTER 2024-01-24 10:33 | Emergency (ER) | payer MEDICAID, SELFPAY ==
--- NOTE | 2024-01-24 10:34 | XR_ITS ---
WS: [id number] XR ankle RT min 3V* [id number] REASON FOR EXAM: injury FINDINGS: No acute fracture identified. Chronic bony changes at the apex of the medial malleolus compatible wit h old medial collateral ligament injury. There is mild narrowing of the medial clear space, posttraum atic osteoarthritis. The remainder of the joint spaces of the ankle are intact and well preserved. XR/XR ankle RT min 3V* [id number] IMPRESSION: No acute abnormality.
--- NOTE | 2024-01-24 10:34 | XR_ITS ---
WS: [id number] XR foot RT min 3V* [id number] REASON FOR EXAM: injury FINDINGS: No acute fracture. The joint spaces of the forefoot, midfoot, and hindfoot are intact and relatively well preserved. Small calcaneal posterior and anterior enthesophytes. XR/XR foot RT min 3V* [id number] IMPRESSION: No acute abnormality.
[2024-01-24 11:48] VITALS: BP 130/65; PULSE 74; RESP 16; TEMP 36.6; O2SAT 98; BMI 59.4
--- NOTE | 2024-01-24 13:04 | ED_ITS ---
HPI - Extremity Problem General: Chief complaint: Extremity Injury, Lower Stated complaint: right foot pain, fall Time Seen by Provider: 01/24/24 13:03 History of Present Illness: 53-year-old female comes in today for co mplaints of injury to the right ankle. Patient reports walking in the yard yesterday when she felt a pop in her ankle when she stepped in a hole. Since then patient has had increased pain and discomfort to the posterior aspect of the ankle. Patient appears nontoxic. Patient appears in mild pain at rest. Review of Systems General: Reports: 10 or more systems reviewed and unremarkable except in HPI and below PFS ED [facility]: Medical History (Updated 01/24/24 @ 13:10 by XIOMY Chacon) Anxiety and depression Lumbago Acute cystitis Allergic rhinitis Morbid obesity Intertrigo Lower back pain YANA (generalized anxiety disorder) Morbid obesity with BMI of 60.0-69.9, adult Atypical chest pain Dysphagia Fibromyalgia Migraine Endometriosis Tortuous colon Tremor Tubular adenoma of colon CAD (coronary artery disease) Dyslipidemia GARCIA (nonalcoholic steatohepatitis) ASHD (arteriosclerotic heart disease) Diabetic polyneuropathy Migraine without aura and without status migrainosus, not intractable Type 2 diabetes mellitus with both eyes affected by moderate nonproliferative retinopathy without macular edema, with long-term current use of insulin Benign essential HTN Cataract, right eye Colon polyps [place] (obstructive sleep apnea) Acquired hypothyroidism Anxiety Depression COPD (chronic obstructive pulmonary disease) Surgical History Hx of release of tendon R. hand Hx of tubal ligation History of colonoscopy with polypectomy (04/01/21) sigmoid polyp History of coronary artery stent placement History of hand surgery Bilateral carpal tunnel History of total hysterectomy Family History Father Heart attack CAD (coronary artery disease) Hypertension Mother Cancer CAD (coronary artery disease) Lung disease Diabetes Hyperlipidemia Hypertension Sister CAD (coronary artery disease), Onset Age: 21 [place] at 21 Heart attack Brother CAD (coronary artery disease), Onset Age: 30 Diabetes Hyperlipidemia Hypertension Grandmother CAD (coronary artery disease) Diabetes Grandfather CAD (coronary artery disease) Grandmother CAD (coronary artery disease) Stroke Grandfather CAD (coronary artery disease) Lung disease Family/Other Cancer Diabetes Stroke Rheumatoid arthritis Denies family history of Lupus Clotting disorder Dementia Chronic kidney disease (CKD) Suicide Anesthesia complication Bleeding disorder Social History Smoking and tobacco/nicotine status: former use of tobacco/nicotine Quit status (tobacco/nicotine): has quit using Second hand smoke exposure: No Alcohol intake: never Substance/Drug Use: current Substance/Drug use frequency: few times a month Adopted: No Caregiver/support person: No Lives independently: Yes Household members: spouse Housing: House Marital status: Number of children: 2 Highest education level completed: GED or Equivalent service: No Current occupational status: disabled Sexually active: No Do you think of yourself as: Straight/Heterosexual Current gender identity: Female Agree to transfusion: Yes Physical Exam Const: COMMON NORMALS: alert HENMT: COMMON NORMALS: normocephalic HEAD & SCALP: normocephalic Neck/C-Spine: COMMON NORMALS: full ROM Resp: COMMON NORMALS: normal respiratory effort Cardio: COMMON NORMALS: regular rate RATE: regular rate Back/Pelvis: COMMON NORMALS: thoracic and lumbar spine normal to inspection Extremity: RIGHT LOWER EXTREMITY: Yes foot & digits (Mild posterior ankle swelling and tenderness) Neuro: SENSORIUM/ORIENTATION: Yes alert Skin: COMMON NORMALS: no rashes or lesions noted GENERAL SKIN EXAM: no rashes or lesions noted Course Vital Signs: Vital signs: Vital Signs Temperature 97.9 F 01/24/24 11:48 Pulse Rate 74 01/24/24 11:48 Respiratory Rate 16 01/24/24 11:48 Blood Pressure 130/65 01/24/24 11:48 Pulse Oximetry 98 01/24/24 11:48 Oxygen Delivery Me thod Room Air 01/24/24 11:48 MDM - Extremity (Nontraumatic) Medical Decision Making 53-year-old female comes in today for complaints of right ankle pain and sw elling. Pulses are intact distally. Patient has posterior ankle swelling and tenderness. Differential diagnosis includes fracture, sprain, dislocation. X- ray noting no acute injury. Reviewed exam with patient with recommendation for treatment and follow-up. Patient reported understanding. Lab Data Radiology Impressions Ankle X-Ray 01/24/24 10:34 IMPRESSION: No acute abnormality. Foot X-Ray 01/24/24 10:34 IMPRESSION: No acute abnormality. All radiology interpretation(s) finalized by discharge Discharge Plan Discharge Patient Disposition: Home Clinical Impression: Sprain of posterior talofibular ligament of right ankle Qualifiers: Encounter type: initial encounter Qualified Code(s): S93.491A - Sprain of other ligament of right ankle, initial encounter Condition: Stable Prescriptions: No Action nitroglycerin 0.4 mg tablet, sublingual 0.4 mg sublingual Q5M PRN (Reason: chest pain) 30 Days Qty: 30 3RF Rx Instructions: until response; do not exceed 3 doses per episode (DME) nebulizer See Rx Instructions .Route .MEDSUPPLY Qty: 1 0RF Rx Instructions: with tubing and accessories cholecalciferol (vitamin D3) 25 mcg (1,000 unit) capsule 25 mcg PO DAILY 30 Days Qty: 30 0RF MARIJUNIA PO (DME) Diabetic shoes with 3 sets of inserts See Rx Instructions .Route .MEDSUPPLY Qty: 2 0RF Rx Instructions: As directed methylprednisolone acetate [Depo-Medrol] 40 mg/mL suspension 40 mg Infiltration ONCE Qty: 1 0RF diclofenac sodium [Arthritis Pain (diclofenac)] 1 % gel 4 g topical QID Qty: 100 2RF Rx Instructions: apply to single knee, ankle, foot; for foot includes sole/toes/top of foot ipratropium-albuterol 0.5 mg-3 mg(2.5 mg base)/3 mL solution for nebulization 3 ml inhalation QID PRN (Reason: Shortness Of Breath) Qty: 90 3RF mupirocin 2 % ointment 1 applic topical TID Qty: 15 0RF furosemide [Lasix] 40 mg tablet 40 mg PO DAILY PRN (Reason: edema) 30 Days Qty: 30 0RF bupivacaine (PF) 0.25 % (2.5 mg/mL) solution 2 ml Infiltration ONCE Qty: 1 0RF dexamethasone sodium phos (PF) 10 mg/mL solution 8 mg Infiltration ONCE Qty: 0.8 0RF bupropion HCl 150 mg tablet extended release 24 hr See Rx Instructions .ROUTE .COMPLEX Qty: 90 1RF Dose Instruction: TAKE 1 TABLET BY MOUTH IN THE MORNING Rx Instructions: TAKE 1 TABLET BY MOUTH IN THE MORNING albuterol sulfate 90 mcg/actuation HFA aerosol inhaler 2 puff inhalation Q4H PRN (Reason: shortness of breath or wheezing) Qty: 18 5RF buspirone 5 mg tablet See Rx Instructions .ROUTE .COMPLEX Qty: 270 1RF Dose Instruction: TAKE ONE TABLET BY MOUTH THREE TIMES DAILY Rx Instructions: TAKE ONE TABLET BY MOUTH THREE TIMES DAILY cyclobenzaprine 10 mg tablet 10 mg PO .qhs Qty: 90 1RF fluticasone propion-salmeterol [Advair Diskus] 500-50 mcg/dose blister with device See Rx Instructions .ROUTE .COMPLEX Qty: 60 5RF Dose Instruction: INHALE 1 PUFF BY MOUTH TWICE DAILY Rx Instructions: INHALE 1 PUFF BY MOUTH TWICE DAILY fluconazole [Diflucan] 100 mg tablet 100 mg PO DAILY 7 Days Qty: 7 0RF nystatin [Nystop] 100,000 unit/gram powder See Rx Instructions .ROUTE .COMPLEX Qty: 60 1RF Dose Instruction: APPLY TOPICALLY TWICE DAILY FOR 14 DAYS Rx Instructions: APPLY TOPICALLY TWICE DAILY FOR 14 DAYS sucralfate [Carafate] 1 gram tablet 1 g PO TID Qty: 30 0RF (DME) Dexcom G6 [employer] Maker Misc See Rx Instructions .ROUTE .COMPLEX Qty: 1 0RF Dose Instruction: USE TO CHECK BLOOD SUGAR 4-6 TIMES A DAY. Rx Instructions: USE TO CHECK BLOOD SUGAR 4-6 TIMES A DAY. nystatin 100,000 unit/gram cream See Rx Instructions .ROUTE .COMPLEX Qty: 60 3RF Dose Instruction: APPLY TO AFFECTED AREAS ON ARMPITS AND TRUNK ONCE DAILY FOR RASH INFLAMMATION. Rx Instructions: APPLY TO AFFECTED AREAS ON ARMPITS AND TRUNK ONCE DAILY FOR RASH INFLAMMATION. potassium chloride 8 mEq tablet extended release 8 meq PO .qod Qty: 90 3RF Rx Instructions: frequency reduced (DME) pen needle, diabetic [TechLITE Pen Needle] 32 gauge x 5/32 needle See Rx Instructions .ROUTE .COMPLEX Qty: 400 0RF Dose Instruction: USE DIRECTED Rx Instructions: USE DIRECTED aspirin 81 mg tablet,delayed release (DR/EC) 81 mg PO DAILY Qty: 90 1RF Ozempic 1 mg/dose (4 mg/3 mL) pen injector See Rx Instructions .ROUTE .COMPLEX Qty: 3 2RF Dose Instruction: INJECT 1MG(0.75ML) SUBQ EVERY 7 DAYS Rx Instructions: INJECT 1MG(0.75ML) SUBQ EVERY 7 DAYS Lantus Solostar U-100 Insulin 100 unit/mL (3 mL) insulin pen See Rx Instructions .ROUTE .COMPLEX Qty: 144 0RF Dose Instruction: INJECT 160 UNITS UNDER THE SKIN DAILY Rx Instructions: INJECT 160 UNITS UNDER THE SKIN DAILY Ozempic 2 mg/dose (8 mg/3 mL) pen injector 2 mg SUBCUT .q7days 90 Days Qty: 9 0RF (DME) Dexcom G6 Sensor Device See Rx Instructions .ROUTE .COMPLEX Qty: 3 1RF Dose Instruction: CHANGE EVERY 10 DAYS Rx Instructions: CHANGE EVERY 10 DAYS liothyronine 5 mcg tablet See Rx Instructions .ROUTE .COMPLEX Qty: 180 0RF Dose Instruction: TAKE 1 TABLET(5 MCG) BY MOUTH TWICE DAILY Rx Instructions: TAKE 1 TABLET(5 MCG) BY MOUTH TWICE DAILY fluoxetine 40 mg capsule See Rx Instructions .ROUTE .COMPLEX Qty: 180 0RF Dose Instruction: TAKE 1 CAPSULE BY MOUTH TWICE DAILY Rx Instructions: TAKE 1 CAPSULE BY MOUTH TWICE DAILY losartan 25 mg tablet 25 mg PO DAILY Qty: 90 3RF rosuvastatin 20 mg tablet See Rx Instructions .ROUTE .COMPLEX Qty: 33 0RF Dose Instruction: TAKE 1 TABLET BY MOUTH DAILY Rx Instructions: TAKE 1 TABLET BY MOUTH DAILY (DME) Dexcom G6 Transmitter Device See Rx Instructions .ROUTE .COMPLEX Qty: 1 0RF Dose Instruction: CHANGE EVERY 90 DAYS Rx Instructions: CHANGE EVERY 90 DAYS levothyroxine [Synthroid] 175 mcg tablet See Rx Instructions .ROUTE .COMPLEX Qty: 90 0RF Dose Instruction: TAKE 1 TABLET BY MOUTH DAILY SUNDAY-SUNDAY, 1/2 TABLET ON SUNDAY Rx Instructions: TAKE 1 TABLET BY MOUTH DAILY SUNDAY-SUNDAY, 1/2 TABLET ON SUNDAY insulin aspart U-100 100 unit/mL (3 mL) insulin pen See Rx Instructions .ROUTE .COMPLEX Qty: 105 0RF Dose Instruction: INJECT 80 UNITS SUBCUTANEOUS THREE TIMES DAILY BEFORE A MEAL Rx Instructions: INJECT 80 UNITS SUBCUTANEOUS THREE TIMES DAILY BEFORE A MEAL pantoprazole 40 mg tablet,delayed release (DR/EC) 40 mg PO BID Qty: 60 0RF metoprolol tartrate 25 mg tablet See Rx Instructions .ROUTE .COMPLEX Qty: 180 0RF Dose Instruction: TAKE 1 TABLET BY MOUTH TWICE DAILY Rx Instructions: TAKE 1 TABLET BY MOUTH TWICE DAILY Discharge Orders: Discharge ED (Routine); Ordered 01/24/24 Ordered By: Merlin Peña Referrals: Teri Mcknight FNP [Primary Care Provider] - Discharge Diet: Usual diet Discharge Activity: Increase activity as tolerated Patient Instructions: Ankle Sprain (ED) Activity Restrictions/Additional Instructions: Use a walker to help with the support of the ankle noted cannot bear weight completely. Increase activity as tolerated. Wear an elastic bandage for comfo rt and support. Use acetaminophen or ibuprofen to help with pain. Use ice packs for further pain relief. Follow-up with primary care in 1 week for recheck. Coding Level of Care Code ED Infant Childcare Provider for Annamarie Meraz
[2024-01-24 13:46] VITALS: BP 151/76; PULSE 74; O2SAT 99
== END 2024-01-24 13:46 | disposition home or self-care (01) ==
PROVIDERS: Emergency Provider Nurse Practitioner Family; PCP Nurse Practitioner Family
DX: S93.491A Sprain of other ligament of right ankle, initial encounter (principal); Z79.82 Long term (current) use of aspirin; Z79.85 Long-term (current) use of injectable non-insulin antidiabetic drugs; Z79.4 Long term (current) use of insulin; Z87.891 Personal history of nicotine dependence; I25.10 Atherosclerotic heart disease of native coronary artery without angina pectoris; E78.5 Hyperlipidemia, unspecified; E11.42 Type 2 diabetes mellitus with diabetic polyneuropathy; I10 Essential (primary) hypertension; J44.9 Chronic obstructive pulmonary disease, unspecified; W18.42XA Slipping, tripping and stumbling without falling due to stepping into hole or opening, initial encounter
CPT/HCPCS: 73610; 73630; 99283

== ENCOUNTER 2024-02-05 15:15 | Outpatient (CLI) | payer MEDICAID, SELFPAY ==
--- NOTE | 2024-02-05 17:15 | CT_ITS ---
WS: [id number] CT RIGHT ANKLE, NONCONTRAST. HISTORY: M25.571 - Pain in right ankle and joints of right foot Technique: All CT scans at [facility] use at least one of these dose optimization techniques: automated exposure control; mA and/or kV adjustment per patient size (includes targeted exams where dose is matched to clinical indication); or iterative reconstruction. DLP: 133.68 mGy.cm COMPARISON: Radiograph 01/24/2024 Distal tibia and fibula are normal. No widening of the intraosseous articulation. Normal calcaneus. T here is a small plantar spur and mild enthesopathy at the Achilles tendon. Subtalar joint is negative . Normal talus. No osteochondral lesion along the talar dome. No intra-articular loose body. Cuboid and cuneiforms and navicular are normally aligned. Seen only on a few images is a a possible n ondisplaced fracture involving the proximal fifth metatarsal. This is best seen on image 61 of series 6. Correlate to point tenderness to this location. By history provided this does not correspond to t he area of pain. There is also an associated well-circumscribed density adjacent to the proximal fift h metatarsal which is separate from the possible fracture. No significant soft tissue edema. Vascular calcifications. CT/CT ankle RT wo con* [id number] IMPRESSION: 1. Possible, nondisplaced fracture involving the proximal fifth metatarsal. Th is does not correspond to the area of pain as provided within the history. 2. No additional fracture identified. No significant soft tissue edema. If patient's pain continues consider MRI RIGHT ankle to evaluate for marrow maria fernanda ma or ligamentous injury.
== END 2024-02-05 15:16 | disposition home or self-care (01) ==
PROVIDERS: PCP Nurse Practitioner Family; Visit Provider Nurse Practitioner Family
DX: R93.7 Abnormal findings on diagnostic imaging of other parts of musculoskeletal system (principal); M77.31 Calcaneal spur, right foot; M25.571 Pain in right ankle and joints of right foot
CPT/HCPCS: 73700

== ENCOUNTER 2024-02-13 10:18 | Day surgery (SDC) | payer MEDICAID, SELFPAY ==
[2024-02-13 10:32] VITALS: BP 165/87; PULSE 67; RESP 18; TEMP 36.3; O2SAT 99
[2024-02-13 10:50] LABS: Glucose Point of Care 116 mg/dL (70-110)
[2024-02-13] MEDS: sodium chloride 0.9% 1,000 ML 30 ML IV (10:50)
--- NOTE | 2024-02-13 10:51 | ANES.PREANE2 ---
Pre-Anesthetic Assessment Height/Weight: Height 1.57 m Weight 147.418 kg Temp Pulse Resp BP Pulse Ox O2 Del Method 97.4 F L 67 18 165/87 99 Room Air 02/13/24 10:32 02/13/24 10:32 02/13/24 10:32 02/13/24 10:32 02/13/24 10:32 02/13/24 10:32 Preop Diagnosis: ABD Pain Operation Date: 02/13/24 11:30 Proposed Procedures p EGD 10276, K21.9, R13.10, R10.9(Not Applicable) - Michael Sebastian DO Familial anesthetic complications: none Was Beta Rachael taken within 24 hours: Yes Was Clonidine taken within 24 hours: N/A Last intake: Intake Last Liquid Date 02/12/24 Last Liquid Time 04:00 Last Solid Date 02/12/24 Last Solid Time 21:00 Social No alcohol and No tobacco Marijuanna gummies Exam alert, oriented x 3, clear to auscultation bilaterally and regular rate & rhythm Airway Submandibular: within normal limits Cervical ROM: within normal limits Mallampati: Class III Dentition: false History/ROS No significant history except as noted and No significant complaints Pulmonary Asthma and Sleep Apnea COPD CV/HEM Coronary Artery Disease stent in 2019 None reported Hepatic None reported GI Gastroesophageal Reflux Disease Metabolic Diabetes Mellitus and Morbid Obesity Musc/skel Lower Back Pain Neuropsych Anxiety Anesthetic Plan ASA status: 3 Anesthesia: MAC Risk of > 500 ml blood loss (7ml/kg in children): No Medications/Allergies Home Medications Medication Instructions Recorded Confirmed Last Taken Type nitroglycerin 0.4 mg sublingual 0.4 mg sublingual Q5M PRN chest 05/12/21 02/12/24 Unknown Rx tablet pain 30 days #30 tabs cholecalciferol (vitamin D3) 25 25 mcg PO DAILY 30 days #30 caps 05/29/21 02/12/24 02/12/24 Rx mcg (1,000 unit) capsule nebulizer #1 ea 06/10/21 01/21/24 Unknown Rx MARIJUNIA 1 gummy PO PRN PRN Pain 03/01/22 02/12/24 02/10/24 History 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 meter,continuous #1 ea 05/24/22 01/21/24 Unknown Rx (Dexcom G6 [employer] Production [employer]) nystatin 100,000 unit/gram topical See Rx Instructions .Route 08/25/22 02/12/24 Unknown Rx cream .COMPLEX #60 grams Diabetic shoes with 3 sets of #2 ea 08/29/22 01/21/24 Unknown Rx inserts furosemide 40 mg tablet (Lasix) 40 mg PO DAILY PRN edema 30 days 10/18/22 02/12/24 Unknown Rx #30 tabs potassium chloride 8 mEq 8 meq PO .qod #90 tabs 10/19/22 02/12/24 02/12/24 Rx tablet,extended release pen needle, diabetic 32 gauge x #400 ea 01/03/23 01/21/24 Unknown Rx (TechLITE Pen Needle) aspirin 81 mg tablet,delayed 81 mg PO DAILY #90 tabs 01/30/23 02/12/24 02/11/24 Rx release ipratropium 0.5 mg-albuterol 3 mg 3 ml inhalation QID PRN Shortness 05/14/23 02/12/24 Unknown Rx (2.5 mg base)/3 mL nebulization Of Breath #90 mL soln semaglutide 2 mg/dose (8 mg/3 mL) 2 mg (0.75 mL) SUBCUT .q7days 90 10/08/23 02/12/24 02/05/24 Rx subcutaneous pen injector (Ozempic) days #9 mL 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 sensor (Dexcom G6 #3 ea 10/22/23 01/21/24 Unknown Rx Sensor device) losartan 25 mg tablet 25 mg PO DAILY #90 tabs 11/08/23 02/12/24 02/12/24 Rx albuterol sulfate 90 mcg/actuation 2 puff inhalation Q4H PRN 12/12/23 02/12/24 02/10/24 Rx aerosol inhaler shortness of breath or wheezing #18 grams cyclobenzaprine 10 mg tablet 10 mg PO .qhs #90 tabs 12/12/23 02/12/24 02/12/24 Rx nystatin 100,000 unit/gram topical See Rx Instructions .Route 12/12/23 02/12/24 Unknown Rx powder (Nystop) .COMPLEX #60 grams 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 transmitter (Dexcom #1 ea 12/26/23 01/21/24 Unknown Rx G6 Transmitter device) Synthroid 175 mcg tablet See Rx Instructions .Route 01/18/24 02/12/2424 Rx (levothyroxine) .COMPLEX #90 tabs pantoprazole 40 mg tablet,delayed 40 mg PO BID #60 tabs 01/22/24 02/12/24 02/12/24 Rx release walking boot for right leg #1 ea 02/01/24 02/01/24 Unknown Rx insulin glargine 100 unit/mL (3 See Rx Instructions .Route 02/06/24 02/12/24 02/12/24 Rx mL) subcutaneous pen (Lantus .COMPLEX #144 mL Solostar U-100 Insulin) bupropion HCl 150 mg 24 hr tablet, 150 mg PO DAILY 02/12/24 02/12/24 02/13/24 History extended release buspirone 5 mg tablet 5 mg PO TID PRN Anxiety 02/12/24 02/12/24 02/12/24 History fluoxetine 40 mg capsule 40 mg PO BID 02/12/24 02/12/24 02/13/24 History fluticasone 500 mcg-salmeterol 50 1 inh inhalation BID 02/12/24 02/12/24 02/12/24 History mcg/dose blistr powdr for inhalation (Advair Diskus) insulin aspart U-100 100 unit/mL See Rx Instructions .Route 02/12/24 02/12/24 02/12/24 History (3 mL) subcutaneous pen .COMPLEX PRN Hyperglycemia liothyronine 5 mcg tablet 5 mcg PO BID 02/12/24 02/12/24 02/12/24 History metoprolol tartrate 25 mg tablet 25 mg PO BID 02/12/24 02/12/24 02/13/24 History rosuvastatin 20 mg tablet 20 mg PO DAILY 02/12/24 02/12/24 02/12/24 History Allergies Allergy/AdvReac Type Severity Reaction Status Date / Time Penicillins Allergy Unknown Verified 02/01/24 10:40 Sulfa (Sulfonamide Allergy Unknown Verified 02/01/24 10:40 Antibiotics) ibuprofen AdvReac Intermediate nose bleeds Verified 02/01/24 10:40 SYNTHETHIC INSULIN Allergy Unknown Uncoded 02/01/24 10:40 [facility] Anesthesia Medical History (Updated 02/01/24 @ 00:01 by VENESSA May) Anxiety and depression Lumbago Acute cystitis Allergic rhinitis Morbid obesity Intertrigo Lower back pain YANA (generalized anxiety disorder) Morbid obesity with BMI of 60.0-69.9, adult Atypical chest pain Dysphagia Fibromyalgia Migraine Endometriosis Tortuous colon Tremor Tubular adenoma of colon CAD (coronary artery disease) Dyslipidemia GARCIA (nonalcoholic steatohepatitis) ASHD (arteriosclerotic heart disease) Diabetic polyneuropathy Migraine without aura and without status migrainosus, not intractable Type 2 diabetes mellitus with both eyes affected by moderate nonproliferative retinopathy without macular edema, with long-term current use of insulin Benign essential HTN Cataract, right eye Colon polyps [place] (obstructive sleep apnea) Acquired hypothyroidism Anxiety Depression COPD (chronic obstructive pulmonary disease) Surgical History Hx of release of tendon R. hand Hx of tubal ligation History of colonoscopy with polypectomy (04/01/21) sigmoid polyp History of coronary artery stent placement History of hand surgery Bilateral carpal tunnel History of total hysterectomy Family History Father Heart attack CAD (coronary artery disease) Hypertension Mother Cancer CAD (coronary artery disease) Lung disease Diabetes Hyperlipidemia Hypertension Sister CAD (coronary artery disease), Onset Age: 21 [place] at 21 Heart attack Brother CAD (coronary artery disease), Onset Age: 30 Diabetes Hyperlipidemia Hypertension Grandmother CAD (coronary artery disease) Diabetes Grandfather CAD (coronary artery disease) Grandmother CAD (coronary artery disease) Stroke Grandfather CAD (coronary artery disease) Lung disease Family/Other Cancer Diabetes Stroke Rheumatoid arthritis Denies family history of Lupus Clotting disorder Dementia Chronic kidney disease (CKD) Suicide Anesthesia complication Bleeding disorder Social History Smoking and tobacco/nicotine status: former use of tobacco/nicotine Quit status (tobacco/nicotine): has quit using Second hand smoke exposure: No Alcohol intake: never Substance/Drug Use: current Substance/Drug use frequency: few times a month Adopted: No Caregiver/support person: No Lives independently: Yes Household members: spouse Housing: House Marital status: Number of children: 2 Highest education level completed: GED or Equivalent service: No Current occupational status: disabled Sexually active: No Do you think of yourself as: Straight/Heterosexual Current gender identity: Female Agree to transfusion: Yes Data Anesthesia Cardiac Studies: Sestamibi Stress Test (Cardiology) 07/04/21
--- NOTE | 2024-02-13 12:28 | W.PM.OPSUD ---
Surgery/Procedure H&P Update DATE OF PROCEDURE: February 13, 2024 DATE H&P PERFORMED: 01/21/24 H&P UPDATE INFORMATION: I have reviewed H&P completed within last 30 days, I have examined patient prior to procedure and No changes to prior documentation PREOP DIAGNOSIS: ABD Pain PLANNED PROCEDURE: Operation Date: 02/13/24 11:30 Proposed Procedures p EGD 39815, K21.9, R13.10, R10.9(Not Applicable) - Michael Sebastian DO
[2024-02-13 12:44] VITALS: BP 142/68; PULSE 68; RESP 20; TEMP 36.3; O2SAT 95
[2024-02-13 12:53] VITALS: BP 122/63; PULSE 74; RESP 18; O2SAT 96
--- NOTE | 2024-02-13 13:00 | ANE.PACU2 ---
Inpatient post-anesthesia follow up: Airway intact: Yes Vital signs: Temperature 97.4 F Pulse Rate 74 Respiratory Rate 18 Blood Pressure 122/63 Pulse Oximetry 96 Oxygen Delivery Me thod Room Air Oxygen Flow Rate Fraction of Inspir ed Oxygen Hydration adequate: Yes Nausea and vomiting: No Pain level: 1 Mental status: Baseline
[2024-02-13 13:05] VITALS: BP 130/79; PULSE 68; RESP 18; O2SAT 99
== END 2024-02-13 13:20 | disposition home or self-care (01) ==
PROVIDERS: PCP Nurse Practitioner Family; Visit Provider Surgery
PROC: 0DJ08ZZ Inspection of Upper Intestinal Tract, Via Natural or Artificial Opening Endoscopic (ICD-10-PCS; CPT 43235; principal; 2024-02-13 11:30)
DX: R13.10 Dysphagia, unspecified (principal); K21.9 Gastro-esophageal reflux disease without esophagitis; R10.9 Unspecified abdominal pain; K22.2 Esophageal obstruction; K29.50 Unspecified chronic gastritis without bleeding; J44.9 Chronic obstructive pulmonary disease, unspecified; I25.10 Atherosclerotic heart disease of native coronary artery without angina pectoris; Z95.5 Presence of coronary angioplasty implant and graft; E11.9 Type 2 diabetes mellitus without complications; E66.01 Morbid (severe) obesity due to excess calories; Z68.43 Body mass index [BMI] 50.0-59.9, adult; Z79.4 Long term (current) use of insulin; G47.33 Obstructive sleep apnea (adult) (pediatric); E03.9 Hypothyroidism, unspecified; Z87.891 Personal history of nicotine dependence
CPT/HCPCS: 36416; 43239; 43249; 82962; 88305; J2704; J7030

== ENCOUNTER 2024-02-18 13:58 | Outpatient (CLI) | payer MEDICAID, SELFPAY ==
[2024-02-18 14:37] LABS: Estmated Average Glucose 174; Hemoglobin A1C 7.7 % (4.0-6.0)
[2024-02-18 14:44] LABS: Creatinine Urine, Random 32 mg/dL (28-217); Microalbum Creatinine Ratio Ur 31 mg/dL (0-20); Microalbumin Random Urine 1 ug/dL (0-20)
[2024-02-18 14:47] LABS: Alanine Aminotransferase 45 U/L (0-33); Alkaline Phosphatase 121 U/L (35-105); Anion Gap 14.8 (5-19); Aspartate Amino Transferase 87 U/L (0-32); Blood Urea Nitrogen 15 mg/dL (6-20); Calcium 9.3 mg/dL (8.5-10.5); Carbon Dioxide 26 mmol/L (22-29); Chloride 101 mmol/L (98-107); Chol HDL Ratio 3.11 mg/dL (0.0-4.40); Cholesterol 115 mg/dL (0-200); Free T4 Free Thyroxine 0.98 ng/dL (0.82-1.77); Globulin 4.3 g/dL (1.3-4.6); Glucose 148 mg/dL (65-115); HDL Cholesterol 37 mg/dL (60-100); LDL Cholesterol Calculated 49 mg/dL (50-129); LDL HDL Ratio 1.32 RATIO (0.00-3.22); Osmolality Calculated 288 mOsm/kg (285-295); Potassium 4.8 mmol/L (3.5-5.1); Sodium 137 mmol/L (136-145); Thyroid Stimulating Hormone 1.64 uIU/mL (0.27-4.20); Total Bilirubin 0.7 mg/dL (0.15-1.2); Total Protein 8.3 g/dL (6.6-8.7); Triglycerides 145 mg/dL (0-150)
== END 2024-02-18 13:59 | disposition home or self-care (01) ==
LOC: LAB 14:00
PROVIDERS: PCP Nurse Practitioner Family; Visit Provider Internal Medicine
DX: E11.59 Type 2 diabetes mellitus with other circulatory complications (principal); E11.42 Type 2 diabetes mellitus with diabetic polyneuropathy; E11.3393 Type 2 diabetes mellitus with moderate nonproliferative diabetic retinopathy without macular edema, bilateral; Z79.4 Long term (current) use of insulin; E03.9 Hypothyroidism, unspecified; E78.2 Mixed hyperlipidemia
CPT/HCPCS: 36415; 80053; 80061; 82044; 83036; 84439; 84443

== ENCOUNTER 2024-02-21 13:46 | Outpatient (CLI) | payer MEDICAID, SELFPAY ==
--- NOTE | 2024-02-21 14:30 | MRR_ITS ---
PROCEDURE INFORMATION: Exam: MR Right Lower Extremity Joint Without Contrast; Ankle Exam date and time: 02/21/2024 2:34 PM Age: 53 years old Clinical indication: Right ankle. Patient states she stepped in a hole one month ago and has had severe heel pain since, heel is sensitive to touch. Surgical planning, maximum pain is calcaneus on right TECHNIQUE: Imaging protocol: Magnetic resonance imaging of the right lower extremity without contrast. Exam focused on the ankle. COMPARISON: CT ankle RT wo con* [id number] 02/05/2024 3:25 PM FINDINGS: Bones/joints: There is edema in the posterosuperior calcaneus likely reflecting incomplete avulsive injury. No fracture line is appreciated. LIGAMENTS: Distal tibiofibular syndesmosis: The anterior and posterior tibiofibular ligaments are intact. Anterior talofibular ligament: The anterior talofibular ligament is intact. Posterior talofibular ligament: The posterior talofibular ligament is intact. Calcaneofibular ligament: The calcaneofibular ligament is likely intact. Deltoid ligament complex: The deltoid ligament is grossly intact. Lisfranc ligament: The Lisfranc ligament is intact. TENDONS: Flexor tendons of foot: The flexor digitorum longus tendon is intact. The flexor hallucis longus tendon is intact. Tibialis posterior tendon: The posterior tibialis tendon is intact. Peroneal tendons: The peroneus longus tendon is intact. Split tear of the peroneus brevis tendon. Extensor tendons of foot: The visualized extensor tendons are intact. Tibialis anterior tendon: The anterior tibialis tendon is intact. Achilles tendon: There is severe tendinosis involving the distal Achilles tendon with approximately 50% tearing of the distal Achilles tendon. Posterior subcutaneous edema about the Achilles tendon. Tarsal canal (Sinus tarsi): The sinus tarsi is unremarkable. Tarsal tunnel: The tarsal tunnel is clear. Soft tissues: Strain of the soleus muscle. Plantar fascia: The plantar fascia is thickened measuring up to 7.2 mm; query plantar fasciitis. MR/MR ankle RT wo con* [id number] IMPRESSION: 1. Severe tendinosis involving the distal Achilles tendon with approximately 50% tearing of the distal Achilles tendon. There is surrounding soft tissue edema. 2. Marrow edema in the posterosuperior calcaneus likely reflecting incomplete avulsive injury. No fracture line is appreciated. 3. Strain of the soleus muscle. 4. Split tear of the peroneus brevis tendon. 5. The plantar fascia is thickened measuring up to 7.2 mm; query plantar fasciitis.
== END 2024-02-21 13:47 | disposition home or self-care (01) ==
LOC: RAD 13:46
PROVIDERS: PCP Nurse Practitioner Family; Visit Provider Podiatrist Foot & Ankle Surgery
DX: S86.111A Strain of other muscle(s) and tendon(s) of posterior muscle group at lower leg level, right leg, initial encounter (principal); M76.61 Achilles tendinitis, right leg; S86.011A Strain of right Achilles tendon, initial encounter; S86.312A Strain of muscle(s) and tendon(s) of peroneal muscle group at lower leg level, left leg, initial encounter; M72.2 Plantar fascial fibromatosis
CPT/HCPCS: 73721

== ENCOUNTER 2024-02-22 07:30 | Outpatient (CLI) | payer MEDICAID, SELFPAY ==
--- NOTE | 2024-02-22 08:00 | NM_ITS ---
WS: [id number] NUCLEAR MEDICINE HIDA SCAN WITH GALLBLADDER EJECTION FRACTION HISTORY: abdominal pain COMPARISON: 02/08/2015, TECHNIQUE: The patient was intravenously injected with 7.9 mCi of TC99m Mebrofenin. Immediate imaging over the right upper quadrant was followed by 5 minute image and additional images for a total of 60 minutes. Liver is enlarged. Activity identified in the gallbladder at 15 minutes and well distended by 60 minutes. Activity in the proximal small bowel was seen by 60 minutes. Good washout of the radiotracer from the liver by 60 minutes. The patient then drank 8 ounces of Ensure Plus. Ejection fraction at 60 minutes was 59%. Normal GB ej ection fraction is 35-75%. Post fatty meal symptoms: None. NM/NM hepatobiliary w phar* [id number] IMPRESSION: 1. Normal HIDA scan. 2. Normal gallbladder ejection fraction.
== END 2024-02-22 07:31 | disposition home or self-care (01) ==
LOC: RAD 07:31
PROVIDERS: PCP Nurse Practitioner Family; Visit Provider Surgery
DX: R10.9 Unspecified abdominal pain (principal)
CPT/HCPCS: 78227; A9537

== ENCOUNTER → 2024-02-25 10:21 | Outpatient (BNVA) | payer MEDICAID, SELFPAY | PROVIDERS: PCP Nurse Practitioner Family; Visit Provider Internal Medicine | DX: E11.3393 Type 2 diabetes mellitus with moderate nonproliferative diabetic retinopathy without macular edema, bilateral (principal); Z79.4 Long term (current) use of insulin; E11.59 Type 2 diabetes mellitus with other circulatory complications; E03.9 Hypothyroidism, unspecified; E78.2 Mixed hyperlipidemia; E11.42 Type 2 diabetes mellitus with diabetic polyneuropathy; E66.01 Morbid (severe) obesity due to excess calories; K76.0 Fatty (change of) liver, not elsewhere classified; Z68.44 Body mass index [BMI] 60.0-69.9, adult; Z79.85 Long-term (current) use of injectable non-insulin antidiabetic drugs; Z79.890 Hormone replacement therapy | CPT/HCPCS: 99214 ==

== ENCOUNTER → 2024-02-27 11:15 | Outpatient (BNVA) | payer MEDICAID, SELFPAY | PROVIDERS: PCP Nurse Practitioner Family; Visit Provider Podiatrist Foot & Ankle Surgery | DX: E11.42 Type 2 diabetes mellitus with diabetic polyneuropathy (principal); M77.51 Other enthesopathy of right foot and ankle; S86.011A Strain of right Achilles tendon, initial encounter; S86.311A Strain of muscle(s) and tendon(s) of peroneal muscle group at lower leg level, right leg, initial encounter; M67.88 Other specified disorders of synovium and tendon, other site; X58.XXXA Exposure to other specified factors, initial encounter; Z79.4 Long term (current) use of insulin | CPT/HCPCS: 99213 ==

== ENCOUNTER → 2024-02-29 07:46 | Outpatient (BNVA) | payer MEDICAID, SELFPAY | PROVIDERS: PCP Nurse Practitioner Family; Visit Provider Surgery | DX: K80.50 Calculus of bile duct without cholangitis or cholecystitis without obstruction; K22.2 Esophageal obstruction; K21.9 Gastro-esophageal reflux disease without esophagitis; K75.81 Nonalcoholic steatohepatitis (NASH); K74.60 Unspecified cirrhosis of liver; E66.01 Morbid (severe) obesity due to excess calories; R13.10 Dysphagia, unspecified | CPT/HCPCS: 99214 ==

== ENCOUNTER 2024-03-25 05:39 | Day surgery (SDC) | payer MEDICAID, SELFPAY ==
[2024-03-25] VITALS (11 sets, daily range): BP systolic 106–150; BP diastolic 45–82; PULSE 65–78; RESP 15–20; TEMP 36.3–36.6; O2SAT 91–98; BMI 60.9
[2024-03-25] MEDS: sodium chloride 0.9% 1,000 ML 30 ML IV (06:19)
[2024-03-25 06:46] LABS: Glucose Point of Care 187 mg/dL (70-110)
[2024-03-25] MEDS: scopolamine 1.5 Patch 1 PATCH TRANSDERMA (06:49)
--- NOTE | 2024-03-25 06:55 | ANES.PREANE2 ---
Pre-Anesthetic Assessment Height/Weight: Height 1.57 m Weight 151.046 kg Temp Pulse Resp BP Pulse Ox O2 Del Method 97.4 F L 69 15 150/78 98 Room Air 03/25/24 06:02 03/25/24 06:02 03/25/24 06:02 03/25/24 06:02 03/25/24 06:02 03/25/24 06:05 Operation Date: 03/25/24 07:00 Proposed Procedures p Laparoscopic Cholecystectomy 10177, K80.50(Not Applicable) - Michael Sebastian DO Familial anesthetic complications: None Was Beta Rachael taken within 24 hours: N/A Was Clonidine taken within 24 hours: N/A Last intake: Intake Last Liquid Date 03/24/24 Last Liquid Time 20:00 Last Solid Date 03/24/24 Last Solid Time 20:00 Social No alcohol and No tobacco Exam alert, oriented x 3, clear to auscultation bilaterally and regular rate & rhythm Airway Mallampati: Class IV Dentition: other (no teeth) Pulmonary Chronic Obstructive Pulmonary Disease and Sleep Apnea CV/HEM Coronary Artery Disease (stent 2018) and Hypertension Hepatic Cirrhosis GI Gastroesophageal Reflux Disease Metabolic Diabetes Mellitus, Morbid Obesity and Thyroid Disease Anesthetic Plan ASA status: 4 Anesthesia: General Risk of > 500 ml blood loss (7ml/kg in children): No Medications/Allergies Home Medications Medication Instructions Recorded Confirmed Last Taken Type nitroglycerin 0.4 mg sublingual 0.4 mg sublingual Q5M PRN chest 05/12/21 03/24/24 Unknown Rx tablet pain 30 days #30 tabs cholecalciferol (vitamin D3) 25 25 mcg PO DAILY 30 days #30 caps 05/29/21 03/24/24 03/24/24 Rx mcg (1,000 unit) capsule nebulizer #1 ea 06/10/21 02/29/24 Unknown Rx MARIJUNIA 1 gummy PO PRN PRN Pain 03/01/22 02/29/24 02/10/24 History 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 meter,continuous #1 ea 05/24/22 02/29/24 Unknown Rx (Dexcom G6 Finisher Machine) nystatin 100,000 unit/gram topical See Rx Instructions .Route 08/25/22 03/24/24 03/24/24 Rx cream .COMPLEX #60 grams Diabetic shoes with 3 sets of #2 ea 08/29/22 02/29/24 Unknown Rx inserts furosemide 40 mg tablet (Lasix) 40 mg PO DAILY PRN edema 30 days 10/18/22 03/24/24 03/24/24 Rx #30 tabs pen needle, diabetic 32 gauge x #400 ea 01/03/23 02/29/24 Unknown Rx 32 (TechLITE Pen Needle) aspirin 81 mg tablet,delayed 81 mg PO DAILY #90 tabs 01/30/23 03/24/24 03/24/24 Rx release ipratropium 0.5 mg-albuterol 3 mg 3 ml inhalation QID PRN Shortness 05/14/23 03/24/24 03/24/24 Rx (2.5 mg base)/3 mL nebulization Of Breath #90 mL soln semaglutide 2 mg/dose (8 mg/3 mL) 2 mg (0.75 mL) SUBCUT .q7days 90 10/08/23 03/24/24 03/15/24 Rx subcutaneous pen injector (Ozempic) days #9 mL 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 sensor (Dexcom G6 #3 ea 10/22/23 02/29/24 Unknown Rx Sensor device) losartan 25 mg tablet 25 mg PO DAILY #90 tabs 11/08/23 03/24/24 03/24/24 Rx albuterol sulfate 90 mcg/actuation 2 puff inhalation Q4H PRN 12/12/23 03/24/24 03/24/24 Rx aerosol inhaler shortness of breath or wheezing #18 grams cyclobenzaprine 10 mg tablet 10 mg PO .qhs #90 tabs 12/12/23 03/24/24 03/24/24 Rx nystatin 100,000 unit/gram topical See Rx Instructions .Route 12/12/23 03/24/24 03/24/24 Rx powder (Nystop) .COMPLEX #60 grams walking boot for right leg #1 ea 02/01/24 02/29/24 Unknown Rx bupropion HCl 150 mg 24 hr tablet, 150 mg PO DAILY 02/12/24 03/24/24 03/24/24 History extended release fluticasone 500 mcg-salmeterol 50 1 inh inhalation BID 02/12/24 03/24/24 03/24/24 History mcg/dose blistr powdr for inhalation (Advair Diskus) insulin aspart U-100 100 unit/mL See Rx Instructions .Route 02/12/24 03/24/24 03/24/24 History (3 mL) subcutaneous pen .COMPLEX PRN Hyperglycemia metoprolol tartrate 25 mg tablet 25 mg PO BID 02/12/24 03/25/24 03/25/24 03:00 History buspirone 5 mg tablet 5 mg PO TID PRN Anxiety #270 tabs 02/15/24 03/24/24 03/03/24 Rx fluoxetine 40 mg capsule 40 mg PO BID 03/10/24 03/24/24 03/24/24 History insulin glargine 100 unit/mL (3 160 unit SUBCUT DAILY 03/10/24 03/24/24 03/24/24 History mL) subcutaneous pen (Lantus Solostar U-100 Insulin) levothyroxine 175 mcg tablet 175 mcg PO DAILY 03/10/24 03/25/24 03/25/24 03:00 History (Synthroid) liothyronine 5 mcg tablet 5 mcg PO BID 03/10/24 03/24/24 03/24/24 History pantoprazole 40 mg tablet,delayed 40 mg PO BID 03/10/24 03/24/24 03/24/24 History release potassium chloride 8 mEq 8 meq PO .qod #90 tabs 03/14/24 03/24/24 03/24/24 Rx tablet,extended release 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 transmitter (Dexcom #1 ea 03/18/24 Unknown Rx G6 Transmitter device) rosuvastatin 20 mg tablet See Rx Instructions .Route 03/18/24 03/24/24 03/24/24 Rx .COMPLEX #33 tabs Allergies Allergy/AdvReac Type Severity Reaction Status Date / Time Penicillins Allergy Unknown Verified 03/25/24 06:15 Sulfa (Sulfonamide Allergy ALGY-Rash Verified 03/25/24 06:15 Antibiotics) ibuprofen AdvReac Intermediate nose bleeds Verified 03/25/24 06:15 SYNTHETHIC INSULIN Allergy ALGY-Rash Uncoded 03/25/24 06:15 Current Medications Generic Name Dose Route Start Last Admin Trade Name Freq PRN Reason Stop Dose Admin Sodium Chloride 1,000 mls @ 30 mls/hr 03/25/24 06:00 03/25/24 06:19 Sodium Chloride 0.9% IV 03/26/24 05:59 30 mls/hr .Q24H BRITTANIE Administration PFSH Anesthesia Medical History Anxiety and depression Lumbago Acute cystitis Allergic rhinitis Morbid obesity Intertrigo Lower back pain YANA (generalized anxiety disorder) Morbid obesity with BMI of 60.0-69.9, adult Atypical chest pain Dysphagia Fibromyalgia Migraine Endometriosis Tortuous colon Tremor Tubular adenoma of colon CAD (coronary artery disease) Dyslipidemia GARCIA (nonalcoholic steatohepatitis) ASHD (arteriosclerotic heart disease) Diabetic polyneuropathy Migraine without aura and without status migrainosus, not intractable Type 2 diabetes mellitus with both eyes affected by moderate nonproliferative retinopathy without macular edema, with long-term current use of insulin Benign essential HTN Cataract, right eye Colon polyps [place]AS (obstructive sleep apnea) Acquired hypothyroidism Anxiety Depression COPD (chronic obstructive pulmonary disease) Surgical History Hx of release of tendon R. hand Hx of tubal ligation History of colonoscopy with polypectomy (04/01/21) sigmoid polyp History of coronary artery stent placement History of hand surgery Bilateral carpal tunnel History of total hysterectomy Family History Father Heart attack CAD (coronary artery disease) Hypertension Mother Cancer CAD (coronary artery disease) Lung disease Diabetes Hyperlipidemia Hypertension Sister CAD (coronary artery disease), Onset Age: 21 [place] at 21 Heart attack Brother CAD (coronary artery disease), Onset Age: 30 Diabetes Hyperlipidemia Hypertension Grandmother CAD (coronary artery disease) Diabetes Grandfather CAD (coronary artery disease) Grandmother CAD (coronary artery disease) Stroke Grandfather CAD (coronary artery disease) Lung disease Family/Other Cancer Diabetes Stroke Rheumatoid arthritis Denies family history of Lupus Clotting disorder Dementia Chronic kidney disease (CKD) Suicide Anesthesia complication Bleeding disorder Social History Smoking and tobacco/nicotine status: unknown if used tobacco/nicotine Quit status (tobacco/nicotine): has quit using Second hand smoke exposure: No Alcohol intake: never Substance/Drug Use: current Substance/Drug use frequency: few times a month Adopted: No Caregiver/support person: No Lives independently: Yes Household members: spouse Housing: House Marital status: Number of children: 2 Highest education level completed: GED or Equivalent service: No Current occupational status: disabled Sexually active: No Do you think of yourself as: Straight/Heterosexual Current gender identity: Female Agree to transfusion: Yes Data Anesthesia Cardiac Studies: Sestamibi Stress Test (Cardiology) 07/04/21
--- NOTE | 2024-03-25 06:58 | W.PM.OPSUD ---
Surgery/Procedure H&P Update DATE OF PROCEDURE: March 25, 2024 DATE H&P PERFORMED: 02/29/24 H&P UPDATE INFORMATION: I have reviewed H&P completed within last 30 days, I have examined patient prior to procedure and No changes to prior documentation PLANNED PROCEDURE: Operation Date: 03/25/24 07:00 Proposed Procedures p Laparoscopic Cholecystectomy 28398, K80.50(Not Applicable) - Michael Sebastian, DO
[2024-03-25] MEDS: lidocaine-epi 2% PF 1:200,000 20 mL SDV XX (07:33)
--- NOTE | 2024-03-25 08:46 | P.OP_ITS ---
Operative Report Date of procedure: March 25, 2024 Surgeon: Michael Sebastian DO Procedure: Preoperative diagnosis: Biliary colic Postoperative diagnosis: Same Procedure performed: Laparoscopic cholecystectomy Surgeon: Dr. Michael Sebastian DO Findings: Liver cirrhosis Estimated blood loss: 5 mL Specimens: Gallbladder to pathology Complications: None apparent Description of procedure: Patient was wheeled into the operative room and placed on the OR table in a supine position. Abdomen was inspected prepped and draped in usual sterile fashion. Time-out was performed and all present were in agreement. A 15 blade scalp was used to make a stab incision in the left upper quadrant and intra- abdominal insufflation was achieved using a Veress needle. After localizing the tissue incisions were made and a 5 millimeter trocar was placed into the umbilicus as well as 2 in the right upper quadrant. A 12 millimeter trocar was placed in the epigastrium. Gallbladder was grasped and elevated. There was an extremely small amount of space to operate due to the patient's obesity and very sclerotic and shriveled liver. An additional 5 mm trocar was placed into the right upper quadrant and a grasper was used to hold down omentum. With great difficulty the triangle of Calot was identified. The triangle of Calot was carefully dissected using blunt dissection and electrocautery until the triangle of Calot clearly identified. The cystic duct was clipped proximally and double clipped distally. The duct was then ligated proximally. The cystic artery was doubly clipped and ligated. The gallbladder was then removed from the liver bed using electrocautery. The gallbladder was removed from the abdomen using an Endo-Catch bag through the epigastric incision. The liver bed was inspected and no bleeding was seen. The abdomen was irrigated and suctioned. All ports removed. Skin was washed and dried. Incisions were closed with 4-0 Monocryl in a subcuticular interrupted fashion. Skin glue was applied. Patient tolerated the procedure well.
[2024-03-25 09:22] LABS: Glucose Point of Care 171 mg/dL (70-110)
[2024-03-25] MEDS: HYDROcodone-acetaminophen 7.5-325 mg Tablet 1 TAB PO (09:57)
--- NOTE | 2024-03-25 10:10 | ANE.PACU2 ---
Inpatient post-anesthesia follow up: Airway intact: Yes Vital signs: Temperature 98 F Pulse Rate 67 Respiratory Rate 18 Blood Pressure 107/82 Pulse Oximetry 94 Oxygen Delivery Me thod Room Air Oxygen Flow Rate Fraction of Inspir ed Oxygen Hydration adequate: Yes Nausea and vomiting: No Pain level: 1 Mental status: Baseline
--- NOTE | 2024-03-25 10:31 | SUR.PHASEII ---
[id number] patient requesting pain rx prior to going home on numeric pain score a 5 at this time ,[place] 7.5/325 po given,pt states she has had this rx before with no side effects or problems in the past, Teofilo at bedside,post op instructions given and verbalized understanding
== END 2024-03-25 10:10 | disposition home or self-care (01) ==
PROVIDERS: PCP Nurse Practitioner Family; Visit Provider Surgery
PROC: 0FT44ZZ Resection of Gallbladder, Percutaneous Endoscopic Approach (ICD-10-PCS; CPT 47562; principal; 2024-03-25 07:00)
DX: K81.1 Chronic cholecystitis (principal); J44.9 Chronic obstructive pulmonary disease, unspecified; K21.9 Gastro-esophageal reflux disease without esophagitis; E11.9 Type 2 diabetes mellitus without complications; E66.01 Morbid (severe) obesity due to excess calories; Z68.44 Body mass index [BMI] 60.0-69.9, adult; Z79.82 Long term (current) use of aspirin; M79.7 Fibromyalgia; G47.33 Obstructive sleep apnea (adult) (pediatric)
CPT/HCPCS: 47562; 36416; 82962; 88304; J0330; J1100; J2405; J2704; J2710; J3010; J3370; J3490; J7030; J7040

== ENCOUNTER → 2024-04-07 07:46 | Outpatient (BNVA) | payer MEDICAID, SELFPAY | PROVIDERS: PCP Nurse Practitioner Family; Visit Provider Surgery | DX: Z90.49 Acquired absence of other specified parts of digestive tract (principal); Z98.890 Other specified postprocedural states | CPT/HCPCS: 99024 ==

== ENCOUNTER → 2024-04-23 08:40 | Outpatient (BNVA) | payer MEDICAID, SELFPAY | PROVIDERS: PCP Nurse Practitioner Family; Visit Provider Podiatrist Foot & Ankle Surgery | DX: E11.42 Type 2 diabetes mellitus with diabetic polyneuropathy (principal); M77.51 Other enthesopathy of right foot and ankle; S86.011A Strain of right Achilles tendon, initial encounter; S86.311A Strain of muscle(s) and tendon(s) of peroneal muscle group at lower leg level, right leg, initial encounter; M67.88 Other specified disorders of synovium and tendon, other site; Z79.4 Long term (current) use of insulin; X58.XXXA Exposure to other specified factors, initial encounter | CPT/HCPCS: 99213 ==

== ENCOUNTER 2024-05-12 10:10 | Outpatient (CLI) | payer MEDICAID, SELFPAY ==
[2024-05-12 10:53] LABS: Estmated Average Glucose 180; Hemoglobin A1C 7.9 % (4.0-6.0)
[2024-05-12 10:55] LABS: Creatinine Urine, Random 112 mg/dL (28-217); Microalbum Creatinine Ratio Ur 9 mg/dL (0-20); Microalbumin Random Urine 1 ug/dL (0-20)
[2024-05-12 11:03] LABS: Alanine Aminotransferase 44 U/L (0-33); Albumin Level 3.6 g/dL (3.5-5.2); Alkaline Phosphatase 117 U/L (35-105); Anion Gap 15.7 (5-19); Aspartate Amino Transferase 87 U/L (0-32); Blood Urea Nitrogen 12 mg/dL (6-20); Calcium 8.5 mg/dL (8.5-10.5); Carbon Dioxide 24 mmol/L (22-29); Chloride 99 mmol/L (98-107); Chol HDL Ratio 3.13 mg/dL (0.0-4.40); Cholesterol 97 mg/dL (0-200); Free T4 Free Thyroxine 0.78 ng/dL (0.82-1.77); Globulin 3.9 g/dL (1.3-4.6); Glomerular Filtration Rate 65.5 mL/min (90-130); Glucose 205 mg/dL (65-115); HDL Cholesterol 31 mg/dL (60-100); LDL Cholesterol Calculated 40 mg/dL (50-129); LDL HDL Ratio 1.29 RATIO (0.00-3.22); Osmolality Calculated 284 mOsm/kg (285-295); Potassium 4.7 mmol/L (3.5-5.1); Sodium 134 mmol/L (136-145); Thyroid Stimulating Hormone 5.49 uIU/mL (0.27-4.20); Total Bilirubin 0.8 mg/dL (0.15-1.2); Total Protein 7.5 g/dL (6.6-8.7); Triglycerides 131 mg/dL (0-150)
== END 2024-05-12 10:11 | disposition home or self-care (01) ==
LOC: LAB 10:11
PROVIDERS: PCP Nurse Practitioner Family; Visit Provider Internal Medicine
DX: E11.3393 Type 2 diabetes mellitus with moderate nonproliferative diabetic retinopathy without macular edema, bilateral (principal); Z79.4 Long term (current) use of insulin; E11.59 Type 2 diabetes mellitus with other circulatory complications; E03.9 Hypothyroidism, unspecified; E78.2 Mixed hyperlipidemia
CPT/HCPCS: 36415; 80053; 80061; 82044; 83036; 84439; 84443; 93005; 99214

== ENCOUNTER → 2024-05-28 10:30 | Outpatient (BNVA) | payer MEDICAID, SELFPAY | PROVIDERS: PCP Nurse Practitioner Family; Visit Provider Internal Medicine | DX: E11.59 Type 2 diabetes mellitus with other circulatory complications (principal); E11.42 Type 2 diabetes mellitus with diabetic polyneuropathy; E11.3393 Type 2 diabetes mellitus with moderate nonproliferative diabetic retinopathy without macular edema, bilateral; Z79.4 Long term (current) use of insulin; E03.9 Hypothyroidism, unspecified; E66.01 Morbid (severe) obesity due to excess calories; K76.0 Fatty (change of) liver, not elsewhere classified; E78.2 Mixed hyperlipidemia; Z79.890 Hormone replacement therapy; Z68.43 Body mass index [BMI] 50.0-59.9, adult | CPT/HCPCS: 99214 ==

== ENCOUNTER 2024-06-09 19:11 | Emergency (ER) | payer MEDICAID, SELFPAY ==
[2024-06-09 19:18] VITALS: BP 137/76; PULSE 80; RESP 20; TEMP 36.9; O2SAT 97
--- NOTE | 2024-06-09 21:24 | CTR_ITS ---
PROCEDURE INFORMATION: Exam: CT Abdomen And Pelvis With Contrast Exam date and time: 06/09/2024 9:31 PM Age: 54 years old Clinical indication: Abdominal pain; Additional info: Rlq pain TECHNIQUE: Imaging protocol: Computed tomography of the abdomen and pelvis with contrast. Radiation optimization: All CT scans at this facility use at least one of these dose optimization techniques: automated exposure control; mA and/or kV adjustment per patient size (includes targeted exams where dose is matched to clinical indication); or iterative reconstruction. Contrast material: OMNI 350; Contrast volume: 100 ml; Contrast route: INTRAVENOUS (IV); COMPARISON: CT abdomen pelvis w con* [id number] 05/28/2022 1:23 AM RADIATION DOSE METRICS: Total DLP (mGy-cm): 1192.86 FINDINGS: Limitations: Streak artifact from adjacent upper extremities somewhat limits assessment. Liver: The liver is mildly enlarged, measuring 18.8 cm craniocaudal. No suspicious mass. Gallbladder and biliary ducts: Status post cholecystectomy. No biliary ductal dilatation. Pancreas: Normal. No ductal dilation. Spleen: Normal. No splenomegaly. Adrenal glands: Normal. No mass. Kidneys and ureters: Normal. No hydronephrosis. Stomach and bowel: Moderate colonic stool. No focal mucosal thickening. No evidence of bowel obstruction. Appendix: No evidence of appendicitis. Intraperitoneal space: Unremarkable. No free air. No significant fluid collection. Vasculature: Moderate atherosclerotic aortoiliac calcifications. No aortic aneurysm. Redemonstrated perisplenic varices with a splenorenal shunt. Lymph nodes: Unremarkable. No enlarged lymph nodes. Urinary bladder: Unremarkable as visualized. Reproductive: Status post hysterectomy. Bones/joints: Moderate to advanced degenerative disc disease at L5-S1, slightly progressed from 2021. No acute fracture. Soft tissues: Unremarkable. CT/CT abdomen pelvis w con* [id number] IMPRESSION: 1. No acute findings in the abdomen/pelvis. 2. Similar hepatomegaly with upper abdominal varices.
[2024-06-09 21:25] VITALS: BP 141/76; PULSE 81; RESP 22; O2SAT 97
--- NOTE | 2024-06-09 21:25 | ED_ITS ---
HPI - Abdominal Pain 2 General: Chief Complaint: Abdominal Pain Stated Complaint: severe right abd pain2 days. chills cant drink/eat Time Seen by Provider: 06/09/24 21:05 Source: patient Mode of arrival: ambulatory Limitations: no limitations History of Present Illness: Patient is a 54-year-old female who presents emergency department complaining of right lower quadrant abdominal pain over the past 3 days. Still has her appendix, reports history of cholecystectomy. Denies any urinary symptoms, states she does have a history of kidney stones and though this feels similar, this is much worse. She notes chills, no fevers. No nausea vomiting diarrhea constipation or other symptoms to report at this time. She notes not taking anything for pain. Pain reportedly severe at this time, greater than 10 out of 10. Nonradiating. No temporal pattern. No rash or overlying skin change. MD elicited complaint: abdominal pain Pertinent past history: none Onset (ago): day(s) Pain Consistency: constant Location: RLQ Severity: severe Radiation: none Migration to: no migration Exacerbating factors: nothing Relieving factors: nothing Associated Symptoms: Reports chills; Denies bloating, change in stool character, constipation, diarrhea, dysuria, fever(s), hematochezia, nausea and vomiting Related Data Home Medications Medication Instructions Recorded Confirmed MARIJUNIA 1 gummy PO PRN PRN Pain 03/01/22 05/28/24 metoprolol tartrate 25 mg tablet 25 mg PO BID 02/12/24 05/28/24 fluoxetine 40 mg capsule 40 mg PO BID 03/10/24 05/28/24 insulin glargine 100 unit/mL (3 160 unit SUBCUT DAILY 03/10/24 05/28/24 mL) subcutaneous pen (Lantus Solostar U-100 Insulin) levothyroxine 175 mcg tablet 175 mcg PO DAILY 03/10/24 05/28/24 (Synthroid) liothyronine 5 mcg tablet 5 mcg PO BID 03/10/24 05/28/24 Previous Rx's Medication Instructions Recorded nitroglycerin 0.4 mg sublingual 0.4 mg sublingual Q5M PRN chest 05/12/21 tablet pain 30 days #30 tabs cholecalciferol (vitamin D3) 25 25 mcg PO DAILY 30 days #30 caps 05/29/21 mcg (1,000 unit) capsule nebulizer #1 ea 06/10/21 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 meter,continuous #1 ea 05/24/22 (Dexcom G6 Name Plate Stamper) nystatin 100,000 unit/gram topical See Rx Instructions .Route 08/25/22 cream .COMPLEX #60 grams Diabetic shoes with 3 sets of #2 ea 08/29/22 inserts furosemide 40 mg tablet (Lasix) 40 mg PO DAILY PRN edema 30 days 10/18/22 #30 tabs aspirin 81 mg tablet,delayed 81 mg PO DAILY #90 tabs 01/30/23 release losartan 25 mg tablet 25 mg PO DAILY #90 tabs 11/08/23 albuterol sulfate 90 mcg/actuation 2 puff inhalation Q4H PRN 12/12/23 aerosol inhaler shortness of breath or wheezing #18 grams cyclobenzaprine 10 mg tablet 10 mg PO .qhs #90 tabs 12/12/23 nystatin 100,000 unit/gram topical See Rx Instructions .Route 12/12/23 powder (Nystop) .COMPLEX #60 grams walking boot for right leg #1 ea 02/01/24 buspirone 5 mg tablet 5 mg PO TID PRN Anxiety #270 tabs 02/15/24 potassium chloride 8 mEq 8 meq PO .qod #90 tabs 03/14/24 tablet,extended release 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 transmitter (Dexcom #1 ea 03/18/24 G6 Transmitter device) docusate sodium 100 mg capsule 100 mg PO BID #14 caps 03/25/24 (Colace) semaglutide 2 mg/dose (8 mg/3 mL) See Rx Instructions .Route 04/04/24 subcutaneous pen injector (Ozempic) .COMPLEX #9 mL pen needle, diabetic 32 gauge x #400 ea 05/05/24 (TechLITE Pen Needle) 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 sensor (Dexcom G6 #9 ea 05/07/24 Sensor device) ipratropium 0.5 mg-albuterol 3 mg See Rx Instructions .Route 05/08/24 (2.5 mg base)/3 mL nebulization .COMPLEX #180 mL soln albuterol sulfate 90 mcg/actuation 2 puff inhalation Q6H PRN 05/15/24 aerosol inhaler (Ventolin HFA) shortness of breath or wheezing #18 grams budesonide 160 mcg-glycopyr 9 2 inh inhalation BID #10.7 grams 05/15/24 mcg-formot 4.8 mcg/actuation HFA inhaler (Breztri Aerosphere) rosuvastatin 20 mg tablet See Rx Instructions .Route 05/16/24 .COMPLEX #33 tabs insulin lispro 100 unit/mL See Rx Instructions SUBCUT TID 1 05/20/24 subcutaneous pen (Humalog KwikPen month #15 mL (U-100) Insulin) pantoprazole 40 mg tablet,delayed See Rx Instructions .Route 05/27/24 release .COMPLEX #60 tabs bupropion HCl 150 mg 24 hr tablet, See Rx Instructions .Route 06/02/24 extended release .COMPLEX #90 tabs ciprofloxacin HCl 500 mg tablet 500 mg PO BID 10 days #20 tabs 06/10/24 (Cipro) Allergies Allergy/AdvReac Type Severity Reaction Status Date / Time Penicillins Allergy Unknown Verified 06/09/24 19:22 Sulfa (Sulfonamide Allergy ALGY-Rash Verified 06/09/24 19:22 Antibiotics) ibuprofen AdvReac Intermediate nose bleeds Verified 06/09/24 19:22 SYNTHETHIC INSULIN Allergy ALGY-Rash Uncoded 06/09/24 19:22 Review of Systems 2 General: Reports: 10 or more systems reviewed and unremarkable except in HPI and below Const: Reports: chills; Denies: fever(s), change in appetite, change in weight or diaphoresis ENMT: Denies: throat pain or hoarseness Card: Denies: chest pain, palpitations or lightheadedness Resp: Denies: dyspnea, productive cough or wheezing GI: Reports: abdominal pain; Denies: nausea, vomiting, diarrhea, constipation, bloating, change in stool character or hematochezia : Denies: flank pain, difficulty voiding, dysuria, urinary frequency or urinary urgency Musc: Denies: neck pain or back pain Skin/Breast: Denies: rash or new lesions Neuro: Denies: headache(s) or dizziness PFSH ED 2 PFSH: Medical History Anxiety and depression Lumbago Acute cystitis Allergic rhinitis Morbid obesity Intertrigo Lower back pain YANA (generalized anxiety disorder) Morbid obesity with BMI of 60.0-69.9, adult Atypical chest pain Dysphagia Fibromyalgia Migraine Endometriosis Tortuous colon Tremor Tubular adenoma of colon CAD (coronary artery disease) Dyslipidemia GARCIA (nonalcoholic steatohepatitis) ASHD (arteriosclerotic heart disease) Diabetic polyneuropathy Migraine without aura and without status migrainosus, not intractable Type 2 diabetes mellitus with both eyes affected by moderate nonproliferative retinopathy without macular edema, with long-term current use of insulin Benign essential HTN Cataract, right eye Colon polyps [place] (obstructive sleep apnea) Acquired hypothyroidism Anxiety Depression COPD (chronic obstructive pulmonary disease) Surgical History Hx laparoscopic cholecystectomy 03/25/24 Dr Sebastian Hx of release of tendon R. hand Hx of tubal ligation History of colonoscopy with polypectomy (04/01/21) sigmoid polyp History of coronary artery stent placement History of hand surgery Bilateral carpal tunnel History of total hysterectomy Family History Father Heart attack CAD (coronary artery disease) Hypertension Mother Cancer CAD (coronary artery disease) Lung disease Diabetes Hyperlipidemia Hypertension Sister CAD (coronary artery disease), Onset Age: 21 [place] at 21 Heart attack Brother CAD (coronary artery disease), Onset Age: 30 Diabetes Hyperlipidemia Hypertension Grandmother CAD (coronary artery disease) Diabetes Grandfather CAD (coronary artery disease) Grandmother CAD (coronary artery disease) Stroke Grandfather CAD (coronary artery disease) Lung disease Family/Other Cancer Diabetes Stroke Rheumatoid arthritis Denies family history of Lupus Clotting disorder Dementia Chronic kidney disease (CKD) Suicide Anesthesia complication Bleeding disorder Social History Smoking and tobacco/nicotine status: former use of tobacco/nicotine Quit status (tobacco/nicotine): has quit using Second hand smoke exposure: No Alcohol intake: never Substance/Drug Use: current Substance/Drug use frequency: few times a month Adopted: No Caregiver/support person: No Lives independently: Yes Household members: spouse Housing: House Marital status: Number of children: 2 Highest education level completed: GED or Equivalent service: No Current occupational status: disabled Sexually active: No Do you think of yourself as: Straight/Heterosexual Current gender identity: Female Agree to transfusion: Yes Physical Exam 2 Const: COMMON NORMALS: patient oriented x3, no limitations, alert and well nourished GENERAL APPEARANCE: cooperative NUTRITIONAL APPEARANCE: obese morbidly obese ORIENTATION/CONSCIOUSNESS: Yes awake OTHER: Mild distress secondary to pain HENMT: COMMON NORMALS: normocephalic, atraumatic and moist oral mucous membranes HEAD & SCALP: normocephalic and atraumatic Neck/C-Spine: COMMON NORMALS: full ROM, supple, no meningeal signs and no JVD Resp: COMMON NORMALS: normal respiratory effort, No retractions, No use of accessory muscles and clear to auscultation bilaterally AUSCULTATION: clear to auscultation bilaterally, no crackles, no rales, no rhonchi and no wheezes Cardio: COMMON NORMALS: no JVD, regular rate, regular rhythm, S1 normal heart sound present, S2 normal heart sound present, No gallops present (Cardio), No clicks present (Cardio), No murmurs present (Cardio), No rub (Cardio) and Peripheral pulses 2+ throughout RATE: regular rate RHYTHM: regular rhythm HEART SOUNDS: S1 normal heart sound present and S2 normal heart sound present PERIPHERAL PULSES: Peripheral pulses 2+ throughout GI: COMMON NORMALS: Soft to palpation, No hepatosplenomegaly present and no masses INSPECTION: Yes central obesity AUSCULTATION: Yes normoactive bowel sounds PALPATION: Yes Soft to palpation, Yes Tenderness to palpation present (GI) (Mild diffuse, limited due to body habitus), No Guarding due to palpation present (GI), No Rigid due to palpation and Yes No hepatosplenomegaly present RECTAL EXAM: deferred OTHER: Patient's body habitus limiting abdominal examination : COMMON NORMALS: Yes no CVA tenderness BLADDER/KIDNEY EXAM: Yes no CVA tenderness Back/Pelvis: COMMON NORMALS: no CVA tenderness Extremity: COMMON NORMALS: normal to inspection and full ROM Neuro: COMMON NORMALS: patient oriented x3, moves all extremities, no focal motor deficits and no sensory deficits noted SENSORIUM/ORIENTATION: Yes alert MENINGEAL SIGNS: Yes no meningeal signs Psych: COMMON NORMALS: mental status grossly normal, cooperative and speech normal SPEECH: Yes normal speech Skin: COMMON NORMALS: no rashes or lesions noted GENERAL SKIN EXAM: no rashes or lesions noted Course 2 Vital Signs: Vital signs: Vital Signs Temperature 98.5 F 06/09/24 19:18 Pulse Rate 78 06/09/24 23:19 Respiratory Rate 16 06/09/24 23:19 Blood Pressure 112/51 06/09/24 23:19 Pulse Oximetry 93 06/09/24 23:19 Oxygen Delivery Me thod Room Air 06/09/24 23:19 MDM - Abdominal Pain Medical Decision Making Patient presented with acute onset right lower quadrant pain evolving over the past few days. Vitals were stable on arrival, her body habitus made it difficult for a reliable physical examination. Her urine resulted in pretty severe urinary tract infection, CT did not demonstrate any intra-abdominal findings. White count was elevated including slightly elevated lactic, this was brought down to normal after receiving IV fluids. CRP also elevated secondary to urinary tract infection. The rest of her labs were baseline when compared to her previous. She is much improved after receiving Dilaudid through IV, and is wanting to go home. Due to the extent of her urinary tract infection, give a gram of Rocephin here in the emergency department and will start her on Cipro for 10 days. Strict return precautions were given such as if she has any worsening of pain, persistently high fevers, or other concerning abnormalities she will return to the emergency department for reevaluation. Lab Data 06/09/24 20:42 06/09/24 20:42 Labs/Radiology: Radiology Impressions Abdomen/Pelvis CT 06/09/24 21:24 IMPRESSION: 1. No acute findings in the abdomen/pelvis. 2. Similar hepatomegaly with upper abdominal varices. Laboratory Results WBC 12.70 10^3/uL (3.29-11.43) H 06/09/24 20:42 RBC 5.02 10^6/uL (3.85-5.65) 06/09/24 20:42 Hgb 12.30 g/dL (11.27-16.99) 06/09/24 20:42 Hct 39.5 % (36-47) 06/09/24 20:42 MCV 78.7 fl (85-98) L 06/09/24 20:42 MCH 24.5 pg (27-33) L 06/09/24 20:42 MCHC 31.1 g/dL (30-55) 06/09/24 20:42 RDW 17.3 % (12.1-15.1) H 06/09/24 20:42 Plt Count 153 10^3/cmm (157-399) L 06/09/24 20:42 MPV 12.4 fL (7.4-10.4) H 06/09/24 20:42 Neut % (Auto) 67.1 % 06/09/24 20:42 Lymph % (Auto) 21.5 % 06/09/24 20:42 [place] % (Auto) 10.4 % 06/09/24 20:42 Eos % (Auto) 0.2 % 06/09/24 20:42 Baso % (Auto) 0.4 % 06/09/24 20:42 Neut # (Auto) 8.53 10^3/uL (1.8-7.7) H 06/09/24 20:42 Lymph # (Auto) 2.7 10^3/uL (0.8-4.8) 06/09/24 20:42 [place] # (Auto) 1.3 10^3/uL (0.2-0.9) H 06/09/24 20:42 Eos # (Auto) 0.0 10^3/uL (0.0-0.8) 06/09/24 20:42 Baso # (Auto) 0.1 10^3/uL (0.0-0.1) 06/09/24 20:42 Nucleated RBC % (auto) 0 % 06/09/24 20:42 Nucleated RBCs # 0.0 /100WBC 06/09/24 20:42 Sodium 128 mmol/L (136-145) L 06/09/24 20:42 Potassium 3.9 mmol/L (3.5-5.1) 06/09/24 20:42 Chloride 94 mmol/L (98-107) L 06/09/24 20:42 Carbon Dioxide 22 mmol/L (22-29) 06/09/24 20:42 Anion Gap 15.9 (5-19) 06/09/24 20:42 BUN 13 mg/dL (6-20) 06/09/24 20:42 Creatinine 1.1 mg/dL (0.5-0.9) H 06/09/24 20:42 GFR Calculation 51.8 mL/min (90-130) L 06/09/24 20:42 Glucose 215 mg/dL (65-115) H 06/09/24 20:42 Calculated Osmolality 273 mOsm/kg (285-295) L 06/09/24 20:42 Lactic Acid 2.5 mmol/L (0.5-2.2) H 06/09/24 20:42 Lactic Acid (Sepsis) 1.4 mmol/L (0.5-2.2) 06/09/24 23:55 Calcium 9.2 mg/dL (8.5-10.5) 06/09/24 20:42 Total Bilirubin 1.3 mg/dL (0.15-1.2) H 06/09/24 20:42 AST 66 U/L (0-32) H 06/09/24 20:42 ALT 36 U/L (0-33) H 06/09/24 20:42 Alkaline Phosphatase 127 U/L (35-105) H 06/09/24 20:42 C-Reactive Protein 75.7 mg/L (0.0-4.9) H 06/09/24 20:42 Total Protein 8.2 g/dL (6.6-8.7) 06/09/24 20:42 Albumin 3.7 g/dL (3.5-5.2) 06/09/24 20:42 Globulin 4.5 g/dL (1.3-4.6) 06/09/24 20:42 Lipase 28 U/L (13-60) 06/09/24 20:42 Urine Color [place] (Yellow) A 06/09/24 21: Urine Appearance Cloudy (CLEAR) A 06/09/24 21:19 Urine pH 5.5 (5-7) 06/09/24 21:19 Ur Specific [place] 1.021 (1.005-1.030) 06/09/24 21:19 Urine Protein 2+ (Negative) A 06/09/24 21:19 Urine Glucose (UA) 2+ (Normal) H 06/09/24 21:19 Urine Ketones Negative (Negative) 06/09/24 21: Urine Blood 1+ (Negative) A 06/09/24 21: Urine Nitrate Positive (Negative) A 06/09/24 21: Urine Bilirubin 1+ (Negative) H 06/09/24 21:19 Urine Urobilinogen 2.0 mg/dL (Negative) H 06/09/24 21:19 Ur Leukocyte Esterase 3+ (Negative) A 06/09/24 21:19 Urine RBC 0-4 /hpf (0-2) H 06/09/24 21:19 Urine WBC 55-80 /hpf (0-5) H 06/09/24 21:19 Ur Squamous Epith Cells 0-4 /hpf (0-5) H 06/09/24 21:19 Amorphous Sediment Not Reportable 06/09/24 21:19 Urine Bacteria 3+ /hpf (NONE) H 06/09/24 21:19 All radiology interpretation(s) finalized by discharge Discharge Plan Discharge Patient Disposition: Home Clinical Impression: Urinary tract infection Qualifiers: Urinary tract infection type: acute cystitis Hematuria presence: without hematuria Qualified Code(s): N30.00 - Acute cystitis without hematuria Condition: Stable Prescriptions: New ciprofloxacin HCl [Cipro] 500 mg tablet 500 mg PO BID 10 Days Qty: 20 0RF No Action nitroglycerin 0.4 mg tablet, sublingual 0.4 mg sublingual Q5M PRN (Reason: chest pain) 30 Days Qty: 30 3RF Rx Instructions: until response; do not exceed 3 doses per episode (DME) nebulizer See Rx Instructions .Route .MEDSUPPLY Qty: 1 0RF Rx Instructions: with tubing and accessories cholecalciferol (vitamin D3) 25 mcg (1,000 unit) capsule 25 mcg PO DAILY 30 Days Qty: 30 0RF MARIJUNIA 1 gummy PO PRN PRN (Reason: Pain) (DME) Diabetic shoes with 3 sets of inserts See Rx Instructions .Route .MEDSUPPLY Qty: 2 0RF Rx Instructions: As directed furosemide [Lasix] 40 mg tablet 40 mg PO DAILY PRN (Reason: edema) 30 Days Qty: 30 0RF albuterol sulfate 90 mcg/actuation HFA aerosol inhaler 2 puff inhalation Q4H PRN (Reason: shortness of breath or wheezing) Qty: 18 5RF cyclobenzaprine 10 mg tablet 10 mg PO .qhs Qty: 90 1RF nystatin [Nystop] 100,000 unit/gram powder See Rx Instructions .ROUTE .COMPLEX Qty: 60 1RF Dose Instruction: APPLY TOPICALLY TWICE DAILY FOR 14 DAYS Rx Instructions: APPLY TOPICALLY TWICE DAILY FOR 14 DAYS (DME) walking boot for right leg See Rx Instructions .Route .MEDSUPPLY Qty: 1 0RF Rx Instructions: As directed [employer] 160-9-4.8 mcg/actuation HFA aerosol inhaler 2 inh inhalation BID Qty: 10.7 5RF albuterol sulfate [Ventolin HFA] 90 mcg/actuation HFA aerosol inhaler 2 puff inhalation Q6H PRN (Reason: shortness of breath or wheezing) Qty: 18 2RF (DME) Dexcom G6 Name Plate Stamper Misc See Rx Instructions .ROUTE .COMPLEX Qty: 1 0RF Dose Instruction: USE TO CHECK BLOOD SUGAR 4-6 TIMES A DAY. Rx Instructions: USE TO CHECK BLOOD SUGAR 4-6 TIMES A DAY. nystatin 100,000 unit/gram cream See Rx Instructions .ROUTE .COMPLEX Qty: 60 3RF Dose Instruction: APPLY TO AFFECTED AREAS ON ARMPITS AND TRUNK ONCE DAILY FOR RASH INFLAMMATION. Rx Instructions: APPLY TO AFFECTED AREAS ON ARMPITS AND TRUNK ONCE DAILY FOR RASH INFLAMMATION. aspirin 81 mg tablet,delayed release (DR/EC) 81 mg PO DAILY Qty: 90 1RF losartan 25 mg tablet 25 mg PO DAILY Qty: 90 3RF buspirone 5 mg tablet 5 mg PO TID PRN (Reason: Anxiety) Qty: 270 1RF Rx Instructions: TAKE ONE TABLET BY MOUTH THREE TIMES DAILY fluoxetine 40 mg capsule 40 mg PO BID Rx Instructions: TAKE 1 CAPSULE BY MOUTH TWICE DAILY levothyroxine [Synthroid] 175 mcg tablet 175 mcg PO DAILY Rx Instructions: TAKE 1 TABLET BY MOUTH DAILY SUNDAY-SUNDAY, 1/2 TABLET ON SUNDAY liothyronine 5 mcg tablet 5 mcg PO BID Rx Instructions: TAKE 1 TABLET(5 MCG) BY MOUTH TWICE DAILY insulin glargine [Lantus Solostar U-100 Insulin] 100 unit/mL (3 mL) insulin pen 160 unit SUBCUT DAILY Rx Instructions: INJECT 160 UNITS UNDER THE SKIN DAILY SLIDING SCALE potassium chloride 8 mEq tablet extended release 8 meq PO .qod Qty: 90 3RF Rx Instructions: frequency reduced (DME) Dexcom G6 Transmitter Device See Rx Instructions .ROUTE .COMPLEX Qty: 1 0RF Dose Instruction: CHANGE EVERY 90 DAYS Rx Instructions: CHANGE EVERY 90 DAYS Ozempic 2 mg/dose (8 mg/3 mL) pen injector See Rx Instructions .ROUTE .COMPLEX Qty: 9 0RF Dose Instruction: ADMINISTER 2 MG UNDER THE SKIN EVERY 7 DAYS Rx Instructions: ADMINISTER 2 MG UNDER THE SKIN EVERY 7 DAYS (DME) pen needle, diabetic [TechLITE Pen Needle] 32 gauge x 5/32 needle See Rx Instructions .ROUTE .COMPLEX Qty: 400 0RF Dose Instruction: USE DIRECTED Rx Instructions: USE DIRECTED (DME) Dexcom G6 Sensor Device See Rx Instructions .ROUTE .COMPLEX Qty: 9 0RF Dose Instruction: USE DIRECTED AND REPLACE EVERY 10 DAYS Rx Instructions: USE DIRECTED AND REPLACE EVERY 10 DAYS ipratropium-albuterol 0.5 mg-3 mg(2.5 mg base)/3 mL solution for nebulization See Rx Instructions .ROUTE .COMPLEX Qty: 180 3RF Dose Instruction: USE 3 ML VIA NEBULIZER FOUR TIMES DAILY NEEDED FOR SHORTNESS OF BREATH Rx Instructions: USE 3 ML VIA NEBULIZER FOUR TIMES DAILY NEEDED FOR SHORTNESS OF BREATH rosuvastatin 20 mg tablet See Rx Instructions .ROUTE .COMPLEX Qty: 33 3RF Dose Instruction: TAKE 1 TABLET BY MOUTH DAILY Rx Instructions: TAKE 1 TABLET BY MOUTH DAILY insulin lispro [Humalog KwikPen Insulin] 100 unit/mL insulin pen See Rx Instructions SUBCUT TID 30 Days Qty: 15 3RF Rx Instructions: 80 units subcutaneously three times daily; pantoprazole 40 mg tablet,delayed release (DR/EC) See Rx Instructions .ROUTE .COMPLEX Qty: 60 5RF Dose Instruction: TAKE 1 TABLET BY MOUTH TWICE DAILY Rx Instructions: TAKE 1 TABLET BY MOUTH TWICE DAILY bupropion HCl 150 mg tablet extended release 24 hr See Rx Instructions .ROUTE .COMPLEX Qty: 90 1RF Dose Instruction: TAKE 1 TABLET BY MOUTH IN THE MORNING Rx Instructions: TAKE 1 TABLET BY MOUTH IN THE MORNING metoprolol tartrate 25 mg tablet 25 mg PO BID Rx Instructions: TAKE 1 TABLET BY MOUTH TWICE DAILY Colace 100 mg capsule 100 mg PO BID Qty: 14 0RF Discharge Orders: Discharge ED (Routine); Ordered 06/10/24 Ordered By: Sandeep Pak Referrals: Teri Mcknight FNP [Primary Care Provider] - Patient Instructions: Urinary Tract Infection in Women (ED) Activity Restrictions/Additional Instructions: Take ciprofloxacin as prescribed. Drink plenty of fluids. Tylenol/ibuprofen for any pain. Please monitor for any fevers, severe worsening of pain, or other concerning symptoms and return to the emergency department. Close follow-up with your primary care provider. 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
[2024-06-09] MEDS: iohexol 350 mg/mL 500 mL Btl (per mL) IV (21:33)
[2024-06-09 21:39] LABS: Bilirubin Urine 1+ (Negative); Blood Urine 1+ (Negative); Glucose Urine UA 2+ (Normal); Ketones Urine Negative (Negative); Leukocyte Esterase Urine 3+ (Negative); Nitrate Urine Positive (Negative); Protein Urine 2+ (Negative); Specific Gravity, Urine 1.021 (1.005-1.030); Urine Appearance Cloudy (CLEAR); pH Urine 5.5 (5-7)
[2024-06-09] MEDS: ketorolac 60 mg/2 mL INJ 30 MG IVP (21:43)
[2024-06-09 21:51] LABS: Basophils # 0.1 10^3/uL (0.0-0.1); Basophils % 0.4 %; Eosinophils % 0.2 %; Hematocrit 39.5 % (36-47); Lymphocytes # 2.7 10^3/uL (0.8-4.8); Lymphocytes % 21.5 %; Mean Corpuscular HGB Conc 31.1 g/dL (30-55); Mean Corpuscular Hemoglobin 24.5 pg (27-33); Mean Corpuscular Volume 78.7 fl (85-98); Mean Platelet Volume 12.4 fL (7.4-10.4); Monocytes # 1.3 10^3/uL (0.2-0.9); Monocytes % 10.4 %; Neutrophils # 8.53 10^3/uL (1.8-7.7); Neutrophils % 67.1 %; Nucleated Red Blood Cells % 0 %; Platelet Count 153 10^3/cmm (157-399); Red Blood Count 5.02 10^6/uL (3.85-5.65); Red Cell Distribution Width 17.3 % (12.1-15.1)
[2024-06-09 21:52] LABS: Add Urine Culture? Yes; Add Urine Microscopic? YES; Bacteria Urine 3+ /hpf; RBC Urine 0-4 /hpf (0-2); Squamous Epithelial Cell Urine 0-4 /hpf (0-5); UA Manual Slide Review YES; Urine Color Orange (Yellow); WBC Urine 55-80 /hpf (0-5)
[2024-06-09 22:11] LABS: Alanine Aminotransferase 36 U/L (0-33); Albumin Level 3.7 g/dL (3.5-5.2); Alkaline Phosphatase 127 U/L (35-105); Anion Gap 15.9 (5-19); Aspartate Amino Transferase 66 U/L (0-32); Blood Urea Nitrogen 13 mg/dL (6-20); Calcium 9.2 mg/dL (8.5-10.5); Carbon Dioxide 22 mmol/L (22-29); Chloride 94 mmol/L (98-107); Globulin 4.5 g/dL (1.3-4.6); Glomerular Filtration Rate 51.8 mL/min (90-130); Glucose 215 mg/dL (65-115); Lipase 28 U/L (13-60); Osmolality Calculated 273 mOsm/kg (285-295); Potassium 3.9 mmol/L (3.5-5.1); Sodium 128 mmol/L (136-145); Total Bilirubin 1.3 mg/dL (0.15-1.2); Total Protein 8.2 g/dL (6.6-8.7)
[2024-06-09] MEDS: cefTRIAXone 1,000 mg SDV 1000 MG IVP (22:22)
[2024-06-09] MEDS: sodium chloride 0.9% 1,000 ML 999 ML IV (22:22)
[2024-06-09 22:23] VITALS: BP 128/67; PULSE 78; RESP 20; O2SAT 97
[2024-06-09 22:35] LABS: C Reactive Protein 75.7 mg/L (0.0-4.9); Lactic Sepsis W/Reflex 2.5 mmol/L (0.5-2.2)
[2024-06-09] MEDS: HYDROmorphone 1 mg/mL INJ 1 mL IVP (22:45)
[2024-06-09 23:19] VITALS: BP 112/51; PULSE 78; RESP 16; O2SAT 93
[2024-06-10 00:06] LABS: Reflex Lactate Order REFLEX LACTIC ORDERD
[2024-06-10 00:19] LABS: Lactic Acid level (Lactate) 1.4 mmol/L (0.5-2.2)
[2024-06-10 00:52] VITALS: BP 100/48; PULSE 74; RESP 18; O2SAT 94
== END 2024-06-10 00:53 | disposition home or self-care (01) ==
PROVIDERS: Emergency Medicine; Emergency Provider Physician Assistant; PCP Nurse Practitioner Family
DX: N30.00 Acute cystitis without hematuria (principal); E66.01 Morbid (severe) obesity due to excess calories; Z68.43 Body mass index [BMI] 50.0-59.9, adult; E11.9 Type 2 diabetes mellitus without complications
CPT/HCPCS: 36415; 74177; 80053; 81001; 83605; 83690; 85025; 86140; 87040; 87077; 87086; 87186; 96361; 96374; 96375; 99285; J0696; J1171; J1885; J7030

== ENCOUNTER → 2024-07-18 10:07 | Outpatient (BNVA) | payer MEDICAID, SELFPAY | PROVIDERS: PCP Nurse Practitioner Family; Visit Provider Nurse Practitioner Family | DX: E11.59 Type 2 diabetes mellitus with other circulatory complications (principal); M54.50 Low back pain, unspecified; G89.29 Other chronic pain | CPT/HCPCS: 81000 ==

== ENCOUNTER → 2024-07-22 10:00 | Outpatient (BNVA) | payer MEDICAID, SELFPAY | PROVIDERS: PCP Nurse Practitioner Family; Visit Provider Podiatrist Foot & Ankle Surgery | DX: E11.42 Type 2 diabetes mellitus with diabetic polyneuropathy (principal); M77.51 Other enthesopathy of right foot and ankle; S86.011A Strain of right Achilles tendon, initial encounter; S86.311A Strain of muscle(s) and tendon(s) of peroneal muscle group at lower leg level, right leg, initial encounter; M67.88 Other specified disorders of synovium and tendon, other site; X58.XXXA Exposure to other specified factors, initial encounter; Z79.4 Long term (current) use of insulin | CPT/HCPCS: 99214 ==

== ENCOUNTER → 2024-08-11 12:53 | Outpatient (BNVA) | payer MEDICAID, SELFPAY | PROVIDERS: PCP Nurse Practitioner Family; Visit Provider Anesthesiology Pain Medicine | DX: M54.16 Radiculopathy, lumbar region (principal); M54.40 Lumbago with sciatica, unspecified side; G89.29 Other chronic pain; M25.551 Pain in right hip; M25.552 Pain in left hip | CPT/HCPCS: 99214 ==

== ENCOUNTER 2024-08-16 15:28 | Emergency (ER) | payer MEDICAID, SELFPAY ==
[2024-08-16 15:33] VITALS: BP 188/66; PULSE 116; RESP 20; TEMP 37; O2SAT 96; BMI 62.1
[2024-08-16 16:05] LABS: Basophils # 0.1 10^3/uL (0.0-0.1); Basophils % 0.8 %; Eosinophils # 0.1 10^3/uL (0.0-0.8); Eosinophils % 1.7 %; Hematocrit 42.9 % (36-47); Lymphocytes # 2.4 10^3/uL (0.8-4.8); Lymphocytes % 30.6 %; Mean Corpuscular HGB Conc 30.3 g/dL (30-55); Mean Corpuscular Hemoglobin 24.6 pg (27-33); Mean Corpuscular Volume 81.1 fl (85-98); Mean Platelet Volume 11.5 fL (7.4-10.4); Monocytes # 0.6 10^3/uL (0.2-0.9); Monocytes % 7.8 %; Neutrophils # 4.55 10^3/uL (1.8-7.7); Neutrophils % 58.7 %; Nucleated Red Blood Cells % 0 %; Platelet Count 176 10^3/cmm (157-399); Red Blood Count 5.29 10^6/uL (3.85-5.65); White Blood Count 7.74 10^3/uL (3.29-11.43)
--- NOTE | 2024-08-16 16:07 | W.ED.NAVMDI ---
HPI - Nausea/Vomiting/Diarrhea General: Chief complaint: Nausea/Vomiting/Diarrhea Stated complaint: n/v Time Seen by Provider: 08/16/24 16:01 Source: patient Mode of arrival: ambulatory Limitations: no limitations History of Present Illness: 54-year-old female states she been having nausea vomiting for last 3 days. She has not been able to tolerate any p.o. patient is vomiting here she denies any fevers denies any worsening improving factors. She denies any abdominal pain. Denies any fever or diarrhea Associated nausea: Yes Associated symtoms: Reports nausea; Denies chest pain or headache(s) Related Data Home Medications ?Medication ?Instructions ?Recorded ?Confirmed MARIJUNIA 1 gummy PO PRN PRN Pain 03/01/22 08/16/24 insulin glargine 100 unit/mL (3 See Rx Instructions .Route .COMPLEX 03/10/24 08/16/24 mL) subcutaneous pen (Lantus Solostar U-100 Insulin) aspirin 81 mg tablet,delayed 81 mg PO QPM 08/16/24 08/16/24 release bupropion HCl 150 mg 24 hr tablet, 150 mg PO QAM 08/16/24 08/16/24 extended release cyclobenzaprine 10 mg tablet 10 mg PO BEDTIME 08/16/24 08/16/24 fluticasone 500 mcg-salmeterol 50 1 ea inhalation BID 08/16/24 08/16/24 mcg/dose blistr powdr for inhalation (Advair Diskus) ipratropium 0.5 mg-albuterol 3 mg 3 ml inhalation QID PRN Shortness 08/16/24 08/16/24 (2.5 mg base)/3 mL nebulization Of Breath soln levothyroxine 175 mcg tablet See Rx Instructions .Route .COMPLEX 08/16/24 08/16/24 (Synthroid) liothyronine 5 mcg tablet 5 mcg PO BID 08/16/24 08/16/24 pantoprazole 40 mg tablet,delayed 40 mg PO BID PRN Acid Reflux 08/16/24 08/16/24 release rosuvastatin 20 mg tablet 20 mg PO QPM 08/16/24 08/16/24 Previous Rx's ?Medication ?Instructions ?Recorded nitroglycerin 0.4 mg sublingual 0.4 mg sublingual Q5M PRN chest 05/12/21 tablet pain 30 days #30 tabs cholecalciferol (vitamin D3) 25 25 mcg PO DAILY 30 days #30 caps 05/29/21 mcg (1,000 unit) capsule nebulizer #1 ea 06/10/21 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 meter,continuous #1 ea 05/24/22 (Dexcom G6 Winder Contort Operator) Diabetic shoes with 3 sets of #2 ea 08/29/22 inserts losartan 25 mg tablet 25 mg PO DAILY #90 tabs 11/08/23 nystatin 100,000 unit/gram topical See Rx Instructions .Route 12/12/23 powder (Nystop) .COMPLEX #60 grams walking boot for right leg #1 ea 02/01/24 buspirone 5 mg tablet 5 mg PO TID PRN Anxiety #270 tabs 02/15/24 pen needle, diabetic 32 gauge x #400 ea 05/05/24 (TechLITE Pen Needle) albuterol sulfate 90 mcg/actuation 2 puff inhalation Q6H PRN 05/15/24 aerosol inhaler (Ventolin HFA) shortness of breath or wheezing #18 grams 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 sensor (Dexcom G6 #9 ea 06/17/24 Sensor device) 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 transmitter (Dexcom #1 ea 06/17/24 G6 Transmitter device) potassium chloride 8 mEq 8 meq PO .qod #90 tabs 06/17/24 tablet,extended release semaglutide 2 mg/dose (8 mg/3 mL) See Rx Instructions .Route 06/17/24 subcutaneous pen injector (Ozempic) .COMPLEX #9 mL fluoxetine 40 mg capsule 40 mg PO BID #180 caps 06/25/24 insulin lispro 100 unit/mL See Rx Instructions .Route 08/06/24 subcutaneous pen .COMPLEX #15 mL metoprolol tartrate 25 mg tablet 25 mg PO BID #180 tabs 08/07/24 topiramate 50 mg tablet (Topamax) 50 mg PO BID #60 tabs 08/11/24 ondansetron 4 mg disintegrating 4 mg PO Q6H PRN nausea and 08/16/24 tablet vomiting #14 tabs Allergies Allergy/AdvReac Type Severity Reaction Status Date / Time Penicillins Allergy Unknown Verified 08/11/24 13:00 Sulfa (Sulfonamide Allergy ALGY-Rash Verified 08/11/24 13:00 Antibiotics) ibuprofen AdvReac Intermediate nose bleeds Verified 08/11/24 13:00 SYNTHETHIC INSULIN Allergy ALGY-Rash Uncoded 08/11/24 13:00 Review of Systems Const: Denies: fever(s), chills, body aches or change in appetite ENMT: Denies: throat pain or dental pain Card: Denies: chest pain Resp: Denies: dyspnea GI: Reports: nausea and vomiting; Denies: abdominal pain or diarrhea Musc: Denies: neck pain or back pain Skin/Breast: Denies: rash Neuro: Denies: headache(s) PFSH ED PFSH: Medical History Anxiety and depression Lumbago Acute cystitis Allergic rhinitis Morbid obesity Intertrigo Lower back pain YANA (generalized anxiety disorder) Morbid obesity with BMI of 60.0-69.9, adult Atypical chest pain Dysphagia Fibromyalgia Migraine Endometriosis Tortuous colon Tremor Tubular adenoma of colon CAD (coronary artery disease) Dyslipidemia GARCIA (nonalcoholic steatohepatitis) ASHD (arteriosclerotic heart disease) Diabetic polyneuropathy Migraine without aura and without status migrainosus, not intractable Type 2 diabetes mellitus with both eyes affected by moderate nonproliferative retinopathy without macular edema, with long-term current use of insulin Benign essential HTN Cataract, right eye Colon polyps [place] (obstructive sleep apnea) Acquired hypothyroidism Anxiety Depression COPD (chronic obstructive pulmonary disease) Surgical History Hx laparoscopic cholecystectomy 03/25/24 Dr Sebastian Hx of release of tendon R. hand Hx of tubal ligation History of colonoscopy with polypectomy (04/01/21) sigmoid polyp History of coronary artery stent placement History of hand surgery Bilateral carpal tunnel History of total hysterectomy Family History Father Heart attack CAD (coronary artery disease) Hypertension Mother Cancer CAD (coronary artery disease) Lung disease Diabetes Hyperlipidemia Hypertension Sister CAD (coronary artery disease), Onset Age: 21 OH at 21 Heart attack Brother CAD (coronary artery disease), Onset Age: 30 Diabetes Hyperlipidemia Hypertension Grandmother CAD (coronary artery disease) Diabetes Grandfather CAD (coronary artery disease) Grandmother CAD (coronary artery disease) Stroke Grandfather CAD (coronary artery disease) Lung disease Family/Other Cancer Diabetes Stroke Rheumatoid arthritis Denies family history of Lupus Clotting disorder Dementia Chronic kidney disease (CKD) Suicide Anesthesia complication Bleeding disorder Social History Smoking and tobacco/nicotine status: former use of tobacco/nicotine (quit about 5 years ago) Quit status (tobacco/nicotine): has quit using Year quit tobacco: unknown Second hand smoke exposure: No Alcohol intake: never Substance/Drug Use: current Substance/Drug use frequency: few times a month Adopted: No Caregiver/support person: No Lives independently: Yes Household members: spouse Housing: House Marital status: Number of children: 2 Highest education level completed: GED or Equivalent service: No Current occupational status: disabled Sexually active: No Do you think of yourself as: Straight/Heterosexual Current gender identity: Female Agree to transfusion: Yes Physical Exam Const: COMMON NORMALS: no acute distress, patient oriented x3 and healthy appearing HENMT: COMMON NORMALS: normocephalic and atraumatic HEAD & SCALP: normocephalic and atraumatic Eye: COMMON NORMALS: conjunctivae normal CONJUNCTIVA: Yes conjunctivae normal Neck/C-Spine: COMMON NORMALS: full ROM and supple Chest: COMMONS NORMALS: normal inspection of the chest Resp: COMMON NORMALS: normal respiratory effort, No retractions, No use of accessory muscles and clear to auscultation bilaterally AUSCULTATION: clear to auscultation bilaterally Cardio: COMMON NORMALS: regular rhythm and No murmurs present (Cardio) RATE: tachycardic RHYTHM: regular rhythm GI: COMMON NORMALS: Normal to inspection, nondistended, normoactive bowel sounds present, Soft to palpation, non-tender and no masses PALPATION: Yes Soft to palpation Extremity: COMMON NORMALS: normal to inspection and full ROM Neuro: COMMON NORMALS: patient oriented x3, moves all extremities and no focal motor deficits Psych: COMMON NORMALS: mental status grossly normal, Normal thought process present and cooperative THOUGHT PROCESS: Normal thought process present Skin: COMMON NORMALS: no rashes or lesions noted and no wounds GENERAL SKIN EXAM: no rashes or lesions noted Course Vital Signs: Vital signs: Vital Signs Temperature 98.6 F 08/16/24 15:33 Pulse Rate 86 08/16/24 17:49 Respiratory Rate 20 H 08/16/24 15:33 Blood Pressure 173/75 08/16/24 17:49 Pulse Oximetry 97 08/16/24 17:49 Oxygen Delivery Me thod Room Air 08/16/24 15:33 MDM - Nausea/Vomiting/Diarrhea Medical Decision Making Patient presents here with vomiting she feels much improved here was able to tolerate p.o. CT scan showed no acute findings blood works normal patient stable for discharge follow-up PCP return if worsening. Medical Records I reviewed the patient's medical records. Lab Data I reviewed the patient's lab results. 08/16/24 15:59 08/16/24 15:59 Radiology Impressions Abdomen/Pelvis CT 08/16/24 16:33 IMPRESSION: 1. Mild cirrhosis with features of portal hypertension including splenorenal shunt again demonstrated. No ascites. 2. Questionable presence of mild gastric wall thickening/gastritis. Otherwise no clear-cut acute abdominopelvic abnormality. Laboratory Results WBC 7.74 10^3/uL (3.29-11.43) 08/16/24 15:59 RBC 5.29 10^6/uL (3.85-5.65) 08/16/24 15:59 Hgb 13.00 g/dL (11.27-16.99) 08/16/24 15:59 Hct 42.9 % (36-47) 08/16/24 15:59 MCV 81.1 fl (85-98) L 08/16/24 15:59 MCH 24.6 pg (27-33) L 08/16/24 15:59 MCHC 30.3 g/dL (30-55) 08/16/24 15:59 RDW 18.0 % (12.1-15.1) H 08/16/24 15:59 Plt Count 176 10^3/cmm (157-399) 08/16/24 15:59 MPV 11.5 fL (7.4-10.4) H 08/16/24 15:59 Neut % (Auto) 58.7 % 08/16/24 15:59 Lymph % (Auto) 30.6 % 08/16/24 15:59 [place] % (Auto) 7.8 % 08/16/24 15:59 Eos % (Auto) 1.7 % 08/16/24 15:59 Baso % (Auto) 0.8 % 08/16/24 15:59 Neut # (Auto) 4.55 10^3/uL (1.8-7.7) 08/16/24 15:59 Lymph # (Auto) 2.4 10^3/uL (0.8-4.8) 08/16/24 15:59 [place] # (Auto) 0.6 10^3/uL (0.2-0.9) 08/16/24 15:59 Eos # (Auto) 0.1 10^3/uL (0.0-0.8) 08/16/24 15:59 Baso # (Auto) 0.1 10^3/uL (0.0-0.1) 08/16/24 15:59 Nucleated RBC % (auto) 0 % 08/16/24:59 Nucleated RBCs # 0.0 /100WBC 08/16/24 15:59 Sodium 134 mmol/L (136-145) L 08/16/24 15:59 Potassium 4.0 mmol/L (3.5-5.1) 08/16/24 15:59 Chloride 100 mmol/L (98-107) 08/16/24 15:59 Carbon Dioxide 20 mmol/L (22-29) L 08/16/24 15:59 Anion Gap 18.0 (5-19) 08/16/24 15:59 BUN 13 mg/dL (6-20) 08/16/24 15:59 Creatinine 0.9 mg/dL (0.5-0.9) 08/16/24 15:59 GFR Calculation 65.2 mL/min (90-130) L 08/16/24 15:59 Glucose 192 mg/dL (65-115) H 08/16/24 15:59 Calculated Osmolality 283 mOsm/kg (285-295) L 08/16/24 15:59 Calcium 9.3 mg/dL (8.5-10.5) 08/16/24 15:59 Total Bilirubin 1.2 mg/dL (0.15-1.2) 08/16/24 15:59 AST 132 U/L (0-32) H 08/16/24 15:59 ALT 58 U/L (0-33) H 08/16/24 15:59 Alkaline Phosphatase 141 U/L (35-105) H 08/16/24 15:59 Total Protein 8.5 g/dL (6.6-8.7) 08/16/24 15:59 Albumin 3.9 g/dL (3.5-5.2) 08/16/24 15:59 Globulin 4.6 g/dL (1.3-4.6) 08/16/24 15:59 Lipase 33 U/L (13-60) 08/16/24 15:59 Coronavirus (PCR) Negative (Negative) 08/16/24 16:08 Influenza A (PCR) Negative (Negative) 08/16/24 16:08 Influenza Type B (PCR) Negative (Negative) 08/16/24 16:08 RSV (PCR) Negative (Negative) 08/16/24 16:08 All radiology interpretation(s) finalized by discharge Discharge Plan Discharge Patient Disposition: Home Clinical Impression: Vomiting Condition: Stable Prescriptions: New ondansetron 4 mg tablet,disintegrating 4 mg PO Q6H PRN (Reason: nausea and vomiting) Qty: 14 0RF No Action nitroglycerin 0.4 mg tablet, sublingual 0.4 mg sublingual Q5M PRN (Reason: chest pain) 30 Days Qty: 30 3RF Rx Instructions: until response; do not exceed 3 doses per episode (DME) nebulizer See Rx Instructions .Route .MEDSUPPLY Qty: 1 0RF Rx Instructions: with tubing and accessories cholecalciferol (vitamin D3) 25 mcg (1,000 unit) capsule 25 mcg PO DAILY 30 Days Qty: 30 0RF MARIJUNIA 1 gummy PO PRN PRN (Reason: Pain) (DME) Diabetic shoes with 3 sets of inserts See Rx Instructions .Route .MEDSUPPLY Qty: 2 0RF Rx Instructions: As directed topiramate [Topamax] 50 mg tablet 50 mg PO BID Qty: 60 0RF nystatin [Nystop] 100,000 unit/gram powder See Rx Instructions .ROUTE .COMPLEX Qty: 60 1RF Dose Instruction: APPLY TOPICALLY TWICE DAILY FOR 14 DAYS Rx Instructions: APPLY TOPICALLY TWICE DAILY FOR 14 DAYS (DME) walking boot for right leg See Rx Instructions .Route .MEDSUPPLY Qty: 1 0RF Rx Instructions: As directed albuterol sulfate [Ventolin HFA] 90 mcg/actuation HFA aerosol inhaler 2 puff inhalation Q6H PRN (Reason: shortness of breath or wheezing) Qty: 18 2RF (DME) Dexcom G6 Winder Contort Operator Misc See Rx Instructions .ROUTE .COMPLEX Qty: 1 0RF Dose Instruction: USE TO CHECK BLOOD SUGAR 4-6 TIMES A DAY. Rx Instructions: USE TO CHECK BLOOD SUGAR 4-6 TIMES A DAY. losartan 25 mg tablet 25 mg PO DAILY Qty: 90 3RF buspirone 5 mg tablet 5 mg PO TID PRN (Reason: Anxiety) Qty: 270 1RF insulin glargine [Lantus Solostar U-100 Insulin] 100 unit/mL (3 mL) insulin pen See Rx Instructions .ROUTE .COMPLEX Rx Instructions: INJECT 160 UNITS UNDER THE SKIN DAILYSLIDING SCALE. (DME) pen needle, diabetic [TechLITE Pen Needle] 32 gauge x 5/32 needle See Rx Instructions .ROUTE .COMPLEX Qty: 400 0RF Dose Instruction: USE DIRECTED Rx Instructions: USE DIRECTED (DME) Dexcom G6 Sensor Device See Rx Instructions .ROUTE .COMPLEX Qty: 9 0RF Dose Instruction: USE DIRECTED AND REPLACE EVERY 10 DAYS Rx Instructions: USE DIRECTED AND REPLACE EVERY 10 DAYS (DME) Dexcom G6 Transmitter Device See Rx Instructions .ROUTE .COMPLEX Qty: 1 0RF Dose Instruction: CHANGE EVERY 90 DAYS Rx Instructions: CHANGE EVERY 90 DAYS Ozempic 2 mg/dose (8 mg/3 mL) pen injector See Rx Instructions .ROUTE .COMPLEX Qty: 9 0RF Dose Instruction: ADMINISTER 2 MG UNDER THE SKIN EVERY 7 DAYS Rx Instructions: ADMINISTER 2 MG UNDER THE SKIN EVERY 7 DAYS. on potassium chloride 8 mEq tablet extended release 8 meq PO .qod Qty: 90 3RF Rx Instructions: frequency reduced fluoxetine 40 mg capsule 40 mg PO BID Qty: 180 0RF insulin lispro 100 unit/mL insulin pen See Rx Instructions .ROUTE .COMPLEX Qty: 15 2RF Dose Instruction: administer 80 UNITS UNDER THE SKIN THREE TIMES DAILY Rx Instructions: administer 80 UNITS UNDER THE SKIN THREE TIMES DAILY metoprolol tartrate 25 mg tablet 25 mg PO BID Qty: 180 1RF fluticasone propion-salmeterol [Advair Diskus] 500-50 mcg/dose blister with device 1 ea INHALATION BID cyclobenzaprine 10 mg tablet 10 mg PO BEDTIME levothyroxine [Synthroid] 175 mcg tablet See Rx Instructions .ROUTE .COMPLEX Rx Instructions: TAKE 1 TABLET BY MOUTH DAILY SUNDAY-SUNDAY, 1/2 TABLET ON SUNDAY. ipratropium-albuterol 0.5 mg-3 mg(2.5 mg base)/3 mL solution for nebulization 3 ml inhalation QID PRN (Reason: Shortness Of Breath) liothyronine 5 mcg tablet 5 mcg PO BID aspirin 81 mg tablet,delayed release (DR/EC) 81 mg PO QPM pantoprazole 40 mg tablet,delayed release (DR/EC) 40 mg PO BID PRN (Reason: Acid Reflux) rosuvastatin 20 mg tablet 20 mg PO QPM bupropion HCl 150 mg tablet extended release 24 hr 150 mg PO QAM Discharge Orders: Discharge ED (Routine); Ordered 08/16/24 Ordered By: Sherri Melton Referrals: Teri Mcknight FNP [Primary Care Provider] - Discharge Diet: Advance as tolerated Discharge Activity: Resume usual activity Patient Instructions: Acute Nausea and Vomiting (ED) Print Language: Haitian Coding Level of Care Code ED Medical Staffing Coordinator for Annamarie Meraz
[2024-08-16] MEDS: sodium chloride 0.9% 1,000 ML 999 ML IV (16:20)
[2024-08-16] MEDS: metoclopramide 5 mg/mL SDV 2 mL 10 MG IVP (16:21)
[2024-08-16] MEDS: diphenhydrAMINE 50 mg/mL SDV 1mL IVP (16:21)
[2024-08-16 16:27] LABS: Alanine Aminotransferase 58 U/L (0-33); Albumin Level 3.9 g/dL (3.5-5.2); Alkaline Phosphatase 141 U/L (35-105); Aspartate Amino Transferase 132 U/L (0-32); Blood Urea Nitrogen 13 mg/dL (6-20); Calcium 9.3 mg/dL (8.5-10.5); Carbon Dioxide 20 mmol/L (22-29); Chloride 100 mmol/L (98-107); Creatinine Clr Calc Pharmacy 103.5001; Globulin 4.6 g/dL (1.3-4.6); Glomerular Filtration Rate 65.2 mL/min (90-130); Glucose 192 mg/dL (65-115); Lipase 33 U/L (13-60); Osmolality Calculated 283 mOsm/kg (285-295); Sodium 134 mmol/L (136-145); Total Bilirubin 1.2 mg/dL (0.15-1.2); Total Protein 8.5 g/dL (6.6-8.7)
--- NOTE | 2024-08-16 16:33 | CTR_ITS ---
PROCEDURE INFORMATION: Exam: CT Abdomen And Pelvis With Contrast Exam date and time: 08/16/2024 4:41 PM Age: 54 years old Clinical indication: Vomiting; Prior surgery; Surgery date: 6+ months; Surgery type: Gb, hysterectomy TECHNIQUE: Imaging protocol: Computed tomography of the abdomen and pelvis with contrast. Radiation optimization: All CT scans at this facility use at least one of these dose optimization techniques: automated exposure control; mA and/or kV adjustment per patient size (includes targeted exams where dose is matched to clinical indication); or iterative reconstruction. Contrast material: OMNIPAQUE 350; Contrast volume: 100 ml; Contrast route: INTRAVENOUS (IV); COMPARISON: CT abdomen pelvis w con* [id number] 06/09/2024 9:31 PM RADIATION DOSE METRICS: Total DLP (mGy-cm): 1406.83 FINDINGS: Tubes, catheters and devices: A splenorenal shunt is noted. Otherwise no large varices identified. Liver: Features of early hepatic cirrhosis noted with mild contour lobulation and left lobe hypertrophy. Gallbladder and biliary ducts: Cholecystectomy clips. No biliary dilatation. Pancreas: Mild involutional pancreatic atrophy without focal lesion or duct dilation. Spleen: Normal. No splenomegaly. Adrenal glands: Normal. No mass. Kidneys and ureters: Normal. No hydronephrosis. Stomach and bowel: Questionable mild gastric wall thickening. No obstruction. No mucosal thickening. Appendix: No evidence of appendicitis. Intraperitoneal space: Unremarkable. No free air. No significant fluid collection. Vasculature: Moderate atherosclerotic calcification of the abdominal aorta and iliac arteries. Lymph nodes: Mildly enlarged celiac/gastrohepatic adenopathy up to 1.5 cm likely reactive. Urinary bladder: Empty urinary bladder. Reproductive: Unremarkable as visualized. Bones/joints: Moderate multilevel degenerative endplate spurring in the lower thoracic and lower lumbar spine moderate lower lumbar facet arthropathy and L5-S1 disc space narrowing and vacuum phenomenon. Moderate bilateral foraminal stenosis at L4-L5 and L5-S1 levels. Mild canal stenosis. Soft tissues: Unremarkable. CT/CT abdomen pelvis w con* [id number] IMPRESSION: 1. Mild cirrhosis with features of portal hypertension including splenorenal shunt again demonstrated. No ascites. 2. Questionable presence of mild gastric wall thickening/gastritis. Otherwise no clear-cut acute abdominopelvic abnormality.
[2024-08-16] MEDS: iohexol 350 mg/mL 500 mL Btl (per mL) IV (16:44)
[2024-08-16 17:02] LABS: Influenza A NEGATIVE (Negative); Influenza B NEGATIVE (Negative); Respiratory Syncytial Virus Ce NEGATIVE (Negative); SARS-CoV-2 PCR NEGATIVE (Negative)
[2024-08-16 17:49] VITALS: BP 173/75; PULSE 86; O2SAT 97
== END 2024-08-16 17:52 | disposition home or self-care (01) ==
PROVIDERS: Emergency Provider Emergency Medicine; PCP Nurse Practitioner Family
DX: R11.10 Vomiting, unspecified (principal); Z79.4 Long term (current) use of insulin; Z11.52 Encounter for screening for COVID-19; Z87.891 Personal history of nicotine dependence; J44.9 Chronic obstructive pulmonary disease, unspecified; I25.10 Atherosclerotic heart disease of native coronary artery without angina pectoris; E11.9 Type 2 diabetes mellitus without complications
CPT/HCPCS: 36415; 74177; 80053; 83690; 85025; 87637; 96374; 96375; 99285; J1200; J2765; J7030

== ENCOUNTER 2024-08-27 07:38 | Outpatient (CLI) | payer MEDICAID, SELFPAY ==
[2024-08-27 08:12] LABS: Estmated Average Glucose 192; Hemoglobin A1C 8.3 % (4.0-6.0)
[2024-08-27 08:24] LABS: Creatinine Urine, Random 48 mg/dL (28-217); Microalbum Creatinine Ratio Ur 21 mg/dL (0-20); Microalbumin Random Urine 1 ug/dL (0-20)
[2024-08-27 08:33] LABS: Alanine Aminotransferase 44 U/L (0-33); Albumin Level 3.5 g/dL (3.5-5.2); Alkaline Phosphatase 122 U/L (35-105); Anion Gap 13.5 (5-19); Aspartate Amino Transferase 66 U/L (0-32); Blood Urea Nitrogen 17 mg/dL (6-20); Calcium 8.7 mg/dL (8.5-10.5); Carbon Dioxide 26 mmol/L (22-29); Chloride 102 mmol/L (98-107); Chol HDL Ratio 3.03 mg/dL (0.0-4.40); Cholesterol 103 mg/dL (0-200); Free T4 Free Thyroxine 0.45 ng/dL (0.82-1.77); Globulin 3.8 g/dL (1.3-4.6); Glomerular Filtration Rate 65.2 mL/min (90-130); Glucose 205 mg/dL (65-115); HDL Cholesterol 34 mg/dL (60-100); LDL Cholesterol Calculated 42 mg/dL (50-129); LDL HDL Ratio 1.24 RATIO (0.00-3.22); Osmolality Calculated 291 mOsm/kg (285-295); Potassium 4.5 mmol/L (3.5-5.1); Sodium 137 mmol/L (136-145); Thyroid Stimulating Hormone 30.92 uIU/mL (0.27-4.20); Total Bilirubin 0.5 mg/dL (0.15-1.2); Total Protein 7.3 g/dL (6.6-8.7); Triglycerides 135 mg/dL (0-150)
== END 2024-08-27 07:39 | disposition home or self-care (01) ==
PROVIDERS: Absent Provider Internal Medicine; PCP Nurse Practitioner Family; Visit Provider Anesthesiology Pain Medicine
DX: E11.59 Type 2 diabetes mellitus with other circulatory complications (principal); E11.3393 Type 2 diabetes mellitus with moderate nonproliferative diabetic retinopathy without macular edema, bilateral; Z79.4 Long term (current) use of insulin; E78.2 Mixed hyperlipidemia
CPT/HCPCS: 36415; 80053; 80061; 82044; 83036; 84439; 84443

== ENCOUNTER → 2024-08-29 09:08 | Outpatient (BNVA) | payer MEDICAID, SELFPAY | PROVIDERS: PCP Nurse Practitioner Family; Visit Provider Internal Medicine | DX: E11.59 Type 2 diabetes mellitus with other circulatory complications (principal); E11.42 Type 2 diabetes mellitus with diabetic polyneuropathy; E11.3393 Type 2 diabetes mellitus with moderate nonproliferative diabetic retinopathy without macular edema, bilateral; Z79.4 Long term (current) use of insulin; E03.9 Hypothyroidism, unspecified; E66.01 Morbid (severe) obesity due to excess calories; K76.0 Fatty (change of) liver, not elsewhere classified; E78.2 Mixed hyperlipidemia | CPT/HCPCS: 99214 ==

== ENCOUNTER → 2024-09-02 13:01 | Outpatient (BNVA) | payer MEDICAID, SELFPAY | PROVIDERS: PCP Nurse Practitioner Family; Visit Provider Anesthesiology Pain Medicine | DX: M54.16 Radiculopathy, lumbar region (principal); M54.40 Lumbago with sciatica, unspecified side; G89.29 Other chronic pain; M54.9 Dorsalgia, unspecified; Z87.891 Personal history of nicotine dependence | CPT/HCPCS: 64483; 64484; J1100; J3490 ==

== ENCOUNTER 2024-09-05 06:25 | Day surgery (SDC) | payer MEDICAID, SELFPAY ==
[2024-09-05 06:36] VITALS: BP 151/75; PULSE 66; RESP 18; TEMP 36.1; O2SAT 95
[2024-09-05 06:44] VITALS: BMI 60.1
[2024-09-05 06:56] LABS: Glucose Point of Care 163 mg/dL (70-110)
[2024-09-05] MEDS: CELEcoxib 200 mg Capsule 400 MG PO (06:56)
[2024-09-05] MEDS: sodium chloride 0.9% 1,000 ML 30 ML IV (06:57)
[2024-09-05] MEDS: gabapentin 300 mg Capsule PO (06:57)
[2024-09-05 07:38] LABS: Thyroid Stimulating Hormone 41.64 uIU/mL (0.27-4.20)
--- NOTE | 2024-09-05 08:16 | PM.MISC ---
Miscellaneous Note Note: Patient with high jump in TSH levels with low T4 on 08/27, thyroid medications adjusted in office. Repeat TSH today shows worsening trend. Discussed with Dr. Ward and patient. Case is elective and patient would also prefer to optimize her levels before surgery. Dr. Haider informed of increased levels on the phone by me.
--- NOTE | 2024-09-05 08:49 | SUR.PREOP ---
Patient cancelled for surgery today due to tsh level per anesthesia. Patient left ambulatory
== END 2024-09-05 10:00 | disposition home or self-care (01) ==
PROVIDERS: Anesthesiology; PCP Nurse Practitioner Family; Visit Provider Podiatrist Foot & Ankle Surgery
PROC: (CPT 27650; principal; 2024-09-05 07:55)
DX: S86.011A Strain of right Achilles tendon, initial encounter (principal); S86.311A Strain of muscle(s) and tendon(s) of peroneal muscle group at lower leg level, right leg, initial encounter; M67.88 Other specified disorders of synovium and tendon, other site; E11.42 Type 2 diabetes mellitus with diabetic polyneuropathy; M77.51 Other enthesopathy of right foot and ankle; E66.01 Morbid (severe) obesity due to excess calories; Z68.44 Body mass index [BMI] 60.0-69.9, adult; M79.7 Fibromyalgia; I25.10 Atherosclerotic heart disease of native coronary artery without angina pectoris; E78.5 Hyperlipidemia, unspecified; I10 Essential (primary) hypertension; G47.33 Obstructive sleep apnea (adult) (pediatric); E03.9 Hypothyroidism, unspecified; J44.9 Chronic obstructive pulmonary disease, unspecified; Z90.49 Acquired absence of other specified parts of digestive tract; Z95.5 Presence of coronary angioplasty implant and graft; Z90.710 Acquired absence of both cervix and uterus; Z87.891 Personal history of nicotine dependence; Z53.8 Procedure and treatment not carried out for other reasons; R94.6 Abnormal results of thyroid function studies; X58.XXXA Exposure to other specified factors, initial encounter; Z79.899 Other long term (current) drug therapy; Z79.4 Long term (current) use of insulin; Z79.890 Hormone replacement therapy; Z79.82 Long term (current) use of aspirin; Z79.85 Long-term (current) use of injectable non-insulin antidiabetic drugs
CPT/HCPCS: 36415; 36416; 82962; 84443; J7030

== ENCOUNTER → 2024-09-10 07:56 | Outpatient (BNVA) | payer MEDICAID, SELFPAY | PROVIDERS: PCP Nurse Practitioner Family; Visit Provider Internal Medicine | DX: E78.2 Mixed hyperlipidemia (principal); K76.0 Fatty (change of) liver, not elsewhere classified; E66.01 Morbid (severe) obesity due to excess calories; E03.9 Hypothyroidism, unspecified; E11.3393 Type 2 diabetes mellitus with moderate nonproliferative diabetic retinopathy without macular edema, bilateral; Z79.4 Long term (current) use of insulin; E11.59 Type 2 diabetes mellitus with other circulatory complications; E11.42 Type 2 diabetes mellitus with diabetic polyneuropathy | CPT/HCPCS: 99214 ==

== ENCOUNTER 2024-09-19 10:54 | Outpatient (CLI) | payer MEDICAID, SELFPAY ==
[2024-09-19 12:11] LABS: Free T4 Free Thyroxine 1.41 ng/dL (0.82-1.77)
== END 2024-09-19 10:55 | disposition home or self-care (01) ==
LOC: LAB 10:55
PROVIDERS: PCP Nurse Practitioner Family; Visit Provider Internal Medicine
DX: E78.2 Mixed hyperlipidemia (principal); K76.0 Fatty (change of) liver, not elsewhere classified; E66.01 Morbid (severe) obesity due to excess calories; E03.9 Hypothyroidism, unspecified; E11.3393 Type 2 diabetes mellitus with moderate nonproliferative diabetic retinopathy without macular edema, bilateral; Z79.4 Long term (current) use of insulin; E11.59 Type 2 diabetes mellitus with other circulatory complications; E11.42 Type 2 diabetes mellitus with diabetic polyneuropathy
CPT/HCPCS: 36415; 84439

== ENCOUNTER → 2024-09-23 10:24 | Outpatient (BNVA) | payer MEDICAID, SELFPAY | PROVIDERS: PCP Nurse Practitioner Family; Visit Provider Nurse Practitioner Family | DX: M51.362 Other intervertebral disc degeneration, lumbar region with discogenic back pain and lower extremity pain (principal); G89.29 Other chronic pain; M25.551 Pain in right hip; M25.552 Pain in left hip | CPT/HCPCS: 99213 ==

== ENCOUNTER → 2024-10-01 13:01 | Outpatient (BNVA) | payer MEDICAID, SELFPAY | PROVIDERS: PCP Nurse Practitioner Family; Visit Provider Anesthesiology Pain Medicine | DX: M47.816 Spondylosis without myelopathy or radiculopathy, lumbar region (principal); M54.40 Lumbago with sciatica, unspecified side; G89.29 Other chronic pain; M54.9 Dorsalgia, unspecified | CPT/HCPCS: 64635; 64636; J1010; J9999 ==

== ENCOUNTER 2024-10-15 20:00 | Outpatient (CLI) | payer MEDICAID, SELFPAY | END 2024-10-15 20:01 | disposition home or self-care (01) | LOC: SLEEP 10-16 01:41 | PROVIDERS: PCP Nurse Practitioner Family; Visit Provider Nurse Practitioner Family | DX: M47.816 Spondylosis without myelopathy or radiculopathy, lumbar region (principal); G47.33 Obstructive sleep apnea (adult) (pediatric) | CPT/HCPCS: 64635; 64636; 95811; J1010; J9999 ==

== ENCOUNTER → 2024-10-29 10:56 | Outpatient (BNVA) | payer MEDICAID, SELFPAY | PROVIDERS: PCP Nurse Practitioner Family; Visit Provider Nurse Practitioner Family | DX: M51.362 Other intervertebral disc degeneration, lumbar region with discogenic back pain and lower extremity pain (principal); G89.29 Other chronic pain; M25.551 Pain in right hip; M25.552 Pain in left hip | CPT/HCPCS: 99213 ==

== ENCOUNTER 2024-11-06 08:05 | Outpatient (CLI) | payer MEDICAID, SELFPAY ==
[2024-11-06 09:04] LABS: Free T4 Free Thyroxine 1.68 ng/dL (0.82-1.77)
== END 2024-11-06 08:06 | disposition home or self-care (01) ==
LOC: LAB 08:06
PROVIDERS: PCP Nurse Practitioner Family; Visit Provider Internal Medicine
DX: E11.59 Type 2 diabetes mellitus with other circulatory complications (principal); E11.42 Type 2 diabetes mellitus with diabetic polyneuropathy; E11.3393 Type 2 diabetes mellitus with moderate nonproliferative diabetic retinopathy without macular edema, bilateral; Z79.4 Long term (current) use of insulin; E03.9 Hypothyroidism, unspecified; E66.01 Morbid (severe) obesity due to excess calories; K76.0 Fatty (change of) liver, not elsewhere classified; E78.2 Mixed hyperlipidemia
CPT/HCPCS: 36415; 84439

== ENCOUNTER 2024-11-10 11:42 | Outpatient (CLI) | payer MEDICAID, SELFPAY ==
[2024-11-10 12:55] LABS: Estmated Average Glucose 177; Hemoglobin A1C 7.8 % (4.0-6.0)
[2024-11-10 13:01] LABS: Alanine Aminotransferase 51 U/L (0-33); Albumin Level 3.4 g/dL (3.5-5.2); Alkaline Phosphatase 92 U/L (35-105); Anion Gap 13.4 (5-19); Aspartate Amino Transferase 80 U/L (0-32); Blood Urea Nitrogen 15 mg/dL (6-20); Calcium 9.5 mg/dL (8.5-10.5); Carbon Dioxide 26 mmol/L (22-29); Chloride 103 mmol/L (98-107); Chol HDL Ratio 2.61 mg/dL (0.0-4.40); Cholesterol 86 mg/dL (0-200); Free T4 Free Thyroxine 1.88 ng/dL (0.82-1.77); Glomerular Filtration Rate 65.2 mL/min (90-130); Glucose 130 mg/dL (65-115); HDL Cholesterol 33 mg/dL (60-100); LDL Cholesterol Calculated 35 mg/dL (50-129); LDL HDL Ratio 1.06 RATIO (0.00-3.22); Osmolality Calculated 289 mOsm/kg (285-295); Potassium 4.4 mmol/L (3.5-5.1); Sodium 138 mmol/L (136-145); Thyroid Stimulating Hormone 0.02 uIU/mL (0.27-4.20); Total Bilirubin 0.7 mg/dL (0.15-1.2); Total Protein 7.4 g/dL (6.6-8.7); Triglycerides 91 mg/dL (0-150)
[2024-11-10 13:08] LABS: Creatinine Urine, Random 43 mg/dL (28-217); Microalbum Creatinine Ratio Ur 23 mg/dL (0-20); Microalbumin Random Urine 1 ug/dL (0-20)
== END 2024-11-10 11:43 | disposition home or self-care (01) ==
LOC: LAB 11:43
PROVIDERS: PCP Nurse Practitioner Family; Visit Provider Internal Medicine
DX: E11.65 Type 2 diabetes mellitus with hyperglycemia (principal); Z79.4 Long term (current) use of insulin; E03.9 Hypothyroidism, unspecified
CPT/HCPCS: 36415; 80053; 80061; 82044; 83036; 84439; 84443

== ENCOUNTER → 2024-11-12 08:15 | Outpatient (BNVA) | payer MEDICAID, SELFPAY | PROVIDERS: PCP Nurse Practitioner Family; Visit Provider Internal Medicine | DX: E78.2 Mixed hyperlipidemia (principal); E11.59 Type 2 diabetes mellitus with other circulatory complications; E11.42 Type 2 diabetes mellitus with diabetic polyneuropathy; E11.3393 Type 2 diabetes mellitus with moderate nonproliferative diabetic retinopathy without macular edema, bilateral; Z79.4 Long term (current) use of insulin; E03.9 Hypothyroidism, unspecified; E66.01 Morbid (severe) obesity due to excess calories | CPT/HCPCS: 99214 ==

== ENCOUNTER 2024-12-05 08:06 | Day surgery (SDC) | payer MEDICAID, SELFPAY ==
[2024-12-05] VITALS (14 sets, daily range): BP systolic 97–156; BP diastolic 47–86; PULSE 67–72; RESP 15–22; TEMP 36.3–36.6; O2SAT 94–99; BMI 60.1
--- NOTE | 2024-12-05 08:35 | P.HP_ITS ---
Providers/Chief Complaint Primary Care Provider: XIOMY Gifford Chief Complaint: M67.88 History of Present Illness 54-year-old female presenting with a partial Achilles tendon tear in the right lower extremity. The condition has been causing persistent pain and a sensation of popping in the affected area. She has been experiencing difficulty wearing closed-back shoes due to the discomfort and reports that the pain becomes un bearable at times, impacting her ability to wear any footwear with a back strap. The patient previously underwent an MRI which indicated that half of the Achilles tendon is diseased and torn. It has been suggested that a tendon transfer procedure may be necessary to provide additional support and promote healing. The patient is also motivated to reduce her weight from the current 337 pounds to improve overall health and potentially alleviate some strain on the tendon. She reports an A1c level of 7.9, which is within an acceptable range for surgical consideration. The patient has indicated a desire to proceed with surgical intervention. Review of Systems General: Reports: 10 or more systems reviewed and unremarkable except in HPI and below Const: Denies: fever(s) or chills Eyes: Denies: change in vision Card: Denies: chest pain or palpitations Resp: Denies: dyspnea or productive cough GI: Denies: abdominal pain, nausea or vomiting : Denies: flank pain Musc: Reports: extremity pain, joint pain, joint stiffness, limited range of motion and deformity Skin/Breast: Reports: skin tenderness; Denies: rash Neuro: Reports: difficulty walking; Denies: numbness in extremities, sensory changes or frequent falls Psych: Denies: suicidal ideation Dann/Lymph: Denies: easy bruising Medications/Allergies Home Medications ?Medication ?Instructions ?Recorded ?Confirmed ?Last Taken ?Type nitroglycerin 0.4 mg sublingual 0.4 mg sublingual Q5M PRN chest 05/12/21 12/04/24 Unknown Rx tablet pain 30 days #30 tabs cholecalciferol (vitamin D3) 25 25 mcg PO DAILY 30 day s #30 caps 05/29/21 12/04/24 12/03/24 Rx mcg (1,000 unit) capsule nebulizer #1 ea 06/10/21 11/12/24 Unkn own Rx MARIJUNIA 1 gummy PO PRN PRN Pain 08/3 1/22 06/05/25 08/11/24 History 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,aerial 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,cont #1 ea 05/24/22 11/12/24 Un known Rx (Dexcom G6 Promotional Model) Diabetic shoes with 3 sets of #2 ea 08/29/22 11/12/24 Unknown Rx inserts nystatin 100,000 unit/gram topical See Rx Instructions .Route 12/12/23 12/04/24 03/24/24 Rx powder (Nystop) .COMPLEX #60 grams walking boot for right leg #1 ea 02/01/24 11/12/24 Unk nown Rx pen needle, diabetic 32 gauge x #400 ea 05/05/2411/12 Unknown Rx (TechLITE Pen Needle) aspirin 81 mg tablet,delayed 81 mg PO QPM 08/16/2411/2312/03/24 History release ondansetron 4 mg disintegrating 4 mg PO Q6H PRN nausea and 08/16/24 12/04/24 Unknown Rx tablet vomiting #14 tabs pantoprazole 40 mg tablet,delayed 40 mg PO BID PRN Aci d Reflux 08/16/24 12/04/24 08/16/24 History release losartan 25 mg tablet 25 mg PO DAILY #90 tabs 08/3012/04/24 12/03/24 Rx potassium chloride 8 mEq 8 meq PO .qod #90 tabs 09/0912/04/24 12/03/24 Rx tablet,extended release 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 sensor (Dexcom G6 #6 ea 10/09/24 5 Unknown Rx Sensor device) albuterol sulfate 90 mcg/actuation See Rx Instructions .Route 10/24/24 12/04/24 12/04/24 Rx aerosol inhaler (Ventolin HFA) .COMPLEX #18 grams 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 transmitter (Dexcom #1 ea 10/24/2411/12 Unknown Rx G6 Transmitter device) auto-titrating cpap 6-10cm #1 ea 10/28/24 11/12/24 Unk nown Rx cyclobenzaprine 10 mg tablet 10 mg PO TID PRN muscle s pasm #90 10/29/24 12/04/24 12/03/24 Rx tabs tirzepatide (weight loss) 10 See Rx Instructions .Rout e 11/10/24 12/04/24 11/21/24 Rx mg/0.5 mL subcutaneous pen .COMPLEX #2 mL injector (Zepbound) fluticasone 500 mcg-salmeterol 50 See Rx Instructions .Route 11/11/24 12/04/24 12/04/24 Rx mcg/dose blistr powdr for .COMPLEX #60 ea inhalation (Advair Diskus) insulin lispro 100 unit/mL See Rx Instructions .Route 11/11/24 12/04/24 12/04/24 Rx subcutaneous pen .COMPLEX #15 mL Synthroid 50 mcg tablet 50 mcg PO DAILY 1 month #30 tabs 11/12/24 12/04/24 12/03/24 Rx (levothyroxine) tirzepatide 12.5 mg/0.5 mL 12.5 mg (0.5 mL) SUBCUT Q7D 1 11/12/24 12/04/24 Unknown Rx subcutaneous pen injector month #2.5 mL (Rodunalexandrero) bupropion HCl 150 mg 24 hr tablet, 150 mg PO DAILY 11/2312/04/24 12/04/24 History extended release buspirone 5 mg tablet 5 mg PO TID PRN Anxiety 11/2312/04/24 Unknown History fluoxetine 40 mg capsule 40 mg PO BID 12/04/2412/04/24 History insulin glargine 100 unit/mL (3 50 unit SUBCUT BID 11/2312/04/24 12/04/24 History mL) subcutaneous pen (Lantus Solostar U-100 Insulin) levothyroxine 200 mcg tablet 200 mcg PO BID 12/04/24 0 12/04/24 12/04/24 History (Synthroid) liothyronine 5 mcg tablet 2.5 mcg PO BID 12/04/2411/2312/04/24 History metoprolol tartrate 25 mg tablet 25 mg PO BID 12/04/24 12/04/24 12/04/24 History rosuvastatin 20 mg tablet 20 mg PO DAILY 12/04/2411/2312/03/24 History topiramate 50 mg tablet (Topamax) 50 mg PO DAILY 12/0412/04/24 12/03/24 Hist ory ipratropium 0.5 mg-albuterol 3 mg See Rx Instructions .Route 12/05/24 Unknown Rx (2.5 mg base)/3 mL nebulization .COMPLEX #180 mL soln Allergies Allergy/AdvReac Type Severity Reaction Status Date / Time Penicillins Allergy Unknown Verified 12/04/24 12:18 Sulfa (Sulfonamide Allergy ALGY-Rash Verified 12/04/24 12:18 Antibiotics) ibuprofen AdvReac Intermediate nose bleeds Verified 12/04/24 12:18 SYNTHETHIC INSULIN Allergy ALGY-Rash Uncoded 12/04/24 12:18 PFSH PFSH: Medical History Anxiety and depression Lumbago Acute cystitis Allergic rhinitis Morbid obesity Intertrigo Lower back pain YANA (generalized anxiety disorder) Morbid obesity with BMI of 60.0-69.9, adult Atypical chest pain Dysphagia Fibromyalgia Migraine Endometriosis Tortuous colon Tremor Tubular adenoma of colon CAD (coronary artery disease) Dyslipidemia GARCIA (nonalcoholic steatohepatitis) ASHD (arteriosclerotic heart disease) Diabetic polyneuropathy Migraine without aura and without status migrainosus, not intractable Type 2 diabetes mellitus with both eyes affected by moderate nonproliferative retinopathy without macular edema, with long-term current use of insulin Benign essential HTN Cataract, right eye Colon polyps DALLAS (obstructive sleep apnea) Acquired hypothyroidism Anxiety Depression COPD (chronic obstructive pulmonary disease) Surgical History Hx laparoscopic cholecystectomy 03/25/24 Dr Sebastian Hx of release of tendon R. hand Hx of tubal ligation History of colonoscopy with polypectomy (04/01/21) sigmoid polyp History of coronary artery stent placement History of hand surgery Bilateral carpal tunnel History of total hysterectomy Family History Father Heart attack CAD (coronary artery disease) Hypertension Mother Cancer CAD (coronary artery disease) Lung disease Diabetes Hyperlipidemia Hypertension Sister CAD (coronary artery disease), Onset Age: 21 [place] at 21 Heart attack Brother CAD (coronary artery disease), Onset Age: 30 Diabetes Hyperlipidemia Hypertension Grandmother CAD (coronary artery disease) Diabetes Grandfather CAD (coronary artery disease) Grandmother CAD (coronary artery disease) Stroke Grandfather CAD (coronary artery disease) Lung disease Family/Other Cancer Diabetes Stroke Rheumatoid arthritis Denies family history of Lupus Clotting disorder Dementia Chronic kidney disease (CKD) Suicide Anesthesia complication Bleeding disorder Social History Smoking and tobacco/nicotine status: former use of tobacco/nicotine (quit 4 years ago.) Quit status (tobacco/nicotine): has quit using Year quit tobacco: 4 years ago Second hand smoke exposure: No Alcohol intake: never Substance/Drug Use: current Substance/Drug use frequency: few times a month Adopted: No Caregiver/support person: No Lives independently: Yes Household members: spouse Housing: House Marital status: Number of children: 2 Highest education level completed: GED or Equivalent service: No Current occupational status: disabled Sexually active: No Do you think of yourself as: Straight/Heterosexual Current gender identity: Female Agree to transfusion: Yes Dietary Habits: Caffeine: Yes Vital Signs Vitals Signs: Last Vital Signs Temp 97.9 F 12/05/24 13:03 Pulse 68 12/05/24 13:03 Resp 18 12/05/24 13:03 BP 117/73 12/05/24 13:03 Pulse Ox 97 12/05/24 13:03 O2 Del Method Room Air 12/05/24 13:03 O2 Flow Rate 6 12/05/24 12:00 Physical Exam Narrative: EXAM NARRATIVE: Patient is alert and oriented ?3 and in no acute distress. The following is a focused bilateral lower extremity exam. Patient wearing diabetic shoe package. Ambulates without assistance. VASCULAR: Dorsalis pedis palpable +1 bilaterally. Posterior tibial arteries +1. Capillary refill time less than 4 seconds to the distal hallux bilaterally. Calf is supple and nontender proximally and distally. Decreased pedal hair growth left and right lower extremity. Skin temperature is warm to warm from tibial tuberosity down to the dorsal distal digits bilaterally. NEUROLOGICAL: Protective sensation intact 8/10 sites, tested with [place]da monofilament to bilateral feet. DERMATOLOGICAL: Dry skin with cracking at the heels, no deep fissuring, no full- thickness wounds. Toenails 1, 2, 3, 4 and 5 bilateral are elongated, thickened and discolored with subungual debris. Pincer nail deformity of the first, second and third left and right. Hyperkeratosis without hemorrhaging or wound at the hallux interphalangeal joint medially left and right foot. MUSCULOSKELETAL: Exquisite tenderness to palpation at the right posterior calcaneus at insertion of Achilles tendon, unable to fully evaluate due to the severity of pain. Patient is extremely guarded on this. There was no palpable dell or attenuation along the watershed zone of the right Achilles. CARDIOVASCULAR: S1, S2, normal rate, normal rhythm. Dorsalis pedis and posterior tibial arteries palpable. LUNGS: Clear to auscltation, no use of acessory muscles, no crackles or wheezes. A&P Assessment and plan (1) Partial tear of right Achilles tendon: (2) Achilles tendonosis of right lower extremity: (3) Calcaneal bursitis, right: (4) Litzy's deformity of right heel: Plan Tests and Diagnostics: MRI indicates a partial tear and disease of the Achilles tendon in the right lower extremity. Assessment and Plan 54-year-old female with a history of obesity, presenting with a partial Achilles tendon tear in the right lower extremity. The MRI confirms tendon disease affecting approximately half of the tendon, creating a need for surgical intervention to transfer a supporting tendon to promote healing and strength. The condition causes significant pain and impacts her ability to wear certain types of shoes, worsening her general mobility and quality of life. She is likely to benefit from tendon transfer surgery to mitigate symptoms and improve functional outcome. 1. Partial Achilles Tendon Tear, Right Lower Extremity Discussed the option for surgical intervention, involving a tendon transfer from the big toe flexor to reinforce the Achilles tendon. The procedure aims to provide better support and healing capability, reducing the likelihood of future ruptures. Potential trade-offs include minor functional impact on big toe mobility. Surgery is contingent on maintaining the A1c level within operable range. Scheduled for surgery in August. 2. Obesity Addressed the need to manage weight to improve overall health outcomes and possibly reduce strain on the lower extremities. Advised on the importance of weight loss to decrease surgical risks and enhance recovery. - Maintain current A1c below 8.0 to remain eligible for surgery. - Consider lifestyle modifications to assist in weight loss, including dietary changes and increasing physical activity as tolerated. - Prepare for tendon transfer surgery scheduled for August. - Monitor for any worsening of pain or mobility issues and report these as needed. The primary focus is on addressing the partial Achilles tendon tear through surgical tendon transfer, deemed necessary given the MRI findings of tendon disease and significant symptomatology. The decision to proceed with this lino verdugo is guided by the necessity to restore function and prevent further damage. The risks of not intervening surgically and the potential benefits of improved stability weigh heavily in favor of surgery. The patient's motivation to decrease her risk by managing her weight and maintaining diabetes control is a supportive factor in the planned approach. The expected outcome of the surgery is enhanced functionality and pain reduction in the affected limb. I reviewed at length with the patient, the risks, potential complications, benefits, alternatives, expectations, and typical outcomes associated with the surgery. The risks and potential complications were explained in detail, including but not limited to infection, wound dehiscence or soft tissue complications, bleeding and hematoma, chronic edema, neuritis or nerve damage producing numbness or chronic pain, CRPS, failure to relieve pain or worsening pain, thick / painful / unsightly scar, limited motion / stiffness, malposition, delayed union, malunion, or nonunion, fracture, reaction to implants, anesthetic complications, venous thromboembolism, and deformity recurrence. I discussed the notion of no regrets with the patient as it pertains to complications and outcomes. The patient seemed to understand the nature of the proposed care and required convalescence. They asked appropriate questions, answered to their satisfaction. They are aware no guarantees can be made as to a satisfactory outcome and they understand there may be other possible unforeseen complications or outcomes not listed here that will be treated accordingly if they arise. There were no written or implied guarantees given to the patient. They gave informed consent to proceed. PDMP PDMP Reviewed: Last Reviewed 12/05/24 12:51 EDT by Ran Ward DPM Coding Level of Care Code Acute Code for [facility] Diagnoses Partial tear of right Achilles tendon, initial encounter S86.011A Encounter type: initial encounter Achilles tendonosis of right lower extremity M67.88 Calcaneal bursitis, right M77.51 Litzy's deformity of right heel M92.61
[2024-12-05] MEDS: gabapentin 300 mg Capsule PO (08:56)
[2024-12-05] MEDS: CELEcoxib 200 mg Capsule 400 MG PO (08:56)
[2024-12-05] MEDS: sodium chloride 0.9% 1,000 ML 30 ML IV (08:57)
[2024-12-05 09:00] LABS: Glucose Point of Care 137 mg/dL (70-110)
--- NOTE | 2024-12-05 09:54 | W.PM.OPSUD ---
Surgery/Procedure H&P Update DATE OF PROCEDURE: December 05, 2024 DATE H&P PERFORMED: 07/22/24 H&P UPDATE INFORMATION: I have reviewed H&P completed within last 30 days, I have examined patient prior to procedure, No changes to prior documentation and Risks and benefits of the procedure reviewed PREOP DIAGNOSIS: Achilles tear, Litzy's deformity, equinus PLANNED PROCEDURE: Operation Date: 12/05/24 09:50 Proposed Procedures p Achilles Tendon Repair(Right) - Ran Ward DPM s [place] Resection(Right) - Ran Ward DPM s Foot Flexor Hallucis Longus Tendon Transfer(Right) - Ran Ward DPM
--- NOTE | 2024-12-05 10:04 | ANES.PREANE2 ---
Pre-Anesthetic Assessment Height/Weight: Height 1.57 m Weight 149.232 kg Temp Pulse Resp BP Pulse Ox O2 Del Method 97.5 F L 67 18 156/86 98 Room Air 12/05/24 08:34 12/05/24 08:34 12/05/24 08:34 12/05/24 08:34 12/05/24 08:34 12/05/24 08:34 Preop Diagnosis: Achilles tear, Litzy's deformity, equinus Operation Date: 12/05/24 09:50 Proposed Procedures p Achilles Tendon Repair(Right) - Ran Ward DPM s [place] Resection(Right) - TANIA Phillips Foot Flexor Hallucis Longus Tendon Transfer(Right) - Ran Ward DPM Familial anesthetic complications: None Was Beta Rachael taken within 24 hours: N/A Was Clonidine taken within 24 hours: N/A Last intake: Intake Last Liquid Date 12/04/24 Last Liquid Time 21:00 Last Solid Date 12/04/24 Last Solid Time 21:00 Social No alcohol and No tobacco Exam alert, oriented x 3, clear to auscultation bilaterally and regular rate & rhythm Airway Mallampati: Class II Dentition: full Pulmonary Chronic Obstructive Pulmonary Disease and Sleep Apnea CV/HEM Hypertension Hepatic GARCIA GI Gastroesophageal Reflux Disease Metabolic Diabetes Mellitus, Hyperlipidemia, Morbid Obesity and Thyroid Disease Anesthetic Plan ASA status: 4 Anesthesia: General and Regional (specify below) Risk of > 500 ml blood loss (7ml/kg in children): No Medications/Allergies Home Medications ?Medication ?Instructions ?Recorded ?Confirmed ?Last Taken ?Type nitroglycerin 0.4 mg sublingual 0.4 mg sublingual Q5M PRN chest 05/12/21 12/04/24 Unknown Rx tablet pain 30 days #30 tabs cholecalciferol (vitamin D3) 25 25 mcg PO DAILY 30 days #30 caps 05/29/21 12/04/24 12/03/24 Rx mcg (1,000 unit) capsule nebulizer #1 ea 06/10/21 11/12/24 Unknown Rx MARIJUNIA 1 gummy PO PRN PRN Pain 03/01/22 12/04/24 02/10/24 History 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,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,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 #1 ea 05/24/22 11/12/24 Unknown Rx (Dexcom G6 Aquatics Coordinator) Diabetic shoes with 3 sets of #2 ea 02/28/23 05/14/25 Unknown Rx inserts nystatin 100,000 unit/gram topical See Rx Instructions .Route 12/12/23 12/04/24 03/24/24 Rx powder (Nystop) .COMPLEX #60 grams walking boot for right leg #1 ea 02/01/24 11/12/24 Unknown Rx pen needle, diabetic 32 gauge x #400 ea 05/05/24 11/12/24 Unknown Rx (TechLITE Pen Needle) aspirin 81 mg tablet,delayed 81 mg PO QPM 08/16/24 12/04/24 12/03/24 History release ondansetron 4 mg disintegrating 4 mg PO Q6H PRN nausea and 08/16/24 12/04/24 Unknown Rx tablet vomiting #14 tabs pantoprazole 40 mg tablet,delayed 40 mg PO BID PRN Acid Reflux 08/16/24 12/04/24 08/16/24 History release losartan 25 mg tablet 25 mg PO DAILY #90 tabs 09/09/24 12/04/24 12/03/24 Rx potassium chloride 8 mEq 8 meq PO .qod #90 tabs 09/09/24 12/04/24 12/03/24 Rx tablet,extended release 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 sensor (Dexcom G6 #6 ea 10/09/24 11/12/24 Unknown Rx Sensor device) albuterol sulfate 90 mcg/actuation See Rx Instructions .Route 10/24/24 12/04/24 12/04/24 Rx aerosol inhaler (Ventolin HFA) .COMPLEX #18 grams 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 transmitter (Dexcom #1 ea 10/24/24 11/12/24 Unknown Rx G6 Transmitter device) auto-titrating cpap 6-10cm #1 ea 10/28/24 11/12/24 Unknown Rx cyclobenzaprine 10 mg tablet 10 mg PO TID PRN muscle spasm #90 10/29/24 12/04/24 12/03/24 Rx tabs tirzepatide (weight loss) 10 See Rx Instructions .Route 11/10/24 12/04/24 11/21/24 Rx mg/0.5 mL subcutaneous pen .COMPLEX #2 mL injector (Zepbound) fluticasone 500 mcg-salmeterol 50 See Rx Instructions .Route 11/11/24 12/04/2412/04/25 Rx mcg/dose blistr powdr for .COMPLEX #60 ea inhalation (Advair Diskus) insulin lispro 100 unit/mL See Rx Instructions .Route 11/11/24 12/04/24 12/04/24 Rx subcutaneous pen .COMPLEX #15 mL Synthroid 50 mcg tablet 50 mcg PO DAILY 1 month #30 tabs 11/12/24 12/04/24 12/03/24 Rx (levothyroxine) tirzepatide 12.5 mg/0.5 mL 12.5 mg (0.5 mL) SUBCUT Q7D 1 11/12/24 12/04/24 Unknown Rx subcutaneous pen injector month #2.5 mL (Mounjaro) bupropion HCl 150 mg 24 hr tablet, 150 mg PO DAILY 12/04/24 12/04/24 12/04/24 History extended release buspirone 5 mg tablet 5 mg PO TID PRN Anxiety 12/04/24 12/04/24 Unknown History fluoxetine 40 mg capsule 40 mg PO BID 12/04/24 12/04/24 12/04/24 History insulin glargine 100 unit/mL (3 50 unit SUBCUT BID 12/04/24 12/04/24 12/04/24 History mL) subcutaneous pen (Lantus Solostar U-100 Insulin) levothyroxine 200 mcg tablet 200 mcg PO BID 12/04/24 12/04/24 12/04/24 History (Synthroid) liothyronine 5 mcg tablet 2.5 mcg PO BID 12/04/24 12/04/24 12/04/24 History metoprolol tartrate 25 mg tablet 25 mg PO BID 12/04/24 12/04/24 12/04/24 History rosuvastatin 20 mg tablet 20 mg PO DAILY 12/04/24 12/04/24 12/03/24 History topiramate 50 mg tablet (Topamax) 50 mg PO DAILY 12/04/24 12/04/24 12/03/24 History ipratropium 0.5 mg-albuterol 3 mg See Rx Instructions .Route 12/05/24 Unknown Rx (2.5 mg base)/3 mL nebulization .COMPLEX #180 mL soln Allergies Allergy/AdvReac Type Severity Reaction Status Date / Time Penicillins Allergy Unknown Verified 12/04/24 12:18 Sulfa (Sulfonamide Allergy ALGY-Rash Verified 12/04/24 12:18 Antibiotics) ibuprofen AdvReac Intermediate nose bleeds Verified 12/04/24 12:18 SYNTHETHIC INSULIN Allergy ALGY-Rash Uncoded 12/04/24 12:18 Current Medications Generic Name Dose Route Start Last Admin Trade Name Trayq PRN Reason Stop Dose Admin Sodium Chloride 1,000 mls @ 30 mls/hr 12/05/24 08:15 12/05/24 08:57 Sodium Chloride 0.9% IV 12/06/24 08:14 30 mls/hr .Q24H BRITTANIE Administration PFSH Anesthesia Medical History Anxiety and depression Lumbago Acute cystitis Allergic rhinitis Morbid obesity Intertrigo Lower back pain YANA (generalized anxiety disorder) Morbid obesity with BMI of 60.0-69.9, adult Atypical chest pain Dysphagia Fibromyalgia Migraine Endometriosis Tortuous colon Tremor Tubular adenoma of colon CAD (coronary artery disease) Dyslipidemia GARCIA (nonalcoholic steatohepatitis) ASHD (arteriosclerotic heart disease) Diabetic polyneuropathy Migraine without aura and without status migrainosus, not intractable Type 2 diabetes mellitus with both eyes affected by moderate nonproliferative retinopathy without macular edema, with long-term current use of insulin Benign essential HTN Cataract, right eye Colon polyps DALLAS (obstructive sleep apnea) Acquired hypothyroidism Anxiety Depression COPD (chronic obstructive pulmonary disease) Surgical History Hx laparoscopic cholecystectomy 03/25/24 Dr Sebastian Hx of release of tendon R. hand Hx of tubal ligation History of colonoscopy with polypectomy (04/01/21) sigmoid polyp History of coronary artery stent placement History of hand surgery Bilateral carpal tunnel History of total hysterectomy Family History Father Heart attack CAD (coronary artery disease) Hypertension Mother Cancer CAD (coronary artery disease) Lung disease Diabetes Hyperlipidemia Hypertension Sister CAD (coronary artery disease), Onset Age: 21 [place] at 21 Heart attack Brother CAD (coronary artery disease), Onset Age: 30 Diabetes Hyperlipidemia Hypertension Grandmother CAD (coronary artery disease) Diabetes Grandfather CAD (coronary artery disease) Grandmother CAD (coronary artery disease) Stroke Grandfather CAD (coronary artery disease) Lung disease Family/Other Cancer Diabetes Stroke Rheumatoid arthritis Denies family history of Lupus Clotting disorder Dementia Chronic kidney disease (CKD) Suicide Anesthesia complication Bleeding disorder Social History Smoking and tobacco/nicotine status: former use of tobacco/nicotine (quit 4 years ago.) Quit status (tobacco/nicotine): has quit using Year quit tobacco: 4 years ago Second hand smoke exposure: No Alcohol intake: never Substance/Drug Use: current Substance/Drug use frequency: few times a month Adopted: No Caregiver/support person: No Lives independently: Yes Household members: spouse Housing: House Marital status: Number of children: 2 Highest education level completed: GED or Equivalent service: No Current occupational status: disabled Sexually active: No Do you think of yourself as: Straight/Heterosexual Current gender identity: Female Agree to transfusion: Yes Data Anesthesia Cardiac Studies: Sestamibi Stress Test (Cardiology) 07/04/21 Anesthesia Procedures Nerve Block Nerve Block 1: Main Anesthesia: general anesthesia Time Out Performed: Yes Consent: requested by attending/covering physician, from patient, from other, risks and benefits reviewed and patient agrees to proceed Nerve block location: popliteal (R) Anesthesia monitors applied: pulse oximetry, EKG, BP cuff and oxygen Nerve block position: supine Anesthetic Used: ropivicaine 0.5% (30 ml) and with decadron (4 mg) Ultrasound used to: recognize landmarks Nerve Stimulator Used?: No Interscalene/Femoral BLK: 4 stimuplex 21 g needle used for position and inplane approach, visualize local anesthetic spread and no vascular puncture identified Injection: neg aspiration of heme Patient Tolerated Procedure: well Complications: none
--- NOTE | 2024-12-05 10:06 | SUR.PREOP ---
09:50 TIME OUT COMPLETED. RIGHT POPLATEAL NERVE BLOCK PERFORMED BY DOCTOR Zafar USING 30ml OF ROPIVACAINE 0.5% WITH 4mg OF DECADRON. PT ON SPORTS INSTRUCTOR. TOLERATED PROCEDURE WELL.
[2024-12-05] MEDS: clindamycin 900 MG/50 ML PREMIX 100 MG IV (10:16)
[2024-12-05] MEDS: tranexamic acid 1,000 MG/100 ML PREMIX 600 MG IV (10:50)
--- NOTE | 2024-12-05 11:54 | PM.OP ---
Operative Report Date of procedure: December 05, 2024 Surgeon: Ran Ward DPM Public [employer] Account Executive: Eloy Mclean Amy Estimated blood loss: 2 43
--- NOTE | 2024-12-05 11:55 | P.BOP_ITS ---
Date of Procedure: 09/14/23 Surgeon: Ran Ward DPM Insulation Helper(s): Eloy Wagner Emily Procedure(s) performed: Right Litzy's resection, right Achilles repair. Findings of the procedure(s): Right Litzy's, right retrocalcaneal bursitis and right Achilles tendinosis. 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
--- NOTE | 2024-12-05 12:05 | PM.OP ---
Operative Report Brief History: - Tests and Diagnostics: MRI indicates a partial tear and disease of the Achilles tendon in the right lower extremity. Assessment and Plan 54-year-old female with a history of obesity, presenting with a partial Achilles tendon tear in the right lower extremity. The MRI confirms tendon disease affecting approximately half of the tendon, creating a need for surgical intervention to transfer a supporting tendon to promote healing and strength. The condition causes significant pain and impacts her ability to wear certain types of shoes, worsening her general mobility and quality of life. She is likely to benefit from tendon transfer surgery to mitigate symptoms and improve functional outcome. 1. Partial Achilles Tendon Tear, Right Lower Extremity Discussed the option for surgical intervention, involving a tendon transfer from the big toe flexor to reinforce the Achilles tendon. The procedure aims to provide better support and healing capability, reducing the likelihood of future ruptures. Potential trade-offs include minor functional impact on big toe mobility. Surgery is contingent on maintaining the A1c level within operable range. Scheduled for surgery in August. 2. Obesity Addressed the need to manage weight to improve overall health outcomes and possibly reduce strain on the lower extremities. Advised on the importance of weight loss to decrease surgical risks and enhance recovery. - Maintain current A1c below 8.0 to remain eligible for surgery. - Consider lifestyle modifications to assist in weight loss, including dietary changes and increasing physical activity as tolerated. - Prepare for tendon transfer surgery scheduled for August. - Monitor for any worsening of pain or mobility issues and report these as needed. The primary focus is on addressing the partial Achilles tendon tear through surgical tendon transfer, deemed necessary given the MRI findings of tendon disease and significant symptomatology. The decision to proceed with this approach is guided by the necessity to restore function and prevent further damage. The risks of not intervening surgically and the potential benefits of improved stability weigh heavily in favor of surgery. The patient's motivation to decrease her risk by managing her weight and maintaining diabetes control is a supportive factor in the planned approach. The expected outcome of the surgery is enhanced functionality and pain reduction in the affected limb. I reviewed at length with the patient, the risks, potential complications, benefits, alternatives, expectations, and typical outcomes associated with the surgery. The risks and potential complications were explained in detail, including but not limited to infection, wound dehiscence or soft tissue complications, bleeding and hematoma, chronic edema, neuritis or nerve damage producing numbness or chronic pain, CRPS, failure to relieve pain or worsening pain, thick / painful / unsightly scar, limited motion / stiffness, malposition, delayed union, malunion, or nonunion, fracture, reaction to implants, anesthetic complications, venous thromboembolism, and deformity recurrence. I discussed the notion of no regrets with the patient as it pertains to complications and outcomes. The patient seemed to understand the nature of the proposed care and required convalescence. They asked appropriate questions, answered to their satisfaction. They are aware no guarantees can be made as to a satisfactory outcome and they understand there may be other possible unforeseen complications or outcomes not listed here that will be treated accordingly if they arise. There were no written or implied guarantees given to the patient. They gave informed consent to proceed. 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 CPT code 52688 2) right Litzy's resection. CPT code 74732 Implants: Arthrex Achilles speed bridge with ripstop, 3-0 Vicryl, 4-0 Vicryl, 4-0 nylon Specimens removed/disposition: None Pathology: None Surgeon: Ran Ward DPM Cnc Machinist 2Nd Shift: Eloy Mclean Amy Estimated blood loss: 2 Tourniquet time: 43 minutes IV fluids: see intraoperative documentation Urine output: None Complications: None Procedure: Anesthesia and Positioning: After obtaining informed consent, the patient was taken to the operating room and placed under general anesthesia with preoperative right popliteal block per anesthesia. The patient was positioned prone on the operating table with appropriate padding under the bony prominences. 2. Preparation and Drape: The right lower extremity was prepped and draped in the usual sterile fashion, ensuring that the operative site was adequately exposed. 3. Incision: A curvilinear incision was made medial to the midline over the Achilles tendon, extending from the level of the superior aspect of the calcaneal tuberosity proximally towards the mid-calf. 4. Exposure: The subcutaneous tissue was carefully dissected to expose the Achilles tendon and the underlying Litzy's deformity. Care was taken to protect the sural nerve and lesser saphenous vein. 5. Litzy's Resection: The prominent bony exostosis (Litzy's deformity) was identified. Using an osteotome and a rongeur, the exostosis was carefully resected, and the area was smoothed with a bone rasp. 6. Achilles Tendon Repair: Inspection of the Achilles tendon revealed mid substance tearing and mucoid degeneration with thickening and disorganized collagen fibers that were sharply debrided. The degenerated portion of the tendon was debrided back to healthy tissue. The Achilles tendon was then repaired using the Achilles SpeedBridge technique. This involved placing suture anchors at the calcaneal insertion of the Achilles tendon, passing FiberWire sutures through the tendon, and securing the tendon back to its anatomical position with a knotless bridging construct to allow for optimal tensioning and footprint coverage. 7. Closure: The wound was irrigated with sterile saline. The subcutaneous tissue and skin were then closed in layers using absorbable sutures for the subcutaneous layer and 4-0 nylon for the skin closure. A sterile dressing was applied. 8. Postoperative Care: The patient's leg was placed in a multilayer compressive posterior splint in equinus position to immobilize the ankle and allow for tendon healing. Tourniquet was deflated and a prompt hyperemic response is noted to the distal digits of the right foot. Patient tolerated procedure and anesthesia well and was transferred to the PACU with vital signs stable and vascular status intact. Following a period of postoperative monitoring should be discharged home without home care instructions and scheduled follow-up.
[2024-12-05 12:20] LABS: Glucose Point of Care 148 mg/dL (70-110)
--- NOTE | 2024-12-05 13:45 | ANE.PACU2 ---
Inpatient post-anesthesia follow up: Airway intact: Yes Vital signs: Temperature 97.9 F Pulse Rate 68 Respiratory Rate 18 Blood Pressure 117/73 Pulse Oximetry 97 Oxygen Delivery Me thod Room Air Oxygen Flow Rate 6 Fraction of Inspir ed Oxygen Hydration adequate: Yes Nausea and vomiting: No Pain level: 1 Mental status: Baseline
== END 2024-12-05 13:47 | disposition home or self-care (01) ==
PROVIDERS: PCP Nurse Practitioner Family; Visit Provider Podiatrist Foot & Ankle Surgery
PROC: (CPT 27650; principal; 2024-12-05 09:40)
PROC: (CPT 27654; 2024-12-05 09:40)
PROC: (CPT 27654; 2024-12-05 09:40)
DX: S86.011A Strain of right Achilles tendon, initial encounter (principal); M77.51 Other enthesopathy of right foot and ankle; M92.61 Juvenile osteochondrosis of tarsus, right ankle; M67.88 Other specified disorders of synovium and tendon, other site; G47.33 Obstructive sleep apnea (adult) (pediatric); I25.10 Atherosclerotic heart disease of native coronary artery without angina pectoris; E78.5 Hyperlipidemia, unspecified; E11.42 Type 2 diabetes mellitus with diabetic polyneuropathy; I10 Essential (primary) hypertension; E03.9 Hypothyroidism, unspecified; J44.9 Chronic obstructive pulmonary disease, unspecified; Z95.5 Presence of coronary angioplasty implant and graft; Z87.891 Personal history of nicotine dependence; E66.01 Morbid (severe) obesity due to excess calories; Z68.44 Body mass index [BMI] 60.0-69.9, adult; Z88.2 Allergy status to sulfonamides; Z88.8 Allergy status to other drugs, medicaments and biological substances; Z79.899 Other long term (current) drug therapy; Z79.82 Long term (current) use of aspirin; Z79.890 Hormone replacement therapy; Z79.4 Long term (current) use of insulin; Z79.85 Long-term (current) use of injectable non-insulin antidiabetic drugs; X58.XXXA Exposure to other specified factors, initial encounter
CPT/HCPCS: 27654; 28118; 36416; 82962; C1713; J0131; J0330; J1100; J2405; J2704; J2795; J3010; J3490; J7030; J9999

== ENCOUNTER → 2024-12-18 13:01 | Outpatient (BNVA) | payer MEDICAID, SELFPAY | PROVIDERS: PCP Nurse Practitioner Family; Visit Provider Internal Medicine Cardiovascular Disease | DX: I25.10 Atherosclerotic heart disease of native coronary artery without angina pectoris (principal); I10 Essential (primary) hypertension; E11.3393 Type 2 diabetes mellitus with moderate nonproliferative diabetic retinopathy without macular edema, bilateral; Z79.4 Long term (current) use of insulin; G47.33 Obstructive sleep apnea (adult) (pediatric); G47.34 Idiopathic sleep related nonobstructive alveolar hypoventilation; E78.2 Mixed hyperlipidemia; Z79.82 Long term (current) use of aspirin; Z95.5 Presence of coronary angioplasty implant and graft; Z87.891 Personal history of nicotine dependence | CPT/HCPCS: 99214 ==

== ENCOUNTER → 2025-01-01 13:00 | Outpatient (BNVA) | payer MEDICAID, SELFPAY | PROVIDERS: PCP Nurse Practitioner Family; Visit Provider Podiatrist Foot & Ankle Surgery | DX: Z98.890 Other specified postprocedural states (principal) | CPT/HCPCS: 99024 ==

== ENCOUNTER → 2025-01-15 12:26 | Outpatient (BNVA) | payer MEDICAID, SELFPAY | PROVIDERS: PCP Nurse Practitioner Family; Visit Provider Podiatrist Foot & Ankle Surgery | DX: Z98.890 Other specified postprocedural states (principal) | CPT/HCPCS: 99024 ==

== ENCOUNTER 2025-02-10 11:34 | Outpatient (CLI) | payer MEDICAID, SELFPAY ==
[2025-02-10 13:19] LABS: Free T4 Free Thyroxine 1.62 ng/dL (0.82-1.77); Thyroid Stimulating Hormone 0.01 uIU/mL (0.27-4.20)
== END 2025-02-10 11:35 | disposition home or self-care (01) ==
LOC: LAB 11:35
PROVIDERS: PCP Nurse Practitioner Family; Visit Provider Internal Medicine
DX: E78.2 Mixed hyperlipidemia (principal); K76.0 Fatty (change of) liver, not elsewhere classified; E11.59 Type 2 diabetes mellitus with other circulatory complications; R63.5 Abnormal weight gain; E11.42 Type 2 diabetes mellitus with diabetic polyneuropathy; E11.3393 Type 2 diabetes mellitus with moderate nonproliferative diabetic retinopathy without macular edema, bilateral; Z79.4 Long term (current) use of insulin; E03.9 Hypothyroidism, unspecified
CPT/HCPCS: 36415; 84439; 84443

== ENCOUNTER → 2025-02-16 10:55 | Outpatient (BNVA) | payer MEDICAID, SELFPAY | PROVIDERS: PCP Nurse Practitioner Family; Visit Provider Podiatrist Foot & Ankle Surgery | DX: T81.41XA Infection following a procedure, superficial incisional surgical site, initial encounter (principal); L03.115 Cellulitis of right lower limb; Y83.8 Other surgical procedures as the cause of abnormal reaction of the patient, or of later complication, without mention of misadventure at the time of the procedure; Z79.4 Long term (current) use of insulin | CPT/HCPCS: 99214 ==

== ENCOUNTER → 2025-02-24 07:35 | Outpatient (BNVA) | payer MEDICAID, SELFPAY | PROVIDERS: PCP Nurse Practitioner Family; Visit Provider Podiatrist Foot & Ankle Surgery | DX: M25.571 Pain in right ankle and joints of right foot (principal); L03.115 Cellulitis of right lower limb; Z98.890 Other specified postprocedural states; T81.41XA Infection following a procedure, superficial incisional surgical site, initial encounter; G57.91 Unspecified mononeuropathy of right lower limb; Y83.8 Other surgical procedures as the cause of abnormal reaction of the patient, or of later complication, without mention of misadventure at the time of the procedure | CPT/HCPCS: 73610; 99213 ==

== ENCOUNTER → 2025-02-26 10:31 | Outpatient (BNVA) | payer MEDICAID, SELFPAY | PROVIDERS: PCP Nurse Practitioner Family; Visit Provider Internal Medicine | DX: E11.65 Type 2 diabetes mellitus with hyperglycemia (principal); Z79.4 Long term (current) use of insulin; E03.9 Hypothyroidism, unspecified; E11.59 Type 2 diabetes mellitus with other circulatory complications; E11.42 Type 2 diabetes mellitus with diabetic polyneuropathy; E11.3393 Type 2 diabetes mellitus with moderate nonproliferative diabetic retinopathy without macular edema, bilateral; E66.01 Morbid (severe) obesity due to excess calories; K76.0 Fatty (change of) liver, not elsewhere classified; E78.2 Mixed hyperlipidemia | CPT/HCPCS: 99214 ==

== ENCOUNTER → 2025-03-10 07:40 | Outpatient (BNVA) | payer MEDICAID, SELFPAY | PROVIDERS: PCP Nurse Practitioner Family; Visit Provider Podiatrist Foot & Ankle Surgery | DX: T81.41XA Infection following a procedure, superficial incisional surgical site, initial encounter (principal); L03.115 Cellulitis of right lower limb; Z98.890 Other specified postprocedural states; M25.571 Pain in right ankle and joints of right foot; G57.91 Unspecified mononeuropathy of right lower limb; Y83.8 Other surgical procedures as the cause of abnormal reaction of the patient, or of later complication, without mention of misadventure at the time of the procedure | CPT/HCPCS: 99024 ==

== ENCOUNTER 2025-03-31 12:30 | Oncology outpatient (recurring) (ONCR) | payer MEDICAID, SELFPAY ==
[2025-03-17] MEDS: levothyroxine 200 mcg/5 mL SDV 500 MCG IVP (10:54)
[2025-03-17 11:04] VITALS: BP 125/64; PULSE 73
[2025-03-24] MEDS: levothyroxine 200 mcg/5 mL SDV 500 MCG IVP (13:17)
[2025-03-24 13:20] VITALS: BP 124/68; PULSE 84; RESP 18; TEMP 36.1; O2SAT 97
[2025-03-31] MEDS: levothyroxine 200 mcg/5 mL SDV 500 MCG IVP (12:45)
== END 2025-03-31 23:59 | disposition home or self-care (01) ==
PROVIDERS: PCP Nurse Practitioner Family; Visit Provider Internal Medicine
DX: E03.9 Hypothyroidism, unspecified; Z79.899 Other long term (current) drug therapy; Z53.9 Procedure and treatment not carried out, unspecified reason
CPT/HCPCS: 96374; J0651

== ENCOUNTER 2025-04-28 11:58 | Oncology outpatient (recurring) (ONCR) | payer MEDICAID, SELFPAY ==
[2025-04-07] MEDS: levothyroxine 200 mcg/5 mL SDV 500 MCG IVP (12:38)
[2025-04-07 12:51] VITALS: BP 120/68; PULSE 70; RESP 16; TEMP 36.6; O2SAT 96
[2025-04-14] MEDS: levothyroxine 200 mcg/5 mL SDV 500 MCG IVP (12:46)
[2025-04-14 12:53] VITALS: BP 130/75; PULSE 77; RESP 16; TEMP 36.4; O2SAT 97
[2025-04-21] MEDS: levothyroxine 100 mcg/mL SDV 500 MCG IVP (12:32)
[2025-04-21 12:41] VITALS: BP 114/64; PULSE 68; RESP 17; TEMP 36.7; O2SAT 98
[2025-04-28] MEDS: levothyroxine 100 mcg/mL SDV 500 MCG IVP (13:10)
== END 2025-05-01 23:59 | disposition home or self-care (01) ==
PROVIDERS: PCP Nurse Practitioner Family; Visit Provider Internal Medicine
DX: E03.8 Other specified hypothyroidism (principal); Z79.899 Other long term (current) drug therapy
CPT/HCPCS: 96374; J0651; J9999

== ENCOUNTER → 2025-04-29 08:36 | Outpatient (BNVA) | payer MEDICAID, SELFPAY | PROVIDERS: PCP Nurse Practitioner Family; Visit Provider Nurse Practitioner Family | DX: M51.362 Other intervertebral disc degeneration, lumbar region with discogenic back pain and lower extremity pain (principal); M25.559 Pain in unspecified hip; G89.29 Other chronic pain | CPT/HCPCS: 99214 ==

== ENCOUNTER → 2025-05-07 09:23 | Outpatient (BNVA) | payer MEDICAID, SELFPAY | PROVIDERS: PCP Nurse Practitioner Family; Visit Provider Family Medicine | DX: E11.65 Type 2 diabetes mellitus with hyperglycemia (principal); E03.9 Hypothyroidism, unspecified; Z79.4 Long term (current) use of insulin | CPT/HCPCS: 80053; 80061; 81003; 83036; 84439; 84443 ==

== ENCOUNTER 2025-05-18 10:11 | Outpatient (CLI) | payer MEDICAID, SELFPAY ==
--- NOTE | 2025-05-18 10:15 | MM_ITS ---
WS: [id number] BILATERAL SCREENING DIGITAL TOMOSYNTHESIS MAMMOGRAM WITH CAD HISTORY: SCREENING MAMMOGRAM COMPARISON: 09/26/2021 Bilateral CC and MLO views with tomosynthesis and synthetic mammography submitted. Computer aided detection analyzed. Breast composition: There are scattered areas of fibroglandular density. No suspicious masses, microcalcifications or architectural distortion. Benign calcifications. MM/MM scr BI tomosynthesis [id number] IMPRESSION: BI-RADS: 2 - Benign. FOLLOW UP: 1 Year Follow-up
== END 2025-05-18 10:12 | disposition home or self-care (01) ==
LOC: RAD 10:12
PROVIDERS: PCP Nurse Practitioner Family; Visit Provider Nurse Practitioner Family
DX: Z12.31 Encounter for screening mammogram for malignant neoplasm of breast (principal); R92.323 Mammographic fibroglandular density, bilateral breasts
CPT/HCPCS: 77063; 77067

== ENCOUNTER 2025-05-26 12:00 | Oncology outpatient (recurring) (ONCR) | payer MEDICAID, SELFPAY ==
[2025-05-05] MEDS: levothyroxine 100 mcg/mL SDV 500 MCG IVP (13:01)
[2025-05-12] MEDS: levothyroxine 100 mcg/mL SDV 500 MCG IVP (12:42)
[2025-05-12 12:50] VITALS: BP 127/87; PULSE 71; RESP 17; TEMP 36.4; O2SAT 97
[2025-05-19] MEDS: levothyroxine 100 mcg/mL SDV 500 MCG IVP (11:52)
[2025-05-26] MEDS: levothyroxine 100 mcg/mL SDV 500 MCG IVP (11:57)
[2025-05-26 12:07] VITALS: BP 154/81; PULSE 75
== END 2025-05-31 23:59 | disposition home or self-care (01) ==
PROVIDERS: PCP Nurse Practitioner Family; Visit Provider Internal Medicine
DX: Z53.9 Procedure and treatment not carried out, unspecified reason (principal); E03.8 Other specified hypothyroidism; Z79.899 Other long term (current) drug therapy
CPT/HCPCS: 96374; J9999

== ENCOUNTER → 2025-06-18 09:45 | Outpatient (BNVA) | payer MEDICAID, SELFPAY | PROVIDERS: PCP Nurse Practitioner Family; Visit Provider Nurse Practitioner Family | DX: I25.10 Atherosclerotic heart disease of native coronary artery without angina pectoris (principal); I10 Essential (primary) hypertension; E78.2 Mixed hyperlipidemia; E11.9 Type 2 diabetes mellitus without complications; Z79.4 Long term (current) use of insulin; E03.9 Hypothyroidism, unspecified; Z95.5 Presence of coronary angioplasty implant and graft; Z87.891 Personal history of nicotine dependence; I49.8 Other specified cardiac arrhythmias; R94.31 Abnormal electrocardiogram [ECG] [EKG] | CPT/HCPCS: 93005; 99214 ==

== ENCOUNTER 2025-06-30 13:30 | Oncology outpatient (recurring) (ONCR) | payer MEDICAID, SELFPAY ==
[2025-06-02 12:52] VITALS: BP 115/73; PULSE 72; RESP 17; TEMP 36.4; O2SAT 97
[2025-06-02] MEDS: levothyroxine 100 mcg/mL SDV 500 MCG IVP (13:19)
[2025-06-09] MEDS: levothyroxine 100 mcg/mL SDV 500 MCG IVP (13:42)
[2025-06-09 13:50] VITALS: BP 133/73; PULSE 70; RESP 16; TEMP 36.4; O2SAT 96
[2025-06-16] MEDS: levothyroxine 200 mcg/5 mL SDV 500 MCG IVP (12:05)
[2025-06-16 12:12] VITALS: BP 142/84; PULSE 88; TEMP 36.7; O2SAT 98
[2025-06-23 11:20] VITALS: BP 128/68; PULSE 88
[2025-06-23] MEDS: levothyroxine 200 mcg/5 mL SDV 500 MCG IVP (11:21)
[2025-06-30 13:58] LABS: Estmated Average Glucose 146; Hemoglobin A1C 6.7 % (4.0-6.0)
[2025-06-30] MEDS: levothyroxine 200 mcg/5 mL SDV 500 MCG IVP (13:59)
[2025-06-30 14:15] VITALS: BP 111/64; PULSE 83; RESP 17; TEMP 36.4; O2SAT 96
[2025-06-30 14:16] LABS: Alanine Aminotransferase 50 U/L (0-33); Albumin Level 3.6 g/dL (3.5-5.2); Alkaline Phosphatase 109 U/L (35-105); Anion Gap 16.2 (5-19); Aspartate Amino Transferase 102 U/L (0-32); Blood Urea Nitrogen 12 mg/dL (6-20); Calcium 8.7 mg/dL (8.5-10.5); Carbon Dioxide 20 mmol/L (22-29); Chloride 104 mmol/L (98-107); Cholesterol 105 mg/dL (0-200); Globulin 3.9 g/dL (1.3-4.6); Glucose 136 mg/dL (65-115); HDL Cholesterol 34 mg/dL (60-100); Osmolality Calculated 284 mOsm/kg (285-295); Potassium 4.2 mmol/L (3.5-5.1); Sodium 136 mmol/L (136-145); Thyroid Stimulating Hormone 1.57 uIU/mL (0.27-4.20); Total Protein 7.5 g/dL (6.6-8.7); Triglycerides 117 mg/dL (0-150)
[2025-06-30 14:50] LABS: Free T4 Free Thyroxine 0.71 ng/dL (0.82-1.77)
== END 2025-07-01 23:59 | disposition home or self-care (01) ==
PROVIDERS: PCP Nurse Practitioner Family; Visit Provider Internal Medicine
DX: E03.8 Other specified hypothyroidism; Z79.899 Other long term (current) drug therapy; E11.65 Type 2 diabetes mellitus with hyperglycemia; Z79.4 Long term (current) use of insulin; Z53.9 Procedure and treatment not carried out, unspecified reason
CPT/HCPCS: 80053; 80061; 83036; 84439; 84443; 96365; 96374; J0651; J9999

== ENCOUNTER → 2025-07-01 09:12 | Outpatient (BNVA) | payer MEDICAID, SELFPAY | PROVIDERS: PCP Nurse Practitioner Family; Visit Provider Internal Medicine Endocrinology, Diabetes & Metabolism | DX: E06.3 Autoimmune thyroiditis (principal); E03.9 Hypothyroidism, unspecified; E11.59 Type 2 diabetes mellitus with other circulatory complications; E11.42 Type 2 diabetes mellitus with diabetic polyneuropathy; E11.3393 Type 2 diabetes mellitus with moderate nonproliferative diabetic retinopathy without macular edema, bilateral; Z79.4 Long term (current) use of insulin; E66.01 Morbid (severe) obesity due to excess calories; K76.0 Fatty (change of) liver, not elsewhere classified; E78.2 Mixed hyperlipidemia | CPT/HCPCS: 99213 ==